=== PATIENT | female | born 1940 | race Caucasian/White ===

== ENCOUNTER 2017-05-13 09:53 | Emergency (ER) | payer MEDICARE, OTHER ==
[~2017-05-13] VITALS: Ht 160 cm; Wt 74.8 kg
[~2017-05-13 09:53] MED LIST: ASPIRIN EC81 MG PO; FISH OIL 1,0001 EAC2 NG; HYDROCHLOROTHIA25 MG PO; L-ARGININE1000 MG PO; LOSARTAN POTASS25 MG PO; MULTIVITAMINS1 EAC7 PO; TYLENOL EXTRA500 MG PO; VITAMIN C500 M1 PO; ZINC50 M1 PO
[2017-05-13] MEDS ORDERED: SIMVASTATIN10 MG PO (10:06)
[2017-05-13] MEDS ORDERED: PEPCID20 MG PO (12:19)
[2017-05-13] MEDS ORDERED: ZOFRAN ODT4 MG PO (12:19)
[2017-05-14] MEDS ORDERED: ALEVE PM CAPLE1 EACH PO (18:43)
[2017-05-28] MEDS ORDERED: CILOSTAZOL50 MG PO (14:09)
[2017-06-03] MEDS ORDERED: CARAFATE1 GM PO (09:07)
== END 2017-05-13 12:46 | disposition home or self-care (01) ==
LOC: ED 09:53
DX: K29.70 Gastritis, unspecified, without bleeding (principal); I10 Essential (primary) hypertension; J44.9 Chronic obstructive pulmonary disease, unspecified; F17.200 Nicotine dependence, unspecified, uncomplicated; Z88.8 Allergy status to other drugs, medicaments and biological substances; Z79.899 Other long term (current) drug therapy; Z85.038 Personal history of other malignant neoplasm of large intestine
CPT/HCPCS: 74177; 80053; 82271; 85025; 85610; 85730; 86850; 86900; 86901; 96374; 96375; 99284; J2405; J7120; Q9967

== ENCOUNTER 2017-05-14 08:22 | Inpatient (IN) | payer MEDICARE, OTHER ==
[~2017-05-14] VITALS: Ht 160 cm; Wt 76.4 kg
[~2017-05-14 08:22] MED LIST changes: +PEPCID20 MG PO; +SIMVASTATIN10 MG PO; +ZOFRAN ODT4 MG PO
--- NOTE | 2017-05-14 13:08 | EKG ---
[facility] [address] [place] [address] Signed Sinus rhythm with premature atrial complexes Rightward axis Nonspecific ST and T wave abnormality Abnormal ECG No previous ECGs available Confirmed by ELIZABETH COLON MD ([id number]) on 05/14/2017 1:08:40 PM Electronically Signed By: ELIZABETH COLON MD 05/14/17 1308 PATIENT NAME: IRINA ARNOLD Electrocardiogram DATE OF : 42 PHYSICIAN: ELIZABETH COLON MD REPORT #: [id number] REPORT IS CONFIDENTIAL AND NOT TO BE RELEASED WITHOUT AUTHORIZATION
[2017-05-14] MEDS ORDERED: ALEVE PM CAPLE1 EACH PO (18:43)
[2017-05-17] MEDS ORDERED: AMOX TR-K CLV1 EAC1 PO (12:35)
[2017-05-17] MEDS ORDERED: OMEPRAZOLE20 M1 PO (12:36)
[2017-05-17] MEDS ORDERED: SUCRALFATE1 GM PO (12:38)
[2017-05-28] MEDS ORDERED: CILOSTAZOL50 MG PO (14:09)
[2017-06-03] MEDS ORDERED: CARAFATE1 GM PO (09:07)
== END 2017-05-17 15:20 | disposition home or self-care (01) | DRG 177 ==
LOC: ED 08:22 → CCU 11:49 → MS 05-15 12:49
PROVIDERS: ADMIT Internal Medicine
DX: J69.0 Pneumonitis due to inhalation of food and vomit (principal); K29.01 Acute gastritis with bleeding; G93.41 Metabolic encephalopathy; J96.01 Acute respiratory failure with hypoxia; N17.9 Acute kidney failure, unspecified; L03.116 Cellulitis of left lower limb; I24.8 Other forms of acute ischemic heart disease; J13 Pneumonia due to Streptococcus pneumoniae; I10 Essential (primary) hypertension; E78.5 Hyperlipidemia, unspecified; F32.89 Other specified depressive episodes; Z79.1 Long term (current) use of non-steroidal anti-inflammatories (NSAID); E86.0 Dehydration; J44.9 Chronic obstructive pulmonary disease, unspecified; Z85.038 Personal history of other malignant neoplasm of large intestine; F17.210 Nicotine dependence, cigarettes, uncomplicated
CPT/HCPCS: 36415; 70450; 71045; 80053; 81001; 82607; 82728; 82746; 82803; 83540; 83605; 83690; 83735; 84425; 84466; 84484; 85025; 85045; 86850; 86900; 86901; 87045; 87046; 87070; 87205; 87493; 93005; 93010; 93306; 94640; 94668; 97110; 97116; 97162; 99406; J0295; J0456; J7030; J7040; J7050; J7120

== ENCOUNTER 2019-03-27 10:29 | Inpatient (IN) | payer MEDICARE, OTHER ==
[~2019-03-27] VITALS: Ht 160 cm; Wt 78.5 kg
--- OUTSIDE RECORDS SUMMARY | ~2019-03-27 | XMS | Clinical Summary ---
Demographics + + + | Address | [address] | | | [place] [address] | + + + | Home Phone | | + + + | Preferred Language | Unknown | + + + | Marital Status | | + + + | Muslim Affiliation | Unknown | + + + | Race | Unknown | + + + | Ethnic Group | Unknown | + + + Author + + + | Author | [email or web address] (Historical as of | | | 11-20-18) | + + + | Organization | [facility] (Historical as of | | | 11-20-18) | + + + | Address | Unknown | + + + | Phone | Unavailable | + + + Support + + +---------+ + | Name | Relationship | Address | Phone | + + +---------+ + | India Lockett | ECON | Unknown | | + + +---------+ + | Ike Arnold | ECON | Unknown | | + + +---------+ + | Froy Arnold | ECON | Unknown | | + + +---------+ + | Pasha Arnold | ECON | Unknown | | + + +---------+ + | Ann Pereira | ECON | Unknown | | + + +---------+ + Care Team Providers + +------+ + | Care Binder Stripper Machine Name | Role | Phone | + +------+ + | Jas Baird MD | PP | Unavailable | + +------+ + Allergies + + + + + + | Active Allergy | Reactions | Severity | Noted | Comments | | | | | Date | | + + + + + + | Cefazolin | Swelling, Rash | High | 08/08/19 | | | | | | 15 | | + + + + + + Current Medications + + +--------+---------+------+------+-------+ | Prescription | Sig. | Disp. | Refills | Star | End | Statu | | | | | | t | Date | s | | | | | | Date | | | + + +--------+---------+------+------+-------+ | Ascorbic Acid | Take 1,000 mg by | | | | | Activ | | (VITAMIN C) 1000 MG | mouth daily. | | | | | e | | tablet | | | | | | | + + +--------+---------+------+------+-------+ | zinc gluconate 50 | Take 50 mg by mouth | | | | | Activ | | MG tablet | daily. | | | | | e | + + +--------+---------+------+------+-------+ | Ballantine-3 Fatty | Take 4 tablets by | | | | | Activ | | Acids (FISH OIL) | mouth daily. | | | | | e | | 1000 MG CPDR | | | | | | | + + +--------+---------+------+------+-------+ | L-Arginine 500 MG | Take 4 tablets by | | | | | Activ | | CAPS | mouth daily. | | | | | e | + + +--------+---------+------+------+-------+ | losartan (COZAAR) | Take 1 tablet by | 60 | 11 | 11/04 | | Activ | | 25 MG tablet | mouth 2 (two) times | tablet | | 0/20 | | e | | | daily. | | | 15 | | | + + +--------+---------+------+------+-------+ Active Problems + + + | Problem | Noted Date | + + + | Proteinuria | 11/13/2014 | + + + | CKD (chronic kidney disease), stage III | 08/07/2014 | + + + | Anemia of chronic renal failure, stage 3 (moderate) ([facility]) | 08/07/2014 | + + + | Peripheral arterial disease (HCC) | 04/07/2013 | + + + | Ankle ulcer | 03/25/2013 | + + + | Gangrene of foot ([facility]) | 03/20/2013 | + + + | Essential hypertension | 03/20/2013 | + + + | History of colon cancer | 03/20/2013 | + + + | History of cerebral aneurysm repair | 03/20/2013 | + + + | Memory impairment | 03/20/2013 | + + + | History of tobacco abuse | 03/20/2013 | + + + Immunizations + + + + | Name | Dates Previously Given | Next Due | + + + + | Influenza Split | 03/21/2013 | | + + + + Family History + + +------+ + | Medical History | Relation | Name | Comments | + + +------+ + | Coronary art dis | Father | | | + + +------+ + | Diabetes type I | Father | | | + + +------+ + | COPD | Mother | | | + + +------+ + | Emphysema | Sister | | | + + +------+ + + +------+ + + | Relation | Name | Status | Comments | + +------+ + + | Father | | | | + +------+ + + | Mother | | | | + +------+ + + | Sister | | | | + +------+ + + Social History + +-------+ +--------+ + | Tobacco Use | Types | Packs/Day | Years | Date | | | | | Used | | + +-------+ +--------+ + | Former Smoker | | 0.5 | 55 | Quit: 04/06/2013 | + +-------+ +--------+ + + +---+---+---+ | Smokeless Tobacco: | | | | | Never Used | | | | + +---+---+---+ + + | Tobacco Cessation: Ready to Quit: No | + + + + +---------+ + | Alcohol Use | Drinks/We | oz/Week | Comments | | | ek | | | + + +---------+ + | No | | | | + + +---------+ + + + + | Sex Assigned at | Date Recorded | | | | + + + | Not on file | | + + + Last Filed Vital Signs + + + + | Vital Sign | Reading | Time Taken | + + + + | Blood Pressure | 146/86 | 11/13/2014 10:47 AM PDT | + + + + | Pulse | 98 | 11/13/2014 10:47 AM PDT | + + + + | Temperature | 36.8 C (98.3 F) | 11/13/2014 10:47 AM PDT | + + + + | Respiratory Rate | 18 | 07/11/2013 2:54 PM PDT | + + + + | Oxygen Saturation | 90% | 11/13/2014 10:47 AM PDT | + + + + | Inhaled Oxygen | - | - | | Concentration | | | + + + + | Weight | 73.9 kg (163 lb) | 11/13/2014 10:47 AM PDT | + + + + | Height | 160 cm (5' 3") | 11/13/2014 10:47 AM PDT | + + + + | Body Mass Index | 28.87 | 11/13/2014 10:47 AM PDT | + + + + Plan of Treatment + + + + + | Health Maintenance | Due Date | Last Done | Comments | + + + + + | Vaccine: | | | | | Dtap/Tdap/Td (1 - | 1 | | | | Tdap) | | | | + + + + + | Vaccine: Zoster (1 | | | | | of 2) | 2 | | | + + + + + | DEXA SCAN SCREENING | | | | | | 7 | | | + + + + + | Vaccine: | | | | | Pneumococcal 65+ | 7 | | | | Low/Medium Risk (1 | | | | | of 2 - PCV13) | | | | + + + + + | Vaccine: Influenza | | 03/21/2013 | | | (#1) | 9 | | | + + + + + Results Not on filefrom Last 3 Months Insurance + +--------+ +------+-------+ + | Payer | Benefi | Subscriber | Type | Phone | Address | | | t Plan | ID | | | | | | / | | | | | | | Group | | | | | + +--------+ +------+-------+ + | MEDICARE | MEDICA | [id number] | | | [address] | | | RE | | | | [place] [phone] | | | IP-OP | | | | | + +--------+ +------+-------+ + | COMMERCIAL OTHER | COMMER | [id number] | | | | | | CIAL | | | | | | | GENERI | | | | | | | C PLAN | | | | | + +--------+ +------+-------+ + + +--------+ +--------+ + + | Guarantor Name | Accoun | Relation to | Date | Phone | Billing Address | | | t Type | Patient | of | | | | | | | | | | + +--------+ +--------+ + + | JANET ARNOLD | Person | Self [birth year] | Home: | [address] | | | al/Fam | | 1941 | [phone] [place] | | | [place] | | | [phone] | [phone] | + +--------+ +--------+ + +
--- OUTSIDE RECORDS SUMMARY | ~2019-03-27 | XMS | Encounter Summary ---
Demographics + + + | Address | [address] | | | [place] [address] | + + + | Home Phone | | + + + | Preferred Language | Unknown | + + + | Marital Status | Unknown | + + + | Sikh Affiliation | Unknown | + + + | Race | Unknown | + + + | Ethnic Group | Unknown | + + + Author + + + | Author | [facility] | | | and [facility] | + + + | Organization | [facility] | | | and [place] | + + + | Address | Unknown | + + + | Phone | Unavailable | + + + Care Team Providers + +------+ + | Care Flame Burner Name | Role | Phone | + +------+ + | Jas Baird MD | PCP | | + +------+ + Encounter Details +--------+ + + + + | Date | Type | Department | Care Team | Description | +--------+ + + + + | 05/15/ | Orders Only | [facility] | Jas Baird | | | 2014 | | NEPHROLOGY [place] | MD [address] | | | | | [address] [facility] | [facility] | | | | | [address] [place], [place] | [place] [address] | | | | | [address] | [phone] | | | | | [phone] | | | +--------+ + + + + Social History + +-------+ +--------+------+ | Tobacco Use | Types | Packs/Day | Years | Date | | | | | Used | | + +-------+ +--------+------+ | Never Assessed | | | | | + +-------+ +--------+------+ + + + | Sex Assigned at | Date Recorded | | | | + + + | Not on file | | + + + + + + + | Job Start Date | Occupation | Industry | + + + + | Not on file | Not on file | Not on file | + + + + + + + + | Travel History | Travel Start | Travel End | + + + + + + | No recent travel history available. | + + documented as of this encounter Plan of Treatment Not on filedocumented as of this encounter Procedures + +--------+ + + + | Procedure Name | Priori | Date/Time | Associated Diagnosis | Comments | | | ty | | | | + +--------+ + + + | URINALYSIS WITH | Routin | 05/15/2014 | | Results for this | | MICROSCOPIC WITH | e | 12:00 AM | | procedure are in the | | CULTURE IF INDICATED | | PST | | results section. | + +--------+ + + + | COMPREHENSIVE | Routin | 05/15/2014 | | Results for this | | METABOLIC PANEL | e | 12:00 AM | | procedure are in the | | | | PST | | results section. | + +--------+ + + + documented in this encounter Results Urinalysis with Microscopic with Culture if Indicated (05/15/2014 12:00 AM PST) + + + + + + | Component | Value | Ref Range | Performed | Pathologist | | | | | At | Signature | + + + + + + | Color | Yellow | | EXTERNAL | | | | | | LAB | | + + + + + + | Clarity | Clear | | EXTERNAL | | | | | | LAB | | + + + + + + | Spec Grav, | 1.014 | 1.005 - 1.030 | EXTERNAL | | | Fluid | | | LAB | | + + + + + + | Leukocyte | Negative | | EXTERNAL | | | Esterase, | | | LAB | | | Urine | | | | | + + + + + + | Nitrite, | Negative | | EXTERNAL | | | Urine | | | LAB | | + + + + + + | Urobilinoge | Normal | | EXTERNAL | | | n, Urine | | | LAB | | + + + + + + | Total | Negative | | EXTERNAL | | | Protein | | | LAB | | + + + + + + | pH, Urine | 5 | 5 - 9 | EXTERNAL | | | | | | LAB | | + + + + + + | Blood, | Negative | | EXTERNAL | | | Urine | | | LAB | | + + + + + + | Ketones | Negative | | EXTERNAL | | | | | | LAB | | + + + + + + | Bilirubin, | Negative | | EXTERNAL | | | Urine | | | LAB | | + + + + + + | Glucose, | Negative | | EXTERNAL | | | Urine | | | LAB | | + + + + + + | WBC, UA | | | EXTERNAL | | | | | | LAB | | + + + + + + | RBC, UA | | | EXTERNAL | | | | | | LAB | | + + + + + + | Epithelial | | | EXTERNAL | | | Cells | | | LAB | | + + + + + + | Bacteria, | | | EXTERNAL | | | UA | | | LAB | | + + + + + + | HYALINE | | | EXTERNAL | | | CASTS UA | | | LAB | | + + + + + + + + | Specimen | + + | | + + + +---------+ + + | Performing | Address | City/State/Zipcode | Phone Number | | Organization | | | | + +---------+ + + | EXTERNAL LAB | | | | + +---------+ + + Comprehensive Metabolic Panel (05/15/2014 12:00 AM PST) + + + + + + | Component | Value | Ref Range | Performed | Pathologist | | | | | At | Signature | + + + + + + | Glucose, | 88 | 70 - 100 mg/dL | EXTERNAL | | | Fasting | | | LAB | | + + + + + + | BUN | 25 (A) | 6 - 23 mg/dL | EXTERNAL | | | | | | LAB | | + + + + + + | Creatinine | 1.37 (A) | 0.70 - 1.18 | EXTERNAL | | | | | mg/dL | LAB | | + + + + + + | BUN/Creatin | | | EXTERNAL | | | ine Ratio | | | LAB | | + + + + + + | Calcium | 9.1 | 8.4 - 10.2 | EXTERNAL | | | | | mg/dL | LAB | | + + + + + + | Protein, | 7.1 | 6.0 - 8.0 g/dL | EXTERNAL | | | Total | | | LAB | | + + + + + + | Albumin | 4.0 | 3.5 - 5.0 | EXTERNAL | | | | | | LAB | | + + + + + + | Globulin | 3.1 | 1.8 - 3.5 | EXTERNAL | | | | | | LAB | | + + + + + + | A/G Ratio | 1.3 | 1.1 - 2.4 | EXTERNAL | | | | | | LAB | | + + + + + + | Bilirubin | 0.4 | 0.0 - 1.2 mg/dL | EXTERNAL | | | Total | | | LAB | | + + + + + + | ALP, | 64 | 30 - 128 | EXTERNAL | | | External | | | LAB | | + + + + + + | ALT | 4 (A) | 7 - 52 U/L | EXTERNAL | | | | | | LAB | | + + + + + + | AST | 11 (A) | 13 - 39 U/L | EXTERNAL | | | | | | LAB | | + + + + + + | Na | 137 | 132 - 143 | EXTERNAL | | | | | mmol/L | LAB | | + + + + + + | K | 4.9 | 3.6 - 5.1 | EXTERNAL | | | | | mmol/L | LAB | | + + + + + + | Cl | 104 | 95 - 112 mmol/L | EXTERNAL | | | | | | LAB | | + + + + + + | CO2 | 23 | 19 - 31 mmol/L | EXTERNAL | | | | | | LAB | | + + + + + + | Anion Gap | 14.9 | 7 - 21 mmol/L | EXTERNAL | | | | | | LAB | | + + + + + + | Estimated | 38 | mg/dL | EXTERNAL | | | GFR | | | LAB | | + + + + + + + + | Specimen | + + | Blood specimen | | (specimen) | + + + +---------+ + + | Performing | Address | City/State/Zipcode | Phone Number | | Organization | | | | + +---------+ + + | EXTERNAL LAB | | | | + +---------+ + + documented in this encounter Visit Diagnoses Not on filedocumented in this encounter Additional Health Concerns + + + + | Infection | Noted Time | Resolved Time | + + + + | Methicillin-resistant Staphylococcus aureus | 04/26/2013 12:00 AM | | | | PDT | | + + + + documented as of this encounter"
--- OUTSIDE RECORDS SUMMARY | ~2019-03-27 | XMS | Encounter Summary ---
Demographics + + + | Address | [address] | | | [place] [address] | + + + | Home Phone | | + + + | Preferred Language | Unknown | + + + | Marital Status | Unknown | + + + | Taoist Affiliation | Unknown | + + + | Race | Unknown | + + + | Ethnic Group | Unknown | + + + Author + + + | Author | [facility] | | | and [place] | + + + | Organization | [facility] | | | and [place] | + + + | Address | Unknown | + + + | Phone | Unavailable | + + + Care Team Providers + +------+ + | Care Seamer Operator Name | Role | Phone | + +------+ + PCP | Unavailable | + +------+ + Encounter Details +--------+ + + + + | Date | Type | Department | Care Team | Description | +--------+ + + + + | 07/27/ | Hospital | [facility] | | | | 2002 - | Encounter | [facility] | | | | | | CENTER [address] | | | | 12/01/ | | [place] | | | | 2002 | | [address] | | | | | | [phone] | | | +--------+ + + + [...]
--- OUTSIDE RECORDS SUMMARY | ~2019-03-27 | XMS | Encounter Summary ---
Demographics + + + | Address | [address] | | | [place] [address] | + + + | Home Phone | | + + + | Preferred Language | Unknown | + + + | Marital Status | Unknown | + + + | Muslim Affiliation | Unknown | + + + | Race | Unknown | + + + | Ethnic Group | Unknown | + + + Author + + + | Author | [facility] | | | and [place] | + + + | Organization | [facility] | | | and [place] | + + + | Address | Unknown | + + + | Phone | Unavailable | + + + Care Team Providers + +------+ + | Care Census Enumerator Name | Role | Phone | + +------+ + PCP | Unavailable | + +------+ + Encounter Details +--------+ + + + + | Date | Type | Department | Care Team | Description | +--------+ + + + + | 03/23/ | Hospital | [facility] | | | | 2001 - | Encounter | [facility] | | | | | | CENTER [address] | | | | 07/25/ | | [place] | | | | 2002 | | [address] | | | | | | [phone] | | | +--------+ + + + [...]
--- OUTSIDE RECORDS SUMMARY | ~2019-03-27 | XMS | Encounter Summary ---
Demographics + + + | Address | [address] | | | [place] [address] | + + + | Home Phone | | + + + | Preferred Language | Unknown | + + + | Marital Status | Unknown | + + + | Mandaen Affiliation | Unknown | + + + | Race | Unknown | + + + | Ethnic Group | Unknown | + + + Author + + + | Author | [facility] | | | and [place] | + + + | Organization | [facility] | | | and [place] | + + + | Address | Unknown | + + + | Phone | Unavailable | + + + Care Team Providers + +------+ + | Care Oil Separator Name | Role | Phone | + +------+ + PCP | Unavailable | + +------+ + Encounter Details +--------+ + + + + | Date | Type | Department | Care Team | Description | +--------+ + + + + | 10/13/ | Emergency | [facility] | [place], | | | 2016 | | [facility]ICAL [facility]ENTER | MD [facility] | | | | | EM[facility]Y CENTER | [place] [address] | | | | | [address] | [phone] | | | | | [place], [place] | | | | | | [address] | | | | | | [phone] | | | +--------+ + + + [...]
--- OUTSIDE RECORDS SUMMARY | ~2019-03-27 | XMS | Encounter Summary ---
Demographics + + + | Address | [address] | | | [place] [address] | + + + | Home Phone | | + + + | Preferred Language | Unknown | + + + | Marital Status | Unknown | + + + | Voodoo Affiliation | Unknown | + + + | Race | Unknown | + + + | Ethnic Group | Unknown | + + + Author + + + | Author | [facility] | | | and [facility] | + + + | Organization | [facility] | | | and [place] | + + + | Address | Unknown | + + + | Phone | Unavailable | + + + Care Team Providers + +------+ + | Care Entertainment Usher Name | Role | Phone | + +------+ + | Jas Baird MD | PCP | | + +------+ + Encounter Details +--------+ + + + + | Date | Type | Department | Care Team | Description | +--------+ + + + + | 07/26/ | Orders Only | [facility] | Rudy Khoury MD | | | 2014 | | NEPHROLOGY [place] | [address] [place] | | | | | [address] [place] | [address] [place], [place] | | | | | [address] [place], [place] | [address] | | | | | [address] | | | | | | [phone] | | | +--------+ + + + [...] | + +--------+ + + + | EXTERNAL LAB: CBC | Routin | 07/26/2014 | | Results for this | | | e | 12:00 AM | | procedure are in the | | | | PDT | | results section. | + +--------+ + + + | URINALYSIS WITH | Routin | 07/26/2014 | | Results for this | | MICROSCOPIC WITH | e | 12:00 AM | | procedure are in the | | CULTURE IF INDICATED | | PDT | | results section. | + +--------+ + + + | MICROALBUMIN/CREATIN | Routin | 07/26/2014 | | Results for this | | INE RATIO, URINE | e | 12:00 AM | | procedure are in the | | TEST | | PDT | | results section. | + +--------+ + + + | URIC ACID | Routin | 07/26/2014 | | Results for this | | | e | 12:00 AM | | procedure are in the | | | | PDT | | results section. | + +--------+ + + + | MAGNESIUM | Routin | 07/26/2014 | | Results for this | | | e | 12:00 AM | | procedure are in the | | | | PDT | | results section. | + +--------+ + + + | BASIC METABOLIC | Routin | 07/26/2014 | | Results for this | | PANEL | e | 12:00 AM | | procedure are in the | | | | PDT | | results section. | + +--------+ + + + documented in this encounter Results Urinalysis with Microscopic with Culture if Indicated (07/26/2014 12:00 AM PDT) + + + + + + | [...] + + + | Spec Grav, | 1.005 | 1.005 - 1.030 | EXTERNAL | | | Fluid | | | LAB | | + + + + + + | Leukocyte | 1+Comment: 25 | | EXTERNAL | | | Esterase, [...] | | | + +---------+ + + Microalbumin/Creatinine Ratio, Urine (07/26/2014 12:00 AM PDT) + +-------+ + + + | Component | Value | Ref Range | Performed | Pathologist | | | | | At | Signature | + +-------+ + + + | ALBUMIN/CRE | 29.2 | 0 - 30 | EXTERNAL | | | ATININE | | | LAB | | | RATIO.URINE | | | | | | .ORD.MG/G | | | | | | (REID) | | | | | | | | | | | | | | | | | + +-------+ + + + + + | Specimen | + + | Urine specimen | | (specimen) | + + + +---------+ + + | Performing | Address | City/State/Zipcode | Phone Number | | Organization | | | | + +---------+ + + | EXTERNAL LAB | | | | + +---------+ + + External Lab: CBC (07/26/2014 12:00 AM PDT) + + + + + + | Component | Value | Ref Range | Performed | Pathologist | | | | | At | Signature | + + + + + + | WBC | 7.3 | 4.5 - 11.0 10 | EXTERNAL | | | | | | LAB | | + + + + + + | RED CELL | 3.73 (A) | 3.8 - 5.1 10 | EXTERNAL | | | COUNT | | | LAB | | + + + + + + | Hgb | 11.9 (A) | 12.0 - 16.0 | EXTERNAL | | | | | g/dL | LAB | | + + + + + + | Hematocrit, | 37.4 | 35 - 45 % | EXTERNAL | | | POC | | | LAB | | + + + + + + | MCV | 100.4 (A) | 81 - 99 fL | EXTERNAL | | | | | | LAB | | + + + + + + | MCH | 32 | 27 - 33 pg | EXTERNAL | | | | | | LAB | | + + + + + + | MCHC | 32 | 30 - 36 g/dL | EXTERNAL | | | | | | LAB | | + + + + + + | Platelet | 258 | 140 - 440 K/ L | EXTERNAL | | | Count | | | LAB | | | Plasma | | | | | + + + + + + | RDW-CV | 14.1 | 10.5 - 15.0 % | EXTERNAL | | | | | | LAB | | + + + + + + | MPV | | fL | EXTERNAL | | | | | | LAB | | + + + + + + | Differentia | Auto | | EXTERNAL | | | l Type | | | LAB | | + + + + + + | % Segmented | 72.6 | 39 - 80 % | EXTERNAL | | | | | | LAB | | | Neutrophils | | | | | + + + + + + | % | 18.8 (A) | 24 - 44 % | EXTERNAL | | | Lymphocytes | | | LAB | | + + + + + + | % Monocytes | 7.4 | 0 - 12 % | EXTERNAL | | | | | | LAB | | + + + + + + | % | 0.3 | 0 - 6 % | EXTERNAL | | | Eosinophils | | | LAB | | + + + + + + | % Basophils | 0.9 | 0 - 2 % | EXTERNAL | | | | | | LAB | | + + + + + + | Absolute | | / L | EXTERNAL | | | Segmented | | | LAB | | | Neutrophils | | | | | + + + + + + | Absolute | | / L | EXTERNAL | | | Lymphocytes | | | LAB | | + + + + + + | Absolute | | / L | EXTERNAL | | | Monocytes | | | LAB | | + + + + + + | Absolute | | / L | EXTERNAL | | | Eosinophils | | | LAB | | + + + + + + | Absolute | | / L | EXTERNAL | | | Basophils | | | LAB | | + + + + + + + + | Specimen | + + | Blood specimen | | (specimen) | + + + +---------+ + + | Performing | Address | City/State/Zipcode | Phone Number | | Organization | | | | + +---------+ + + | EXTERNAL LAB | | | | + +---------+ + + Uric Acid (07/26/2014 12:00 AM PDT) + +-------+ + + + | Component | Value | Ref Range | Performed | Pathologist | | | | | At | Signature | + +-------+ + + + | Uric Acid | 4.2 | 2.3 - 6.6 | EXTERNAL | | | | | | LAB | | + +-------+ + + + + + | Specimen | + + | Blood specimen | | (specimen) | + + + +---------+ + + | Performing | Address | City/State/Zipcode | Phone Number | | Organization | | | | + +---------+ + + | EXTERNAL LAB | | | | + +---------+ + + Magnesium (07/26/2014 12:00 AM PDT) + +-------+ + + + | Component | Value | Ref Range | Performed | Pathologist | | | | | At | Signature | + +-------+ + + + | Magnesium | 2.1 | 1.7 - 2.5 mg/dL | EXTERNAL | | | | | | LAB | | + +-------+ + + + + + | Specimen | + + | Blood specimen | | (specimen) | + + + +---------+ + + | Performing | Address | City/State/Zipcode | Phone Number | | Organization | | | | + +---------+ + + | EXTERNAL LAB | | | | + +---------+ + + Basic Metabolic Panel (07/26/2014 12:00 AM PDT) + + + + + + | Component | Value | Ref Range | Performed | Pathologist | | | | | At | Signature | + + + + + + | Glucose, | 90 | 70 - 100 mg/dL | EXTERNAL | | | Fasting | | | LAB | | + + + + + + | BUN | 26 (A) | 6 - 23 mg/dL | EXTERNAL | | | | | | LAB | | + + + + + + | Creatinine | 1.42 (A) | 0.70 - 1.18 | EXTERNAL | | | | | mg/dL | LAB | | + + + + + + | BUN/Creatin | 18.3 | 6.0 - 28.6 | EXTERNAL | | | ine Ratio | | | LAB | | + + + + + + | Calcium | 9.2 | 8.4 - 10.2 | EXTERNAL | | | | | mg/dL | LAB | | + + + + + + | Na | 135 | 132 - 143 | EXTERNAL | | | | | mmol/L | LAB | | + + + + + + | K | 4.6 | 3.6 - 5.1 | EXTERNAL | | | | | mmol/L | LAB | | + + + + + + | Cl | 99 | 95 - 112 mmol/L | EXTERNAL | | | | | | LAB | | + + + + + + | CO2 | 25 | 19 - 31 mmol/L | EXTERNAL | | | | | | LAB | | + + + + + + | Anion Gap | 15.6 | 7 - 21 mmol/L | EXTERNAL | | | | | | LAB | | + + + + + + | Estimated | 36 | mg/dL | EXTERNAL | | | [...]
--- OUTSIDE RECORDS SUMMARY | ~2019-03-27 | XMS | Encounter Summary ---
Demographics + + + | Address | [address] | | | [place] [address] | + + + | Home Phone | | + + + | Preferred Language | Unknown | + + + | Marital Status | Unknown | + + + | Oriental Orthodox Affiliation | Unknown | + + + | Race | Unknown | + + + | Ethnic Group | Unknown | + + + Author + + + | Author | [facility] | | | and [place] | + + + | Organization | [facility] | | | and [place] | + + + | Address | Unknown | + + + | Phone | Unavailable | + + + Care Team Providers + +------+ + | Care Electrical Tech Name | Role | Phone | + +------+ + PCP | Unavailable | + +------+ + Encounter Details +--------+ + + + + | Date | Type | Department | Care Team | Description | +--------+ + + + + | 02/10/ | Hospital | [facility] | Tish Campbell | | | 2007 | Encounter | MED CTR EMERGENCY | Sesar Carey MD [address] | | | | | [place] [address] | [facility] | | | | | [place] | [place] [address] | | | | | [address] | [phone] | | | | | [phone] | | | +--------+ + + + [...]
--- OUTSIDE RECORDS SUMMARY | ~2019-03-27 | XMS | Encounter Summary ---
Demographics + + + | Address | [address] | | | [place] [address] | + + + | Home Phone | | + + + | Preferred Language | Unknown | + + + | Marital Status | Unknown | + + + | Confucianism Affiliation | Unknown | + + + | Race | Unknown | + + + | Ethnic Group | Unknown | + + + Author + + + | Author | [facility] | | | and [place] | + + + | Organization | [facility] | | | and [place] | + + + | Address | Unknown | + + + | Phone | Unavailable | + + + Care Team Providers + +------+ + | Care Outdoor Studies Professor Name | Role | Phone | + +------+ + PCP | Unavailable | + +------+ + Encounter Details +--------+ + + + + | Date | Type | Department | Care Team | Description | +--------+ + + + + | 12/15/ | Hospital | [facility] | | | | 2002 - | Encounter | MED CTR CANCER | | | | | | CENTER [facility] [address] [place] | | | | 03/26/ | | [place] | | | | 2002 | | [address] | | | | | | [phone] | | | +--------+ + + + [...]
--- OUTSIDE RECORDS SUMMARY | ~2019-03-27 | XMS | Encounter Summary ---
Demographics + + + | Address | [address] | | | [place] [address] | + + + | Home Phone | | + + + | Preferred Language | Unknown | + + + | Marital Status | Unknown | + + + | Jewish Affiliation | Unknown | + + + | Race | Unknown | + + + | Ethnic Group | Unknown | + + + Author + + + | Author | [facility] | | | and [place] | + + + | Organization | [facility] | | | and [place] | + + + | Address | Unknown | + + + | Phone | Unavailable | + + + Care Team Providers + +------+ + | Care Sandwich Maker Name | Role | Phone | + +------+ + PCP | Unavailable | + +------+ + Encounter Details +--------+ + + + + | Date | Type | Department | Care Team | Description | +--------+ + + + + | 12/15/ | Hospital | [facility] | | | | 2002 - | Encounter | MED CTR CANCER | | | | | | CENTER [facility] [address] [place] | | | | 03/26/ | | [place] | | | | 2002 | | [address] | | | | | | [phone] | | | +--------+ + + + [...]
--- OUTSIDE RECORDS SUMMARY | ~2019-03-27 | XMS | Encounter Summary ---
Demographics + + + | Address | [address] | | | [place] [address] | + + + | Home Phone | | + + + | Preferred Language | Unknown | + + + | Marital Status | Unknown | + + + | Pentecostalism Affiliation | Unknown | + + + | Race | Unknown | + + + | Ethnic Group | Unknown | + + + Author + + + | Author | [facility] | | | and [facility] | + + + | Organization | [facility] | | | and [place] | + + + | Address | Unknown | + + + | Phone | Unavailable | + + + Care Team Providers + +------+ + | Care Shower Enclosure Installer Name | Role | Phone | + +------+ + | Jas Baird MD | PCP | | + +------+ + Encounter Details +--------+ + + + + | Date | Type | Department | Care Team | Description | +--------+ + + + + | 05/15/ | Orders Only | [facility] | Jas Baird | | | 2014 | | NEPHROLOGY [place] | MD [address] | | | | | [address] [facility] | [facility] | | | | | [address] [place], [place] | [place] [address] | | | | | [address] | [phone] | | | | | [phone] | | | +--------+ + + + [...]
--- OUTSIDE RECORDS SUMMARY | ~2019-03-27 | XMS | Encounter Summary ---
Demographics + + + | Address | [address] | | | [place] [address] | + + + | Home Phone | | + + + | Preferred Language | Unknown | + + + | Marital Status | Unknown | + + + | Protestant Affiliation | Unknown | + + + | Race | Unknown | + + + | Ethnic Group | Unknown | + + + Author + + + | Author | [facility] | | | and [place] | + + + | Organization | [facility] | | | and [place] | + + + | Address | Unknown | + + + | Phone | Unavailable | + + + Care Team Providers + +------+ + | Care Basket Operator Name | Role | Phone | + +------+ + PCP | Unavailable | + +------+ + Encounter Details +--------+ + + + + | Date | Type | Department | Care Team | Description | +--------+ + + + + | 02/10/ | Hospital | [facility] | Tish Campbell | | | 2007 | Encounter | MED CTR EMERGENCY | Sesar Carey MD [address] | | | | | [place] [address] | [facility] | | | | | [place] | [place] [address] | | | | | [address] | [phone] | | | | | [phone] | | | +--------+ + + + [...]
--- OUTSIDE RECORDS SUMMARY | ~2019-03-27 | XMS | Encounter Summary ---
Demographics + + + | Address | [address] | | | [place] [address] | + + + | Home Phone | | + + + | Preferred Language | Unknown | + + + | Marital Status | Unknown | + + + | Restorationist Affiliation | Unknown | + + + | Race | Unknown | + + + | Ethnic Group | Unknown | + + + Author + + + | Author | [facility] | | | and [place] | + + + | Organization | [facility] | | | and [place] | + + + | Address | Unknown | + + + | Phone | Unavailable | + + + Care Team Providers + +------+ + | Care Academic Interventionist Name | Role | Phone | + +------+ + PCP | Unavailable | + +------+ + Encounter Details +--------+ + + + + | Date | Type | Department | Care Team | Description | +--------+ + + + + | 03/19/ | Hospital | [facility] | | | | 2003 - | Encounter | MED CTR GENERIC OP | | | | | | CONV DEPT [address] | | | | 06/17/ | | [place], | | | | 2004 | | [place] [address] | | | | | | [phone] | | | +--------+ + + + [...]
--- OUTSIDE RECORDS SUMMARY | ~2019-03-27 | XMS | Encounter Summary ---
Demographics + + + | Address | [address] | | | [place] [address] | + + + | Home Phone | | + + + | Preferred Language | Unknown | + + + | Marital Status | Unknown | + + + | Orthodox Affiliation | Unknown | + + + | Race | Unknown | + + + | Ethnic Group | Unknown | + + + Author + + + | Author | [facility] | | | and [place] | + + + | Organization | [facility] | | | and [place] | + + + | Address | Unknown | + + + | Phone | Unavailable | + + + Care Team Providers + +------+ + | Care Wholesaler Name | Role | Phone | + +------+ + PCP | Unavailable | + +------+ + Encounter Details +--------+ + + + + | Date | Type | Department | Care Team | Description | +--------+ + + + + | 12/15/ | Hospital | [facility] | | | | 2002 - | Encounter | MED CTR CANCER | | | | | | CENTER [facility] [address] | | | | 03/26/ | | [place] | | | | 2002 | | [address] | | | | | [phone] | | | +--------+ + + + [...]
--- OUTSIDE RECORDS SUMMARY | ~2019-03-27 | XMS | Encounter Summary ---
Demographics + + + | Address | [address] | | | [place] [address] | + + + | Home Phone | | + + + | Preferred Language | Unknown | + + + | Marital Status | Unknown | + + + | Restoration Affiliation | Unknown | + + + | Race | Unknown | + + + | Ethnic Group | Unknown | + + + Author + + + | Author | [facility] | | | and [facility] | + + + | Organization | [facility] | | | and [place] | + + + | Address | Unknown | + + + | Phone | Unavailable | + + + Care Team Providers + +------+ + | Care Cutter Barrel Drum Name | Role | Phone | + +------+ + | Jas Baird MD | PCP | | + +------+ + Encounter Details +--------+ + + + + | Date | Type | Department | Care Team | Description | +--------+ + + + + | 04/05/ | Orders Only | [facility] | Conversion | | | 2012 | | INFECTIOUS DISEASE | Transaction, | | | | | [address] [facility] | Provider Unknown | | | | | [place], [place] | [phone] | | | | | [address] | | | | | | [phone] | | | +--------+ + + + [...] | + +--------+ + + + | CBC WITH MANUAL | Routin | 04/05/2013 | | Results for this | | DIFFERENTIAL | e | 12:00 AM | | procedure are in the | | | | PST | | results section. | + +--------+ + + + | SEDIMENTATION RATE, | Routin | 04/05/2013 | | Results for this | | AUTOMATED | e | 12:00 AM | | procedure are in the | | | | PST | | results section. | + +--------+ + + + | C-REACTIVE PROTEIN | Routin | 04/05/2013 | | Results for this | | | e | 12:00 AM | | procedure are in the | | | | PST | | results section. | + +--------+ + + + documented in this encounter Results Sedimentation rate, automated (04/05/2013 12:00 AM PST) + +-------+ + + + | Component | Value | Ref Range | Performed | Pathologist | | | | | At | Signature | + +-------+ + + + | Sed Rate | 65 | | EXTERNAL | | | | [...] | | | + +---------+ + + CBC with Manual Differential (04/05/2013 12:00 AM PST) + +-------+ + + + | Component | Value | Ref Range | Performed | Pathologist | | | | | At | Signature | + +-------+ + + + | WBC | 7.1 | 10 | EXTERNAL | | | | | | LAB | | + +-------+ + + + | RED CELL | 3.56 | 10 | EXTERNAL | | | COUNT | | | LAB | | + +-------+ + + + | Hgb | 12.2 | g/dL | EXTERNAL | | | | | | LAB | | + +-------+ + + + | Hematocrit, | 37.2 | % | EXTERNAL | | | POC | | | LAB | | + +-------+ + + + | MCV | 104.5 | fL | EXTERNAL | | | | | | LAB | | + +-------+ + + + | MCH | 34 | pg | EXTERNAL | | | | | | LAB | | + +-------+ + + + | MCHC | 33 | g/dL | EXTERNAL | | | | | | LAB | | + +-------+ + + + | RDW-CV | 19.3 | % | EXTERNAL | | | | | | LAB | | + +-------+ + + + | Platelet | 419 | K/ L | EXTERNAL | | | Count | | | LAB | | | Plasma | | | | | + +-------+ + + + | MPV | | fL | EXTERNAL | | | | | | LAB | | + +-------+ + + + | % Segmented | 74.7 | % | EXTERNAL | | | | | | LAB | | | Neutrophils | | | | | + +-------+ + + + | % | 12.5 | % | EXTERNAL | | | Lymphocytes | | | LAB | | + +-------+ + + + | % Monocytes | 10.1 | % | EXTERNAL | | | | | | LAB | | + +-------+ + + + | % | 1.1 | % | EXTERNAL | | | Eosinophils | | | LAB | | + +-------+ + + + | % Basophils | 1.6 | % | EXTERNAL | | | | | | LAB | | + +-------+ + + + | Absolute | | / L | EXTERNAL | | | Neutrophils | | | LAB | | + +-------+ + + + | Absolute | | / L | EXTERNAL | | | Lymphocytes | | | LAB | | + +-------+ + + + | Absolute | | / L | EXTERNAL | | | Monocytes | | | LAB | | + +-------+ + + + | Absolute | | / L | EXTERNAL | | | Eosinophils | | | LAB | | + +-------+ + + + | Absolute | | [...] | | | + +---------+ + + C-Reactive Protein (04/05/2013 12:00 AM PST) + +-------+ + + + | Component | Value | Ref Range | Performed | Pathologist | | | | | At | Signature | + +-------+ + + + | CRP | 29.7 | mg/dL | EXTERNAL | | | | [...]
--- OUTSIDE RECORDS SUMMARY | ~2019-03-27 | XMS | Encounter Summary ---
Demographics + + + | Address | [address] | | | [place] [address] | + + + | Home Phone | | + + + | Preferred Language | Unknown | + + + | Marital Status | Unknown | + + + | Latter Day Affiliation | Unknown | + + + | Race | Unknown | + + + | Ethnic Group | Unknown | + + + Author + + + | Author | [facility] | | | and [place] | + + + | Organization | [facility] | | | and [place] | + + + | Address | Unknown | + + + | Phone | Unavailable | + + + Care Team Providers + +------+ + | Care Manufacturer Name | Role | Phone | + +------+ + PCP | Unavailable | + +------+ + Encounter Details +--------+ + + + + | Date | Type | Department | Care Team | Description | +--------+ + + + + | 02/10/ | Hospital | [facility] | Tish Campbell | | | 2007 | Encounter | MED CTR EMERGENCY | Sesar Carey MD [address] | | | | | [place] [address] | [facility] | | | | | [place] | [place] [address] | | | | | [address] | [phone] | | | | | [phone] | | | +--------+ + + + [...]
--- OUTSIDE RECORDS SUMMARY | ~2019-03-27 | XMS | Encounter Summary ---
Demographics + + + | Address | [address] | | | [place] [address] | + + + | Home Phone | | + + + | Preferred Language | Unknown | + + + | Marital Status | Unknown | + + + | Congregation Affiliation | Unknown | + + + | Race | Unknown | + + + | Ethnic Group | Unknown | + + + Author + + + | Author | [facility] | | | and [facility] | + + + | Organization | [facility] | | | and [place] | + + + | Address | Unknown | + + + | Phone | Unavailable | + + + Care Team Providers + +------+ + | Care Picu Nurse Name | Role | Phone | + +------+ + | Jas Baird MD | PCP | | + +------+ + Encounter Details +--------+ + + + + | Date | Type | Department | Care Team | Description | +--------+ + + + + | 04/07/ | Orders Only | [facility] | Conversion | | | 2013 | | INFECTIOUS DISEASE | Transaction, | | | | | [address] [facility] | Provider Unknown | | | | | [place], [place] | [phone] | | | | | [address] | | | | | | [phone] | | | +--------+ + + + [...] + | SEDIMENTATION RATE, | Routin | 04/07/2013 | | Results for this | | AUTOMATED | e | 12:00 AM | | procedure are in the | | | | PST | | results section. | + +--------+ + + + | C-REACTIVE PROTEIN | Routin | 04/07/2013 | | Results for this | | | e | 12:00 AM | | procedure are in the | | | | PST | | results section. | + +--------+ + + + | BASIC METABOLIC | Routin | 04/07/2013 | | Results for this | | PANEL | e | 12:00 AM | | procedure are in the | | | | PST | | results section. | + +--------+ + + + documented in this encounter Results Sedimentation rate, automated (04/07/2013 12:00 AM PST) + +-------+ + + + | Component | Value | Ref Range | Performed | Pathologist | | | | | At | Signature | + +-------+ + + + | Sed Rate | 59 | | EXTERNAL | | | | [...] | + +---------+ + + C-Reactive Protein (04/07/2013 12:00 AM PST) + +-------+ + + + | Component | Value | Ref Range | Performed | Pathologist | | | | | At | Signature | + +-------+ + + + | CRP | 18.9 | mg/dL | EXTERNAL | | | [...] + +---------+ + + Basic Metabolic Panel (04/07/2013 12:00 AM PST) + +-------+ + + + | Component | Value | Ref Range | Performed | Pathologist | | | | | At | Signature | + +-------+ + + + | Glucose, | 109 | mg/dL | EXTERNAL | | | Fasting | | | LAB | | + +-------+ + + + | BUN | 16 | mg/dL | EXTERNAL | | | | | | LAB | | + +-------+ + + + | Creatinine | 1.27 | mg/dL | EXTERNAL | | | | | | LAB | | + +-------+ + + + | BUN/Creatin | 12.6 | | EXTERNAL | | | ine Ratio | | | LAB | | + +-------+ + + + | Calcium | 9.0 | mg/dL | EXTERNAL | | | | | | LAB | | + +-------+ + + + | Na | 133 | mmol/L | EXTERNAL | | | | | | LAB | | + +-------+ + + + | K | 4.5 | mmol/L | EXTERNAL | | | | | | LAB | | + +-------+ + + + | Cl | 91 | mmol/L | EXTERNAL | | | | | | LAB | | + +-------+ + + + | CO2 | 35 | mmol/L | EXTERNAL | | | | | | LAB | | + +-------+ + + + | Anion Gap | 11.5 | mmol/L | EXTERNAL | | | | | | LAB | | + +-------+ + + + | Estimated | 41 | mg/dL | EXTERNAL | | | [...]
--- OUTSIDE RECORDS SUMMARY | ~2019-03-27 | XMS | Encounter Summary ---
Demographics + + + | Address | [address] | | | [place] [address] | + + + | Home Phone [...] Author + + + | Author | [facility] | | | and [facility] | + + + | Organization | [facility] | | | and [place] | + + + | Address | Unknown | + + + | Phone | Unavailable | + + + Care Team Providers + +------+ + | Care Lacquer Machine Feeder Name | Role | Phone | + +------+ + | Jas Baird MD | PCP | | + +------+ + Encounter Details +--------+ + + + + | Date | Type | Department | Care Team | Description | +--------+ + + + + | 07/26/ | Orders Only | [facility] | Rudy Khoury MD | | | 2014 | | NEPHROLOGY [place] | [address] [place] | | | | | [address] [place] | [address] [place], [place] | | | | | [address] [place], [place] | [address] | | | | | [address] | | | | | | [phone] | | | +--------+ + + + [...]
--- OUTSIDE RECORDS SUMMARY | ~2019-03-27 | XMS | Clinical Summary ---
Demographics + + + | Address | [address] | | | [place] [address] | + + + | Home Phone | | + + + | Preferred Language | Unknown | + + + | Marital Status | | + + + | Advent Affiliation | Unknown | + + + | Race | Unknown | + + + | Ethnic Group | Unknown | + + + Author + + + | Author | [facility] (Historical as of | | | 11-20-18) | + + + | Organization | [facility] (Historical as of | | | 11-20-18) [...] Team Providers + +------+ + | Care Phlebotomist Lab Assistant Name | Role | Phone | + [...] | e | + + +--------+---------+------+------+-------+ | Dateland-3 Fatty | Take 4 tablets by | [...] of chronic renal failure, stage 3 (moderate) ([facility]) | 08/07/2014 | + + + | Peripheral arterial disease (HCC) | 04/07/2013 | + + + | Ankle ulcer | 03/25/2013 | + + + | Gangrene of foot ([facility]) | 03/20/2013 | + + + | [...] +------+-------+ + | MEDICARE | MEDICA | [id number] | | | [address] | | | RE | | | | [place] [address] | | | IP-OP | | | | | + +--------+ +------+-------+ + | COMMERCIAL OTHER | COMMER | [id number] | | | | | | CIAL [...] | | | margi | | | [phone] | [phone] | + +--------+ +--------+ + +
--- OUTSIDE RECORDS SUMMARY | ~2019-03-27 | XMS | Encounter Summary ---
Demographics + + + | Address | [address] | | | [place] [address] | + + + | Home Phone | | + + + | Preferred Language | Unknown | + + + | Marital Status | Unknown | + + + | Mosque Affiliation | Unknown | + + + | Race | Unknown | + + + | Ethnic Group | Unknown | + + + Author + + + | Author | [facility] | | | and [place] | + + + | Organization | [facility] | | | and [place] | + + + | Address | Unknown | + + + | Phone | Unavailable | + + + Care Team Providers + +------+ + | Care Stopper Maker Name | Role | Phone | + +------+ + PCP | Unavailable | + +------+ + Encounter Details +--------+ + + + + | Date | Type | Department | Care Team | Description | +--------+ + + + + | 10/13/ | Emergency | [facility] | Daniel Pollock, | | | 2016 | | MEDICAL CENTER | [address] | | | | | EMERGENCY CENTER | [place] [address] | | | | | [address] | [phone] | | | | | [place], [place] | | | | | | [address] | | | | | | [phone] | | | +--------+ + + + [...]
--- OUTSIDE RECORDS SUMMARY | ~2019-03-27 | XMS | Encounter Summary ---
Demographics + + + | Address | [address] | | | [place] [address] | + + + | Home Phone | | + + + | Preferred Language | Unknown | + + + | Marital Status | Unknown | + + + | Confucianist Affiliation | Unknown | + + + | Race | Unknown | + + + | Ethnic Group | Unknown | + + + Author + + + | Author | [facility] | | | and [place] | + + + | Organization | [facility] | | | and [place] | + + + | Address | Unknown | + + + | Phone | Unavailable | + + + Care Team Providers + +------+ + | Care Administrative Services Officer Name | Role | Phone | + +------+ + PCP | Unavailable | + +------+ + Encounter Details +--------+ + + + + | Date | Type | Department | Care Team | Description | +--------+ + + + + | 10/13/ | Emergency | [facility] | Daniel Pollock, | | | 2016 | | MEDICAL CENTER | [address] | | | | | EMERGENCY CENTER | [place] [address] | | | | | [address] | [phone] | | | | | [place], [place] | | | | | | [address] | | | | | | [phone] | | | +--------+ + + + [...]
--- OUTSIDE RECORDS SUMMARY | ~2019-03-27 | XMS | Encounter Summary ---
Demographics + + + | Address | [address] | | | [place] [address] | + + + | Home Phone | | + + + | Preferred Language | Unknown | + + + | Marital Status | Unknown | + + + | Congregational Affiliation | Unknown | + + + | Race | Unknown | + + + | Ethnic Group | Unknown | + + + Author + + + | Author | [facility] | | | and [place] | + + + | Organization | [facility] | | | and [place] | + + + | Address | Unknown | + + + | Phone | Unavailable | + + + Care Team Providers + +------+ + | Care Service Worker Helper Name | Role | Phone | + +------+ + PCP | Unavailable | + +------+ + Encounter Details +--------+ + + + + | Date | Type | Department | Care Team | Description | +--------+ + + + + | 06/20/ | Hospital | [facility] | | | | 2003 - | Encounter | MED CTR CANCER | | | | | | CENTER [facility] [address] | | | | 10/23/ | | [place] | | | | 2003 | | [address] | | | | | | [phone] | | | +--------+ + + + [...]
--- OUTSIDE RECORDS SUMMARY | ~2019-03-27 | XMS | Encounter Summary ---
Demographics + + + | Address | [address] | | | [place] [address] | + + + | Home Phone | | + + + | Preferred Language | Unknown | + + + | Marital Status | Unknown | + + + | Judaism Affiliation | Unknown | + + + | Race | Unknown | + + + | Ethnic Group | Unknown | + + + Author + + + | Author | [facility] | | | and [place] | + + + | Organization | [facility] | | | and [place] | + + + | Address | Unknown | + + + | Phone | Unavailable | + + + Care Team Providers + +------+ + | Care Playground Monitor Name | Role | Phone | + +------+ + PCP | Unavailable | + +------+ + Encounter Details +--------+ + + + + | Date | Type | Department | Care Team | Description | +--------+ + + + + | 07/27/ | Hospital | [facility] | | | | 2002 - | Encounter | MED CTR CANCER | | | | | | CENTER [address] | | | | 12/01/ | | [place] | | | | 2002 | | [address] | | | | | | [phone] | | | +--------+ + + + [...]
--- OUTSIDE RECORDS SUMMARY | ~2019-03-27 | XMS | Encounter Summary ---
Demographics + + + | Address | [address] | | | [place] [address] | + + + | Home Phone | | + + + | Preferred Language | Unknown | + + + | Marital Status | Unknown | + + + | Anabaptism Affiliation | Unknown | + + + | Race | Unknown | + + + | Ethnic Group | Unknown | + + + Author + + + | Author | [facility] | | | and [facility] | + + + | Organization | [facility] | | | and [place] | + + + | Address | Unknown | + + + | Phone | Unavailable | + + + Care Team Providers + +------+ + | Care Director Microbiology Name | Role | Phone | + +------+ + | Jas Baird MD | PCP | | + +------+ + Encounter Details +--------+ + + + + | Date | Type | Department | Care Team | Description | +--------+ + + + + | 05/14/ | Orders Only | [facility] | Arthur Baker V, | | | 2017 | | CONVERSION [address] | MD [address] | | | | | [address] | [place], [place] | | | | | [place], [place] | [address] | | | | | [address] | | | | | | [phone] | | | +--------+ + + + + Social History + +-------+ +--------+------+ | Tobacco Use | Types | Packs/Day | Years | Date | | | | | Used | | + +-------+ +--------+------+ | Former Smoker | | 0.5 | | | + +-------+ +--------+------+ + [...] | + +--------+ + + + | ECHO INTERPRETATION | Routin | 05/14/2017 | | Results for this | | OF OUTSIDE FILMS | e | 5:08 PM | | procedure are in the | | | | PST | | results section. | + +--------+ + + + documented in this encounter Results ECHO Interpretation of Outside Films (05/14/2017 5:08 PM PST) + + | Specimen | + + | | + + + + + | Impressions | Performed At | + + + | 1. The left ventricle is normal in size, wall thickness and systolic | | | function EF 55-60%. 2. The right ventricle is mildly enlarged with | | | normal systolic function 3. Mild degenerative changes in the aortic | | | and mitral valve. 4. There is no pericardial effusion. | | + + + + + + | Narrative | Performed At | + + + | Patient Name: Janet Bro Date of : 1940 | | | Performing Physician: Shirley Galloway | | | | | | INDICATIONS inpatient, elevated troponin CONCLUSIONS | | | 1. The left ventricle is normal in size, wall thickness | | | and systolic function EF 55-60%. 2. The right ventricle is mildly | | | enlarged with normal systolic function 3. Mild degenerative changes | | | in the aortic and mitral valve. 4. There is no pericardial effusion. | | | FINDINGS -------- ECG rhythm: Sinus rhythm. Study: A | | | 2-dimensional transthoracic echocardiogram with m-mode, spectral and | | | color flow Doppler was perfomed. Study: This was a technically | | | adequate study. Left Ventricle: Overall left ventricular systolic | | | function is normal with, an EF between 55 - 60 %. Left Ventricle: The | | | left ventricle cavity size is normal. Left Ventricle: Left | | | ventricular wall thickness is normal. Left Ventricle: No regional | | | wall motion abnormalities. Right Ventricle: The right ventricle is | | | mildly enlarged measuring between 3.4 - 3.7 cm. Right Ventricle: The | | | right ventricular systolic function is normal. Left Atrium: The left | | | atrial size is normal. Right Atrium: The right atrium is normal in | | | size. Aortic Valve: Aortic valve is trileaflet and is mildly | | | thickened. Aortic Valve: The aortic valve is mildly calcified. | | | Aortic Valve: Trace amount of aortic regurgitation. Aortic Valve: | | | There is no evidence of aortic stenosis. Mitral Valve: No mitral | | | regurgitation. Mitral Valve: Mild mitral annular calcification | | | present. Tricuspid Valve: The tricuspid valve appears structurally | | | normal. Tricuspid Valve: Mild tricuspid regurgitation present. | | | Tricuspid Valve: There is no evidence of pulmonary hypertension. | | | Tricuspid Valve: The right ventricular systolic pressure (pulmonary | | | artery systolic pressure), as measured by Doppler, is 20.05mmHg. | | | Pulmonic Valve: The pulmonic valve was not well visualized. Pulmonic | | | Valve: Mild degenerative changes in the aortic and mitral valve. | | | Pericardium: There is no pericardial effusion. Pericardium: No | | | pleural effusion seen. IVC/Hepatic Veins: The IVC is normal size | | | (1.5-2.5cm) and collapses >50% with sniff, consistent with central | | | venous pressures of 5-10mmHg. Aorta: Ascending and arch not well | | | seen. MEASUREMENTS Ao Diam: 3.29 cm IVC: | | | 2.21 cm LA Diam: 3.18 cm LA Major: 4.75 cm EDV(Teich): | | | 67.38 ml IVSd: 1.01 cm LVIDd: 3.93 cm LVPWd: 0.89 cm LVOT | | | Diam: 2.13 cm %FS: 24.07 % EF(Teich): 48.52 % ESV(Teich): | | | 34.68 ml LVIDs: 2.98 cm SV(Teich): 32.69 ml RA Major: | | | 4.66 cm RV Major: 7.09 cm RVIDd: 3.17 cm LVEF MOD A2C: | | | 51.39 % SV MOD A2C: 29.34 ml LVEF MOD A4C: 52.12 % SV MOD | | | A4C: 34.76 ml EF Biplane: 54.76 % LVEDV MOD BP: 67.46 ml | | | LVESV MOD BP: 30.51 ml LVEDV MOD A2C: 57.09 ml LVLd A2C: | | | 6.43 cm LVEDV MOD A4C: 66.69 ml LVLd A4C: 7.76 cm LVESV MOD | | | A2C: 27.75 ml LVLs A2C: 6.01 cm LVESV MOD A4C: 31.93 ml | | | LVLs A4C: 6.48 cm LAESV(A-L): 53.38 ml LAESV Index (A-L): | | | 29.99 ml/m2 LAAs A2C: 17.50 cm2 LAESV A-L A2C: 50.92 ml LALs | | | A2C: 5.10 cm LAAs A4C: 18.35 cm2 LAESV A-L A4C: 53.35 ml | | | LALs A4C: 5.35 cm RAAs: 15.86 cm2 RAESV A-L: 43.26 ml | | | RAESV MOD: 42.33 ml RALs: 4.93 cm TAPSE: 3.17 cm AV maxPG: | | | 6.93 mmHg AV meanP.52 mmHg AV Vmax: 1.31 m/s AV | | | Vmean: 0.86 m/s AV VTI: 22.37 cm REJI Vmax: 2.60 cm2 REJI | | | (VTI): 2.83 cm2 AVAI Vmax: 0.00 cm2/m2 AVAI (VTI): 0.00 | | | cm2/m2 LVOT maxP.71 mmHg LVOT meanP.69 mmHg LVSI | | | Dopp: 35.59 ml/m2 LVSV Dopp: 63.35 ml LVOT Vmax: 0.96 m/s | | | LVOT Vmean: 0.60 m/s LVOT VTI: 17.76 cm MV A Osvaldo: 0.92 m/s | | | MV DecT: 182.92 ms MV E Osvaldo: 0.73 m/s MV E/A Ratio: 0.79 | | | Septal e': 0.06 m/s Septal E/e': 11.59 Lateral e': 0.07 m/s | | | Lateral E/e': 9.53 RAP: 5 mmHg RVSP: 20.04 mmHg TR | | | maxP.04 mmHg TR Vmax: 1.93 m/s Human Factors Specialist: CHIDI | | | Authenticated by: Shirley Galloway Report Date/Time: 05-14-2017 20:57:2 | | | | | + + + + + | Procedure Note | + + | Ashwin, Rad Conversion - 11/25/2018 4:06 PM PDT Patient Name: Lisette Bro of | | : 1940 Performing Physician: Shirley | | Nilesh INDICATIONS------ | | -----inpatient, elevated troponin CONCLUSIONS 1. The left ventricle is normal | | in size, wall thickness and systolic function EF 55-60%.2. The right ventricle is mildly | | enlarged with normal systolic function3. Mild degenerative changes in the aortic and | | mitral valve.4. There is no pericardial effusion. FINDINGS--------ECG rhythm: Sinus | | rhythm.Study: A 2-dimensional transthoracic echocardiogram with m-mode, spectral and | | color flow Doppler was perfomed.Study: This was a technically adequate study.Left | | Ventricle: Overall left ventricular systolic function is normal with, an EF between 55 - | | 60 %.Left Ventricle: The left ventricle cavity size is normal.Left Ventricle: Left | | ventricular wall thickness is normal.Left Ventricle: No regional wall motion | | abnormalities.Right Ventricle: The right ventricle is mildly enlarged measuring between | | 3.4 - 3.7 cm.Right Ventricle: The right ventricular systolic function is normal.Left | | Atrium: The left atrial size is normal.Right Atrium: The right atrium is normal in | | size.Aortic Valve: Aortic valve is trileaflet and is mildly thickened.Aortic Valve: The | | aortic valve is mildly calcified.Aortic Valve: Trace amount of aortic | | regurgitation.Aortic Valve: There is no evidence of aortic stenosis.Mitral Valve: No | | mitral regurgitation.Mitral Valve: Mild mitral annular calcification present.Tricuspid | | Valve: The tricuspid valve appears structurally normal.Tricuspid Valve: Mild tricuspid | | regurgitation present.Tricuspid Valve: There is no evidence of pulmonary | | hypertension.Tricuspid Valve: The right ventricular systolic pressure (pulmonary artery | | systolic pressure), as measured by Doppler, is 20.05mmHg.Pulmonic Valve: The pulmonic | | valve was not well visualized.Pulmonic Valve: Mild degenerative changes in the aortic | | and mitral valve.Pericardium: There is no pericardial effusion.Pericardium: No pleural | | effusion seen.IVC/Hepatic Veins: The IVC is normal size (1.5-2.5cm) and collapses >50% | | with sniff, consistent with central venous pressures of 5-10mmHg.Aorta: Ascending and | | arch not well seen. MEASUREMENTS Ao Diam: 3.29 cmIVC: 2.21 cmLA Diam: | | 3.18 cmLA Major: 4.75 cmEDV(Teich): 67.38 mlIVSd: 1.01 cmLVIDd: 3.93 cmLVPWd: | | 0.89 cmLVOT Diam: 2.13 cm%FS: 24.07 %EF(Teich): 48.52 %ESV(Teich): 34.68 | | mlLVIDs: 2.98 cmSV(Teich): 32.69 mlRA Major: 4.66 cmRV Major: 7.09 cmRVIDd: | | 3.17 cmLVEF MOD A2C: 51.39 %SV MOD A2C: 29.34 mlLVEF MOD A4C: 52.12 %SV MOD A4C: | | 34.76 mlEF Biplane: 54.76 %LVEDV MOD BP: 67.46 mlLVESV MOD BP: 30.51 mlLVEDV MOD | | A2C: 57.09 mlLVLd A2C: 6.43 cmLVEDV MOD A4C: 66.69 mlLVLd A4C: 7.76 cmLVESV MOD | | A2C: 27.75 mlLVLs A2C: 6.01 cmLVESV MOD A4C: 31.93 mlLVLs A4C: 6.48 | | cmLAESV(A-L): 53.38 mlLAESV Index (A-L): 29.99 ml/m2LAAs A2C: 17.50 mt2ALTDL A-L | | A2C: 50.92 mlLALs A2C: 5.10 cmLAAs A4C: 18.35 [id number] A-L A4C: 53.35 mlLALs | | A4C: 5.35 cmRAAs: 15.86 [id number] A-L: 43.26 mlRAESV MOD: 42.33 mlRALs: 4.93 | | cmTAPSE: 3.17 cmAV maxP.93 mmHgAV meanP.52 mmHgAV Vmax: 1.31 m/Hiram | | Vmean: 0.86 m/Hiram VTI: 22.37 cmAVA Vmax: 2.60 cm2AVA (VTI): 2.83 ct1BLZW Vmax: | | 0.00 cm2/m2AVAI (VTI): 0.00 cm2/m2LVOT maxP.71 mmHgLVOT meanP.69 mmHgLVSI | | Dopp: 35.59 ml/m2LVSV Dopp: 63.35 mlLVOT Vmax: 0.96 m/sLVOT Vmean: 0.60 m/sLVOT | | VTI: 17.76 cmMV A Osvaldo: 0.92 m/sMV DecT: 182.92 msMV E Osvaldo: 0.73 m/sMV E/A | | Ratio: 0.79Septal e': 0.06 m/sSeptal E/e': 11.59Lateral e': 0.07 m/sLateral | | E/e': 9.53RAP: 5 mmHgRVSP: 20.04 mmHgTR maxP.04 mmHgTR Vmax: 1.93 m/s | | Human Factors Specialist: CHIDIAuthenticated by: Shirley Huerta Date/Time: 05-14-2017 20:57:2 | | IMPRESSION: 1. The left ventricle is normal in size, wall thickness and systolic | | function EF 55-60%.2. The right ventricle is mildly enlarged with normal systolic | | function3. Mild degenerative changes in the aortic and mitral valve.4. There is no | | pericardial effusion. | | | |Ao Diam: 3.29 cm | |IVC: 2.21 cm | |LA Diam: 3.18 cm | |LA Major: 4.75 cm | |EDV(Teich): 67.38 ml | |IVSd: 1.01 cm | |LVIDd: 3.93 cm | |LVPWd: 0.89 cm | |LVOT Diam: 2.13 cm | |%FS: 24.07 % | |EF(Teich): 48.52 % | |ESV(Teich): 34.68 ml | |LVIDs: 2.98 cm | |SV(Teich): 32.69 ml | |RA Major: 4.66 cm | |RV Major: 7.09 cm | |RVIDd: 3.17 cm | |LVEF MOD A2C: 51.39 % | |SV MOD A2C: 29.34 ml | |LVEF MOD A4C: 52.12 % | |SV MOD A4C: 34.76 ml | |EF Biplane: 54.76 % | |LVEDV MOD BP: 67.46 ml | |LVESV MOD BP: 30.51 ml | |LVEDV MOD A2C: 57.09 ml | |LVLd A2C: 6.43 cm | |LVEDV MOD A4C: 66.69 ml | |LVLd A4C: 7.76 cm | |LVESV MOD A2C: 27.75 ml | |LVLs A2C: 6.01 cm | |LVESV MOD A4C: 31.93 ml | |LVLs A4C: 6.48 cm | |LAESV(A-L): 53.38 ml | |LAESV Index (A-L): 29.99 ml/m2 | |LAAs A2C: 17.50 cm2 | |LAESV A-L A2C: 50.92 ml | |LALs A2C: 5.10 cm | |LAAs A4C: 18.35 cm2 | |LAESV A-L A4C: 53.35 ml | |LALs A4C: 5.35 cm | |RAAs: 15.86 cm2 | |RAESV A-L: 43.26 ml | |RAESV MOD: 42.33 ml | |RALs: 4.93 cm | |TAPSE: 3.17 cm | |AV maxP.93 mmHg | |AV meanP.52 mmHg | |AV Vmax: 1.31 m/s | |AV Vmean: 0.86 m/s | |AV VTI: 22.37 cm | |REJI Vmax: 2.60 cm2 | |REJI (VTI): 2.83 cm2 | |AVAI Vmax: 0.00 cm2/m2 | |AVAI (VTI): 0.00 cm2/m2 | |LVOT maxP.71 mmHg | |LVOT meanP.69 mmHg | |LVSI Dopp: 35.59 ml/m2 | |LVSV Dopp: 63.35 ml | |LVOT Vmax: 0.96 m/s | |LVOT Vmean: 0.60 m/s | |LVOT VTI: 17.76 cm | |MV A Osvaldo: 0.92 m/s | |MV DecT: 182.92 ms | |MV E Osvaldo: 0.73 m/s | |MV E/A Ratio: 0.79 | |Septal e': 0.06 m/s | |Septal E/e': 11.59 | |Lateral e': 0.07 m/s | |Lateral E/e': 9.53 | |RAP: 5 mmHg | |RVSP: 20.04 mmHg | |TR maxP.04 mmHg | |TR Vmax: 1.93 m/s | | | |Human Factors Specialist: DBS | |Authenticated by: Shirley Galloway | |Report Date/Time: 05-14-2017 20:57:2 | | | |IMPRESSION: | |1. The left ventricle is normal in size, wall thickness and systolic function EF 55-60%. | |2. The right ventricle is mildly enlarged with normal systolic function | |3. Mild degenerative changes in the aortic and mitral valve. | |4. There is no pericardial effusion. | + + documented in this encounter Visit [...]
--- OUTSIDE RECORDS SUMMARY | ~2019-03-27 | XMS | Encounter Summary ---
Demographics + + + | Address | [address] | | | [place] [address] | + + + | Home Phone | | + + + | Preferred Language | Unknown | + + + | Marital Status | Unknown | + + + | Uatsdin Affiliation | Unknown | + + + | Race | Unknown | + + + | Ethnic Group | Unknown | + + + Author + + + | Author | [facility] | | | and [place] | + + + | Organization | [facility] | | | and [place] | + + + | Address | Unknown | + + + | Phone | Unavailable | + + + Care Team Providers + +------+ + | Care Frame Cleaner Name | Role | Phone | + +------+ + PCP | Unavailable | + +------+ + Encounter Details +--------+ + + + + | Date | Type | Department | Care Team | Description | +--------+ + + + + | 03/19/ | Hospital | [facility] | | | | 2003 - | Encounter | MED CTR GENERIC OP | | | | | | CONV DEPT [address] | | | | 06/17/ | | [place], | | | | 2004 | | [place] [address] | | | | | | [phone] | | | +--------+ + + + [...]
--- OUTSIDE RECORDS SUMMARY | ~2019-03-27 | XMS | Clinical Summary ---
Demographics + + + | Address | [address] | | | [place] [address] | + + + | Home Phone | | + + + | Preferred Language | Unknown | + + + | Marital Status | Unknown | + + + | Islam Affiliation | Unknown | + + + | Race | Unknown | + + + | Ethnic Group | Unknown | + + + Author + + + | Author | [facility] | | | and [facility] | + + + | Organization | [facility] | | | and [place] | + + + | Address | Unknown | + + + | Phone | Unavailable | + + + Care Team Providers + +------+ + | Care Furnace Unloader Name | Role | Phone | + +------+ + | Jas Baird MD | PCP | | + +------+ + Allergies Not on File Medications Not on file Active Problems Not on file Family History + + +------+ + | Medical History | Relation | Name | Comments | + + +------+ + | Coronary artery | Father | | | | disease | | | | + + +------+ + | Diabetes, IDDM | Father | | | + + +------+ + | COPD | Mother | | | + + +------+ + | Emphysema | Sister | | | + + +------+ + + +------+ + + | Relation | Name | Status | Comments | + +------+ + + | Father | | | | + +------+ + + | Father | | | | + +------+ + + | Mother | | | | + +------+ + + | Mother | | | | + +------+ + + | Sister | | | | + +------+ + + Social History + +-------+ +--------+------+ [...] recent travel history available. | + + Last Filed Vital Signs Not on file Plan of Treatment + + + + + | Health Maintenance | Due Date | Last Done | Comments | + + + + + | Vaccine: | | | | | Dtap/Tdap/Td (1 - | 3 | | | | Tdap) | | | | + + + + + | Vaccine: Zoster (1 | | | | | of 2) | 2 | | | + + + + + | Breast Cancer | | | | | Screening | 7 | | | + + + + + | Vaccine: | | | | | Pneumococcal 65+ (1 | 7 | | | | of 2 - PCV13) | | | | + + + + + | Vaccine: Influenza | | 03/21/2013 | | | (#1) | 9 | | | + + + + + Results Not on filefrom Last 3 Months Additional Health Concerns + + + + | Infection | Noted Time | Resolved Time | + + + + | Methicillin-resistant Staphylococcus aureus | 04/26/2013 12:00 AM | | | | PDT | | + + + +"
--- OUTSIDE RECORDS SUMMARY | ~2019-03-27 | XMS | Encounter Summary ---
Demographics + + + | Address | [address] | | | [place] [address] | + + + | Home Phone | | + + + | Preferred Language | Unknown | + + + | Marital Status | Unknown | + + + | Yazidism Affiliation | Unknown | + + + | Race | Unknown | + + + | Ethnic Group | Unknown | + + + Author + + + | Author | [facility] | | | and [facility] | + + + | Organization | [facility] | | | and [place] | + + + | Address | Unknown | + + + | Phone | Unavailable | + + + Care Team Providers + +------+ + | Care Buyer Planner Name | Role | Phone | + +------+ + | Jas Baird MD | PCP | | + +------+ + Encounter Details +--------+ + + + + | Date | Type | Department | Care Team | Description | +--------+ + + + + | 04/05/ | Orders Only | [facility] | Conversion | | | 2012 | | INFECTIOUS DISEASE | Transaction, | | | | | [address] | Provider Unknown | | | | | [place], [place] | [phone] | | | | | [address] | | | | | | [phone] | | | +--------+ + + + [...]
--- OUTSIDE RECORDS SUMMARY | ~2019-03-27 | XMS | Encounter Summary ---
Demographics + + + | Address | [address] | | | [place] [address] | + + + | Home Phone | | + + + | Preferred Language | Unknown | + + + | Marital Status | Unknown | + + + | Religion Affiliation | Unknown | + + + | Race | Unknown | + + + | Ethnic Group | Unknown | + + + Author + + + | Author | [facility] | | | and [place] | + + + | Organization | [facility] | | | and [place] | + + + | Address | Unknown | + + + | Phone | Unavailable | + + + Care Team Providers + +------+ + | Care Funeral Assistant Name | Role | Phone | + +------+ + PCP | Unavailable | + +------+ + Encounter Details +--------+ + + + + | Date | Type | Department | Care Team | Description | +--------+ + + + + | 06/20/ | Hospital | [facility] | | | | 2003 - | Encounter | [facility] | | | | | | CENTER [facility] | | | | 10/23/ | | [place] | | | | 2003 | | [address] | | | | | | [phone] | | | +--------+ + + + [...]
--- OUTSIDE RECORDS SUMMARY | ~2019-03-27 | XMS | Encounter Summary ---
Demographics + + + | Address | [address] | | | [place] [address] | + + + | Home Phone | | + + + | Preferred Language | Unknown | + + + | Marital Status | Unknown | + + + | Yazidism Affiliation | Unknown | + + + | Race | Unknown | + + + | Ethnic Group | Unknown | + + + Author + + + | Author | [facility] | | | and [facility] | + + + | Organization | [facility] | | | and [place] | + + + | Address | Unknown | + + + | Phone | Unavailable | + + + Care Team Providers + +------+ + | Care Barrel Cutter Name | Role | Phone | + +------+ + | Jas Baird MD | PCP | | + +------+ + Encounter Details +--------+ + + + + | Date | Type | Department | Care Team | Description | +--------+ + + + + | 11/10/ | Orders Only | [facility] | Rudy Khoury MD | | | 2014 | | NEPRHOLOGY [place] | [address] | | | | | [address] | [address] [place], [place] | | | | | [address] [place], [place] | [address] | | | | | [address] | | | | | | [phone] | | | +--------+ + + + [...] + | URINALYSIS WITH | Routin | 11/10/2014 | | Results for this | | MICROSCOPIC WITH | e | 12:00 AM | | procedure are in the | | CULTURE IF INDICATED | | PDT | | results section. | + +--------+ + + + | PARATHYROID HORMONE, | Routin | 11/10/2014 | | Results for this | | INTACT AND CALCIUM | e | 12:00 AM | | procedure are in the | | | | PDT | | results section. | + +--------+ + + + | HEMOGLOBIN AND | Routin | 11/10/2014 | | Results for this | | HEMATOCRIT | e | 12:00 AM | | procedure are in the | | | | PDT | | results section. | + +--------+ + + + | PROTEIN/CREATININE | Routin | 11/10/2014 | | Results for this | | RATIO, URINE | e | 12:00 AM | | procedure are in the | | | | PDT | | results section. | + +--------+ + + + | MAGNESIUM | Routin | 11/10/2014 | | Results for this | | | e | 12:00 AM | | procedure are in the | | | | PDT | | results section. | + +--------+ + + + | RENAL FUNCTION PANEL | Routin | 11/10/2014 | | Results for this | | | e | 12:00 AM | | procedure are in the | | | | PDT | | results section. | + +--------+ + + + documented in this encounter Results Urinalysis with Microscopic with Culture if Indicated (11/10/2014 12:00 AM PDT) + + + + [...] + + + | Spec Grav, | 1.015 | 1.005 - 1.030 | EXTERNAL | [...] | | | + +---------+ + + Parathyroid Hormone, Intact and Calcium (11/10/2014 12:00 AM PDT) + +-------+ + + + | Component | Value | Ref Range | Performed | Pathologist | | | | | At | Signature | + +-------+ + + + | PTH Intact | 32.52 | 15 - 65 | EXTERNAL | | | | | | LAB | | + +-------+ + + + | Calcium | 9.5 | 8.4 - 10.2 | EXTERNAL | [...] | | | + +---------+ + + Hemoglobin and Hematocrit (11/10/2014 12:00 AM PDT) + + + + + + | Component | Value | Ref Range | Performed | Pathologist | | | | | At | Signature | + + + + + + | Hemoglobin | 11.7 (A) | 12.0 - 16.0 | EXTERNAL | | | | | | LAB | | + + + + + + | Hematocrit, | 37.1 | 35 - 45 % | EXTERNAL [...] | | | + +---------+ + + Protein/Creatinine Ratio, Urine (11/10/2014 12:00 AM PDT) + + + + + + | Component | Value | Ref Range | Performed | Pathologist | | | | | At | Signature | + + + + + + | Protein/Cre | 379.3 (A) | 0 - 150 | EXTERNAL | | | at Ratio | | | LAB | | [...] | | + +---------+ + + Magnesium (11/10/2014 12:00 AM PDT) + +-------+ + + [...] | | | + +---------+ + + Renal Function Panel (11/10/2014 12:00 AM PDT) + + + + [...] + + + + | BUN | 30 (A) | 6 - 23 mg/dL | EXTERNAL | | | | | | LAB | | + + + + + + | Creatinine | 1.49 (A) | 0.70 - 1.18 | EXTERNAL | | | | | mg/dL | LAB | | + + + + + + | PHOSPHORUS | | mg/dL | EXTERNAL | | | | | | LAB | | + + + + + + | Albumin | 4.0 | 3.5 - 5.0 | EXTERNAL | | | | | | LAB | | + + + + + + | Na | 138 | 132 - 143 | EXTERNAL | | | | | mmol/L | LAB | | + + + + + + | K | 4.5 | 3.6 - 5.1 | EXTERNAL | | | | | mmol/L | LAB | | + + + + + + | Cl | 102 | 95 - 112 mmol/L | EXTERNAL | | | | | | LAB | | + + + + + + | CO2 | 24 | 19 - 31 mmol/L | EXTERNAL | | | | | | LAB | | + + + + + + | Anion Gap | 16.5 | 7 - 21 mmol/L | EXTERNAL | | | | | | LAB | | + + + + + + | eGFR if not | | | EXTERNAL | | | | | | LAB | | | NIGERIAN | | | | | + + + + + + | Phosphorus, | 3.2 | 2.5 - 5.0 | EXTERNAL | | | Inorganic | | | LAB | | + + + + + + | BUN/Creatin | 20.1 | 6.0 - 28.6 | EXTERNAL | | | ine Ratio | | | LAB | | + + + + + + | Calcium | 9.5 | 8.4 - 10.2 | EXTERNAL | | | | | mg/dL | LAB | | + + + + + + | Estimated | 34 (A) | 60 - 140 mg/dL | EXTERNAL | | | GFR [...]
--- OUTSIDE RECORDS SUMMARY | ~2019-03-27 | XMS | Encounter Summary ---
Demographics + + + | Address | [address] | | | [place] [address] | + + + | Home Phone | | + + + | Preferred Language | Unknown | + + + | Marital Status | Unknown | + + + | Mandaen Affiliation | Unknown | + + + | Race | Unknown | + + + | Ethnic Group | Unknown | + + + Author + + + | Author | [facility] | | | and [facility] | + + + | Organization | [facility] | | | and [place] | + + + | Address | Unknown | + + + | Phone | Unavailable | + + + Care Team Providers + +------+ + | Care Network Control Operators Supervisor Name | Role | Phone | + +------+ + | Jas Baird MD | PCP | | + +------+ + Encounter Details +--------+ + + + + | Date | Type | Department | Care Team | Description | +--------+ + + + + | 04/05/ | Orders Only | [facility] | Conversion | | | 2012 | | INFECTIOUS DISEASE | Transaction, | | | | | [address] [facility] | Provider Unknown | | | | | [place], [place] | [phone] | | | | | [address] | | | | | | [phone] | | | +--------+ + + + [...]
--- OUTSIDE RECORDS SUMMARY | ~2019-03-27 | XMS | Encounter Summary ---
Demographics + + + | Address | [address] | | | [place] [address] | + + + | Home Phone | | + + + | Preferred Language | Unknown | + + + | Marital Status | Unknown | + + + | Baptism Affiliation | Unknown | + + + | Race | Unknown | + + + | Ethnic Group | Unknown | + + + Author + + + | Author | [facility] | | | and [facility] | + + + | Organization | [facility] | | | and [place] | + + + | Address | Unknown | + + + | Phone | Unavailable | + + + Care Team Providers + +------+ + | Care Rail Bonder Name | Role | Phone | + +------+ + | Jas Baird MD | PCP | | + +------+ + Encounter Details +--------+ + + + + | Date | Type | Department | Care Team | Description | +--------+ + + + + | 11/10/ | Orders Only | [facility] | Rudy Khoury MD | | | 2014 | | NEPRHOLOGY [place] | [address] | | | | | [address] | [address] [place], [place] | | | | | [address] [place], [place] | [address] | | | | | [address] | | | | | | [phone] | | | +--------+ + + + [...] | | | LAB | | | [facility] | | | | | + + [...]
--- OUTSIDE RECORDS SUMMARY | ~2019-03-27 | XMS | Clinical Summary ---
Demographics + + + | Address | [address] | | | [place] [address] | + + + | Home Phone [...] + + + | Author | [facility] | | | and [facility] | + + + | Organization | [facility] | | | and [place] | + + + | Address | Unknown | + + + | Phone | Unavailable | + + + Care Team Providers + +------+ + | Care Manager Ambulatory Name | Role | Phone | + [...]
--- OUTSIDE RECORDS SUMMARY | ~2019-03-27 | XMS | Encounter Summary ---
Demographics + + + | Address | [address] | | | [place] [address] | + + + | Home Phone | | + + + | Preferred Language | Unknown | + + + | Marital Status | Unknown | + + + | Muslim Affiliation | Unknown | + + + | Race | Unknown | + + + | Ethnic Group | Unknown | + + + Author + + + | Author | [facility] | | | and [facility] | + + + | Organization | [facility] | | | and [place] | + + + | Address | Unknown | + + + | Phone | Unavailable | + + + Care Team Providers + +------+ + | Care Route Rider Name | Role | Phone | + +------+ + | Jas Baird MD | PCP | | + +------+ + Encounter Details +--------+ + + + + | Date | Type | Department | Care Team | Description | +--------+ + + + + | 04/26/ | Orders Only | [facility] | Conversion | | | 2013 | | INFECTIOUS DISEASE | Transaction, | | | | | [address] [facility] | Provider Unknown | | | | | [place], [place] | [phone] | | | | | [address] | | | | | | [phone] | | | +--------+ + + + [...] + | SEDIMENTATION RATE, | Routin | 04/26/2013 | | Results for this | | AUTOMATED | e | 12:00 AM | | procedure are in the | | | | PST | | results section. | + +--------+ + + + | C-REACTIVE PROTEIN | Routin | 04/26/2013 | | Results for this | | | e | 12:00 AM | | procedure are in the | | | | PST | | results section. | + +--------+ + + + documented in this encounter Results Sedimentation rate, automated (04/26/2013 12:00 AM PST) + +--------+ + + + | Component | Value | Ref Range | Performed | Pathologist | | | | | At | Signature | + +--------+ + + + | Sed Rate | 78 (A) | 0 - 20 | EXTERNAL | | | | | | LAB | | + +--------+ + + + + + | Specimen | + + | Blood specimen | | (specimen) | + + + +---------+ + + | Performing | Address | City/State/Zipcode | Phone Number | | Organization | | | | + +---------+ + + | EXTERNAL LAB | | | | + +---------+ + + C-Reactive Protein (04/26/2013 12:00 AM PST) + +-------+ + + + | Component | Value | Ref Range | Performed | Pathologist | | | | | At | Signature | + +-------+ + + + | CRP | 4 | 0 - 5 mg/dL | EXTERNAL | | | | [...]
--- OUTSIDE RECORDS SUMMARY | ~2019-03-27 | XMS | Encounter Summary ---
Demographics + + + | Address | [address] | | | [place] [address] | + + + | Home Phone | | + + + | Preferred Language | Unknown | + + + | Marital Status | Unknown | + + + | Adventism Affiliation | Unknown | + + + | Race | Unknown | + + + | Ethnic Group | Unknown | + + + Author + + + | Author | [facility] | | | and [facility] | + + + | Organization | [facility] | | | and [place] | + + + | Address | Unknown | + + + | Phone | Unavailable | + + + Care Team Providers + +------+ + | Care County Director Name | Role | Phone | + +------+ + | Jas Baird MD | PCP | | + +------+ + Encounter Details +--------+ + + + + | Date | Type | Department | Care Team | Description | +--------+ + + + + | 07/15/ | Orders Only | [facility] | Vinay Rowan MD | | | 2014 | | CONVERSION | [address] | | | | | INTERFACES | [place] | | | | | [phone] | [address] | | | | | | [phone] | | | | | | | | +--------+ + + + [...] | VAS LOWER EXTREMITY | Routin | 07/15/2013 | | Results for this | | ARTERIES LEFT | e | 11:59 AM | | procedure are in the | | | | PDT | | results section. | + +--------+ + + + documented in this encounter Results VAS Lower Extremity Arteries Left (07/15/2013 11:59 AM PDT) + + | Specimen | + + | | + + + + + | Impressions | Performed At | + + + | 1. Narrowing seen in the left proximal SFA which is less than | | | 50%. Otherwise, the SFA stent is widely patent with triphasic | | | waveforms. | | | 3:03 PM | | + + + + + + | Narrative | Performed At | + + + | US LOWER EXTREMITY ARTERIAL DUPLEX, UNILATERAL HISTORY: | | | 72-year-old female with history of left SFA stenting, here for | | | followup. TECHNIQUE: Imaging was performed with a linear array | | | transducer. Cruz scale, color Doppler, and pulsed wave spectral | | | Doppler techniques were utilized. COMPARISON: Ultrasound lower | | | extremity arterial duplex bilateral performed on March 21, 2013. | | | FINDINGS: Left lower extremity: Peak Systolic Velocity (cm/s) | | | Doppler . | | | Prox mid distal | | | Waveform Common femoral: | | | 25 Triphasic | | | Deep femoral: 102 | | | Triphasic Superficial | | | femoral: 179 135 115 | | | Triphasic Popliteal: | | | 111 82 | | | Triphasic Anterior tibial: 106 | | | Posterior tibial: | | | 39 Triphasic Peroneal: | | | | | | 72 Triphasic Dorsalis pedis: | | | 56 | | | Biphasic | | + + + + + | Procedure Note | + + | Ashwin Manish Conversion - 11/25/2018 9:24 PM PDT US LOWER EXTREMITY ARTERIAL DUPLEX, | | UNILATERAL HISTORY:72-year-old female with history of left SFA stenting, here for | | followup. TECHNIQUE:Imaging was performed with a linear array transducer. Cruz scale, | | color Doppler, and pulsed wave spectral Doppler techniques were utilized. | | COMPARISON:Ultrasound lower extremity arterial duplex bilateral performed on March | | 2012. FINDINGS: Left lower extremity: Peak Systolic Velocity (cm/s) | | Doppler. Prox mid distal | | WaveformCommon femoral: 25 | | TriphasicDeep femoral: 102 | | TriphasicSuperficial femoral: 179 135 115 | | TriphasicPopliteal: 111 82 | | TriphasicAnterior tibial: 106Posterior tibial: | | 39 TriphasicPeroneal: | | 72 TriphasicDorsalis pedis: | | 56 Biphasic IMPRESSION: 1. Narrowing | | seen in the left proximal SFA which is less than 50%. Otherwise, the SFA stent is widely | | patent with triphasic waveforms. | | 3:03 PM | |Popliteal: 111 82 Triphas ic | |Anterior tibial: 106 | |Posterior tibial: 39 Triphasic | |Peroneal: 72 Triphasic | |Dorsalis pedis: 56 Biphasic | | | | | | | | | |IMPRESSION: | | | |1. Narrowing seen in the left proximal SFA which is less than 50%. Otherwise, the SFA stent is widely patent with triphasic waveforms. | | | | | | | [...]
--- OUTSIDE RECORDS SUMMARY | ~2019-03-27 | XMS | Encounter Summary ---
Demographics + + + | Address | [address] | | | [place] [address] | + + + | Home Phone | | + + + | Preferred Language | Unknown | + + + | Marital Status | Unknown | + + + | Pentecostal Affiliation | Unknown | + + + | Race | Unknown | + + + | Ethnic Group | Unknown | + + + Author + + + | Author | [facility] | | | and [facility] | + + + | Organization | [facility] | | | and [place] | + + + | Address | Unknown | + + + | Phone | Unavailable | + + + Care Team Providers + +------+ + | Care Water Commissioner Name | Role | Phone | + [...] [place] | | | | | [phone] | [address] | | | | | | [phone] | | | | | | | [...]
--- OUTSIDE RECORDS SUMMARY | ~2019-03-27 | XMS | Encounter Summary ---
Demographics + + + | Address | [address] | | | [place] [address] | + + + | Home Phone | | + + + | Preferred Language | Unknown | + + + | Marital Status | Unknown | + + + | Denominational Affiliation | Unknown | + + + | Race | Unknown | + + + | Ethnic Group | Unknown | + + + Author + + + | Author | [facility] | | | and [facility] | + + + | Organization | and [facility] | | | and [place] | + + + | Address | Unknown | + + + | Phone | Unavailable | + + + Care Team Providers + +------+ + | Care Coder Operator Name | Role | Phone | + +------+ + | Jas Baird MD | PCP | | + +------+ + Encounter Details +--------+ + + + + | Date | Type | Department | Care Team | Description | +--------+ + + + + | 05/15/ | Orders Only | [facility] | Jas Baird | | | 2014 | | NEPHROLOGY [place] | [address] | | | | | [address] [facility] | [facility] | | | | | [address] [place], [place] | [place] [address] | | | | | [address] | [phone] | | | | | [phone] | | | +--------+ + + + [...]
--- OUTSIDE RECORDS SUMMARY | ~2019-03-27 | XMS | Encounter Summary ---
Demographics + + + | Address | [address] | | | [place] [address] | + + + | Home Phone | | + + + | Preferred Language | Unknown | + + + | Marital Status | Unknown | + + + | Holiness Affiliation | Unknown | + + + | Race | Unknown | + + + | Ethnic Group | Unknown | + + + Author + + + | Author | [facility] | | | and [place] | + + + | Organization | [facility] | | | and [place] | + + + | Address | Unknown | + + + | Phone | Unavailable | + + + Care Team Providers + +------+ + | Care [employer] Law Clerk Name | Role | Phone | + +------+ + PCP | Unavailable | + +------+ + Encounter Details +--------+ + + + + | Date | Type | Department | Care Team | Description | +--------+ + + + + | 03/20/ | Hospital | [facility] | Carla Donovan, | Gangrene of foot | | 2013 - | Encounter | [facility] | [address] | ([facility]); Ankle ulcer | | | | [address] | [address] [place], [place] | ([facility]) | | 03/25/ | | [place], [place] | [id number] | | | 2012 | | [id number] | | | | | | [phone] | | | +--------+ + + + [...] Date of Service: 04/07/13 1012 Status: Signed Community Association Manager: Adriana Carty MD (Physician) [facility] Service: Hospitalist Note Discharge Summary Date of Admission: 03/20/2013 Date of Discharge: [id number] Treatment Team: Consulting Physician: MD Timur Gill [...] She was seen in consultation by Dr. Rowan who took the patient to OR for [...] Discharge Information: Follow up: Vinay Rowan MD [facility] [employer] [place] [address] In 2 weeks [facility] (wound-care) [phone] Timur Harper DPM [address] [place], [place] [address] [address] In 1 week Apollo Urbano DO [address] [place] [address] In 1 week Medication List As of [...] Author: LYNNETTE Zaidi Service: (none) Author Type: Police Cadet Filed: 03/28/1336 Date of Service: 03/28/13934 Status: Signed Community Association Manager: LYNNETTE Zaidi (Police Cadet) CM re-faxed pt's discharge orders to [facility] as they misplaced the original fax. Boom SOLARES onver sandi Transaction, Provider Unknown - 03/25/2013 4:45 PM PST Nurse Progress Note by Senia Ryder RN at 03/25/131644 Author: Senia Ryder RN Service: (none) Author Type: Registered Nurse Filed: 03/25/13 255 Date of Service: 03/25/131644 Status: Signed Community Association Manager: Senia Ryder RN (Registered Nurse) Patient discharged to home with instructions, prescriptions, and belongings. Accompanied b y family. Oxygen delivered and set up by [facility]. Services in [place] will follow up at home with patient. HH set up for physical therapy and wound care. Family states unders tands. Pain pill given prior to DC. States pain is minimal. No nausea, ambulating with PT us ing walker and tolerating well. Dressing to left foot dry/intact. pumper brewery did dressing change today. Right groin bandaid dry/intact. Patient eager to be discharged. Joshua junior Transaction, Provider Unknown - 03/25/2013 2:58 PM PST Progress Notes by Galina Panda RRT at 03/25/13 1458 Author: Galina Panda RRT Service: (none) Author Type: Registered Respiratory Therap ist Filed: 03/25/13 1458 Date of Service: 03/25/131457 Status: Signed Community Association Manager: Galina Panda RRT (Registered Respiratory Therapist) [facility] Department of Respiratory Senior [facility] Oxygen Evaluation (Evaluation is valid for 48 [...] Notes by Lilliana Abdi PT at 03/25/13 2228 Author: Lilliana Abdi PT Service: (none) Author Type: Physical Therapist Filed: 03/25/13 0257 Date of Service: 03/25/131419 Status: Signed Community Association Manager: Lilliana Abdi PT (Physical Therapist) 03/25/13 2719 PT Last Visit PT Received On 03/25/13 Reason for Treatment Other (comment) (debridement, s/p L LE stenting) Requires PT Follow Up Yes Follow up PT Only? No PT Eval/Reassessment Date 03/25/13 Assistance Required 1 person Lumber Stacker Driver Needed No Plan Treatment/Interventions Bed mobility training;Gait [...] at home ) Prior Function Level of [place] Modified independent with functional mobility;Modified independent wi [...] Eval/Reassessment Date 03/25/13 Assistance Required 1 person Lumber Stacker Driver Needed No Precautions Other Precautions Fall risk [...] Date of Service: 03/25/13 115 Status: Signed Community Association Manager: Senia Ryder RN (Registered Nurse) Message left with Dr. Harper regarding weight bearing status for left foot per physical the rapy's request. Apollo Vernon - 03/25/2013 10:55 AM PSTFormatting of this note might be different from the origina l. Progress Notes by Apollo Urbano DO at 03/25/13 1055 Author: Apollo Urbano DO Service: (none) Author Type: Physician Filed: 03/25/13 1100 Date of Service: 03/25/13 105 Status: Signed Community Association Manager: Apollo Urbano DO (Physician) [facility] Service: Infectious Disease Progress Note Hospital Day: LOS: 5 days Post-Op Day: * No surgery found * SUBJECTIVE Patient Summary: The patient is a 72 y.o. female with significant past medical histor y of colon CA and HTN who is transferred from [facility] for L ankle gangrene. Patient noticed a [...] Date of Service: 03/25/13 104 Status: Signed Community Association Manager: Lilliana Abdi PT (Physical Therapist) 03/25/13 1040 [...] Author: LYNNETTE Zaidi Service: (none) Author Type: Police Cadet Filed: 03/25/13 0935 Date of Service: 03/25/13924 Status: Signed Community Association Manager: LYNNETTE Zaidi (Police Cadet) NOY met with pt for continued discharge planning. CM educated her regarding Home Health for wound-care & physical therapy. Pt agreed to services. CM arranged for [facility] as they service the [facility]. NOY also notified pt that Medicare will [...] from th e original. Progress Notes by Adriana Carty MD at 03/25/13830 Author: Adriana Carty MD Service: (none) Author Type: Physician Filed: 03/25/13836 Date of Service: 03/25/13830 Status: Signed Community Association Manager: Adriana Carty MD (Physician) [facility] Service: Hospitalist Progress Note Hospital Day: LOS: [...] 03/24/131943 Date of Service: 03/24/131937 Status: Signed Community Association Manager: Gustavo Hartman RN (Registered Nurse) Physician notified [...] 03/24/131658 Date of Service: 03/24/131657 Status: Signed Community Association Manager: Vinay Rowan MD (Physician) Strong DP signal [...] Date of Service: 03/24/13 1411 Status: Addendum Community Association Manager: Sangita Palencia MD (Physician) Related Notes: Original Note by Sangita Palencia MD (Physician) filed at 03/24/13 1432 [facility] Service: Infectious Disease Progress Note Hospital Day: LOS: 4 days Post-Op Day: * No surgery found * SUBJECTIVE Patient Summary: The patient is a 72 y.o. female with significant past medical histor y of colon CA and HTN who is transferred from [facility] for L ankle gangrene. Patient noticed a [...] Service: (none) Author Type: Physician Filed: 03/24/13 2552 Date of Service: 03/24/13 1314 Status: Signed Community Association Manager: Adriana Carty MD (Physician) [facility] Service: Hospitalist Progress Note Hospital Day: LOS: [...] 03/24/1342 Date of Service: 03/24/13938 Status: Signed Community Association Manager: Rubi Winter RN (Registered Nurse) Follow up [...] 1748 Date of Service: 03/24/13816 Status: Signed Community Association Manager: IVON Aguilar (Advanced Registered Nurse Practitioner) [facility] Service: Vascular Surgery Progress Note Hospital Day: LOS: 4 days Post-Op Day: * No surgery date entered * SUBJECTIVE Patient Summary: Patient is a 72 y.o. female with PMH significant for COPD, Afib, HTN , OR , CVA, and PAD who was admitted [...] 03/23/131907 Date of Service: 03/23/131651 Status: Signed Community Association Manager: Rom Cardona MD (Physician) [facility] Service: Hospitalist Progress Note Hospital Day: LOS: [...] significant sten osis. 2. 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 female with significant past medical histor y of colon CA and HTN who is transferred from [facility] for L ankle gangrene. Patient noticed a [...] Plan for angiogram-possibly followed by revascularization. 03/23/13 0821 [facility] Service: Vascular Surgery Brief Op Note Pre-operative [...] Although these are superficial and probably not volunteer patient representative-due to the change in the alexandro [...] Date of Service: 03/23/13 0752 Status: Signed Community Association Manager: Chad Padilla RN (Registered Nurse) Patient off floor to quality assurance qa lab technician. CHAD PADILLA RN Rom Kimble MD - 03/22/2013 6:15 PM PSTFormatting of this note might be different from the orig inal. Progress Notes by Rom Cardona MD at 03/22/13 9582 Author: Rom Cardona MD Service: Hospitalist Author Type: Physician Filed: 03/22/13 5126 Date of Service: 03/22/131814 Status: Signed Community Association Manager: Rom Cardona MD (Physician) [facility] Service: Hospitalist Progress Note Hospital Day: LOS: [...] significant sten osis. 2. 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 female with significant past medical histor y of colon CA and HTN who is transferred from [facility] for L ankle gangrene. Patient noticed a [...] wound cultures sent-doubt that this will be volunteer patient representative as will likely be a skin [...] Author: LYNNETTE Zaidi Service: (none) Author Type: Police Cadet Filed: 03/22/13 1013 Date of Service: 03/22/13 1010 Status: Signed Community Association Manager: LYNNETTE Zaidi (Police Cadet) CM met with pt for discharge planning. [...] Notes by Elio Camp MD at 03/21/13 7607 Author: Elio Camp MD Service: (none) Author Type: Physician Filed: 03/24/13 1321 Date of Service: 03/21/13 1637 Status: Signed Community Association Manager: Elio Camp MD (Physician) Related Notes: Original Note by Elio Camp MD (Physician) filed at 03/21/13 8253 [facility] Service: Hospitalist Progress Note Hospital Day: LOS: [...] 03/20/131807 Date of Service: 03/20/131807 Status: Signed Community Association Manager: Yumiko Mendez RPH (Pharmacist) Clinical Pharmacy Note: [...] when la bs are reported. Yumiko Mendez, [facility] 03/20/2013 6:08 PM docume nted in this [...] EXTERNAL LAB | | Testing performed at [facility];[address] | | | [facility];[place] [address] SPECIAL REQUESTS | | | CIPRO | | | Testing performed at [facility];[address] [facility];[place] [address] GRAM STAIN | | | 1+ WBC'S SEEN | | | 1+ EPITHELIAL CELLS | | | 1+ GRAM POSITIVE COCCI | | | Testing performed at [facility], | | | [address] [place] [address] CULTURE | | | 2+ STAPHYLOCOCCUS AUREUSAbnormal | | | Testing performed at [facility], | | | [address] [place] [address] REPORT STATUS | | | 03/27/2013 FINAL [...] At | + + + | CASE: [id number] PATIENT: IRINA BRO Surgical Pathology Report | [...] | self-expanding stent SURGEON: Vinay Rowan MD STORE CLERK CHECKER: None | | | ANESTHESIA: Moderate sedation [...] | | identified and brought to the Railroad Dining Car Steward/Stewardess. The patient was placed supine | | [...] wire and up sized to a 4 Peruvian sheath. A | | | Omni flush [...] inserted over the catheter and the 4 Peruvian sheath was removed. A 6 | | | Peruvian destination sheath was then inserted over the [...] widely | | | patent. The 6 Peruvian destination sheath was then removed and a [...] stent | | SURGEON: Vinay Rowan MD STORE CLERK CHECKER: None ANESTHESIA: Moderate sedation and local anesthesia [...] identified | | and brought to the Railroad Dining Car Steward/Stewardess. The patient was placed supine on the [...] wire and up sized to a 4 Peruvian sheath. A Omni flush catheter was then [...] inserted over the catheter and the 4 Peruvian sheath was removed. | | A 6 Peruvian destination sheath was then inserted over the [...] be widely | | patent. The 6 Peruvian destination sheath was then removed and a [...] | self-expanding stent SURGEON: Vinay Rowan MD STORE CLERK CHECKER: None | | | ANESTHESIA: Moderate sedation [...] | | identified and brought to the Railroad Dining Car Steward/Stewardess. The patient was placed supine | | [...] wire and up sized to a 4 Peruvian sheath. A | | | Omni flush [...] inserted over the catheter and the 4 Peruvian sheath was removed. A 6 | | | Peruvian destination sheath was then inserted over the [...] widely | | | patent. The 6 Peruvian destination sheath was then removed and a [...] stent | | SURGEON: Vinay Rowan MD STORE CLERK CHECKER: None ANESTHESIA: Moderate sedation and local anesthesia [...] identified | | and brought to the Railroad Dining Car Steward/Stewardess. The patient was placed supine on the [...] wire and up sized to a 4 Peruvian sheath. A Omni flush catheter was then [...] inserted over the catheter and the 4 Peruvian sheath was removed. | | A 6 Peruvian destination sheath was then inserted over the [...] be widely | | patent. The 6 Peruvian destination sheath was then removed and a [...] | self-expanding stent SURGEON: Vinay Rowan MD STORE CLERK CHECKER: None | | | ANESTHESIA: Moderate sedation [...] | | identified and brought to the Railroad Dining Car Steward/Stewardess. The patient was placed supine | | [...] wire and up sized to a 4 Peruvian sheath. A | | | Omni flush [...] inserted over the catheter and the 4 Peruvian sheath was removed. A 6 | | | Peruvian destination sheath was then inserted over the [...] widely | | | patent. The 6 Peruvian destination sheath was then removed and a [...] stent | | SURGEON: Vinay Rowan MD STORE CLERK CHECKER: None ANESTHESIA: Moderate sedation and local anesthesia [...] identified | | and brought to the Railroad Dining Car Steward/Stewardess. The patient was placed supine on the [...] wire and up sized to a 4 Peruvian sheath. A Omni flush catheter was then [...] inserted over the catheter and the 4 Peruvian sheath was removed. | | A 6 Peruvian destination sheath was then inserted over the [...] be widely | | patent. The 6 Peruvian destination sheath was then removed and a [...] 2. Triphasic | | | waveforms left HUMAN DEVELOPMENT PROFESSOR and profunda, with significant stenosis between the [...] | | significant stenosis.2. Triphasic waveforms left HUMAN DEVELOPMENT PROFESSOR and profunda, with significant | | stenosis [...] significant stenosis. | |2. Triphasic waveforms left HUMAN DEVELOPMENT PROFESSOR and profunda, with significant stenosis between the [...] | Testing performed | | | at [facility];[address] [place] [address];[place] [address] SPECIAL REQUESTS | | | RAC | | | Testing performed at [facility];[address] [place] [address] | | | CULTURE NO GROWTH 6 DAYS | | | Testing performed | | | at [facility], [address] [place] [address] REPORT STATUS | | | 03/26/2013 FINAL [...] | Testing performed | | | at [facility];[address] [place] [address];[place] [address] SPECIAL REQUESTS | | | RAC | | | Testing performed at [facility];[address] [place] [address];[place] [address] | | | CULTURE NO GROWTH 6 DAYS | | | Testing performed | | | at [facility], [address] [place] [address] REPORT STATUS | | | 03/27/2013 FINAL [...] EXTERNAL LAB | | Testing performed at [facility];[address] [place] [address];[place] [address] MRSA PCR | | | NEGATIVE Testing performed at | | | [facility];[address] [place] [address];[place] [address] | | + + + + +---------+ [...] | Testing performed at | | | [facility];[address] [facility];[place] [address] CULTURE | | | 3+ STAPHYLOCOCCUS AUREUSAbnormal | | | 1+ ESCHERICHIA COLIAbnormal | | | 1+ ESCHERICHIA | | | HERMANNIIAbnormal | | | 3+ NORMAL SKIN ROB ISOLATED | | | NO FURTHER WORKUP | | | Testing performed at [facility], [address] [facility], | | | [place] [address] REPORT STATUS | | | 03/24/2013 FINAL [...] soft tissue medially identified Electronically signed by iRchardson Mcnamara MD on | | 03/20/2013 5:21 [...] | + + | Gangrene of foot ([facility]) Gangrene | + + | Ankle ulcer (HCC) Ulcer of ankle | + + documented in this encounter
--- OUTSIDE RECORDS SUMMARY | ~2019-03-27 | XMS | Encounter Summary ---
Demographics + + + | Address | [address] | | | [place] [address] | + + + | Home Phone | | + + + | Preferred Language | Unknown | + + + | Marital Status | Unknown | + + + | Sabianist Affiliation | Unknown | + + + | Race | Unknown | + + + | Ethnic Group | Unknown | + + + Author + + + | Author | [facility] | | | [facility] | + + + | Organization | [facility] | | | and [place] | + + + | Address | Unknown | + + + | Phone | Unavailable | + + + Care Team Providers + +------+ + | Care Wrister Name | Role | Phone | + +------+ + | Jas Baird MD | PCP | | + +------+ + Encounter Details +--------+ + + + + | Date | Type | Department | Care Team | Description | +--------+ + + + + | 11/10/ | Orders Only | [facility] | Rudy Khoury MD | | | 2014 | | NEPRHOLOGY [place] | [address] | | | | | [address] | [address] [place], [place] | | | | | [address] [place], [place] | [address] | | | | | [address] | | | | | | [phone] | | | +--------+ + + + [...] | | | LAB | | | [place] | | | | | + + [...]
--- OUTSIDE RECORDS SUMMARY | ~2019-03-27 | XMS | Encounter Summary ---
Demographics + + + | Address | [address] | | | [place] [address] | + + + | Home Phone [...] | Author | [facility] | | | and [place] | + + + | Organization | [facility] | | | and [place] | + + + | Address | Unknown | + + + | Phone | Unavailable | + + + Care Team Providers + +------+ + | Care Topographical Field Assistant Name | Role | Phone | + +------+ + PCP | Unavailable | + +------+ + Encounter Details +--------+ + + + + | Date | Type | Department | Care Team | Description | +--------+ + + + + | 03/20/ | Hospital | [facility] | Carla Donovan, | Gangrene of foot | | 2013 - | Encounter | [facility] [address] | [address] | ([facility]); Ankle ulcer | | | | [address] | [address] [place], [place] | ([facility]) | | 03/25/ | | [place], [place] | [address] | | | 2012 | | [address] | | | | | | [phone] | | | +--------+ + + + [...] Date of Service: 04/07/13 1012 Status: Signed Certified Green Building Engineer: Adriana Carty MD (Physician) [facility] Service: Hospitalist Note Discharge Summary Date of Admission: 03/20/2013 Date of Discharge: [id number] Treatment Team: Consulting Physician: MD Timur Gill [...] Discharge Information: Follow up: Vinay Rowan MD [facility] [place] [address] [facility] (wound-care) [phone] Timur Harper DPM [address] [place], [place] [address] [place] [address] In 1 week Apollo Urbano DO [address] [place] [address] In 1 week Medication List As of [...] Author: LYNNETTE Zaidi Service: (none) Author Type: Hazardous Materials Driver Filed: 03/28/1336 Date of Service: 03/28/13934 Status: Signed Certified Green Building Engineer: LYNNETTE Zaidi (Hazardous Materials Driver) CM re-faxed pt's discharge orders to [facility] as they misplaced the original fax. Boom SOLARES onver sandi Transaction, Provider Unknown - 03/25/2013 4:45 PM PST Nurse Progress Note by Senia Ryder RN at 03/25/131644 Author: Senia Ryder RN Service: (none) Author Type: Registered Nurse Filed: 03/25/13 819 Date of Service: 03/25/131644 Status: Signed Certified Green Building Engineer: Senia Ryder RN (Registered Nurse) Patient discharged to home with instructions, prescriptions, and belongings. Accompanied b y family. Oxygen delivered and set up by [facility] Services in [place] will follow up at home with patient. HH set up for physical therapy and wound care. Family states unders tands. Pain pill given prior to DC. States pain is minimal. No nausea, ambulating with PT us ing walker and tolerating well. Dressing to left foot dry/intact. pearl digger did dressing change today. Right groin bandaid dry/intact. Patient eager to be discharged. Joshua junior Transaction, Provider Unknown - 03/25/2013 2:58 PM PST Progress Notes by Galina Panda RRT at 03/25/13 1458 Author: Galina Panda RRT Service: (none) Author Type: Registered Respiratory Therap ist Filed: 03/25/13 1458 Date of Service: 03/25/131457 Status: Signed Certified Green Building Engineer: Galina Panda RRT (Registered Respiratory Therapist) [facility] Department of Respiratory Fdc Oxygen Evaluation (Evaluation is valid for 48 [...] Notes by Lilliana Abdi PT at 03/25/13 4674 Author: Lilliana Abdi PT Service: (none) Author Type: Physical Therapist Filed: 03/25/13 2057 Date of Service: 03/25/131419 Status: Signed Certified Green Building Engineer: Lilliana Abdi PT (Physical Therapist) 03/25/13 0487 PT Last Visit PT Received On 03/25/13 Reason for Treatment Other (comment) (debridement, s/p L LE stenting) Requires PT Follow Up Yes Follow up PT Only? No PT Eval/Reassessment Date 03/25/13 Assistance Required 1 person Seo Team Lead Needed No Plan Treatment/Interventions Bed mobility training;Gait [...] at home ) Prior Function Level of Ritchie Modified independent with functional mobility;Modified independent wi [...] Eval/Reassessment Date 03/25/13 Assistance Required 1 person Seo Team Lead Needed No Precautions Other Precautions Fall risk [...] Date of Service: 03/25/13 115 Status: Signed Certified Green Building Engineer: Senia Ryder RN (Registered Nurse) Message left [...] Date of Service: 03/25/13 105 Status: Signed Certified Green Building Engineer: Apollo Urbano DO (Physician) [facility] Service: Infectious Disease Progress Note Hospital Day: LOS: 5 days Post-Op Day: * No surgery found * SUBJECTIVE Patient Summary: The patient is a 72 y.o. female with significant past medical histor y of colon CA and HTN who is transferred from [facility] for L ankle gangrene. Patient noticed [...] Date of Service: 03/25/13 104 Status: Signed Certified Green Building Engineer: Lilliana Abdi PT (Physical Therapist) 03/25/13 1040 [...] Author: LYNNETTE Zaidi Service: (none) Author Type: Hazardous Materials Driver Filed: 03/25/13 0935 Date of Service: 03/25/13924 Status: Signed Certified Green Building Engineer: LYNNETTE Zaidi (Hazardous Materials Driver) NOY met with pt for continued discharge planning. CM educated her regarding Home Health for wound-care & physical therapy. Pt agreed to services. CM arranged for [facility] as they service the [facility]. NOY also notified pt that Medicare will [...] 03/25/13836 Date of Service: 03/25/13830 Status: Signed Certified Green Building Engineer: Adriana Carty MD (Physician) [facility] Service: Hospitalist Progress Note Hospital Day: [...] 03/24/131943 Date of Service: 03/24/131937 Status: Signed Certified Green Building Engineer: Gustavo Hratman RN (Registered Nurse) Physician notified of purple [...] 03/24/131658 Date of Service: 03/24/131657 Status: Signed Certified Green Building Engineer: Vinay Rowan MD (Physician) Strong DP signal [...] Date of Service: 03/24/13 1411 Status: Addendum Certified Green Building Engineer: Sangita Palencia MD (Physician) Related Notes: Original Note by Sangita Palencia MD (Physician) filed at 03/24/13 1432 [facility] Service: Infectious Disease Progress Note Hospital Day: LOS: 4 days Post-Op Day: * No surgery found * SUBJECTIVE Patient Summary: The patient is a 72 y.o. female with significant past medical histor y of colon CA and HTN who is transferred from [facility] for L ankle gangrene. Patient noticed [...] Service: (none) Author Type: Physician Filed: 03/24/13 1551 Date of Service: 03/24/13 1314 Status: Signed Certified Green Building Engineer: Adriana Carty MD (Physician) [facility] Service: Hospitalist Progress Note Hospital Day: [...] 03/24/1342 Date of Service: 03/24/13938 Status: Signed Certified Green Building Engineer: Rubi Winter RN (Registered Nurse) Follow up [...] 1748 Date of Service: 03/24/13816 Status: Signed Certified Green Building Engineer: IVON Aguilar (Advanced Registered Nurse Practitioner) [facility] Service: Vascular Surgery Progress Note Hospital Day: LOS: 4 days Post-Op Day: * No surgery date entered * SUBJECTIVE Patient Summary: Patient is a 72 y.o. female with PMH significant for COPD, Afib, HTN , PR , CVA, and PAD who was admitted [...] or concerns related to vascular supply Disposition: bargg Code Status: Full Code IVON Aguilar 03/24/2013 Rom Carrillo MD - 1 05/24/2012 4:52 PM PST Progress Notes by Rom Cardona MD at 03/23/131651 Author: Rom Cardona MD Service: (none) Author Type: Physician Filed: 03/23/131907 Date of Service: 03/23/131651 Status: Signed Certified Green Building Engineer: Rom Cardona MD (Physician) [facility] Service: Hospitalist Progress Note Hospital Day: [...] significant sten osis. 2. Triphasic waveforms left ENTERTAINMENT AGENT and profunda, with significant stenosis between the [...] 1148 Date of Service: 03/23/1356 Status: Signed Certified Green Building Engineer: Sangita Palencia MD (Physician) [facility] Service: Infectious Disease Progress Note Hospital Day: LOS: 3 days Post-Op Day: * No surgery found * SUBJECTIVE Patient Summary: The patient is a 72 y.o. female with significant past medical histor y of colon CA and HTN who is transferred from [facility] for L ankle gangrene. Patient noticed [...] Plan for angiogram-possibly followed by revascularization. 03/23/13 0826 [facility] Service: Vascular Surgery Brief Op Note [...] Although these are superficial and probably not sales and service representative-due to the change in the alexandro [...] Date of Service: 03/23/13 0752 Status: Signed Certified Green Building Engineer: Chad Padilla RN (Registered Nurse) Patient off floor to computer lab assistant. CHAD PADILLA RN Rom Kimble MD - 03/22/2013 6:15 PM PSTFormatting of this note might be different from the orig inal. Progress Notes by Rom Cardona MD at 03/22/13 4206 Author: Rom Cardona MD Service: Hospitalist Author Type: Physician Filed: 03/22/13 2456 Date of Service: 03/22/131814 Status: Signed Certified Green Building Engineer: Rom Cardona MD (Physician) [facility] Service: Hospitalist Progress Note Hospital Day: [...] significant sten osis. 2. Triphasic waveforms left ENTERTAINMENT AGENT and profunda, with significant stenosis between the [...] Notes by Sangita Palencia MD at 03/22/13 0933 Author: Sangita Palencia MD Service: (none) Author Type: Physician Filed: 03/22/13 0745 Date of Service: 03/22/13 2648 Status: Signed Certified Green Building Engineer: Sangita Palencia MD (Physician) [facility] Service: Infectious Disease Progress Note Hospital Day: LOS: 2 days Post-Op Day: * No surgery found * SUBJECTIVE Patient Summary: The patient is a 72 y.o. female with significant past medical histor y of colon CA and HTN who is transferred from [facility] for L ankle gangrene. Patient noticed [...] wound cultures sent-doubt that this will be sales and service representative as will likely be a skin [...] Author: LYNNETTE Zaidi Service: (none) Author Type: Hazardous Materials Driver Filed: 03/22/13 1013 Date of Service: 03/22/13 1010 Status: Signed Certified Green Building Engineer: LYNNETTE Zaidi (Hazardous Materials Driver) CM met with pt for discharge planning. [...] Notes by Elio Camp MD at 03/21/13 2657 Author: Elio Camp MD Service: (none) Author Type: Physician Filed: 03/24/13 1321 Date of Service: 03/21/13 1637 Status: Signed Certified Green Building Engineer: Elio Camp MD (Physician) Related Notes: Original Note by Elio Camp MD (Physician) filed at 03/21/13 2483 [facility] Service: Hospitalist Progress Note Hospital Day: [...] 03/20/131807 Date of Service: 03/20/131807 Status: Signed Certified Green Building Engineer: Yumiko Mendez RPH (Pharmacist) Clinical Pharmacy Note: [...] when la bs are reported. Yumiko Mendez, [facility] 03/20/2013 6:08 PM docume nted in this [...] EXTERNAL LAB | | Testing performed at [facility];[address] | | | [facility];[place] [address] SPECIAL REQUESTS | | | CIPRO | | | Testing performed at [facility];[address] [facility];[place] [address] GRAM STAIN | | | 1+ WBC'S SEEN | | | 1+ EPITHELIAL CELLS | | | 1+ GRAM POSITIVE COCCI | | | Testing performed at [facility], | | | [address] [place] [address] CULTURE | | | 2+ STAPHYLOCOCCUS AUREUSAbnormal | | | Testing performed at [facility], | | | [address] [place] [address] REPORT STATUS | | | 03/27/2013 FINAL [...] At | + + + | CASE: [id number] PATIENT: IRINA BRO Surgical Pathology Report | [...] | self-expanding stent SURGEON: Vinay Rowan MD DIATHERMY EQUIPMENT REPAIRER: None | | | ANESTHESIA: Moderate sedation [...] | | identified and brought to the Electrolytic De Scaler. The patient was placed supine | | [...] wire and up sized to a 4 Citizen [place] sheath. A | | | Omni flush [...] inserted over the catheter and the 4 Citizen [place] sheath was removed. A 6 | | | Citizen [place] destination sheath was then inserted over the [...] widely | | | patent. The 6 Citizen [place] destination sheath was then removed and a [...] stent | | SURGEON: Vinay Rowan MD DIATHERMY EQUIPMENT REPAIRER: None ANESTHESIA: Moderate sedation and local anesthesia [...] identified | | and brought to the Electrolytic De Scaler. The patient was placed supine on the [...] wire and up sized to a 4 Citizen [place] sheath. A Omni flush catheter was then [...] inserted over the catheter and the 4 Citizen [place] sheath was removed. | | A 6 Citizen [place] destination sheath was then inserted over the [...] be widely | | patent. The 6 Citizen [place] destination sheath was then removed and a [...] | self-expanding stent SURGEON: Vinay Rowan MD DIATHERMY EQUIPMENT REPAIRER: None | | | ANESTHESIA: Moderate sedation [...] | | identified and brought to the Electrolytic De Scaler. The patient was placed supine | | [...] wire and up sized to a 4 Citizen [place] sheath. A | | | Omni flush [...] inserted over the catheter and the 4 Citizen [place] sheath was removed. A 6 | | | Citizen [place] destination sheath was then inserted over the [...] widely | | | patent. The 6 Citizen [place] destination sheath was then removed and a [...] stent | | SURGEON: Vinay Rowan MD DIATHERMY EQUIPMENT REPAIRER: None ANESTHESIA: Moderate sedation and local anesthesia [...] identified | | and brought to the Electrolytic De Scaler. The patient was placed supine on the [...] wire and up sized to a 4 Citizen [place] sheath. A Omni flush catheter was then [...] inserted over the catheter and the 4 Citizen [place] sheath was removed. | | A 6 Citizen [place] destination sheath was then inserted over the [...] be widely | | patent. The 6 Citizen [place] destination sheath was then removed and a [...] | self-expanding stent SURGEON: Vinay Rowan MD DIATHERMY EQUIPMENT REPAIRER: None | | | ANESTHESIA: Moderate sedation [...] | | identified and brought to the Electrolytic De Scaler. The patient was placed supine | | [...] wire and up sized to a 4 Citizen [place] sheath. A | | | Omni flush [...] inserted over the catheter and the 4 Citizen [place] sheath was removed. A 6 | | | Citizen [place] destination sheath was then inserted over the [...] widely | | | patent. The 6 Citizen [place] destination sheath was then removed and a [...] stent | | SURGEON: Vinay Rowan MD DIATHERMY EQUIPMENT REPAIRER: None ANESTHESIA: Moderate sedation and local anesthesia [...] identified | | and brought to the Electrolytic De Scaler. The patient was placed supine on the [...] wire and up sized to a 4 Citizen [place] sheath. A Omni flush catheter was then [...] inserted over the catheter and the 4 Citizen [place] sheath was removed. | | A 6 Citizen [place] destination sheath was then inserted over the [...] be widely | | patent. The 6 Citizen [place] destination sheath was then removed and a [...] 2. Triphasic | | | waveforms left ENTERTAINMENT AGENT and profunda, with significant stenosis between the [...] | | significant stenosis.2. Triphasic waveforms left ENTERTAINMENT AGENT and profunda, with significant | | stenosis [...] significant stenosis. | |2. Triphasic waveforms left ENTERTAINMENT AGENT and profunda, with significant stenosis between the [...] | Testing performed | | | at [facility];[address] [place] [address];[place] [address] SPECIAL REQUESTS | | | RAC | | | Testing performed at [facility];[address] [place] [address] | | | CULTURE NO GROWTH 6 DAYS | | | Testing performed | | | at [facility], [address] [place] [address] REPORT STATUS | | | 03/26/2013 FINAL [...] | Testing performed | | | at [facility];[address] [place] [address];[place] [address] SPECIAL REQUESTS | | | RAC | | | Testing performed at [facility];[address] [place] [address];[place] [address] | | | CULTURE NO GROWTH 6 DAYS | | | Testing performed | | | at [facility], [address] [place] [address] REPORT STATUS | | | 03/27/2013 FINAL [...] EXTERNAL LAB | | Testing performed at [facility];[address] [place] [address];[place] [address] MRSA PCR | | | NEGATIVE Testing performed at | | | [facility];[address] [place] [address];[place] [address] | | + + + + +---------+ [...] | Testing performed at | | | [facility];[address] [facility];[place] [address] CULTURE | | | 3+ STAPHYLOCOCCUS AUREUSAbnormal | | | 1+ ESCHERICHIA COLIAbnormal | | | 1+ ESCHERICHIA | | | HERMANNIIAbnormal | | | 3+ NORMAL SKIN ROB ISOLATED | | | NO FURTHER WORKUP | | | Testing performed at [facility], [address] [facility], | | | [place] [address] REPORT STATUS | | | 03/24/2013 FINAL [...] | + + | Gangrene of foot ([facility]) Gangrene | + + | Ankle ulcer (HCC) Ulcer of ankle | + + documented in this encounter
--- OUTSIDE RECORDS SUMMARY | ~2019-03-27 | XMS | Encounter Summary ---
Demographics + + + | Address | [address] | | | [place] [address] | + + + | Home Phone | | + + + | Preferred Language | Unknown | + + + | Marital Status | Unknown | + + + | Yazidi Affiliation | Unknown | + + + | Race | Unknown | + + + | Ethnic Group | Unknown | + + + Author + + + | Author | [facility] | | | and [facility] | + + + | Organization | [facility] | | | and [place] | + + + | Address | Unknown | + + + | Phone | Unavailable | + + + Care Team Providers + +------+ + | Care Constitutional Law Professor Name | Role | Phone | + +------+ + | Jas Baird MD | PCP | | + +------+ + Encounter Details +--------+ + + + + | Date | Type | Department | Care Team | Description | +--------+ + + + + | 04/26/ | Orders Only | [facility] | Conversion | | | 2013 | | INFECTIOUS DISEASE | Transaction, | | | | | [address] [facility] | Provider Unknown | | | | | [place], [place] | [phone] | | | | | [address] | | | | | | [phone] | | | +--------+ + + + [...]
--- OUTSIDE RECORDS SUMMARY | ~2019-03-27 | XMS | Clinical Summary ---
Demographics + + + | Address | [address] | | | [place] [address] | + + + | Home Phone | | + + + | Preferred Language | Unknown | + + + | Marital Status | Unknown | + + + | Yarsanism Affiliation | Unknown | + + + | Race | Unknown | + + + | Ethnic Group | Unknown | + + + Author + + + | Author | [facility] | | | and [facility] | + + + | Organization | [facility] | | | and [place] | + + + | Address | Unknown | + + + | Phone | Unavailable | + + + Care Team Providers + +------+ + | Care Business Department Chair Name | Role | Phone | + [...]
--- OUTSIDE RECORDS SUMMARY | ~2019-03-27 | XMS | Encounter Summary ---
Demographics + + + | Address | [address] | | | [place] [address] | + + + | Home Phone | | + + + | Preferred Language | Unknown | + + + | Marital Status | Unknown | + + + | Muslim Affiliation | Unknown | + + + | Race | Unknown | + + + | Ethnic Group | Unknown | + + + Author + + + | Author | [facility] | | | and [facility] | + + + | Organization | [facility] | | | and [place] | + + + | Address | Unknown | + + + | Phone | Unavailable | + + + Care Team Providers + +------+ + | Care Perlite Grinder Name | Role | Phone | + +------+ + | Jas Biard MD | PCP | | + +------+ + Encounter Details +--------+ + + + + | Date | Type | Department | Care Team | Description | +--------+ + + + + | 04/07/ | Orders Only | [facility] | Conversion | | | 2013 | | INFECTIOUS DISEASE | Transaction, | | | | | [address] [facility] | Provider Unknown | | | | | [place], [place] | [phone] | | | | | [address] | | | | | | [phone] | | | +--------+ + + + [...]
--- OUTSIDE RECORDS SUMMARY | ~2019-03-27 | XMS | Encounter Summary ---
Demographics + + + | Address | [address] | | | [place] [address] | + + + | Home Phone | | + + + | Preferred Language | Unknown | + + + | Marital Status | Unknown | + + + | Nondenominational Affiliation | Unknown | + + + | Race | Unknown | + + + | Ethnic Group | Unknown | + + + Author + + + | Author | [facility] | | | and [place] | + + + | Organization | [facility] | | | and [place] | + + + | Address | Unknown | + + + | Phone | Unavailable | + + + Care Team Providers + +------+ + | Care Community Case Manager Name | Role | Phone | + +------+ + PCP | Unavailable | + +------+ + Encounter Details +--------+ + + + + | Date | Type | Department | Care Team | Description | +--------+ + + + + | 03/23/ | Hospital | [facility] | | | | 2001 - | Encounter | [facility] | | | | | | [facility] [address] | | | | 07/25/ | | [place] | | | | 2002 | | [address] | | | | | | [phone] | | | +--------+ + + + [...]
--- OUTSIDE RECORDS SUMMARY | ~2019-03-27 | XMS | Encounter Summary ---
Demographics + + + | Address | [address] | | | [place] [address] | + + + | Home Phone | | + + + | Preferred Language | Unknown | + + + | Marital Status | Unknown | + + + | Rastafarian Affiliation | Unknown | + + + | Race | Unknown | + + + | Ethnic Group | Unknown | + + + Author + + + | Author | [facility] | | | and [place] | + + + | Organization | [facility] | | | and [place] | + + + | Address | Unknown | + + + | Phone | Unavailable | + + + Care Team Providers + +------+ + | Care Powertrain Calibration Engineer Name | Role | Phone | + +------+ + PCP | Unavailable | + +------+ + Encounter Details +--------+ + + + + | Date | Type | Department | Care Team | Description | +--------+ + + + + | 03/20/ | Hospital | [facility] | Carla Donovan, | Gangrene of foot | | 2013 - | Encounter | [facility] | [address] | ([facility]ERLY [facility]); Ankle ulcer | | | | [address] | [place], [place] | (FORMERLY [facility]) | | 03/25/ | | [place], [place] | [address] | | | 2012 | | [address] | | | | | | [phone] | | | +--------+ + + + [...] Date of Service: 04/07/13 1012 Status: Signed Field Artillery Basic: Adriana Carty MD (Physician) [facility] Service: Hospitalist Note Discharge Summary Date of Admission: 03/20/2013 Date of Discharge: [id number] Treatment Team: Consulting Physician: MD Timur Gill [...] Discharge Information: Follow up: Vinay Rowan MD [facility] [place] [address] In 2 weeks [facility] [place] (wound-care) [phone] Timur Harper DPM [address] [place], [place] [address] [address] In 1 week Apollo Urbano DO [address] [place] [address] In 1 week Medication List As of [...] Author: LYNNETTE Zaidi Service: (none) Author Type: Blade Worker Filed: 03/28/1336 Date of Service: 03/28/13934 Status: Signed Field Artillery Basic: LYNNETTE Zaidi (Blade Worker) CM re-faxed pt's discharge orders to [facility] as they misplaced the original fax. Boom SOLARES onver sandi Transaction, Provider Unknown - 03/25/2013 4:45 PM PST Nurse Progress Note by Senia Ryder RN at 03/25/131644 Author: Senia Ryder RN Service: (none) Author Type: Registered Nurse Filed: 03/25/13 573 Date of Service: 03/25/131644 Status: Signed Field Artillery Basic: Senia Ryder RN (Registered Nurse) Patient discharged to home with instructions, prescriptions, and belongings. Accompanied b y family. Oxygen delivered and set up by [facility]. Services in [place] will follow up at home with patient. HH set up for physical therapy and wound care. Family states unders tands. Pain pill given prior to DC. States pain is minimal. No nausea, ambulating with PT us ing walker and tolerating well. Dressing to left foot dry/intact. managed care coordinator did dressing change today. Right groin bandaid dry/intact. Patient eager to be discharged. Joshua junior Transaction, Provider Unknown - 03/25/2013 2:58 PM PST Progress Notes by Galina Panda RRT at 03/25/13 1458 Author: Galina Panda RRT Service: (none) Author Type: Registered Respiratory Therap ist Filed: 03/25/13 1458 Date of Service: 03/25/131457 Status: Signed Field Artillery Basic: Galina Panda RRT (Registered Respiratory Therapist) [facility] Department of Respiratory Jail Oxygen Evaluation (Evaluation is valid for 48 [...] Notes by Lilliana Abdi PT at 03/25/13 3769 Author: Lilliana Abdi PT Service: (none) Author Type: Physical Therapist Filed: 03/25/13 8969 Date of Service: 03/25/131419 Status: Signed Field Artillery Basic: Lilliana Abdi PT (Physical Therapist) 03/25/13 6657 PT Last Visit PT Received On 03/25/13 Reason for Treatment Other (comment) (debridement, s/p L LE stenting) Requires PT Follow Up Yes Follow up PT Only? No PT Eval/Reassessment Date 03/25/13 Assistance Required 1 person Elastic Tape Inserter Needed No Plan Treatment/Interventions Bed mobility training;Gait [...] at home ) Prior Function Level of [place] Modified independent with functional mobility;Modified independent wi [...] Eval/Reassessment Date 03/25/13 Assistance Required 1 person Elastic Tape Inserter Needed No Precautions Other Precautions Fall risk [...] Date of Service: 03/25/13 115 Status: Signed Field Artillery Basic: Senia Ryder RN (Registered Nurse) Message left [...] Date of Service: 03/25/13 105 Status: Signed Field Artillery Basic: Apollo Urbano DO (Physician) [facility]: Infectious Disease Progress Note Hospital Day: LOS: 5 days Post-Op Day: * No surgery found * SUBJECTIVE Patient Summary: The patient is a 72 y.o. female with significant past medical histor y of colon CA and HTN who is transferred from [facility] for L ankle gangrene. Patient noticed a [...] Date of Service: 03/25/13 104 Status: Signed Field Artillery Basic: Lilliana Abdi PT (Physical Therapist) 03/25/13 1040 [...] Author: LYNNETTE Zaidi Service: (none) Author Type: Blade Worker Filed: 03/25/13 0935 Date of Service: 03/25/13924 Status: Signed Field Artillery Basic: LYNNETTE Zaidi (Blade Worker) NOY met with pt for continued discharge planning. CM educated her regarding Home Health for wound-care & physical therapy. Pt agreed to services. CM arranged for [facility] as [facility] service the [facility]. NOY also notified pt that Medicare [...] 03/25/13836 Date of Service: 03/25/13830 Status: Signed Field Artillery Basic: Adriana Carty MD (Physician) [facility]: Hospitalist Progress Note Hospital Day: LOS: [...] 03/24/131943 Date of Service: 03/24/131937 Status: Signed Field Artillery Basic: Gustavo Hartman RN (Registered Nurse) Physician notified [...] 03/24/131658 Date of Service: 03/24/131657 Status: Signed Field Artillery Basic: Vinay Rowan MD (Physician) Strong DP signal [...] Date of Service: 03/24/13 1411 Status: Addendum Field Artillery Basic: Sangita Palencia MD (Physician) Related Notes: Original Note by Sangita Palencia MD (Physician) filed at 03/24/13 1432 [facility]: Infectious Disease Progress Note Hospital Day: LOS: 4 days Post-Op Day: * No surgery found * SUBJECTIVE Patient Summary: The patient is a 72 y.o. female with significant past medical histor y of colon CA and HTN who is transferred from [facility] for L ankle gangrene. Patient noticed a [...] Service: (none) Author Type: Physician Filed: 03/24/13 2789 Date of Service: 03/24/13 1314 Status: Signed Field Artillery Basic: Adriana Carty MD (Physician) [facility]: Hospitalist Progress Note Hospital Day: LOS: [...] 03/24/1342 Date of Service: 03/24/13938 Status: Signed Field Artillery Basic: Rubi Winter RN (Registered Nurse) Follow up [...] 1748 Date of Service: 03/24/13816 Status: Signed Field Artillery Basic: IOVN Aguilar (Advanced Registered Nurse Practitioner) [facility]: Vascular Surgery Progress Note Hospital Day: LOS: 4 days Post-Op Day: * No surgery date entered * SUBJECTIVE Patient Summary: Patient is a 72 y.o. female with PMH significant for COPD, Afib, HTN , [place] , CVA, and PAD who was admitted [...] 03/23/131907 Date of Service: 03/23/131651 Status: Signed Field Artillery Basic: Rom Cardona MD (Physician) [facility]: Hospitalist Progress Note Hospital Day: LOS: [...] significant sten osis. 2. Triphasic waveforms left SALES EXEC and profunda, with significant stenosis between the [...] 1148 Date of Service: 03/23/1356 Status: Signed Field Artillery Basic: Sangita Palencia MD (Physician) [facility]: Infectious Disease Progress Note Hospital Day: LOS: 3 days Post-Op Day: * No surgery found * SUBJECTIVE Patient Summary: The patient is a 72 y.o. female with significant past medical histor y of colon CA and HTN who is transferred from [facility] for L ankle gangrene. Patient noticed a [...] Plan for angiogram-possibly followed by revascularization. 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 CHAD PADILLA RN Rom Kimble MD - 03/22/2013 6:15 PM PSTFormatting of this note might be different from the orig inal. Progress Notes by Rom Cardona MD at 03/22/13 8704 Author: Rom Cardona MD Service: Hospitalist Author Type: Physician Filed: 03/22/13 8606 Date of Service: 03/22/131814 Status: Signed Field Artillery Basic: Rom Cardona MD (Physician) [facility]: Hospitalist Progress Note Hospital Day: LOS: [...] significant sten osis. 2. Triphasic waveforms left SALES EXEC and profunda, with significant stenosis between the [...] Notes by Sangita Palencia MD at 03/22/13 9914 Author: Sangita Palencia MD Service: (none) Author Type: Physician Filed: 03/22/13 8323 Date of Service: 03/22/13 8881 Status: Signed Field Artillery Basic: Sangita Palencia MD (Physician) [facility]: Infectious Disease Progress Note Hospital Day: LOS: 2 days Post-Op Day: * No surgery found * SUBJECTIVE Patient Summary: The patient is a 72 y.o. female with significant past medical histor y of colon CA and HTN who is transferred from [facility] for L ankle gangrene. Patient noticed a [...] wound cultures sent-doubt that this will be independent sales representative as will likely be a [...] Author: LYNNETTE Zaidi Service: (none) Author Type: Blade Worker Filed: 03/22/13 1013 Date of Service: 03/22/13 1010 Status: Signed Field Artillery Basic: LYNNETTE Zaidi (Blade Worker) CM met with pt for discharge planning. [...] Notes by Elio Camp MD at 03/21/13 7617 Author: Elio Camp MD Service: (none) Author Type: Physician Filed: 03/24/13 1321 Date of Service: 03/21/13 1637 Status: Signed Field Artillery Basic: Elio Camp MD (Physician) Related Notes: Original Note by Elio Camp MD (Physician) filed at 03/21/13 7243 [facility]: Hospitalist Progress Note Hospital Day: LOS: [...] 03/20/131807 Date of Service: 03/20/131807 Status: Signed Field Artillery Basic: Yumiko Mendez RPH (Pharmacist) Clinical Pharmacy Note: [...] when la bs are reported. Yumiko Mendez, [facility] 03/20/2013 6:08 PM docume nted in [...] EXTERNAL LAB | | Testing performed at [facility];[address] | | | [facility];[place] [address] SPECIAL REQUESTS | | | CIPRO | | | Testing performed at [facility];[address] [facility];[place] [address] GRAM STAIN | | | 1+ WBC'S SEEN | | | 1+ EPITHELIAL CELLS | | | 1+ GRAM POSITIVE COCCI | | | Testing performed at [facility], | | | [address] [place] [address] CULTURE | | | 2+ STAPHYLOCOCCUS AUREUSAbnormal | | | Testing performed at [facility], | | | [address] [place] [address] REPORT STATUS | | | 03/27/2013 FINAL [...] At | + + + | CASE: [id number] PATIENT: IRINA BRO Surgical Pathology Report | [...] | self-expanding stent SURGEON: Vinay Rowan MD SONOSCOPE OPERATOR: None | | | ANESTHESIA: Moderate sedation [...] | | identified and brought to the Drying Supervisor. The patient was placed supine | | [...] wire and up sized to a 4 Slovenian sheath. A | | | Omni flush [...] inserted over the catheter and the 4 Slovenian sheath was removed. A 6 | | | Slovenian destination sheath was then inserted over the [...] widely | | | patent. The 6 Slovenian destination sheath was then removed and a [...] stent | | SURGEON: Vinay Rowan MD SONOSCOPE OPERATOR: None ANESTHESIA: Moderate sedation and local anesthesia [...] identified | | and brought to the Drying Supervisor. The patient was placed supine on the [...] wire and up sized to a 4 Slovenian sheath. A Omni flush catheter was then [...] inserted over the catheter and the 4 Slovenian sheath was removed. | | A 6 Slovenian destination sheath was then inserted over the [...] be widely | | patent. The 6 Slovenian destination sheath was then removed and a [...] | self-expanding stent SURGEON: Vinay Rowan MD SONOSCOPE OPERATOR: None | | | ANESTHESIA: Moderate sedation [...] | | identified and brought to the Drying Supervisor. The patient was placed supine | | [...] wire and up sized to a 4 Slovenian sheath. A | | | Omni flush [...] inserted over the catheter and the 4 Slovenian sheath was removed. A 6 | | | Slovenian destination sheath was then inserted over the [...] widely | | | patent. The 6 Slovenian destination sheath was then removed and a [...] stent | | SURGEON: Vinay Rowan MD SONOSCOPE OPERATOR: None ANESTHESIA: Moderate sedation and local anesthesia [...] identified | | and brought to the Drying Supervisor. The patient was placed supine on the [...] wire and up sized to a 4 Slovenian sheath. A Omni flush catheter was then [...] inserted over the catheter and the 4 Slovenian sheath was removed. | | A 6 Slovenian destination sheath was then inserted over the [...] be widely | | patent. The 6 Slovenian destination sheath was then removed and a [...] | self-expanding stent SURGEON: Vinay Rowan MD SONOSCOPE OPERATOR: None | | | ANESTHESIA: Moderate sedation [...] | | identified and brought to the Drying Supervisor. The patient was placed supine | | [...] wire and up sized to a 4 Slovenian sheath. A | | | Omni flush [...] inserted over the catheter and the 4 Slovenian sheath was removed. A 6 | | | Slovenian destination sheath was then inserted over the [...] widely | | | patent. The 6 Slovenian destination sheath was then removed and a [...] stent | | SURGEON: Vinay Rowan MD SONOSCOPE OPERATOR: None ANESTHESIA: Moderate sedation and local anesthesia [...] identified | | and brought to the Drying Supervisor. The patient was placed supine on the [...] wire and up sized to a 4 Slovenian sheath. A Omni flush catheter was then [...] inserted over the catheter and the 4 Slovenian sheath was removed. | | A 6 Slovenian destination sheath was then inserted over the [...] be widely | | patent. The 6 Slovenian destination sheath was then removed and a [...] 2. Triphasic | | | waveforms left SALES EXEC and profunda, with significant stenosis between the [...] | | significant stenosis.2. Triphasic waveforms left SALES EXEC and profunda, with significant | | stenosis [...] significant stenosis. | |2. Triphasic waveforms left SALES EXEC and profunda, with significant stenosis between the [...] | Testing performed | | | at [facility];[address] [place] [address];[place] [address] SPECIAL REQUESTS | | | RAC | | | Testing performed at [facility];[address] [place] [address] | | | CULTURE NO GROWTH 6 DAYS | | | Testing performed | | | at [facility], [address] [place] [address] REPORT STATUS | | | 03/26/2013 FINAL [...] | Testing performed | | | at [facility];[address] [place] [address];[place] [address] SPECIAL REQUESTS | | | RAC | | | Testing performed at [facility];[address] [place] [address];[place] [address] | | | CULTURE NO GROWTH 6 DAYS | | | Testing performed | | | at [facility], [address] [place] [address] REPORT STATUS | | | 03/27/2013 FINAL [...] EXTERNAL LAB | | Testing performed at [facility];[address] [place] [address];[place] [address] MRSA PCR | | | NEGATIVE Testing performed at | | | [facility];[address] [place] [address];[place] [address] | | + + + + +---------+ [...] | Testing performed at | | | [facility];[address] [facility];[place] [address] CULTURE | | | 3+ STAPHYLOCOCCUS AUREUSAbnormal | | | 1+ ESCHERICHIA COLIAbnormal | | | 1+ ESCHERICHIA | | | HERMANNIIAbnormal | | | 3+ NORMAL SKIN ROB ISOLATED | | | NO FURTHER WORKUP | | | Testing performed at [facility], [address] [facility], | | | [place] [address] REPORT STATUS | | | 03/24/2013 FINAL [...] | + + | Gangrene of foot (FORMER[facility]) Gangrene | + + | Ankle ulcer (HCC) Ulcer of ankle | + + documented in this encounter
--- OUTSIDE RECORDS SUMMARY | ~2019-03-27 | XMS | Encounter Summary ---
Demographics + + + | Address | [address] | | | [place] [address] | + + + | Home Phone | | + + + | Preferred Language | Unknown | + + + | Marital Status | Unknown | + + + | Jehovah'S Witness Affiliation | Unknown | + + + | Race | Unknown | + + + | Ethnic Group | Unknown | + + + Author + + + | Author | [facility] | | | and [place] | + + + | Organization | [facility] | | | and [place] | + + + | Address | Unknown | + + + | Phone | Unavailable | + + + Care Team Providers + +------+ + | Care Respiratory Supervisor Name | Role | Phone | + +------+ + PCP | Unavailable | + +------+ + Encounter Details +--------+ + + + + | Date | Type | Department | Care Team | Description | +--------+ + + + + | 03/19/ | Hospital | [facility] | | | | 2003 - | Encounter | MED CTR GENERIC OP | | | | | | CONV DEPT [address] | | | | 06/17/ | | [place], | | | | 2004 | | [place] [address] | | | | | | [phone] | | | +--------+ + + + [...]
--- OUTSIDE RECORDS SUMMARY | ~2019-03-27 | XMS | Encounter Summary ---
Demographics + + + | Address | [address] | | | [place] [address] | + + + | Home Phone [...] + + + | Author | [facility] | | [facility] | + + + | Organization | [facility] | | | and [place] | + + + | Address | Unknown | + + + | Phone | Unavailable | + + + Care Team Providers + +------+ + | Care Structural Welder Name | Role | Phone | + +------+ + | Jas Baird MD | PCP | | + +------+ + Encounter Details +--------+ + + + + | Date | Type | Department | Care Team | Description | +--------+ + + + + | 04/07/ | Orders Only | [facility] | Conversion | | | 2013 | | INFECTIOUS DISEASE | Transaction, | | | | | [address] [facility] | Provider Unknown | | | | | [place], [place] | [phone] | | | | | [address] | | | | | | [phone] | | | +--------+ + + + [...]
--- OUTSIDE RECORDS SUMMARY | ~2019-03-27 | XMS | Encounter Summary ---
Demographics + + + | Address | [address] | | | [place] [address] | + + + | Home Phone | | + + + | Preferred Language | Unknown | + + + | Marital Status | Unknown | + + + | Episcopal Affiliation | Unknown | + + + | Race | Unknown | + + + | Ethnic Group | Unknown | + + + Author + + + | Author | [facility] | | | and [place] | + + + | Organization | [facility] | | | and [place] | + + + | Address | Unknown | + + + | Phone | Unavailable | + + + Care Team Providers + +------+ + | Care Proof Press Operator Name | Role | Phone | + +------+ + PCP | Unavailable | + +------+ + Encounter Details +--------+ + + + + | Date | Type | Department | Care Team | Description | +--------+ + + + + | 03/23/ | Hospital | [facility] | | | | 2001 - | Encounter | MED CTR CANCER | | | | | | CENTER [address] | | | | 07/25/ | | [place] | | | | 2002 | | [address] | | | | | | [phone] | | | +--------+ + + + [...]
--- OUTSIDE RECORDS SUMMARY | ~2019-03-27 | XMS | Encounter Summary ---
Demographics + + + | Address | [address] | | | [place] [address] | + + + | Home Phone [...] Ba | | [facility] | + + + | Organization | [facility] | | | and [place] | + + + | Address | Unknown | + + + | Phone | Unavailable | + + + Care Team Providers + +------+ + | Care Department Helper Name | Role | Phone | + +------+ + | Jas Baird MD | PCP | | + +------+ + Encounter Details +--------+ + + + + | Date | Type | Department | Care Team | Description | +--------+ + + + + | 07/26/ | Orders Only | [facility] | Rudy Khoury MD | | | 2014 | | NEPHROLOGY [place] | [address] [place] | | | | | [address] [place] | [address] [place], [place] | | | | | [address] [place], [place] | [address] | | | | | [address] | | | | | | [phone] | | | +--------+ + + + [...]
--- OUTSIDE RECORDS SUMMARY | ~2019-03-27 | XMS | Clinical Summary ---
Demographics + + + | Address | [address] | | | [place] [address] | + + + | Home Phone | | + + + | Preferred Language | Unknown | + + + | Marital Status | | + + + | Yazidi Affiliation | Unknown | + + + | Race | Unknown | + + + | Ethnic Group | Unknown | + + + Author + + + | Author | [employer] [facility] (Historical as of | | | 11-20-18) | + + + | Organization | [facility] (Historical as of | | | 11-20-18) [...] Team Providers + +------+ + | Care Pricing/Signage Team Member Name | Role | Phone | [...] | e | + + +--------+---------+------+------+-------+ | Council-3 Fatty | Take 4 tablets by | [...] chronic renal failure, stage 3 (moderate) ([facility]) | 08/07/2014 | + + + | Peripheral arterial disease (HCC) | 04/07/2013 | + + + | Ankle ulcer | 03/25/2013 | + + + | Gangrene of foot ([facility]) | 03/20/2013 | + + + | [...] +------+-------+ + | MEDICARE | MEDICA | [id number] | | | [address] | | | RE | | | | [place] [address] | | | IP-OP | | | | | + +--------+ +------+-------+ + | COMMERCIAL OTHER | COMMER | [id number] | | | | | | CIAL [...] | | | margi | | | [phone] | [address] | + +--------+ +--------+ + +
--- OUTSIDE RECORDS SUMMARY | ~2019-03-27 | XMS | Encounter Summary ---
Demographics + + + | Address | [address] | | | [place] [address] | + + + | Home Phone | | + + + | Preferred Language | Unknown | + + + | Marital Status | Unknown | + + + | Mu-Ism Affiliation | Unknown | + + + | Race | Unknown | + + + | Ethnic Group | Unknown | + + + Author + + + | Author | [facility] | | | and [place] | + + + | Organization | [facility] | | | and [place] | + + + | Address | Unknown | + + + | Phone | Unavailable | + + + Care Team Providers + +------+ + | Care Die Cutter Operator Name | Role | Phone | + +------+ + PCP | Unavailable | + +------+ + Encounter Details +--------+ + + + + | Date | Type | Department | Care Team | Description | +--------+ + + + + | 07/27/ | Hospital | [facility] | | | | 2002 - | Encounter | MED CTR CANCER | | | | | | CENTER [address] | | | | 12/01/ | | [place] | | | | 2002 | | [address] | | | | | | [phone] | | | +--------+ + + + [...]
--- OUTSIDE RECORDS SUMMARY | ~2019-03-27 | XMS | Encounter Summary ---
Demographics + + + | Address | [address] | | | [place] [address] | + + + | Home Phone [...] + + + | Author | [facility] | | | and Replaced By [facility] | + + + | Organization | [facility] | | | and [place] | + + + | Address | Unknown | + + + | Phone | Unavailable | + + + Care Team Providers + +------+ + | Care Sewing Demonstrator Name | Role | Phone | + [...] [address] | | | | | [address] | [place], [place] | | | | | [place], [place] | [address] | | | | | [address] | | | | | | [phone] | | | +--------+ + + + [...] | maxP.04 mmHg TR Vmax: 1.93 m/s Environmental Field Technician: CHIDI | | | Authenticated by: Shirley [...] mlLAESV Index (A-L): 29.99 ml/m2LAAs A2C: 17.50 [id number] A-L | | A2C: 50.92 mlLALs A2C: 5.10 cmLAAs A4C: 18.35 [id number] A-L A4C: 53.35 mlLALs | | A4C: 5.35 cmRAAs: 15.86 [id number] A-L: 43.26 mlRAESV MOD: 42.33 mlRALs: 4.93 | | cmTAPSE: 3.17 cmAV maxP.93 mmHgAV meanP.52 mmHgAV Vmax: 1.31 m/Hiram | | Vmean: 0.86 m/Hiram VTI: 22.37 cmAVA Vmax: 2.60 cm2AVA (VTI): 2.83 [id number] Vmax: | | 0.00 cm2/m2AVAI (VTI): 0.00 [...] maxP.04 mmHgTR Vmax: 1.93 m/s | | Environmental Field Technician: CHIDIAuthenticated by: Shirley Huerta Date/Time: 05-14-2017 20:57:2 [...] |TR Vmax: 1.93 m/s | | | |Environmental Field Technician: DBS | |Authenticated by: Shirley Galloway | [...]
--- OUTSIDE RECORDS SUMMARY | ~2019-03-27 | XMS | Encounter Summary ---
Demographics + + + | Address | [address] | | | [place] [address] | + + + | Home Phone [...] + + + | Author | [facility] | | | and [facility] | + + + | Organization | [facility] | | | and [place] | + + + | Address | Unknown | + + + | Phone | Unavailable | + + + Care Team Providers + +------+ + | Care Bookkeeper Name | Role | Phone | + [...] | | | | [address] | [place], [place] | | | | | [place], [place] | [address] | | | | | [address] | | | | | | [phone] | | | +--------+ + + + [...] | maxP.04 mmHg TR Vmax: 1.93 m/s Master Fisher: CHIDI | | | Authenticated by: Shirley [...] mlLAESV Index (A-L): 29.99 ml/m2LAAs A2C: 17.50 [id number] A-L | | A2C: 50.92 mlLALs A2C: 5.10 cmLAAs A4C: 18.35 [id number] A-L A4C: 53.35 mlLALs | | A4C: 5.35 cmRAAs: 15.86 [id number] A-L: 43.26 mlRAESV MOD: 42.33 mlRALs: 4.93 | | cmTAPSE: 3.17 cmAV maxP.93 mmHgAV meanP.52 mmHgAV Vmax: 1.31 m/Hiram | | Vmean: 0.86 m/Hiram VTI: 22.37 cmAVA Vmax: 2.60 cm2AVA (VTI): 2.83 [id number] Vmax: | | 0.00 cm2/m2AVAI (VTI): 0.00 [...] maxP.04 mmHgTR Vmax: 1.93 m/s | | Master Fisher: CHIDIAuthenticated by: Shirley Huerta Date/Time: 05-14-2017 20:57:2 [...] |TR Vmax: 1.93 m/s | | | |Master Fisher: DBS | |Authenticated by: Shirley Galloway | [...]
--- OUTSIDE RECORDS SUMMARY | ~2019-03-27 | XMS | Encounter Summary ---
Demographics + + + | Address | [address] | | | [place] [address] | + + + | Home Phone | | + + + | Preferred Language | Unknown | + + + | Marital Status | Unknown | + + + | Jain Affiliation | Unknown | + + + | Race | Unknown | + + + | Ethnic Group | Unknown | + + + Author + + + | Author | [facility] | | | and [facility] | + + + | Organization | [facility] | | | and [place] | + + + | Address | Unknown | + + + | Phone | Unavailable | + + + Care Team Providers + +------+ + | Care Automotive Vehicle Inspector Name | Role | Phone | + +------+ + | Jas Baird MD | PCP | | + +------+ + Encounter Details +--------+ + + + + | Date | Type | Department | Care Team | Description | +--------+ + + + + | 04/26/ | Orders Only | [facility] | Conversion | | | 2013 | | INFECTIOUS DISEASE | Transaction, | | | | | [address] [facility] | Provider Unknown | | | | | [place], [place] | [phone] | | | | | [address] | | | | | | [phone] | | | +--------+ + + + [...]
--- OUTSIDE RECORDS SUMMARY | ~2019-03-27 | XMS | Encounter Summary ---
Demographics + + + | Address | [address] | | | [place] [address] | + + + | Home Phone [...] + + + | Author | [facility] | | [facility] | + + + | Organization | [facility] | | | and [place] | + + + | Address | Unknown | + + + | Phone | Unavailable | + + + Care Team Providers + +------+ + | Care Ice Cream Truck Driver Name | Role | Phone | [...] [place] | | | | | [phone] | [address] | | | | | | [phone] | | | | | | | [...]
--- OUTSIDE RECORDS SUMMARY | ~2019-03-27 | XMS | Encounter Summary ---
Demographics + + + | Address | [address] | | | [place] [address] | + + + | Home Phone | | + + + | Preferred Language | Unknown | + + + | Marital Status | Unknown | + + + | Alevism Affiliation | Unknown | + + + | Race | Unknown | + + + | Ethnic Group | Unknown | + + + Author + + + | Author | [facility] | | | and [place] | + + + | Organization | [facility] | | | and [place] | + + + | Address | Unknown | + + + | Phone | Unavailable | + + + Care Team Providers + +------+ + | Care Bill Cutter Name | Role | Phone | + +------+ + PCP | Unavailable | + +------+ + Encounter Details +--------+ + + + + | Date | Type | Department | Care Team | Description | +--------+ + + + + | 06/20/ | Hospital | [facility] | | | | 2003 - | Encounter | [facility] | | | | | | CENTER [facility] [address] | | | | 10/23/ | | [place] | | | | 2003 | | [address] | | | | | | [phone] | | | +--------+ + + + [...]
[~2019-03-27 10:29] MED LIST changes: +ALEVE PM CAPLE1 EACH PO; +AMOX TR-K CLV1 EAC1 PO; +CARAFATE1 GM PO; +CILOSTAZOL50 MG PO; +OMEPRAZOLE20 M1 PO; +SUCRALFATE1 GM PO
--- NOTE | 2019-03-27 17:03 | NUR ---
78yr old female admitted to ccu from ED VIA STRETCHER WITH DX OF PNEUMONIA. UPON ARRIVAL PT IS INTABATED WITH SIZE 7.5 ETT, TAPED 22 At [facility]. IS ABLE TO FOLLOW COMMANDS. ADMISSION PROCESS STARTED. FOLEYCATH IS PATENT WITHCLEAR YELLOW URINE NOTED. IVF INFUSING.
--- NOTE | 2019-03-27 18:00 | NUR ---
SEVERAL FAMILY MEMBERS ARE IN ROOM, THEY ARE VERY HELPFUL WITH THIS ADMISSION. VERSED GTT HUNG AT 4 MG/HR. IVF INFUSING AT 125 ML/HR. HOB ELEVATED TO 35 DEGRESS.
--- NOTE | 2019-03-27 18:49 | NUR ---
VALENTÍN CHERY APPLIED. NO FUTHER CHANGES.
--- NOTE | 2019-03-27 19:18 | NUR ---
REPORT TO NEXT SHIFT. VENT SETTINGS, TV-400, FIO2-70, PEEP-10, CMV-24,PIP-16.
--- NOTE | 2019-03-27 20:34 | NUR ---
PT RESTING WITH EYES CLOSED. RESPONDS TO VOICE AND TOUCH. NOT GRIMACING OR RESTLESS AT THIS TIME. OXYGEN SATURATIONS 100 PERCENT WITH AN FIO2 OF 70 ON THE VENTILATOR.
--- NOTE | 2019-03-27 21:00 | NUR ---
ORAL CARE AND SUCTIONING PERFORMED AT THIS TIME. WELL TOLERATED BY PATIENT.
--- NOTE | 2019-03-27 21:07 | NUR ---
PT HAD A RUN OF SVT THAT LASTED 7 SECONDS. MD NOTIFIED. AT THIS TIME.
--- NOTE | 2019-03-27 21:14 | NUR ---
SPOKE TO DR GARNER ABOUT PT'S LOW GRADE TEMPERATURE OF 101.2, RUN OF SVT PREVIOUSLY NOTED, AND LOW URINE OUTPUT. PRN TYLENOL ORDER RECIEVED (SEE EMAR) AND INSTRUCTED TO DO PRN LR BOLUS FOR LOW URINE OUTPUT.
--- NOTE | 2019-03-27 21:29 | NUR ---
OG FLUSHES WELL, ABLE TO ASPIRATE GASTIC JUICES. PRN TYLENOL FOR FEVER GIVEN THROUGH OG AT THIS TIME.
--- NOTE | 2019-03-27 22:07 | NUR ---
URINE OUTPUT 10 MLS FOR THE LAST HOUR. PRN 1 L BOLUS OF LR ADMINISTERED AT THIS TIME. PT REPOSITIONED IN BED AND ORAL SUCTIONING COMPLETED. WELL TOLERATED BY PATIENT.
--- NOTE | 2019-03-27 23:00 | NUR ---
1 L BOLUS FINISHED INFUSING. URINE OUTPUT INCREASED TO 26 ML/HR. PT STILL HAS VERSED INFUSING AT 3MLS/HR, AND IV FLUIDS AT 125 HR (SEE EMAR). RT IN ROOM AT THIS TIME TO CHECK ON PATIENT. WILL CONTINUE TO MONITOR
--- NOTE | 2019-03-28 | NUR ---
IN ROOM FOR PATIENT ASSESSMENT. LUNGS DIMINISHED IN THE BASES. BOWEL TONES ACTIVE IN ALL FOUR QUADRANTS. PT RESPONDS TO VOICE AND TOUCH. SPO2 100 PERCENT ON THE VENT. HEAD OF BED MAINTAINED AT 35 DEGREES. PT REPOSITIONED. RESTRAINTS REMAIN IN PLACE OF WRIST FOR ET TUBE PROTECTION. WILL CONTINUE TO MONITOR.
--- NOTE | 2019-03-28 01:36 | NUR ---
SUCTIONED ORAL SECRETIONS AND PERFORMED ORAL CARE. WELL TOLERATED BY PT.
--- NOTE | 2019-03-28 02:07 | NUR ---
PT URINE OUTPUT 18 MLS FOR THE HOUR. 2ND PRN 1 L BOLUS INFUSING AT THIS TIME.
--- NOTE | 2019-03-28 02:45 | NUR ---
REPOSITIONED PT ONTO LEFT SIDE. MORALES CARE PERFORMED. PT HAS REDNESS UNDER PANUS AND INNER THIGH FOLDS. SKIN CARE PERFORMED. ORAL SUCTIONING ALSO COMPLETED. VERSED DRIP DECREASED TO 2.5 TO MAINTAIN A RASS OF -2.
--- NOTE | 2019-03-28 03:10 | NUR ---
URINE OUTPUT AFTER 1 L BOLUS WAS 5 MLS/HR. BLOOD PRESSURE 117/71 (82). HEART RATE IN THE MID 80'S. DR GARNER NOTIFIED OF POOR URINE OUTPUT. NO NEW ORDERS AT THIS TIME. WILL CONTINUE TO MONITOR.
--- NOTE | 2019-03-28 05:27 | NUR ---
ASSESSMENT COMPLETED AT THIS TIME. NO SIGNIFICANT CHANGES IN ASSESSMENT. VERSED DRIP AND IV FLUIDS CONTINUE TO INFUSE.
--- NOTE | 2019-03-28 05:29 | NUR ---
REPOSITIONED PT IN BED AND ORAL SUCTIONING PREFORMED. WELL TOLERATED BY PT.
--- NOTE | 2019-03-28 05:47 | NUR ---
PT BITING DOWN ON ET TUBE AND PULLING AGAINST ARM RESTRAINTS. VERSED DRIP INCREASED TO 3 ML/HR.
--- NOTE | 2019-03-28 06:21 | NUR ---
LAB IN TO DRAW BLOOD. WELL TOLERATED.
--- NOTE | 2019-03-28 07:56 | NUR ---
RECEIVED REPORT FROM JEFE RN. ALL QUESTIONS ANSWERED. RESPIRATORY THERAPY COLLECTED ABGs FROM RIGHT WRIST. URINE OUTPUT ABOUT 30ML IN THE LAST HOUR. SUCTIONED SECRETIONS FROM MOUTH WITH JANKEUR. THREADY RADIAL PULSES. PATIENT OPENS EYES AND MOVES MINIMALLY OCCASIONALLY. KEVIN MAGAÑA UPDATED PATIENT ON DATE, REASON FOR ADMISSION, AND HOW SHE IS DOING.
--- NOTE | 2019-03-28 08:00 | EKG ---
[facility] [address] [facility] [place] [address] Signed Sinus tachycardia Possible Left atrial enlargement Rightward axis Possible Anterior infarct , age undetermined Abnormal ECG No previous ECGs available Confirmed by THOMAS GARNER MD ([id number]) on 03/28/2019 8:00:16 AM Electronically Signed By: THOMAS GARNER MD 03/28/19 0800 PATIENT NAME: IRINA ARNOLD Electrocardiogram DATE OF : 42 PHYSICIAN: THOMAS GARNER MD REPORT #: [id number] REPORT IS CONFIDENTIAL AND NOT TO BE RELEASED WITHOUT AUTHORIZATION
--- NOTE | 2019-03-28 09:41 | NUR ---
SPOKE WITH RESPIRATORY THERAPIST ABOUT PLAN FOR TODAY. RT TO TITRATE VENTILATOR SETTINGS WITHOUT WEANING PARAMETERS. DECREASED FIO2 TO 50% AND RR TO 18. PEEP AT 10 AND VT 0.400. PATIENT OPENS EYES AND FOLLOWS COMMANDS OCCASIONALLY. KEVIN MAGAÑA PLACED NEW IV IN RIGHT WRIST.
--- NOTE | 2019-03-28 10:12 | NUR ---
TWO FAMILY MEMBERS AT BEDSIDE NOW. UPDATED FAMILY ON PLAN OF CARE AND PATIENT CONDITION. REPOSITIONED SUPINE WITH HOB ELEVATED 30 DEGREES. ORAL SUCTIONING PERFORMED. ELEVATED ARMS AND LEGS ON PILLOWS. ORAL CARE PERFORMED BY KEVIN MAGAÑA NOW.
--- NOTE | 2019-03-28 10:15 | NUR ---
updated MD on 10ml urine output from [id number]. no new orders.
--- NOTE | 2019-03-28 11:30 | NUR ---
PATIENT INTUBATED, SEDATED. STAFF AT BEDSIDE. SPOKE WITH FAMILY IN ROOM. DAUGHTER SAHIL ANSWERED MOST QUESTIONS. PATIENT LIVES WITH DAUGHTER CLEMENCIA AND SON. THEY DO SHOPPING, HOUSE WORK. PATIENT ABLE TO DO PERSONAL CARE. USES A WALKER AROUND THE HOME. USES OXYGEN FROM [facility]. THERE ARE 5 STEPS WITH DOUBLE RAILS TO GET INTO HOME. SHE IS ABLE TO COOK EASY MEALS ON OWN. SHE DOES NOT DRIVE. FAMILY DRIVES HER TO APPOINTMENTS. HER DESIRE WOULD BE TO RETURN HOME. DISCUSSED THAT WE WILL LOOK AT HER ABILITY FOR THIS IN A FEW DAYS. THEY UNDERSTAND. QUESTIONS ANSWERED. WILL CONTINUE TO FOLLOW.
--- NOTE | 2019-03-28 11:50 | NUR ---
CHANGED LINEN AND GAVE PARTIAL BED BATH WHILE REPOSITIONING PATIENT TO LEFT SIDE. PATIENT TOLERATED WELL. ORAL CARE DONE.
--- NOTE | 2019-03-28 12:38 | NUR ---
VERSED GTT DECREASED TO 1.5ML/HR D/T BP LOW. PATIENT RESPONDS TO VOICE AND NODS HEAD TO QUESTIONS. BP REMAINS SOFT. WILL CONTINUE VERSED AT 1.5ML/HR UNTIL BP IMPROVES.
--- NOTE | 2019-03-28 13:20 | NUR ---
MD CALLED FOR LOW BP AND INCREASED HR. LEVOPHED DRIP ORDERS EXPECTED. WILL TRY TO DECREASE PEEP PRESSURES AND SEE HOW PATIENT TOLERATES PER MD ORDER.
--- NOTE | 2019-03-28 13:27 | NUR ---
LEVOPHED GTT HUNG AT 3 MG/MIN BP-97/53 (64). WILL TITRATE PRN. VENT MODE TO CMV FROM SIMV PATIENT INDICATED SHE IS SHORT OF BREATH. VERSED GTT CURRENTLY AT 3 MG/HR. HR HAS INCREASED FROM MID 90'S TO 121 OVER PAST HR.
--- NOTE | 2019-03-28 13:30 | NUR ---
BP-90/48 (57). LEVOPHED GTT YO 4 MG/MIN. PATIENT IS CALM, NO INCREASED SHORTNESS OF BREATH NOTED.
--- NOTE | 2019-03-28 15:04 | NUR ---
REPOSITIONED PATIENT SLIGHTLY. AROUSES TO VOICE AND TOUCH. DENIES PAIN. URINE OUTPUT ADEQUATE.
--- NOTE | 2019-03-28 16:53 | NUR ---
PEEP TURNED DOWN TO 7 PER RESPIRATORY THERAPY.
--- NOTE | 2019-03-28 19:05 | NUR ---
FLUSHED MORALES CATHETER WITH 19ML SALINE AND RETURNED 40ML URINE INTO CATHETER BAG. COUNTING 20ML IN OUTPUT THIS PAST HOUR.
--- NOTE | 2019-03-28 19:30 | NUR ---
SHIFT REPORT RECEIVED. PATIENT APPEARS COMFORTABLE, RASS SCORE -2. VENT SETTINGS VERIFIED WITH DAYSHIFT RN. VS STABLE.
--- NOTE | 2019-03-28 21:30 | NUR ---
2100 BP 84/56, MAP 62. LEVOPHED TITRATED TO 4 MCG/MIN. 2114 BP CONTINUES TO BE LESS THAN SATISFACTORY, LEVOPHED TITRATED TO 6 MCG/MIN. 2129 BP 92/59, MAP 66.
--- NOTE | 2019-03-28 21:48 | NUR ---
RT IN ROOM FOR ORAL CARE AND VENT CHECK. RASS CORE -2. PATIENT REPOSITIONED. PARTIAL BED BATH PERFORMED, CATH CARE INCLUDED. NEW GOWN AND LINENS APPLIED. PATIENT'S CHECK IS RED. RED AREAS UNDER BREAST AND PANIS, PADS PLACED TO REDUCE MOISTURE. URINE OUTPUT 30 ML/HR, CLEAR YELLOW. TEDHOSE IN PLACE, HEELS ELEVATED. WRIST RESTRAINS RELEASED AND REAPPLIED. LUNGS ARE DIMINISHED THROUGHOUT. MORALES TEMP 100.3, AXILLARY TEMP 98.1. PATIENT DOES NOT FEEL HOT TO THE TOUCH. VENT SETTINGS; CMV 18, FIO2 45%, VT 450, PEEP 7
--- NOTE | 2019-03-29 | NUR ---
PATIENT RESTING COMFORTABLY, RASS -2. VS STABLE. LEVOPHED CONTINUES AT 6MCG/MIN. VERSED TITRATED TO 2.5 ML/HR FROM 3 ML/HR. IV FLUID PER ORDER. IV SITE WNL X3. URINE OUTPUT QS. ORAL CARE PER RT. REPOSITIONED TO RIGHT SIDE. LUNG SOUNDS DIMINISHED THROUGHOUT. TOLERATING VENT. RESTRAINTS RELEASED AND REAPPLIED. VENT SETTINGS: CMV 18, RR 18, PIP 21, ETCO2 40, FI02 45%, VT 450, PEEP 7
--- NOTE | 2019-03-29 01:10 | NUR ---
BP AND MAP HAVE CONSISTENTLY BEEN ADEQUATE. URINE OUTPUT QS. LEVOPHED TITRATED FROM 6 TO 4 MCG/MIN.
--- NOTE | 2019-03-29 03:12 | NUR ---
PATIENT CONTINUES TO RESTING COMFORTABLY, RASS -2. VERSED REDUCED FROM 2.5 TO 2 ML/HR. LAST BP 116/65 MAP 77. LEVOPHED TITRATED FROM 4 TO 2 MCG/MIN.
--- NOTE | 2019-03-29 04:00 | NUR ---
RT IN ROOM FOR ORAL CARE AND VENT CHECK. PATIENT CONTINUES TO REST COMFORTABLY. RASS -2. MILD AGITATION WITH ORAL SUCTIONING. SMALL AMOUNT OF CLEAR SECREATIONS NOTED. LUNGS ARE DIM THROUGHOUT. PATIENT REPOSITIONED. VS STABLE. LEVOPHED 2 MCG/MIN. VERSED 2 ML/HR.
--- NOTE | 2019-03-29 05:15 | NUR ---
LAB IN FOR MORNING DRAW. THIS RN ASSISTED. LEVOPHED IN STANDBY AT THIS TIME. PATIENT'S BP APPEARS TO BE SUFFICIENT. WILL CONTINUE TO MONITOR.
--- NOTE | 2019-03-29 06:17 | NUR ---
LEVOPHED CONTINUES TO BE IN STANDBY. MAP > 65. VERSED AT 2 ML/HR. PATIENT IS SLIGHTLY MORE ALERT. OPENS EYES AND FOLLOWS 1-2 SIMPLE COMMANDS. REPOSITIONED.
--- NOTE | 2019-03-29 06:28 | NUR ---
PATIENT'S FACE CLEANED AND EYE DROPS APPLIED. PATIENT MAKES EYE CONTACT AND NODS HEAD YES/NO FOR SIMPLE QUESTIONS. CONTINUES TO REST COMFORTABLY. VERSED AT 2 ML/HR. LEVOPHED IN STANDBY SINCE 0515, MAP > 65.
--- NOTE | 2019-03-29 06:45 | NUR ---
IMAGING IN FOR CHEST X-RAY. PATIENT TOLERATES WELL. REPOSITIONED TO HER BACK. HOB > 30 DEGREES. APPEARS COMFORTABLE.
--- NOTE | 2019-03-29 07:30 | NUR ---
REPORT RECIEVED. PATIENT IS RESTFUL IN BED. NO DISTRESS NOTED.
--- NOTE | 2019-03-29 07:45 | NUR ---
PATIENT LYING IN BED CALMLY UPON INITIAL ASSESSMENT. PT AWAKENS EASILY TO VOICE AND ATTEMPTS TO OPENS EYES, BUT DOES NOT KEEP EYES OPEN FOR GREATER THAN 10 SEC. PT DOES FOLLOW COMMANDS - SQUEEZED BOTH HANDS, WIGGLES TOES AND LIFTS LEGS OFF BED. VALENTÍN HOSE ON. ASSESSMENT COMPLETE. VENT SETTINGS ARE CMV 18, FI02 45%, PEEP 7. PT HAS A 7.5 ETT SECURED AT 20 AT THE TEETH. PT HAS BEEN OFF LEVOPHED FOR A FEW HOURS AND LAST BP 108/66. HR IN THE 80-90s, SINUS. RESTRAINTS REMAIN IN PLACE BILATERALLY ON WRISTS. LUNG SOUNDS ARE CLEAR ANTERIORLY. PT TOLERATIGN VENTILATOR WELL. PLAN IS TO DO SEDATION VACATION TODAY AND WEANING TRIAL. WILL CONTINUE TO MONITOR CLOSELY.
--- NOTE | 2019-03-29 08:00 | NUR ---
WOKE FOR ASSESSMENT. PATIENT STATES HE FEELS MUCH BETTER TODAY. DENIES NAUSEA OR PAIN. ACCUCHECK-302. TALKED WITH PATIENT ABOUT POC FOR DAY, INDICATES UNDERSTANDING.
--- NOTE | 2019-03-29 08:16 | NUR ---
DR. GARNER IN ROOM AT THIS TIME SEEING PATIENT. PLAN TO DO WEANING TRIALS AND POTENTIAL EXTUBATION TODAY.
--- NOTE | 2019-03-29 08:20 | NUR ---
HUMALOG INSULIN 24 UNITS SQ GIVEN PER ORDERS. DR. GARNER HERE TO SEE PATIENT.
--- NOTE | 2019-03-29 08:35 | NUR ---
SEDATION PLACED ON STANDBY AT 0820. RT IN ROOM SHORTLY AFTER TO START BREATHING TRIAL. PT NEEDING TO WAKE UP MORE SO BACK ON VENT SETTING FOR NOW, BUT WILL RESUME SEDATION AWAKENING TRIAL SOON. FI02 DOWN TO 40% AND PEEP DOWN TO [address] GARNER/RT.
--- NOTE | 2019-03-29 08:49 | NUR ---
RT BACK IN ROOM TO PERFORM SEDATION VACATION TRIAL. PT REMAINS RESPONSIVE, NODS HEAD YES/NO.
--- NOTE | 2019-03-29 09:51 | NUR ---
PATIENT EXTUBATED TO BIPAP AT 0948. PT TOLERATED WELL. SP02 CURENTLY 100% ON 100% FI02. DR. GARNER IN ROOM DURING EXTUBATION.
--- NOTE | 2019-03-29 10:32 | NUR ---
PATIENT'S FAMILY IN ROOM AND WEARING BIPAP. BIPAP SETTINGS ARE 15/5 AND 40% AT THIS TIME. HR IN THE 110s, RR 30-31. CONTINUE TO MONITOR CLOSELY.
--- NOTE | 2019-03-29 10:47 | NUR ---
Patient repositioned in bed to right side. BiPap in place. Patient responsive to voice and follows commands. LR running at 125 mls/hr, zosyn infusing at 29 mls/hr, and doxycycline running at 110 mls/hr. Family in room at bedside.
--- NOTE | 2019-03-29 11:19 | NUR ---
PATIENT RESTING IN BED ON BIPAP. PT'S DAUGHTER REMAINS IN ROOM. MORALES DRAINING DILUTE YELLOW URINE. HR IN THE 110-115s.
--- NOTE | 2019-03-29 12:59 | NUR ---
PATIENT SPENT ABOUT 45 MINS OFF BIPAP AND ON 3 L NC, WHICH IS HER HOME 02 FLOWRATE. PT TOLERATED WELL. HR NOTED TO BE CREEPING BACK UP AND THEREFORE PATIENT WAS PLACED BACK ON BIPAP AND IS NOW RESTING. FAMILY WAS IN ROOM BUT HAS SINCE LEFT. CONTINUE TO MONITOR.
--- NOTE | 2019-03-29 13:36 | NUR ---
Patient resting in bed on BiPap. Family in room at bedside. RR of 26, HR of 114. LR running at 125 mls/hr.
--- NOTE | 2019-03-29 13:56 | NUR ---
PATIENT TAKEN OFF BIPAP AT 1350 FOR A BREAK. PT PLACED ON NASAL CANNULA AT 3L. SP02 CURRENTLY 97%. IVF CONTINUE AT 125 ML/HR. CONTINUE TO MONITOR.
--- NOTE | 2019-03-29 14:26 | NUR ---
PATIENT BACK ON BIPAP AT THIS TIME. PT NOT VERY INTERACTIVE, DOES OPEN EYES BRIEFLY TO SOUND BUT IS MOSTLY DROWSY. HR IN THE UPPER 110-120s. SP02 95% ON 45% FI02 BIPAP. LAST BP 122/65. CONTINUE TO MONITOR. PT'S BATH TO BE GIVEN AND FRESH SHEETS TO BE PROVIDED.
--- NOTE | 2019-03-29 14:37 | NUR ---
PT OFF VENT, USING BIPAP. FAMILY IN RM VISITING. GÓMEZ HOWARD MENTIONED THAT SHE WAS FEELING MUCH MORE POSITIVE WITH IMPROVEMENT BY PT. GAVE ENCOURAGEMENT AND WILL FOLLOW NEEDED
--- NOTE | 2019-03-29 15:30 | NUR ---
Patient resting comfortably in bed with BiPap in place. Bed bath performed, along with pericare and catheter care. New linens and gown provided. Patient tolerated bed bath. HR remains in the 110's with RR of [id number] 20's. Telemetry stickers replaced. Warm blankets provided, family returns to room.
--- NOTE | 2019-03-29 17:00 | NUR ---
Patient resting comfortably in bed with BiPap in place. Assessment complete, lung sounds are diminished in the bases with an expiratory wheeze in the right upper lobe and rhonchi in the left upper lobe. BiPap removed, 3LNC placed with SpO2 of 100%. HR in the 110-120's with RR in the mid-20's.
--- NOTE | 2019-03-29 17:45 | NUR ---
Patient seems less interactive and responsive at this time. BiPap placed with an FiO2 of 40. HR in the 120's, RR in the low 20's. Will continue to monitor.
--- NOTE | 2019-03-29 17:58 | NUR ---
Patient repositioned in bed onto left side
--- NOTE | 2019-03-29 18:08 | NUR ---
Patient resting comfortably in bed with BiPap in place with FiO2 of 40%. SpO2 of 96%, HR in the upper 110's, RR in upper 20-low 30's. IV abx hung at 29 mls/hr. Patient opens eyes to verbal command but closes eyes under 10 seconds. Will continue to monitor.
--- NOTE | 2019-03-29 18:44 | NUR ---
Dr. Ruvalcaba notified of patient status. No further orders received.
--- NOTE | 2019-03-29 19:25 | NUR ---
SHIFT REPORT RECEIVED. PATIENT RESTING IN BED. EYES CLOSED. HOB ELEVATED. BIPAP IN PLACE. RR 32. O2 SAT 98%. RT IN TO EVALUATE PATIENT.
--- NOTE | 2019-03-29 20:00 | NUR ---
MD AND RT IN TO SEE PATIENT. RR >32 ON BIPAP. PRESSURES ADJUSTED PER RT AND PRN FETANYL PROVIDED. PATIENT REPOSITIONED AND APPEARS COMFORTABLE. RR DOWN TO 28 AT THIS TIME.
--- NOTE | 2019-03-29 20:45 | NUR ---
PATIENT RECEIVED NEB TREATMENT FROM RT VIA BIPAP. LUNG SOUNDS DIMINISHED THROUGHOUT. COARSE ON LEFT SIDE. RR 28-30. PATIENT OPENS EYES AND NODS YES/NO FOR LIMITED COMMUNICATION. FREQUENTLY DROWSY. ABD SODT, BOWEL SOUNDS ACTIVE. MORALES CARE DONE. LARGE AMOUNT OF URINE OUTPUT, CLEAR YELLOW. +2 EDEMA NOTED IN UPPER EXTREMITITES. +1 IN JUAN LOWER EXTREMITIES. HEELS FLOATED ON PILLOW. VALENTÍN HOSE IN PLACE. PATIENT REPOSITIONED TO LEFT SIDE. REPORTS BEING COMFORTABLE. WARM BLANKET PROVIDED. IV SITES WNL X3. IV FLUIDS AND ABX PER ORDER. PATIENT NOT ALERT ENOUGH AT THIS TIME TO SAFELY ATTEMPT SWALLOW EVALUATION. PO MEDS HELD AT THIS TIME.
--- NOTE | 2019-03-29 21:50 | NUR ---
PATIENT APPEARS COMFORTABLE. RESTING WITH EYES CLOSED. RR 18-22 ON BIPAP.
--- NOTE | 2019-03-30 00:15 | NUR ---
PATIENT HAS BEEN TOLERATING BIPAP WELL. APPARENTLY SLEEPING SOUNDLY. HR 80'S, RR 16-18. PATIENT WOKE TO VOICE AND LOOKED AT STAFF. REPOSITIONED PATIENT. REMOVED MASK FOR ORAL CARE, WHICH PATIENT TOLERATED WELL. PATIENT NONVERBAL WITH MASK OFF. APPEARS VERY DROWSY AND NODS HEAD YES/NO TO ANSWER SIMPLE QUESTIONS. MINIMAL AIR MOVEMENT, DIMINISHED LUNG SOUNDS THROUGHOUT. POST ORAL CARE BIPAP WAS PLACED ON PATIENT. RR >30. PATIENT ABLE TO SETTLE BACK INTO A RR IN LOW 20'S AFTER ABOUT 20MIN. VS STABLE. URINE OUTPUT QS. IV FLUIDS PER ORDER, SITE WNL.
--- NOTE | 2019-03-30 01:26 | NUR ---
PATIENT ATTEMPTING TO REMOVE MASK. PATIENT IS VERY WEAK AND UNABLE TO DO THIS ALONE. MASK REMOVED BY THIS RN, LEANNEAP IN STANDBY. 3L NC PLACED. PATIENT REQUESTING A BREAK FROM THE MASK. PATIENT CONTINUES TO NOD YES/NO AND SHRUG HER SHOULDERS TO ANSWER QUESTIONS. PATIENT PROVIDED WITH SIPS OF WATER WHICH SHE TOLERATED WELL. OBEYS SIMPLE COMMANDS. CALL LIGHT PROVIDED. PATIENT'S O2 SAT 94%, RR 25. CONTINUED CLOSE MONITORING. PATIENT DENIES PAIN.
--- NOTE | 2019-03-30 01:45 | NUR ---
PATIENT RR UP TO 35. O2 SAT 86% ON 3L NC. PATIENT AGREEABLE TO TO BIPAP, WHICH WAS PLACED. HOB ELEVATED. PRN MEDS FOR PAIN PROVIDED, PATIENT APPEARS UNCOMFORTABLE.
--- NOTE | 2019-03-30 02:54 | NUR ---
PATIENT REMOVED BIPAP MASK, STATED "I CAN'T BREATH". 3L NC PLACED ON PATIENT. ORAL SWAB PROVIDED. PATIENT APPEARS SOB, RT CONTACTED FOR PRN NEB. PATIENT IS RESTLESS, PRN HALDOL PROVIDED. PATIENT REPOSITIONED, HOB ELEVATED.
--- NOTE | 2019-03-30 04:15 | NUR ---
PATIENT REMOVED BIPAP. STATED "OFF" AND DID NOT ALLOW MASK TO BE REPOSITIONED ON HER FACE. 3L NC IN PLACE. ORAL SWABS PROVIDED. PATIENT VERY WEAK. OPENS EYES BREIFLY TO SOUND. MINIMAL CAPABILITY OF COMMUNICATION. WHEN ASKED IF SHE RECOGNIZES HER SURROUDNINGS OR HER REASON FOR BEING ADMITTED THE PATIENT IS UNSURE. PATIENT APPEARS PAINFUL AND RESTLESS IN THE BED. REPOSITIONED FOR COMFORT AND PRN MEDS PROVIDED. O2 SAT >90% AND RR 28. BREATHING IS SHALLOW. BREATH SOUNDS DIMINISHED THROUGHOUT. HR ELEVATED 110'S, BP SOFT. MAP > 65. WILL CONTINUE TO MONITOR AND ENCOURAGE BIPAP USE TOLERATED.
--- NOTE | 2019-03-30 05:23 | NUR ---
PATIENT APPEARS TO BE RESTING WITH EYE CLOSED. RR 32. OR SAT 93% ON 3L NC. HOB ELEVATED. PATIENT NOT AGREEABLE TO BIPAP AT THIS TIME.
--- NOTE | 2019-03-30 06:00 | NUR ---
PATIENT DESAT TO 86% ON 3L NC. BIPAP APPLIED. PATIENT LETHARGIC. RR 35. O2 SAT UP TO 88%.
--- NOTE | 2019-03-30 06:30 | NUR ---
PATIENT CONTINUES TO WEAR BIPAP. O2 SATS >88%. RR 30-35. REPOSITIONED FOR COMFORT. PATIENT APPEARS MORE COMFORTABLE. BREATHING IS SHALLOW, BREATH SOUNDS DIM THROUGHOUT. VS STABLE. PATIENT MINIMALLY RESPONSIVE TO VERBAL STIMULI. ALLOWED TO REST.
--- NOTE | 2019-03-30 06:46 | NUR ---
PATIENT CONTINUES TO BECOME LESS AGITATED AND SOB. ATTEMPTS TO REMOVE BIPAP DISCOURAGED BY NURSING STAFF. OS SAT 92% ON 40% FiO2 VIA BIPAP. RR 24.
--- NOTE | 2019-03-30 07:57 | NUR ---
PATIENT RESTING ON BIPAP IN BED, HR IN THE 90s UPON INITIAL ASSESSMENT. SP02 96% ON 40% FI02 BIPAP, 21/11. PT'S OPENS EYES TO VOICE, BUT UNABLE TO REALLY TALK WITH BIPAP ON. BIPAP TAKEN OFF FOR A FEW MINUTES TO PROVIDE ORAL CARE. PT STILL UNABLE TO REALLY SPEAK ANY WORDS WITH MASK OFF AND ORAL CARE PROVIDED. EXP WHEEZES HEARD AND SOME CRACKLES IN LUNGS. SKIN IS WARM AND DRY, WITHOUT THE MOTTLING THAT WAS PRESENT YESTERDAY AFTERNOON. NEB TX GIVEN PER RT. AFTER NEB, LUNG SOUNDS STILL SOUNDING WET AND HARD TO HEAR, DIMINISHED WITH CRACKLES. BIPAP PLACED BACK ON PATIENT. IV SITE RIGHT FOREARM RE-DRESSED. MORALES DRAINING CLEAR YELLOW URINE. PT OVERALL SEEMS LETHARGIC. HR NOW 105, RR 31, SP02 95%, BP 138/64 (82). CONTINUE TO MONITOR.
--- NOTE | 2019-03-30 08:14 | NUR ---
DR. GARNER IN ROOM TO SEE PATIENT. PLAN TO TURN DOWN IVF AND GIVEN IV LASIX TODAY.
--- NOTE | 2019-03-30 08:45 | NUR ---
PATIENT GIVEN 20 MG IV LASIX AND IVF TURNED DOWN TO 75ML/HR. PT OFF BIPAP TO TAKE TAMIFLU, WHICH SHE WAS ABLE TO DO, BUT SP02 ON 3 L NC DOWN TO 80% WITHIN ABOUT 5 MINUTES. BACK ON BIPAP N OW.
--- NOTE | 2019-03-30 09:27 | NUR ---
PATIENT NOTED TO BE PULLING AT BIPAP MASK A LITTLE AND HEARD TALKING FOR THE FIRST TIME. BIPAP MASK TO TALK TO PATIENT AND SHE STATES, "I HAVE TO PEE." MORALES ASSESSED AND HELPED TO DRAIN BETTER. PT WAS GIVEN 20 MG IV LASIX AND LOTS OF CLEAR DILUTE URINE DRAINING. BIPAP MASK PLACED BACK ON. PT WAS ASKED IF SHE WAS PAINFUL AT ALL AND SHE DENIED THIS WHEN THE MASK WAS OFF. CONTINUE TO MIGUEL. SP02 95% AT THIS TIME.
--- NOTE | 2019-03-30 10:32 | NUR ---
PATIENT LOOKING RESTLESS IN BED AND MUMBLES THAT SHE IS UNCOMFORTABLE AND HAVING A HARD TIME BREATHING. PATIENT REPOSITIONED UP IN BED AND TURNED TO HER RIGHT SIDE. MORALES EMPTIED FOR OVER 1000 ML. CONTINUE TO MONITOR.
--- NOTE | 2019-03-30 11:00 | NUR ---
PATIENT GIVEN NEB TX PER RT. PT SITTING UP IN BED WITH BIPAP ON. PT CONTINUES TO PULL AT BIPAP SLIGHTLY BUT NOT ENOUGH TO PULL IT OFF. SP02 IS 96% AT THIS TIME ON 40%. HR LOW 100s. CONTINUE TO MONITOR.
--- NOTE | 2019-03-30 11:20 | NUR ---
ALLEVYN FOAM DRESSING PLACED ON BRIDGE OF NOSE UNDER BIPAP PATIENT IS STARTING TO GET A REDENNED AREA. PT ALSO HAD A MEDIUM SIZED BM, SOMEWHAT LIQUID SOFT. NEW BATH BLANKET AND CHUX PLACED UNDER PATIENT. TWO BLISTERS NOTED TO RIGHT BUTTOCK CHEEK, SKIN INTACT. PT POSITIONED TO LEFT SIDE WITH PILLOWS. PT ON BIPAP AND SP02 IS 94% CURENTLY. HR 102 AT THIS TIME.
--- NOTE | 2019-03-30 13:41 | NUR ---
PATIENT RESTING WELL ON BIPAP AFTER FENTANYL WAS GIVEN. HR NOW IN THE 80s. SP02 IS 97% ON 35% FI02. MORALES TEMP SHOWS 100.6 BUT ORAL TEMP IS 98.9. CONTINUE TO MONITOR.
--- NOTE | 2019-03-30 14:16 | NUR ---
PATIENT'S FAMILY HERE TO SEE PATIENT. PATIENT AWAKENS EASILY TO HER DAUGHTER AND WHEN ASKING THE PATIENT IF SHE KNOWS THE FAMILY, SHE STATES, "WHY YES, THAT'S MY DAUGHTER." PATIENT GIVEN SIPS OF WATER AND ABLE TO TAKE THEM WITH MODERATE EFFORT. PT ON 3 L NC A THIS TIME. CONTINUE TO MONITOR CLOSELY.
--- NOTE | 2019-03-30 15:34 | NUR ---
PATIEN GIVEN BED BATH AND TOLERATED WELL. PT HAD ANOTHER LOOSE STOOL. PT NOW VISITING WITH GRANDDAUGHTER. PT ALSO ABLE TO TAKE SIPS OF WATER WITHOUT DIFFICULTY. SP02 96% ON 4 L NC. CONTINUE TO MONITOR.
--- NOTE | 2019-03-30 17:19 | NUR ---
PATIENT RESTING IN BED AT THIS TIME. HR IN THE LOW 80s, SP02 94% ON 35 % FI02 BIPAP. SETTINGS REMAINS 18/8. LAST BP 141/78. PT LOOKS COMFORTABLE. CONTINUE TO MONITOR.
--- NOTE | 2019-03-30 17:44 | NUR ---
PATIENT REPOSITIONED TO RIGHT SIDE AND TOLERATED WELL. PT CONTINUES TO BE MORE ALERT AND RESPONSIVE, AWARE OF BEING IN A HOSPITAL BUT UNSURE OF RECENT EVENTS. REORIENTED TO EVENTS/DATE. PT RESTING ON 4 L NC. WILL CONTINUE TO MONITOR.
--- NOTE | 2019-03-30 18:14 | NUR ---
PATIENT GIVEN TYLENOL AT THIS TIME FOR GENERALIZED PAIN AND HER BACK HURTING. PT ALSO HELPED TO REPOSITIONIN BED SOME. PT'S FAMILY HERE FOR A BRIEF VISIT BUT NOW LEAVES. SP02 94% ON BIPAP. CONTINUE TO MONITOR.
--- NOTE | 2019-03-30 18:54 | NUR ---
REPORT RECIEVED FROM GÓMEZ HOWARD. CARE OF PATIENT ASSUMED AT THIS TIME. PT RESTING ON BIPAP. OXYGEN SATURATIONS 92 PERCENT ON 35 PERCENT FIO2. VISIBLE FROM NURSES STATION. NO ASSESSED NEEDS AT THIS TIME.
--- NOTE | 2019-03-30 20:20 | NUR ---
REMOVED BIPAP AND PLACED PT ON 4 L NC. ORAL CARE PERFORMED. ENCOURAGED COUGHING AND DEEP BREATHING. PT ATTEMPTED TO COUGH, BUT TO WEAK TO BRING UP ANY SPUTUM. GIVEN WATER. PT COMPLAINS OF GENERALIZED PAIN AND DISCOMFORT. REPOSITIONED PT FROM RIGHT SIDE ONTO BACK AND PAIN MEDICATION GIVEN (SEE EMAR). AFTER 10 MINUTES ON NC, PT OXYGEN SATURATIONS DOWN INTO THE MID 80'S. PT BACK ON BIPAP AT THIS TIME. BREATHING EVEN AND UNLABORED WITH A RESPIRATORY RATE OF 19 BREATHS A MINUTE, OXYGEN SATURATIONS AT 91%. WILL CONTINUE TO MONITOR.
--- NOTE | 2019-03-30 21:00 | NUR ---
PT GRANDSON IN THE ROOM. PT AWAKE AND STATES PAIN IS BETTER CONTROLLED AFTER MEDICATION ADMINISTRATION. IV FLUIDS AND ABX CONTINUE TO INFUSE. NO STATED OR OBSERVED NEEDS AT THIS TIME.
--- NOTE | 2019-03-30 22:00 | NUR ---
PT AWAKE IN ROOM, PLACED ON 4 L NC AT THIS TIME. MAINTAINING OXYGEN SATURATIONS IN THE MID 90'S. RESPIRATORY RATE 20-24. VISIBLE FROM THE NURSES STATION. WILL CONTINUE TO CLOSELY MONITOR.
--- NOTE | 2019-03-30 23:02 | NUR ---
PATIENT RESTING ON BIPAP AT A RESPIRATORY RATE OF 16. HEART RATE IN THE 70-80'S WHILE RESTING. PT APPEARS COMFORTABLE. NO ASSESSED NEEDS AT THIS TIME.
--- NOTE | 2019-03-30 23:51 | NUR ---
IN ROOM FOR ASSESSMENT. PT REMAINED SLEEPING. EXPIRATORY WHEEZES NOTED IN BOTH UPPER AIRWAYS, LUNG SOUNDS DIMINISHED IN THE BASES. PT RESTING COMFORTABLY ON THE BIPAP AT A RR=16. OXYGEN SATURATIONS 96% AT FIO2 OF 35%. PT REMAINS VISIBLE FROM NURSES STATION. WILL CONTINUE TO MONITOR.
--- NOTE | 2019-03-31 01:40 | NUR ---
PT RESTING ON BIPAP. BREATHING EVEN AND UNLABORED RR=16. OXYGEN SATURATIONS AT 97 PERCENT ON 35% FIO2.
--- NOTE | 2019-03-31 03:35 | NUR ---
PATIENT AWAKE IN ROOM. REMOVED BIPAP AND PLACED PT ON 4 L NC. PROVIDED ORAL CARE AT THIS TIME. PT HAD BM, INCONTINENT CARE PROVIDED. PT OXYGEN SATURATIONS DECREASED INTO THE MID 80'S WITH ACTIVITY, AND RR INCREASED INTO THE MID 20S. PT POSITIONED ON LEFT SIDE AND PLACED BACK ON BIPAP. OXYGEN SATURATIONS 100% ON FIO2 OF 35%, BREATHING EVEN AND UNLABORED. ASSESSMENT COMPLETED. CALL LIGHT WITHIN REACH AND VISIBLE FROM NURSES STATION. NO FURTHER NEEDS AT THIS TIME.
--- NOTE | 2019-03-31 03:46 | NUR ---
RIGHT UPPER EXTREMITY APPEARS SIGNIFICANTLY MORE EDEMATOUS. PLACED ON TWO PILLOWS AT THIS TIME.
--- NOTE | 2019-03-31 04:50 | NUR ---
PT RESTING ON BIPAP. OXYGEN SATURATIONS 100 PERCENT ON 35% FIO2. HR 70-80 BPM. NO ASSESSED NEEDS AT THIS TIME.
--- NOTE | 2019-03-31 06:30 | NUR ---
PT PLACED ON 4 L NC AT THIS TIME.
--- NOTE | 2019-03-31 06:50 | NUR ---
PT HAD BM, INCONTINENT CARE PROVIDED. PT DESATURATED TO 80, HEART RATE UP TO 110 WITH EXERTION. BACK ON BIPAP, SATURATIONS 90 PERCENT.
--- NOTE | 2019-03-31 07:51 | NUR ---
DR GARNER TO BED SIDE FOR ROUNDS. PT TAKEN OFF BIPAP, PLACED ON 4L NC. SATURATION 95%. POOR WAVEFORM NOTED. FINGER PROB REPLACED. PT SATURATIONS TO 83% AND DECREASED TO 79%. RR 27. PT PLACED BACK ON BIPAP. RT IN ROOM FOR NEB TREATMENT.
--- NOTE | 2019-03-31 09:46 | NUR ---
PO MEDICATION GIVEN. PT TAKEN OFF BIPAP AND PLACED ON 4L NC. SATURATIONS STAYED IN MID 90'S FOR ABOUT 5 MINUTES. ORAL CARE COMPLETED, PT ABLE TO ASSIST. SORTLY AFTER SATURATIONS DROPPED TO 80'S. PT PLACED BACK ON BIPAP. DR GARNER TO UNIT AND NOTIFIED OF BOTH UNSUCCESSFUL ATTEMPTS TO WEAN PT OFF BIPAP. NO NEW ORDERS.
--- NOTE | 2019-03-31 12:25 | NUR ---
PT SATURATIONS FROM 92% TO 59%, GASPING FOR AIR AND REPORTS NOT BEING ABLE TO BREATH. SKIN APEARS DUSKY. PT PLACED BACK ON BIPAP. 02 INCREASED TO 70% TO ASSIST IN RECOVERY. PT RECOVERED IN 6 MINUTES.. O2 RETURNED TO 35% ON BIPAP. SATURATIONS 96% NOW.
--- NOTE | 2019-03-31 12:25 | NUR ---
BED BATH PROVIDED AND LINEN CHANGED. PT TOLERATED WELL. PT WITH MED SOFT BM. WATER PROVIDED. RT IN TO ADMINISTER NEB TREATMENT.
--- NOTE | 2019-03-31 12:35 | NUR ---
RT WAS IN WITH PATIENT AND PLACED PATIENT ON NC AT 5L. PATIENTS SPO2 96% ON 5L AFTER NEB TREATMENT. PATIENT SPO2 AT 1225 IMMEDIATELY WENT FROM 90'S TO 50'S ON 5L NC. ENTERED THE ROOM AND PATIENT "GUPPY" BREATHING. IMMEDIATELY PLACED ON BIPAP UP TO 60% FIO2 AND PATIENTS SPO2 CAME BACK UP TO THE 90'S. WHEN STAFF ENTERED THE ROOM PATIENT STATED "I CAN'T BREATH". AFTER SEVERAL MINUTES ON THE BIPAP PATIENT IS MORE RELAXED AND STATES "ITS A LITLE BETTER NOW". FIO2 BACK DOWN TO 35% WHERE SHE WAS PREVIOUSLY AT. WILL CONTINUE TO CLOSELY MONITOR.
--- NOTE | 2019-03-31 13:00 | NUR ---
CALLED MD GARNER TO UPDATE ABOUT PATIENTS CONDITION AND TRIALS OFF OF BIPAP. PATIENT DOES NOT TOLERATE BEING OFF OF BIPAP. UPDATED THAT PATIENT HAS ALSO BEEN DROWSY AND SLEEPING MOST OF THE DAY. PATIENT REAMINS ALERT TO NAME AND PLACE, BUT DISORIETED TO DATE AND SAYS ITS 2012. PATIENT ONLY ANSWERS IN 1 WORD SENTENCES. PER MD LEAVE ON BIPAP. NO NEW ORDERS. WILL CONTINUE TO CLOSELY MONITOR.
--- NOTE | 2019-03-31 13:20 | NUR ---
DR GARNER TO BEDSIDE. REQUESTING HALDOL BE ADMINSTERED BEFORE ATTEMPTING TO REMOVE BIPAP FROM PT. NO OTHER ORDERS. WILL LET PT REST FOR NOW AND TRY TO REMOVE BIPAP IN 2 HOURS.
--- NOTE | 2019-03-31 16:07 | NUR ---
25 MCG FENTYNOL ADMINSITERED. RT IN FOR NEB TREATMENT. TRIALING 4L NC WITH FENTYNOL TO SEE IN PT TOLERATES LONGER. DAUGHTER AT BEDSIDE. SATURATONS AT 97% ON 4L NC AT THIS TIME. NO ABDOMINAL BREATHING NOTED THIS TIME. PT APPEARS TO BE TAKING DEEPER BREATHS THEN EARLIER TRIALS. CALL LIGHT IN REACH. AND PT AND DAUGHTERR TOLD TO NOTIFY NURSE IF BREATHING BECOMES DIFFICULT. WILL CONTINUE TO CLOSELY MONITOR PT.
--- NOTE | 2019-03-31 16:37 | NUR ---
PT FEELING UNCOMFORTABLE IN BED WANTING TO GET UP. 2PA TO REPOSITION. PT DESATED TO 60'S WITH 4L NC PLACED BACK ON BIPAP. ABLE TO RECOVER TO HIGH 90'S.
--- NOTE | 2019-03-31 17:03 | NUR ---
Attempted to see pt. x 2 today, she was sleeping. Will see tomorrow. Sleeping with bipap in place.
--- NOTE | 2019-03-31 17:55 | NUR ---
ABX STARTED. PT LYING IN BED. HEEL PROTECTORS PLACED. BIPAP WITH 35% 02. PT TOLERATING WELL. VITALS STABLE. CALL LIGHT IN REACH. SIPS OF WATER PROVIDED.
--- NOTE | 2019-03-31 18:15 | NUR ---
2PA TO CHANGE ATTENDS. PT INCONTINENT OF MED SOFT STOOL. REPOSITIONED. PT TOLERATED WELL.
--- NOTE | 2019-03-31 19:49 | NUR ---
RECEIVED REPORT FROM DAY SHIFT. pt RESTING IN BED WITH EYES CLOSED, BiPAP ON, O2 SAT 94%. RESPIRATIONS REGULAR, RATE = 19. IVF AND ABX INFUSING. WHITE BOARD UPDATED. POSSESSIONS WITHIN REACH. CALL LIGHT WITHIN REACH. CURTAIN OPEN TO NURSES STATION.
--- NOTE | 2019-03-31 20:12 | NUR ---
pt ATTEMPTING TO DRING WITH BiPAP MASK IN PLACE. ASSISTED. ASSESSMENT DONE. pt DENIED PAIN AT THIS TIME. LABORER CONCRETE PAVING EQUAL. pt ORIENTED TO SELF AND PLACE. ORIENTED TO SITUATION. EXPLAINED IMPORTANCE OF BiPAP. WILL RETURN LATER WITH MEDICATIONS. pt DID NOT WANT TO WEAR BiPAP BUT AGREEABLE TO PLAN. CURTAIN OPEN TO NURSES STATION. POSSESSIONS WITHIN REACH.
--- NOTE | 2019-03-31 21:00 | NUR ---
MEDICATIONS DUE. pt RESTING WITH BiPAP ON. MOVED TO NC AT 5L O2. pt SWALLOWED WITHOUT ISSUE. IV ABX INFUSING. pt REMAINS ON NC AT THIS TIME. O2 SAT MONITORED. POSSESSIONS AND CALL LIGHT WITHIN REACH.
--- NOTE | 2019-03-31 22:11 | NUR ---
IV MEDICATION GIVEN (SEE MAR). pt RESTING IN BED, EYES CLOSED. PROVIDED WATER. NO FURTHER REQUESTS AT THIS TIME. CALL LIGHT WITHIN REACH.
--- NOTE | 2019-03-31 23:07 | NUR ---
pt RESTING IN BED, EYES CLOSED, RESPIRATIONS REGULAR. ON 5L O2 VIA NC, SAT 94%. CURTAIN OPEN TO THE NURSES STATION.
--- NOTE | 2019-03-31 23:57 | NUR ---
ASSESSMENT DONE. pt ON 5L O2 VIA NC, SAT 97%. DENIES PAIN AT THIS TIME. NO CHANGES IN ASSESSMENT. pt REPOSITIONED. NO REQUESTS AT THIS TIME. CURTAIN OPEN TO NURSES STATION.
--- NOTE | 2019-04-01 01:06 | NUR ---
pt REPORTED "I NEED TO GO TO THE BATHROOM RIGHT NOW" EXPLAINED ANDREW, CHECKED THAT IT WAS FREELY DRAINING. pt HAD LOOSE BM. FRESH DEPENDS, PERICARE COMPLETED. ROOM TIDIED. NO FURTHER REQUESTS AT THIS TIME. CURTAIN OPEN TO THE NURSES STATION. pt TOLERATED MOVEMENT ON NC 5L O2 WITH BRIEF DESAT TO 85%. CURRENTLY SATS OF 94%.
--- NOTE | 2019-04-01 04:00 | NUR ---
pt HAD ANOTHER BM. FRESH DEPENDS IN PLACE. pt TOLERATED TURNING WITH NC AT 5L O2. MORALES EMPTIED. ASSESSMENT DONE. pt DENIES PAIN AT THIS TIME. PRN MEDICATION GIVEN pt WAS RESTLESS. CURTAIN OPEN TO THE NURSES STATION.
--- NOTE | 2019-04-01 04:16 | NUR ---
INCREASED RESTLESSNES NOTED, DESAT TO 84%, PT PLACED BACK ON BIPAP. SPO2 NOW 91% ON 35%. WILL CONTINUE TO MONITOR
--- NOTE | 2019-04-01 05:32 | NUR ---
BED ALARMING. pt ATTEMPTING TO GET OUT OF BED. pt WANTED A DRINK OF WATER. ASSISTED. EDUCATED ON IMPORTANCE OF BiPAP. pt REQUESTED NOT TO WEAR THE MASK BUT WAS COMPLIANT. LAB IN TO DRAW. CURTAIN OPEN TO NURSES STATION.
--- NOTE | 2019-04-01 06:14 | NUR ---
MEDICATION GIVEN (SEE MAR). pt RESTLESS. WHEN ASKED WHAT CAN BE DONE, pt REPORTED "I DON'T KNOW." BiPAP MASK LEAKING, RT CALLED TO ADDRESS. CURTAIN OPEN TO NURSES STATION.
--- NOTE | 2019-04-01 08:00 | NUR ---
PT RESTLESS, ATTEMPTING TO GET OOB. 25MCG FENTANYL ADMINISTERED.
--- NOTE | 2019-04-01 08:27 | NUR ---
DR GARNER INTO ROUND ON PT. PLACED PT ON 5L NC. PT ORIENTED TO PLACE AND SITUATION, DISORIENTED TO TIME. POC DISCUSSED. PT INCONT OF STOOL. ATTENDS CHANGED 2PA WITH BIPAP IN PLACE. PT TOLERATED WELL. LR AT 75ML/HR. WATER PROVIDED. CALL LIGHTIN REACH.
--- NOTE | 2019-04-01 09:00 | NUR ---
2PA UP TO CHAIR WITH BIPAP IN PLACE. PT TOLERATED WELL. HEART RATE INCREASED SLIGHTLY TO LOW 100'S. RECOVERED WELL AND WAS PLACED ON 5L NC. SATURATION AT THIS TIME IS 96%. HEARTRATE 102. PT WATCHING TV. RESPIRATIONS 15. BREATHING EQUAL AND NONLABORED. CALL LIGHT IN AD PERSONAL ITEMS WITHIN REACH.
--- NOTE | 2019-04-01 10:23 | NUR ---
2PA TO BSC. PT INCONTINENT OF STOOL. SMALL SOFT BM INTO BSC. PT ON 5L NC. TOLERATING MOVEMENT WELL WITH NC. BACK TO CHAIR. CALL LIGHT IN REACH.
--- NOTE | 2019-04-01 11:23 | NUR ---
2PA BACK TO BED. PT SATURATIONS DROPPED TO 79%. ABLE TO RECOVER QUICKLY TO 95% ONCE IN BED. CALL LIGHT AND PERSONAL ITEMS WIHTIN REACH. RT IN ROOM FOR NICK TREATMENT.
--- NOTE | 2019-04-01 12:23 | NUR ---
EXCITED TO BE ABLE TO TALK TO PT. RESPONDING TO TREATMENT, EATING BREAKFAST SITTING IN CHAIR WITH TV ON. PT REQUESTED PRAYER, WILL FOLLOW NEEDED
--- NOTE | 2019-04-01 12:54 | NUR ---
2PA TO CHAIR. PT INCONTINENT OF SMALL SOFT STOOL. ATTENDS CHANGED. GERALDINE AREA REDNESS NOTED. BARIOR CREAM APPLIED. PT WITH HEART RATE UP TO 120 WITH ACTIVITY. O2 TO HIGH 80'S. PT ABLE TO QUICKLY RECOVER ONCE IN CHAIR TO 97% ON 4L NC AND HEART RATE OF 108. CALL LIGHT IND PERSONAL ITEMS WITHIN REACH.
--- NOTE | 2019-04-01 12:58 | NUR ---
ATTEMPTED TO CALL CLEMENCIA DAUGHTER AND AMINATA DAUGHTER PER PT REQUST TO HAVE ONE BRING THE PT GLASSES. NO ANSWER ON EITHER PHONE.
--- NOTE | 2019-04-01 13:00 | NUR ---
Spoke with Janet. She is feeling much better, sitting up in chair. Able to tolerate soft foods today. Has difficulty with memory and cannot remember if she uses 02 at home. Also states she doesn't have help with meds or use a med box, but can't remember if she takes any medications. States she lives with oldest son and youngest daughter. They assist her with house hold tasks, cooking, laundry. Would like to discharge to home when able.
--- NOTE | 2019-04-01 14:15 | NUR ---
PHYSICAL THERAPY IN WORKING WITH PT. RILEY WNL. OLERATING WELL.
--- NOTE | 2019-04-01 15:02 | NUR ---
2PA BACK TO BED. HR INCREASED TO 120 WITH ACTIVITY. RECOVERED ONCE BACK IN BED TO 105. O2 98% ON 4L NC. CALL LIGHT AND PERSONAL ITEMS WITHIN REACH.
--- NOTE | 2019-04-01 15:41 | NUR ---
SBA TO BSC. PT ATTEMPTED TO GET OOB WITHOUT ASSISTENCE. REPORTS THE URGE TO URINATE. REMINDED PT OF MORALES CATHETER IN PLACE. PT DID AVE MED LIQUID STOOL. ASSISTED 2P FROM COMMODE D/T COMMODE BEING O LOW FOR PT TO STAND WIOTH OWN STRENGTH. 4L NC IN PLACE. RESPIRAITONS EQUAL AND NONLABORED. RT IN TO ADMINSITER NEB TREATMENT.
--- NOTE | 2019-04-01 17:30 | NUR ---
ANDREW YORK'D PER ORDER. 600ML OUT.
--- NOTE | 2019-04-01 17:35 | NUR ---
PT ASSISTED BACK TO BED. MORALES CATH REMOVED. 600ML URINE. IMAGING IN FPR ECHO. FAMILY AT BEDSIDE. 4L NC IN PLACE.
--- NOTE | 2019-04-01 18:35 | NUR ---
2PA TO BSC. VOIDED 275. BACK UP TO CHAIR WITH VAMILY AT BEDSIDE. PT'S CHEEKS ARE FLUSHED. TEMP TAKEN AND WNL. PT DENEIS OTHER SYMPTOMS. WILL CONT TO MONITOR. CALL LIGHT IN REACH.
--- NOTE | 2019-04-01 19:30 | NUR ---
Report rc'd from day shift nurse. Pt up in bed visiting wt family.
--- NOTE | 2019-04-01 20:30 | NUR ---
Pt AAOx3 and responding appropriately. Sinus Rhythm on monitor. Lungs diminished throughout and tight in bul, neb given, oxygen titrated to 4l nc. Bowel tones active and denies nausea. Denies pain. Denies N/T in extremities. Integumentary cool, scaling, fragile, various bruising see documentation. Trace edema to BUE and BLE. Iv site flushed, patent, wnl, saline locked. 1-2PA with FWW to BS, back to bed, tolerated well. Reinforced safety and fall precautions. Updated plan of care. Call light within reach.
--- NOTE | 2019-04-01 22:00 | NUR ---
Spo2 99% on 4l nc. Oxygen titrated to 3l nc. Will continue to montior.
--- NOTE | 2019-04-01 22:50 | NUR ---
Pt noted to be restless and placing feet over edge of bed, RN in room to assess. Pt states, "I just can't sleep and I feel restless." Offered PRN pm medication. Pt states,"I'll take it as long as it's not too strong." Education provided and all questions answered. PRN Trazodone given. Will continue to monitor.
--- NOTE | 2019-04-01 23:50 | NUR ---
Reassessed trazodone, pt states, "I feel much more relaxed like I could sleep." Anibal'd neb given and pt reports improvment, remains on 3l nc. No other acute changes to assessment.
--- NOTE | 2019-04-02 01:25 | NUR ---
Pt noted to be more restless, RN in room to assess. Pt requesting to use BSC, 1PA with FWW, steady gait. void 350 dilute yellow urine. Back to bed. HR 84, RR26, Spo2 94% on 3L NC, denies SOB. Bed alarm on.
--- NOTE | 2019-04-02 02:54 | NUR ---
Pt noted to be restlness, RN in room to assess. Pt 1-2PA with FWW to BS. Back to bed. Oxygen saturation down to 86% with activity, O2 titrated to 4-5L NC, spo2 increased with rest. Spo2 now 97% on 3L nc.
--- NOTE | 2019-04-02 03:38 | NUR ---
Pt restless and placing legs over edge of bed. Pt states she can't sleep. Encouraged rest. Repositioned and blankets given.
--- NOTE | 2019-04-02 04:27 | NUR ---
Bed alarm, pt restless with leg ove edge of bed. 1PA with FWW to BSC, back to chair. Encourage rest. Chair alarm in place.
--- NOTE | 2019-04-02 05:25 | NUR ---
PT UP IN CHAIR WATCHING TV. REPORTS BEING UNABLE TO SLEEP. ENCOUAGED REST. DENIES OTHER NEEDS. CALL LIGHT WITHIN REACH. CHAIR ALARM ON
--- NOTE | 2019-04-02 06:03 | NUR ---
PT CALLING OUT ASKING IF MORALES CATH IN PLACE. INFORMED PT MORALES CATH NO LONGER IN, ASSESSED NEED FOR RESTROOM. PT STATES, "WELL I SHOULD PROBABLY HAVE IT." DENIES NEED FOR RESTROOM.
--- NOTE | 2019-04-02 06:23 | NUR ---
PT 1-2PS WITH FWW TO BSC, VOID, BACK TO CHAIR. CHAIR ALARM IN PLACE.
--- NOTE | 2019-04-02 07:30 | NUR ---
PATIENT SHIFT REPORT RECIEVED FROM [employer]AB[employer] DEVELOPER RN. PER REPORT PATIENT DID NOT SLEEP MUCH, BUT DID REST MOST OF THE NIGHT. PATIENT UP IN THE CHAIR AT THIS TIME. CHAIR ALARM ON. PATIENT HAS WATER AND CALL LIGHT IN REACH. WILL CONTINUE TO CLOSELY MONITOR.
--- NOTE | 2019-04-02 09:00 | NUR ---
PATIENT SHIFT ASSESSMENT COMPLETED. PATIENT BREATH SOUNDS CLEAR, TIGHT, AND DIMINISHED THROUGHOUT. PATIEN IS ON 3L NC WHICH IS PATIENTS NORMAL HOME OXYGEN AMOUNT. PATIENT SPO2 92-95%. PATIENT BOWEL TONES ACTIVE. ATTENDS IN PLACE FOR OCCASIOANL LOOSE BMS. PATIENT IS CONTINENT OF URINE. PATIENT IS ALERT TO SELF, PLACE, AND SITUATION, BUT IS UNSURE OF THE EXACT DATE. STATES "I THINK IT IS MARCH". PATIENT UP TO THE BEDSIDE CAMMODE WITH NO ISSUES. PATIENT IS STEADY ONCE SHE IS STANDING, BUT NEEDS ASSISTANCE TO STAND AND GET OUT OF THE CHAIR OR BED. BREAKFAST ORDERED. NO OTHER NEEDS AT THIS TIME. WILL CONTINUE TO CLOSELY MONITOR.
--- NOTE | 2019-04-02 10:56 | NUR ---
PATIENT WORKED WITH PHYSICAL THERAPY THIS AM. PATIENT TOELRATED WELL. PATIENT RESTING IN BED AT THIS TIME. LIGHTS DIMMED. WILL ALLOW PATIENT TO HAVE A NAP D/T NOT GETTING MUCH SLEEP LAST NIGHT. WILL CLOSELY MONITOR. NO OTHER NEEDS AT THIS TIME. WILL CONTINUE TO CLOSELY MONITOR.
--- NOTE | 2019-04-02 12:30 | NUR ---
PATIENT HAS BEEN RESTING FOR THE LAST SEVERAL HOURS NOW. PATIENT NOW AWAKE WITH FAMILY AT THE BEDSIDE. PATIENT WILL TRANSFER TO ROOM [facility]. WILL GIVE REPORT TO VISHAL MAGAÑA. PATIENT WILL TRANSFER IN HER CHAIR. NO OTHER NEEDS AT THIS TIME. WILL CONTINUE TO CLOSELY MONITOR.
--- NOTE | 2019-04-02 13:15 | NUR ---
PATIENT REPORT GIVEN TO VISHAL MAGAÑA WITH ALL QUESTIONS ANSWERED. BROUGHT PATIENT OVER IN HER RECLINER. ALL BELONGINGS SENT WITH PATIENT. FAMILY AT THE BEDSIDE. VISHAL RN IN THE ROOM TO RESUME PATIENT CARE. PATIENT WAS UP TO THE [facility] PRIOR TO TRANSFER AND NEW ATTENDS PLACED. PATIENT WAS ABLE TO STAND AND TRANSFER WITH 1 PERSON ASSIST. UPDATED VISHAL MAGAÑA THAT PATIENTS IVS ARE DUE TO BE CHANGED AND HER ARMS ARE WAY LESS SWOLLEN TODAY AND MAY HAVE OTHER ACCESS AVAILABLE NOW. PATIENT WOULD ALSO LIKE A SHOWER TODAY. NO OTHER NEEDS AT THIS TIME.
--- NOTE | 2019-04-02 13:20 | NUR ---
PT ARRIVED TO ROOM 121 IN CHAIR WITH CCU NURSE GÓMEZ CYR WHO PROVIDED REPORT PREVIOUSLY ON PHONE. PT ALERT AND ORIENTED ORIENTED. CALL LIGHT AND H2O IN REACH. PT ASSESSMENT COMPLETED AND VSS. FAMILY AT BEDSIDE. MENUE PROVIDED PER PT REQEUST. NO FURTHER NEEDS OR CONCERNS VOICED.
--- NOTE | 2019-04-02 15:41 | NUR ---
PT RESTING IN SEMIFOWLERS POSITION IN BED. PT ALERT AND ORIENTED CALL LIGHT AND H2O IN REACH. O2 SAT 93% ON 3LPNC. PT DENIES SOB, PAIN, NAUSEA. NO NEEDS OR CONCERNS VOICED.
--- NOTE | 2019-04-02 17:13 | NUR ---
PT RESTING IN SEMIFOWLERS POSITION IN BED ALERT AND ORIENTED PT WATCHING TV. PT ASSISTED UP TO RESTROOM PER REQUEST AND BACK TO BED. PRN PO ABX ADMINISTERED. PT DENIES NEEDS OR CONCERNS. CALL LIGHT AND H2O IN REACH.
--- NOTE | 2019-04-02 18:35 | NUR ---
PATIENT HAS BEEN VISITING WITH FAMILY MOST OF THE EVENING. PATIENT HAS REQUESTED TO TAKE A SHOWER TOMORROW. PATIENT RESTING IN BED, CALL LIGHT IN REACH. NO OTHER NEEDS AT THIS TIME.
--- NOTE | 2019-04-02 19:11 | NUR ---
RECEIVED REPORT FROM GÓMEZ RODGERS. pt SITTING ON SIDE OF BED. NO REQUESTS AT THIS TIME. POSSESSIONS WITHIN REACH. WHITEBOARD UPDATED. CALL LIGHT WITHIN REACH. BED ALARM ON.
--- NOTE | 2019-04-02 20:12 | NUR ---
HELPED PT INTO HER BED. GOT HER A COMB. BEDSIDE TABLE AND CALL LIGHT IN REACH.
--- NOTE | 2019-04-02 20:32 | NUR ---
ASSESSMENT DONE. pt DENIES PAIN AT THIS TIME. ORIENTED TO SELF AND PLACE, FORGETFUL ABOUT EVENTS THAT OCCURRED TODAY. ORIENTED TO SOUNDS OF CARE. pt WATCHING TV. NO REQUESTS AT THIS TIME. CALL LIGHT WITHIN REACH. BED ALARM ON.
--- NOTE | 2019-04-02 22:30 | NUR ---
ROUNDED ON pt. RESTING IN BED. VITALS RECORDED. MEDICATION GIVEN (SEE MAR). pt DENIES NEED TO VOID, AGREED TO TRY IN A LITTLE BIT. CALL LIGHT WITHIN REACH.
--- NOTE | 2019-04-02 23:03 | NUR ---
HELPED PT TO THE BSC AND BACK TO BED WITH HER FWW. BEDSIDE TABLE AND CALL LIGHT IN REACH. PT NEEDS NOTHING ELSE AT THIS TIME.
--- NOTE | 2019-04-03 00:52 | NUR ---
ROUNDED ON pt. RESTING WITH EYES CLOSED, RESPIRATIONS REGULAR AND UNLABORED. CALL LIGHT WITHIN REACH.
--- NOTE | 2019-04-03 02:30 | NUR ---
ROUNDED ON pt. RESTING WITH EYES CLOSED, RESPIRATIONS REGULAR AND UNLABORED. CALL LIGHT WITHIN REACH.
--- NOTE | 2019-04-03 04:04 | NUR ---
ASSITED PT TO BSC AND BACK TO BED. SHE IS SITTING AT EDGE OF BED WITH PRIMARY RN ALEX IN THE ROOM.
--- NOTE | 2019-04-03 04:10 | NUR ---
pt SITTING ON EDGE OF BED. ASSESSMENT DONE. DISCUSSED EVENTS OF CARE THAT OCCURRED. pt STATED "I CAN'T BELIEVE THAT I WAS INTUBATED" COFFEE PROVIDED. BED ALARM ON. POSSESSIONS WITHIN REACH. NO FURTHER REQUESTS AT THIS TIME.
--- NOTE | 2019-04-03 05:40 | NUR ---
HELPED PT BACK TO BED FROM THE BSC WITH HER FWW. POSITIONED HER IN BED TO HER COMFORT. VITALS AND I&OS DONE AND CHARTED. BEDSIDE TABLE AND CALL LIGHT IN REACH.
--- NOTE | 2019-04-03 07:32 | NUR ---
BEDSIDE REPORT RECEIVED FROM ALEX MAGAÑA. WHITE BOARD UPDATED. PATIENT AWAKENED TO VOICE. NO NEEDS AT THIS TIME. REQUESTED REST.
--- NOTE | 2019-04-03 07:48 | NUR ---
PATIENT RESTING IN BED, EYES CLOSED. AM CARE SET UP AT BEDSIDE FOR PATIENT TO USE LATER PER PATIENT REQUEST. PATIENT STATES SHE WOULD LIKE A SHOWER TODAY. CALL LIGHT IN REACH. NO OTHER NEEDS AT THIS TIME.
--- NOTE | 2019-04-03 08:45 | NUR ---
PT SITTING UP IN BED EATING BREAKFAST. ORIENTED X3. FORGETFUL. NICOTINE PATCH APPLIED TO RIGHT DELTOID. DATED ON TOP OF PATCH. NO PRIOR PATCH FOUND. NON-PRODUCTIVE COUGH. IVs FLUSHED AND SALINE LOCKED. VSS. 3L [address]
--- NOTE | 2019-04-03 09:57 | NUR ---
ASSISTED TO BEDSIDE COMMODE WITH 1 PERSON ASSIST AND FWW. TOLERATED WELL. GAVE CALL LIGHT AND PRIVACY TO HAVE BM. PER VISHAL MAGAÑA, PATIENT DID HAVE MEDIUM LOOSE BM AND UNMEASURED URINE. PATIENT SITTING UP ON EDGE OF BED NOW WITH BED ALARM IN PLACE.
--- NOTE | 2019-04-03 13:58 | NUR ---
PATIENT RESTING IN BED. DAUGHTER IN ROOM. VITAL SIGNS AND I&O DONE. CALL LIGHT WITHIN REACH. NO OTHER NEEDS AT THIS TIME
--- NOTE | 2019-04-03 18:00 | NUR ---
AMBULATED IN [place] WITH PHYSICAL THERAPY. UNABLE TO TOLERATE LONG DISTANCES, BUT DOES WELL WITH SHORT DISTANCES. SBA TO BS. AUGMENTIN PO. DANGLES AT BEDSIDE INDEPENDENTLY. ECHOCARDIOGRAM PLANNED FOR Thursday04/04/19. POSSIBILITY OF BECOMING SWING BED FOR CONDITIONING.
--- NOTE | 2019-04-03 18:20 | NUR ---
PATIENT SITTING UP ON THE EDGE OF THE BED. VITAL SIGNS AND I&O DONE. WATER GIVEN. CALL LIGHT WITHIN REACH. NO OTHER NEEDS AT THIS TIME
--- NOTE | 2019-04-03 19:06 | NUR ---
RECEIVED REPORT FROM GÓMEZ MENDES. pt SITTING ON SIDE OF BED. ASSISTED TO A LAYING POSITION. NO FURTHER REQUESTS AT THIS TIME. CALL LIGHT WITHIN REACH. WHITEBOARD UPDATED.
--- NOTE | 2019-04-03 20:33 | NUR ---
ROUNDED CHARGE. PATIENT IS RESTING IN BED. ALEX RN IS IN ROOM. PATIENT DENIES ANY NEEDS. CALL LIGHT IN REACH.
--- NOTE | 2019-04-03 20:38 | NUR ---
ASSESSMENT DONE. VITALS RECORDED. pt DENIED PAIN. DEMONSTRATED USE OF CPT. ENCOURAGED COUGHING AND DEEP BREATHING. ON 3L O2 VIA NC. NO REQUESTS AT THIS TIME. CALL LIGHT WITHIN REACH.
--- NOTE | 2019-04-03 22:20 | NUR ---
ROUNDED ON pt RESTING WITH EYES CLOSED, RESPIRATIONS REGULAR AND UNLABORED. CALL LIGHT WITHIN REACH.
--- NOTE | 2019-04-04 00:20 | NUR ---
CALL LIGHT ON pt REQUESTING ASSISTANCE TO VOID. MOUNTAIN OR GLACIER GUIDE IN ROOM
--- NOTE | 2019-04-04 00:39 | NUR ---
HELPED PT TO THE BSC WITH HER FWW. SHE WILL CALL WHEN SHE IS DONE. CALL LIGHT IN REACH.
--- NOTE | 2019-04-04 00:54 | NUR ---
pt FINISHED. MIXED STOOL AND VOID. SITTING ON SIDE OF BED. COFFEE PROVIDED PER REQUEST. CALL LIGHT WITHIN REACH.
--- NOTE | 2019-04-04 03:08 | NUR ---
pt SITTING ON SIDE OF BED. PROVIDED MORE COFFEE PER REQUEST. NO FURTHER REQUESTS AT THIS TIME. ASSESSMENT DONE. CALL LIGHT WITHIN REACH.
--- NOTE | 2019-04-04 04:08 | NUR ---
ROUNDED ON pt. READY TO LAY DOWN, 1PA. PROVIDED WARM BLANKET. NO FURTHER REQUESTS AT THIS TIME. CALL LIGHT WITHIN REACH.
--- NOTE | 2019-04-04 07:04 | NUR ---
VITALS AND I&OS DONE AND CHARTED. HELPED PT BACK TO BED WITH HER FWW. BEDSIDE TABLE AND CALL LIGHT IN REACH. GARBAGES EMPTIED. PT NEEDS NOTHING MORE AT THIS TIME.
--- NOTE | 2019-04-04 07:41 | NUR ---
BEDSIDE REPORT RECEIVED FROM ALEX MAGAÑA. WHITE BOARD UPDATED. PATIENT SITTING AT EDGE OF BED. JULY MONEY ORDER CLERK AT BEDSIDE ASSISTING PATIENT INTO COMFORTABLE POSITION. RN REPORTED PATIENT SLEPT 4 HOURS AT ONE TIME. DENIED WANT TO AMBULATE TO BATHROOM INSTEAD OF BSC DESPITE BEING ENCOURAGED TO INCREASE ENDURANCE.
--- NOTE | 2019-04-04 10:30 | NUR ---
In and spoke with Janet and children, [place] and [place]. They all state concern for pt to go home as she is deconditioned. Discussed tranisitonal care program and Dr. Baker into see pt. He is in agreement pt is appropriate for TC and will admit. Brochures for TC given to pt and family.
== END 2019-04-04 10:09 | disposition swing bed (61) | DRG 208 ==
LOC: ED 10:29 → CCU 16:30 → MS 04-02 13:27
PROVIDERS: ADMIT Internal Medicine
PROC: 5A1945Z Respiratory Ventilation, 24-96 Consecutive Hours (ICD-10-PCS; principal; 2019-03-27)
PROC: 5A09357 Assistance with Respiratory Ventilation, Less than 24 Consecutive Hours, Continuous Positive Airway Pressure (ICD-10-PCS; 2019-03-29)
DX: J96.21 Acute and chronic respiratory failure with hypoxia (principal); J69.0 Pneumonitis due to inhalation of food and vomit; J10.08 Influenza due to other identified influenza virus with other specified pneumonia; J15.6 Pneumonia due to other Gram-negative bacteria; J44.1 Chronic obstructive pulmonary disease with (acute) exacerbation; J44.0 Chronic obstructive pulmonary disease with (acute) lower respiratory infection; I47.1 Supraventricular tachycardia; F17.210 Nicotine dependence, cigarettes, uncomplicated; I25.10 Atherosclerotic heart disease of native coronary artery without angina pectoris; E78.5 Hyperlipidemia, unspecified; I10 Essential (primary) hypertension; Z85.038 Personal history of other malignant neoplasm of large intestine; Z79.899 Other long term (current) drug therapy; Z88.8 Allergy status to other drugs, medicaments and biological substances
CPT/HCPCS: 31500; 31720; 36415; 36600; 51702; 70450; 71045; 71260; 74018; 80048; 80053; 81001; 82803; 83605; 83735; 83880; 84484; 85025; 85379; 87040; 87070; 87205; 87502; 93005; 93010; 93306; 94002; 94003; 94150; 94640; 94660; 94667; 94668; 94760; 96368; 97110; 97116; 97162; 99285-25; C9113; J1630; J1650; J1885; J1940; J2250; J2543; J2920; J2930; J3010; J3475; J7060; J7121; J7512; Q9967

== ENCOUNTER 2019-04-04 10:10 | Inpatient (IN) | payer MEDICARE, OTHER ==
[~2019-04-04] VITALS: Ht 160 cm; Wt 78.5 kg
--- OUTSIDE RECORDS SUMMARY | ~2019-04-04 | XMS | Encounter Summary ---
Demographics + + + | Address | [address] | | | [place] [address] | + + + | Home Phone | | + + + | Preferred Language | Unknown | + + + | Marital Status | Unknown | + + + | Rastafari Affiliation | Unknown | + + + | Race | Unknown | + + + | Ethnic Group | Unknown | + + + Author + + + | Author | [facility] | | | and [place] | + + + | Organization | [facility] | | | and [place] | + + + | Address | Unknown | + + + | Phone | Unavailable | + + + Care Team Providers + +------+ + | Care Room Cleaner Name | Role | Phone | + +------+ + PCP | Unavailable | + +------+ + Encounter Details +--------+ + + + + | Date | Type | Department | Care Team | Description | +--------+ + + + + | 06/20/ | Hospital | [facility] | | | | 2003 - | Encounter | MED [facility] | | | | | | CENTER [facility] [address] | | | | 10/23/ | | [place] | | | | 2003 | | [address] | | | | | | [phone] | | | +--------+ + + + [...] Not on filedocumented as of this encounter Visit Diagnoses Not on filedocumented in this encounter"
--- OUTSIDE RECORDS SUMMARY | ~2019-04-04 | XMS | Encounter Summary ---
Demographics + + + | Address | [address] | | | [place] [address] | + + + | Home Phone | | + + + | Preferred Language | Unknown | + + + | Marital Status | Unknown | + + + | Church Affiliation | Unknown | + + + | Race | Unknown | + + + | Ethnic Group | Unknown | + + + Author + + + | Author | [facility] | | | and [place] | + + + | Organization | [facility] | | | and [place] | + + + | Address | Unknown | + + + | Phone | Unavailable | + + + Care Team Providers + +------+ + | Care Quarry Worker Name | Role | Phone | + +------+ + PCP | Unavailable | + +------+ + Encounter Details +--------+ + + + + | Date | Type | Department | Care Team | Description | +--------+ + + + + | 10/13/ | Emergency | [facility] | Daniel Pollock, | | | 2016 | | MEDICAL CENTER | MD [address] | | | | | EMERGENCY CENTER | [place] [address] | | | | | [address] | [phone] | | | | | [place], [place] | | | | | | [address] | | | | | | [phone] | | | +--------+ + + + [...]
--- OUTSIDE RECORDS SUMMARY | ~2019-04-04 | XMS | Encounter Summary ---
Demographics + + + | Address | [address] | | | [place] [address] | + + + | Home Phone | | + + + | Preferred Language | Unknown | + + + | Marital Status | Unknown | + + + | Synagogue Affiliation | Unknown | + + + | Race | Unknown | + + + | Ethnic Group | Unknown | + + + Author + + + | Author | [facility] | | | and [place] | + + + | Organization | [facility] | | | and [place] | + + + | Address | Unknown | + + + | Phone | Unavailable | + + + Care Team Providers + +------+ + | Care Supervisor Spring Up Name | Role | Phone | + +------+ + PCP | Unavailable | + +------+ + Encounter Details +--------+ + + + + | Date | Type | Department | Care Team | Description | +--------+ + + + + | 07/27/ | Hospital | [facility] | | | | 2002 - | Encounter | MED CTR CANCER | | | | | | CENTER [address] | | | | 12/01/ | | [place] | | | | 2002 | | [address] | | | | | | [phone] | | | +--------+ + + + [...]
--- OUTSIDE RECORDS SUMMARY | ~2019-04-04 | XMS | Encounter Summary ---
Demographics + + + | Address | [address] | | | [place] [address] | + + + | Home Phone | | + + + | Preferred Language | Unknown | + + + | Marital Status | Unknown | + + + | Orthodoxy Affiliation | Unknown | + + + | Race | Unknown | + + + | Ethnic Group | Unknown | + + + Author + + + | Author | [facility] | | | and [place] | + + + | Organization | [facility] | | | and [place] | + + + | Address | Unknown | + + + | Phone | Unavailable | + + + Care Team Providers + +------+ + | Care Fruit Inspector Name | Role | Phone | + +------+ + PCP | Unavailable | + +------+ + Encounter Details +--------+ + + + + | Date | Type | Department | Care Team | Description | +--------+ + + + + | 03/23/ | Hospital | [facility] | | | | 2001 - | Encounter | MED CTR CANCER | | | | | | CENTER [address] | | | | 07/25/ | | [place] | | | | 2002 | | [address] | | | | | | [phone] | | | +--------+ + + + [...]
--- OUTSIDE RECORDS SUMMARY | ~2019-04-04 | XMS | Encounter Summary ---
Demographics + + + | Address | [address] | | | [place] [address] | + + + | Home Phone | | + + + | Preferred Language | Unknown | + + + | Marital Status | Unknown | + + + | Evangelical Affiliation | Unknown | + + + | Race | Unknown | + + + | Ethnic Group | Unknown | + + + Author + + + | Author | [facility] | | | and [facility] | + + + | Organization | [facility] | | | and [place] | + + + | Address | Unknown | + + + | Phone | Unavailable | + + + Care Team Providers + +------+ + | Care Crop Grain Or Livestock Farmer Name | Role | Phone | + +------+ + | Jas Baird MD | PCP | | + +------+ + Encounter Details +--------+ + + + + | Date | Type | Department | Care Team | Description | +--------+ + + + + | 04/05/ | Orders Only | [facility] | Conversion | | | 2012 | | INFECTIOUS DISEASE | Transaction, | | | | | [address] [facility] | Provider Unknown | | | | | [place], [place] | [phone] | | | | | [id number] | | | | | | [phone] | | | +--------+ + + + [...]
--- OUTSIDE RECORDS SUMMARY | ~2019-04-04 | XMS | Encounter Summary ---
Demographics + + + | Address | [address] | | | [place] [address] | + + + | Home Phone | | + + + | Preferred Language | Unknown | + + + | Marital Status | Unknown | + + + | Voodoo Affiliation | Unknown | + + + | Race | Unknown | + + + | Ethnic Group | Unknown | + + + Author + + + | Author | [facility] | | | and [place] | + + + | Organization | [facility] | | | and [place] | + + + | Address | Unknown | + + + | Phone | Unavailable | + + + Care Team Providers + +------+ + | Care Marriage Therapist Name | Role | Phone | + +------+ + PCP | Unavailable | + +------+ + Encounter Details +--------+ + + + + | Date | Type | Department | Care Team | Description | +--------+ + + + + | 03/20/ | Hospital | [facility] | Carla Donovan, | Gangrene of foot | | 2013 - | Encounter | [facility] [address] | [address] | ([facility]); Ankle ulcer | | | | [address] | [address] [place], [place] | ([facility]) | | 03/25/ | | [place], [place] | [address] | | | 2012 | | [id number] | | | | | | [phone] | | | +--------+ + + + [...] + + documented as of this encounter Discharge Summaries Adriana Carty MD - 04/07/2013 10:12 AM PST Discharge Summaries by Adriana Carty MD at 04/07/13 1012 Author: Adriana Carty MD Service: (none) Author Type: Physician Filed: 04/07/13 1023 Date of Service: 04/07/13 1012 Status: Signed Parts Clerk Plant Maintenance: Adriana Carty MD (Physician) [facility] Service: Hospitalist Note Discharge Summary Date of Admission: 03/20/2013 Date of Discharge: [id number] Treatment Team: Consulting Physician: MD Timur Gill DPM Admitting Provider: Carla Donovan MD Discharging Provider: Adriana Carty MD Discharge Diagnoses: Principal Problem: *Gangrene of foot Active Problems: HTN (hypertension) History of colon cancer History of cerebral aneurysm repair Memory impairment Tobacco use disorder Ankle ulcer Peripheral arterial disease Procedures Performed: Procedure(s) (LRB): DEBRIDEMENT - ANKLE (Left) (see op report by Dr. Harper) Angioplasty and stenting of SFA (see OP report by Dr. Rowan) Hospital Course: Irina Bro is a 72 y.o. female who was admitted on 03/20/2013 due to a gangrenous ulcer on her left ankle. She was seen in consultation by Dr. Rowna who took the patient to OR for r evascularization and stenting. She then went to OR for debridement by Dr. Harper. She was treated in the hospital with IV abx under the guidance of infectious disease. She is being discharged to home on po abx and instructions for local wound care. Please see 03/25 progress note for discharge exam and data. Discharge Information: Follow up: Vinay Rowan MD [facility] [place] [address] In 2 weeks [facility] (wound-care) [phone] Timur Harper DPM [address] [place], [place] [address] [place] [address] In 1 week Apollo Urbano DO [address] [place] [address] In 1 week Medication List As of 04/07/2013 10:12 AM START taking these medications Cipro 500 mg po bid Clindamycin 600 mg po tid clopidogrel 75 MG tablet QTY: 30 tablet Refills: 2 Commonly known as: PLAVIX Take 1 tablet by mouth daily. CONTINUE taking these medications hydrochlorothiazide 25 MG tablet Refills: 0 Commonly known as: HYDRODIURIL Discharge Instructions Activity as advised by physical therapy Disposition: Home Condition: Satisfactory Code Status: Full Discharge took 45 minutes, to include final examination, discussion of admission, and prepa ration of prescriptions, instructions for on-going care, follow-up and documentation of disc harge summary. Adriana Carty MD 04/07/2013 documented in thi s encounter Progress Notes Conversion Transaction, Provider Unknown - 03/28/2013 9:35 AM PSTFormatting of this note m ight be different from the original. Case Management by LYNNETTE Zaidi at 03/28/13934 Author: LYNNETTE Zaidi Service: (none) Author Type: Museum Host/Hostess Filed: 03/28/1336 Date of Service: 03/28/13934 Status: Signed Parts Clerk Plant Maintenance: LYNNETTE Zaidi (Museum Host/Hostess) CM re-faxed pt's discharge orders to [facility] as they misplaced the original fax. [facility] onver sandi Transaction, Provider Unknown - 03/25/2013 4:45 PM PST Nurse Progress Note by Senia Ryder RN at 03/25/131644 Author: Senia Ryder RN Service: (none) Author Type: Registered Nurse Filed: 03/25/13 132 Date of Service: 03/25/131644 Status: Signed Parts Clerk Plant Maintenance: Senia Ryder RN (Registered Nurse) Patient discharged to home with instructions, prescriptions, and belongings. Accompanied b y family. Oxygen delivered and set up by [facility]. Services in [place] will follow up at home with patient. HH set up for physical therapy and wound care. Family states unders tands. Pain pill given prior to DC. States pain is minimal. No nausea, ambulating with PT us ing walker and tolerating well. Dressing to left foot dry/intact. rides attendant did dressing change today. Right groin bandaid dry/intact. Patient eager to be discharged. Joshua junior Transaction, Provider Unknown - 03/25/2013 2:58 PM PST Progress Notes by Galina Panda RRT at 03/25/13 1458 Author: Galina Panda RRT Service: (none) Author Type: Registered Respiratory Therap ist Filed: 03/25/13 1458 Date of Service: 03/25/131457 Status: Signed Parts Clerk Plant Maintenance: Galina Panda RRT (Registered Respiratory Therapist) [facility] Department of Respiratory [facility] Oxygen Evaluation (Evaluation is valid for 48 hours once completed) Date: 03/25/2013 RT: GALINA PANDA Time: 2:58 PM Home O2 Eval at rest-Part 1 At rest & breathing room air is the patients SpO2 88% or lower? : Yes Lowest observed SpO2 at rest: 87 percent If yes amount of oxygen to keep SpO2 88% or higher at rest: 1 lpm (93% with O2 at 1lpm) Home O2 Eval during exercise-Part 2 With exercise & breathing room air is the patients SpO2 88% or lower? : Yes Lowest observed SpO2 with exercise: 84 percent Liters per minute with exercise: 2 lpm (with 1 lpm O2 87% noted. With 2 lpm SaO2 91%) Home O2 Eval Comment Eval Comment: [facility] called per Pt request. HOME OXYGEN PROVIDER PREFERENCE PHONE FAX *NOTE* Provider must include liter flow, route of oxygen administration, frequency of use w ith duration of need in months on the prescription AND document patient s diagnosis. OXYGEN PRN IS NOT A VALID ORDER Physician Signature: Date: Time: Joshua junior Transaction, Provider Unknown - 03/25/2013 2:20 PM PST Progress Notes by Lilliana Abdi PT at 03/25/13 0901 Author: Lilliana Abdi PT Service: (none) Author Type: Physical Therapist Filed: 03/25/13 9809 Date of Service: 03/25/131419 Status: Signed Parts Clerk Plant Maintenance: Lilliana Abdi PT (Physical Therapist) 03/25/13 6246 PT Last Visit PT Received On 03/25/13 Reason for Treatment Other (comment) (debridement, s/p L LE stenting) Requires PT Follow Up Yes Follow up PT Only? No PT Eval/Reassessment Date 03/25/13 Assistance Required 1 person Deliverer Food Needed No Plan Treatment/Interventions Bed mobility training;Gait training;Transfer training PT Frequency 5-7x/wk;Once per day;Twice a day Care Duration (# of days) 7 # of days Precautions Other Precautions Fall risk Home Environment Type of Home Home two story Home Exterior Layout 4-6 steps;Rail bilateral (6 steps ) Home Interior Layout Lives on main level with bedroom/bathroom Bathroom Shower/Tub Shower unit with threshold Bathroom Toilet Standard Bathroom Equipment Grab bars in shower/bath;Shower chair;Hand-held shower head;Raised toile t seat Bathroom Accessibility Accessible via walker Home Equipment Cane single point;Walker front wheeled Recommendation Recommendations Continue acute care therapy;Return to prior living situation;Home PT Equipment Recommended (Pt states she has FWW at home ) Prior Function Level of [place] Modified independent with functional mobility;Modified independent wi th ADLs;Modified independent with IADLs (Pt used cane outside ) Lives With Spouse;Adult child(berenice) ( who has brain damage ) Receives Help From Family ADL Assistance Independent Home ADL's Independent Employment Retired for age RUE Assessment RUE Assessment WFL LUE Assessment LUE Assessment WFL RLE Assessment RLE Assessment X (overall 3+/5 ) LLE Assessment LLE Assessment X (overall 3+/5 ) Cognition Overall Cognitive Status WFL Orientation Level Oriented Sensation Light Touch (Diminished sensation Lt foot ) Vision-Basic Assessment Current Vision Wears glasses Assessment of Patient Status Assessment of Patient Status Decreased LE ROM;Decreased LE strength;Decreased functional m obility;Decreased ADL status;Decreased endurance;Precautions;Pain Prognosis Should progress with skilled therapy intervention 03/25/13 1420 PT Last Visit PT Received On 03/25/13 Reason for Treatment Other (comment) (debridement, s/p L LE stenting) Requires PT Follow Up Yes Follow up PT Only? No PT Eval/Reassessment Date 03/25/13 Assistance Required 1 person Deliverer Food Needed No Precautions Other Precautions Fall risk Other Comments Comments Eval/chart review performed in room, RT also in during session to monitor pts O2 s ats during mobility, pt seated @ EOB upon arrival, agreeable to therapy, sit-stand modA to F WW, pt performed standing weight shifting and marching on room air, pts O2 dropped 84%, pt a mb w// O2 60ft Cooper w/FWW, educated pt on safe use of walker during ambulation, focused on p kelechi gait techniques, practiced sit-stand, second sit-stand SBA, recommend pt have assist a t home for safety during mobility, 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 Recommend H HPT, pt needs to use FWW at home for safe ambulation. Cognition Overall Cognitive Status WFL Orientation Level Oriented Bed Mobility Supine to Sit FARZAD (Pt sitting EOB ) Transfers Sit to/from Stand Moderate assist (to arise OR lower);Minimal assist (steadying/contact gua rd) Bed to/from Chair Minimal assist (steadying/contact guard) Mobility Weight Bearing Status WBAT RLE;WBAT LLE Ambulation Assistance Minimal assist Maximal Ambulation Distance (feet) 60ft Total Ambulation Distance (feet) 60ft Distance limited by? Patient's ability Pattern Alternating;Decreased prashanth;Forward flexed Assistive Device Walker front wheeled Balance Balance Yes Dynamic Standing Balance Dynamic Standing-Balance Activities Other (comment) (Standing marching/weight shifting ) Dynamic Standing-Balance Support Right upper extremity support;Left upper extremity support Standing Dynamic Level of Assist Minimal assist Dynamic Standing-Comments/Duration Standing EOB x 2min Modalities Modalities Other therapy Other Therapy Ed on mobility techniques Activity Tolerance Activity Tolerance Patient limited by fatigue;Patient limited by pain Nurse Made Aware RN aware, RT in during session Plan Treatment/Interventions Bed mobility training;Gait training;Transfer training PT Frequency 5-7x/wk;Once per day;Twice a day Care Duration (# of days) 7 # of days Recommendation Recommendations Continue acute care therapy;Return to prior living situation;Home PT Equipment Recommended (Pt states she has FWW at home ) onver sandi Transaction, Provider Unknown - 03/25/2013 11:53 AM PST Nurse Progress Note by Senia Ryder RN at 03/25/13 1153 Author: Senia Ryder RN Service: (none) Author Type: Registered Nurse Filed: 03/25/13 1153 Date of Service: 03/25/13 115 Status: Signed Parts Clerk Plant Maintenance: Senia Ryder RN (Registered Nurse) Message left with Dr. Harper regarding weight bearing status for left foot per physical the rapy's request. Apollo Vernon - 03/25/2013 10:55 AM PSTFormatting of this note might be different from the origina l. Progress Notes by Apollo Urbano DO at 03/25/13 1055 Author: Apollo Urbnao DO Service: (none) Author Type: Physician Filed: 03/25/13 1100 Date of Service: 03/25/13 105 Status: Signed Parts Clerk Plant Maintenance: Apollo Urbano DO (Physician) [facility] Service: Infectious Disease Progress Note Hospital Day: LOS: 5 days Post-Op Day: * No surgery found * SUBJECTIVE Patient Summary: The patient is a 72 y.o. female with significant past medical histor y of colon CA and HTN who is transferred from [facility] for L ankle gangrene. Patient noticed a small blister around her left ankle Before thanksgi. She has been scr atching on this and became worse over the last 3-4 weeks. Unfortunately the history cannot be corroborated by family and she was keeping it from them . She denies any fevers or chills. Has been having pain around the ankle and left leg. Did notice some drainage although no thee pus noted. Some erythema was noted around the left ankle. She says she has always had "poor circulation" She has been able to walk with help of a cane. Denies any history of injury/fall. She smokes 1/2 pack a day but denies any drug use or alcohol use. No history of prior surgery around the ankle. No history of any hardware implantation. Patient did not have any fever or leukocytosis at presentation, but due to concern for cell ulitis was started on IV clindamycin in the emergency. Arterial studies show edsigns of compromised circulation. No deep vein thrombosis noted. Dr. Rowan consulted. Plan for angiogram-possibly followed by revascularization. On 03/23 patient underwent recannulization angioplasty of the right SFA with placement of s tent. CC: Left ankle wound Chart reviewed: No new events. Subjective Patient denies any pain in the left ankle. She is feeling better overall. She had nausea 2 nights ago but has been able to eat today without any difficulty. No nausea, vomiting or tierra rrhea. ROS No fever, chills sweats. No nausea, vomiting or diarrhea. No rashes or pruritis. No oral pa in. Scheduled Medications [] bupivacaine (PF) ciprofloxacin 400 mg Intravenous Q12H clindamycin 600 mg Intravenous Q8H clopidogrel 75 mg Oral Daily heparin (porcine) 5,000 Units Subcutaneous Q8H [] lidocaine-EPINEPHrine [] midazolam nicotine 1 patch Transdermal Daily [] ropivacaine Continuous Infusions sodium chloride 110 mL/hr at 03/24/13 1315 [DISCONTINUED] electrolyte-A 30 mL/hr at 03/24/13 1706 PRN Medications acetaminophen, acetaminophen, acetaminophen, acetaminophen, fentaNYL, fentaNYL, hydrALAZINE , HYDROcodone-acetaminophen, HYDROcodone-acetaminophen, morphine, morphine, morphine, ondans etron, ondansetron, ondansetron, ondansetron, ondansetron, ondansetron, polyethylene glycol, polyethylene glycol, sodium chloride, zolpidem, zolpidem, zolpidem, [DISCONTINUED] fentaNYL , [DISCONTINUED] fentaNYL, [DISCONTINUED] HYDROmorphone, [DISCONTINUED] HYDROmorphone [DISCONTINUED] meperidine, [DISCONTINUED] morphine, [DISCONTINUED] morphine, [DISCONTINUED] naloxone, [DISCONTINUED] ondansetron, [DISCONTINUED] promethazine OBJECTIVE Vital Signs: BP 115/58 | Pulse 102 | Temp 98.1 F (36.7 C) (Oral) | Resp 18 | Ht 1.6 m (5' 3") | Wt 6 3 kg (138 lb 14.2 oz) | BMI 24.61 kg/m2 | SpO2 95% | ? No Temp: [97.3 F (36.3 C)-100.1 F (37.8 C)] 98.1 F (36.7 C) (03/25 714) BP: (87-123)/(50-87) 115/58 mmHg (03/25 714) Heart Rate: [102-127] 102 (03/25 714) Resp: [16-24] 18 (03/25 714) SpO2: [86 %-98 %] 95 % (03/25 714) FiO2 : [65 %-98 %] 65 % (03/24 1830) Exam: Const: Vitals reviewed. No acute distress Skin: No rashes, no edema ENT: No thrush. Lungs: CTAB, no rales or wheezes Heart: RRR, no murmur Abd: soft, NT, + bowel sounds Left ankle dressed from the operating room. Dressing was not removed. DATA CBC: Lab Results Component Value Date WBC 8.5 03/25/2013 RBC 2.71* 03/25/2013 HGB 9.5* 03/25/2013 HCT 28.2* 03/25/2013 MCV 104.1* 03/25/2013 MCH 35.1* 03/25/2013 MCHC 33.8 03/25/2013 RDW 71.8* 03/25/2013 PLT 252 03/25/2013 MPV 7.7 03/25/2013 DIFFTYPE AUTOMATED 03/25/2013 CMP: Lab Results Component Value Date NA 138 03/25/2013 K 3.7 03/25/2013 CL 104 03/25/2013 CO2 26 03/25/2013 ANIONGAP 12 03/25/2013 GLUF 92 03/25/2013 BUN 5* 03/25/2013 CREATININE 0.72 03/25/2013 BCR 7 03/25/2013 CA 7.6* 03/25/2013 PROT 6.9 05/18/2012 ALB 4.3 05/18/2012 GLOB 2.6 05/18/2012 BILITOT 0.4 05/18/2012 ALP 61 05/18/2012 AST 10 05/18/2012 ALT 5* 05/18/2012 EGFR >60 03/25/2013 PROBLEM LIST Principal Problem: *Gangrene of foot Active Problems: HTN (hypertension) History of colon cancer History of cerebral aneurysm repair Memory impairment Tobacco use disorder ASSESSMENT & PLAN Left ankle wound Cellulitis Vascular insufficiency Revascularization procedure completed. Wound cultures that are superficial positive for staph aureus and 2 different strains of Es cherichia -both sensitive to ciprofloxacin Continue ciprofloxacin and clindamycin for now. We will plan to treat for an additional 7-1 0 days with close followup after completion of antibiotics for continued wound healing. The patient has any signs of recurrent infection, imaging will be needed to assess for osteomyel itis. The clinical likelihood of osteomyelitis is very low. Code Status: Prior APOLLO URBANO DO 03/25/2013 Physical Exam onOriana Tian ovider Unknown - 03/25/2013 10:41 AM PST Progress Notes by Lilliana Abdi PT at 03/25/13 1041 Author: Lilliana Abdi PT Service: (none) Author Type: Physical Therapist Filed: 03/25/13 1041 Date of Service: 03/25/13 104 Status: Signed Parts Clerk Plant Maintenance: Lilliana Abdi PT (Physical Therapist) 03/25/13 1040 PT Last Visit PT Received On 03/25/13 Requires PT Follow Up On hold Other Comments Comments PT eval ordered w/no WB restrictions clarified, discussed w/pts nurse who said to hold pt until WB restrictions clarified. onver sandi Reid, Provider Unknown - 03/25/2013 9:25 AM PST Case Management by LYNNETTE Zaidi at 03/25/13924 Author: LYNNETTE Zaidi Service: (none) Author Type: Museum Host/Hostess Filed: 03/25/13 0935 Date of Service: 03/25/13924 Status: Signed Parts Clerk Plant Maintenance: LYNNETTE Zaidi (Museum Host/Hostess) NOY met with pt for continued discharge planning. CM educated her regarding Home Health for wound-care & physical therapy. Pt agreed to services. CM arranged for [facility] as they [facility] the [facility]. NOY also notified pt that Medicare will not cover a hospital bed nor a commode. CM phoned pt's daughter and left a message with [facility] s phone number incase they want to rent the equipment. CM also requested a Phsyical Therapy Eval. Pt had no other resource concerns at this time. Discharge Plan: Home Health [facility] Adriana Gonzales MD - 03/25/2013 8:31 AM PSTFormatting of this note might be different from th e original. Progress Notes by Adriaan Carty MD at 03/25/13830 Author: Adriana Carty MD Service: (none) Author Type: Physician Filed: 03/25/13836 Date of Service: 03/25/13830 Status: Signed Parts Clerk Plant Maintenance: Adriana Carty MD (Physician) [facility] Service: Hospitalist Progress Note Hospital Day: LOS: 5 days Post-Op Day: 1 Day Post-Op SUBJECTIVE Patient Summary: 72 y/o WF admitted with grangrene of left ankle/foot. On 03/23 patie nt underwent recannulization angioplasty of the right SFA with placement of stent. Yesterda y she underwent debridement of ankle. Events Overnight: Doing well. No nausea or vomiting. Eating breakfast. No pain. Scheduled Medications [] bupivacaine (PF) ciprofloxacin 400 mg Intravenous Q12H clindamycin 600 mg Intravenous Q8H clopidogrel 75 mg Oral Daily heparin (porcine) 5,000 Units Subcutaneous Q8H [] lidocaine-EPINEPHrine [] midazolam nicotine 1 patch Transdermal Daily [] ropivacaine Continuous Infusions sodium chloride 110 mL/hr at 03/24/13 1315 [DISCONTINUED] electrolyte-A 30 mL/hr at 03/24/13 1706 PRN Medications acetaminophen, acetaminophen, acetaminophen, acetaminophen, fentaNYL, fentaNYL, hydrALAZINE , HYDROcodone-acetaminophen, HYDROcodone-acetaminophen, morphine, morphine, morphine, ondans etron, ondansetron, ondansetron, ondansetron, ondansetron, ondansetron, polyethylene glycol, polyethylene glycol, sodium chloride, zolpidem, zolpidem, zolpidem, [DISCONTINUED] fentaNYL , [DISCONTINUED] fentaNYL, [DISCONTINUED] HYDROmorphone, [DISCONTINUED] HYDROmorphone [DISCONTINUED] meperidine, [DISCONTINUED] morphine, [DISCONTINUED] morphine, [DISCONTINUED] naloxone, [DISCONTINUED] ondansetron, [DISCONTINUED] promethazine OBJECTIVE Vital Signs: BP 115/58 | Pulse 102 | Temp 98.1 F (36.7 C) (Oral) | Resp 18 | Ht 1.6 m (5' 3") | Wt 6 3 kg (138 lb 14.2 oz) | BMI 24.61 kg/m2 | SpO2 95% | ? No Physical Exam Nursing note and vitals reviewed. Constitutional: She appears well-developed and well-nourished. No distress. HENT: Head: Normocephalic. Eyes: Pupils are equal, round, and reactive to light. Neck: Normal range of motion. Cardiovascular: Normal rate. Pulmonary/Chest: Effort normal. Abdominal: Soft. Musculoskeletal: Left ankle wrapped with kerlex Neurological: She is alert. Skin: Skin is warm. Psychiatric: She has a normal mood and affect. DATA Lab 03/25/13 0435 03/24/13 0531 03/23/135 WBC 8.5 6.9 6.4 HGB 9.5* 9.9* 10.2* HCT 28.2* 29.6* 30.0* PLT 252 239 260 Lab 03/25/13 0435 03/24/13 0531 03/23/13 0415 NA 138 136 134* K 3.7 3.6 3.8 CL 104 102 102 CO2 26 25 25 BUN 5* 6* 10 CREATININE 0.72 0.67 0.69 LABGLOM -- -- -- GLUCOSE -- -- -- CALCIUM -- -- -- PROBLEM LIST Principal Problem: *Gangrene of foot Active Problems: HTN (hypertension) History of colon cancer History of cerebral aneurysm repair Memory impairment Tobacco use disorder ASSESSMENT & PLAN 1. Gangrene of foot- had debridement done last night. Cultures pending. Remains on IV lev aquin and clindamycin. No fever. WBC normal. Hopefully can go home today. Await clearance by podiatry and ID. Need abx recom mendations by ID. Will remain on Plavix x 3 months per vascular. 2. HTN - controlled 3. Anemia- stable. Disposition: Hopefully home today. Code Status: Prior Adriana Carty MD 03/25/2013 onversion Transa ction, Provider Unknown - 03/24/2013 7:38 PM PST Progress Notes by Gustavo Hartman RN at 03/24/131937 Author: Gustavo Hartman RN Service: (none) Author Type: Registered Nurse Filed: 03/24/131943 Date of Service: 03/24/131937 Status: Signed Parts Clerk Plant Maintenance: Gustavo Hartman RN (Registered Nurse) Physician notified of purple discoloration of fifth toe, pulses via doppler, capillary refi ll less than 3 seconds, warm, numbness and unable to respond to command due to nerve block. Orders to elevate extremity and neurovascular checks every 4 hours. Huyen Mathew ae, MD - 03/24/2013 4:58 PM PSTFormatting of this note might be different from the origin al. Progress Notes by Vinay Rowan MD at 03/24/138 Author: Vinay Rowan MD Service: Vascular Surgery Author Type: Physician Filed: 03/24/131658 Date of Service: 03/24/131657 Status: Signed Parts Clerk Plant Maintenance: Vinay Rowan MD (Physician) Strong DP signal in left foot. Left foot warm with increased sensation. Plan for OR today for debridement. Please have patient stay on plavix 75 mg PO daily for 3 months. Will see as outpatient in 2 weeks. Please feel free to call with any questions or concerns. Vinay Rowan MD 03/24/2013 uresh, Sangita Matson MD - 1 05/25/2012 2:11 PM PST Progress Notes by Sangita Palencia MD at 03/24/13 1411 Author: Sangita Palencia MD Service: (none) Author Type: Physician Filed: 03/24/13 1433 Date of Service: 03/24/13 1411 Status: Addendum Parts Clerk Plant Maintenance: Sangita Palencia MD (Physician) Related Notes: Original Note by Sangita Palencia MD (Physician) filed at 03/24/13 1432 [facility] Service: Infectious Disease Progress Note Hospital Day: LOS: 4 days Post-Op Day: * No surgery found * SUBJECTIVE Patient Summary: The patient is a 72 y.o. female with significant past medical histor y of colon CA and HTN who is transferred from [facility] for L ankle gangrene. Patient noticed a small blister around her left ankle Before thanksgiving. She has been scr atching on this and became worse over the last 3-4 weeks. Unfortunately the history cannot be corroborated by family and she was keeping it from them . She denies any fevers or chills. Has been having pain around the ankle and left leg. Did notice some drainage although no thee pus noted. Some erythema was noted around the left ankle. She says she has always had "poor circulation" She has been able to walk with help of a cane. Denies any history of injury/fall. She smokes 1/2 pack a day but denies any drug use or alcohol use. No history of prior surgery around the ankle. No history of any hardware implantation. Patient did not have any fever or leukocytosis at presentation, but due to concern for cell ulitis was started on IV clindamycin in the emergency. Arterial studies show edsigns of compromised circulation. No deep vein thrombosis noted. Dr. Rowan consulted. Plan for angiogram-possibly followed by revascularization. On 03/23 patient underwent recannulization angioplasty of the right SFA with placement of s tent. Events overnight:-Noted plan for OR debridement today by Dr. Harper. Subjective Had episode of nausea vomiting last night. N.p.o. since morning No diarrhea No cough or breathlessness No fever or chills Scheduled Medications ciprofloxacin 400 mg Intravenous Q12H clindamycin 600 mg Intravenous Q8H clopidogrel 75 mg Oral Daily heparin (porcine) 5,000 Units Subcutaneous Q8H nicotine 1 patch Transdermal Daily [COMPLETED] sodium chloride 500 mL Intravenous Once Continuous Infusions sodium chloride 110 mL/hr at 03/24/13 1315 PRN Medications acetaminophen, acetaminophen, fentaNYL, fentaNYL, hydrALAZINE, HYDROcodone-acetaminophen, H YDROcodone-acetaminophen, morphine, morphine, morphine, ondansetron, ondansetron, ondansetro n, ondansetron, polyethylene glycol, zolpidem, zolpidem OBJECTIVE Vital Signs: BP 91/55 | Pulse 127 | Temp 99.1 F (37.3 C) (Oral) | Resp 17 | Ht 1.6 m (5' 3") | Wt 63 kg (138 lb 14.2 oz) | BMI 24.61 kg/m2 | SpO2 86% | ? No Temp: [97.2 F (36.2 C)-99.1 F (37.3 C)] 99.1 F (37.3 C) (03/24 1129) BP: (83-104)/(49-71) 91/55 mmHg (03/24 1129) Heart Rate: [106-127] 127 (03/24 1129) Resp: [17-18] 17 (03/24 1129) SpO2: [84 %-95 %] 86 % (03/24 1129) Weight: [63 kg (138 lb 14.2 oz)] 63 kg (138 lb 14.2 oz) (03/24 603) vitals reviewed nontoxic afebrile Conjunctivae normal No thrush Breathing effort normal No rash Left ankle-no changes Alert and appropriate DATA CBC: Lab Results Component Value Date WBC 6.9 03/24/2013 RBC 2.87* 03/24/2013 HGB 9.9* 03/24/2013 HCT 29.6* 03/24/2013 MCV 103.0* 03/24/2013 MCH 34.6* 03/24/2013 MCHC 33.6 03/24/2013 RDW 72.2* 03/24/2013 PLT 239 03/24/2013 MPV 7.8 03/24/2013 DIFFTYPE AUTOMATED 03/24/2013 CMP: Lab Results Component Value Date NA 136 03/24/2013 K 3.6 03/24/2013 CL 102 03/24/2013 CO2 25 03/24/2013 ANIONGAP 13 03/24/2013 GLUF 91 03/24/2013 BUN 6* 03/24/2013 CREATININE 0.67 03/24/2013 BCR 9 03/24/2013 CA 7.1* 03/24/2013 PROT 6.9 05/18/2012 ALB 4.3 05/18/2012 GLOB 2.6 05/18/2012 BILITOT 0.4 05/18/2012 ALP 61 05/18/2012 AST 10 05/18/2012 ALT 5* 05/18/2012 EGFR >60 03/24/2013 PROBLEM LIST Principal Problem: *Gangrene of foot Active Problems: HTN (hypertension) History of colon cancer History of cerebral aneurysm repair Memory impairment Tobacco use disorder ASSESSMENT & PLAN Left ankle wound Cellulitis Vascular insufficiency Revascularization procedure completed. Wound cultures that are superficial positive for staph aureus and 2 different strains of Es cherichia -both sensitive to ciprofloxacin Continue ciprofloxacin and clindamycin for now. Role of antibiotics secondary here most important to have the wound debrided as soon as pos sible. Appreciate plan for Operating Room debridement today. We will need to followup in the Operating Room cultures and the extent of wound and decide choice duration of antibiotics. if wound /extent of necrosis found to be deep- magnetic resonance imaging may be suggested . Dr. Urbano will be on hospital ID service from tomorrow. Code Status: Full Code Sangita Palencia MD 03/24/2013 Adriana Barney MD - 03/24/2013 1:14 PM PSTFormatting of this note might be different from the o riginal. Progress Notes by Adriana Carty MD at 03/24/13 1314 Author: Adriana Carty MD Service: (none) Author Type: Physician Filed: 03/24/13 0513 Date of Service: 03/24/13 1314 Status: Signed Parts Clerk Plant Maintenance: Adriana Carty MD (Physician) [facility] Service: Hospitalist Progress Note Hospital Day: LOS: 4 days Post-Op Day: plan or today SUBJECTIVE Patient Summary: Events Overnight: Reports she was nauseated last night, but better this am. Currentl y NPO for planned OR today Scheduled Medications ciprofloxacin 400 mg Intravenous Q12H clindamycin 600 mg Intravenous Q8H clopidogrel 75 mg Oral Daily heparin (porcine) 5,000 Units Subcutaneous Q8H nicotine 1 patch Transdermal Daily [COMPLETED] sodium chloride 500 mL Intravenous Once Continuous Infusions sodium chloride 110 mL/hr at 03/23/13 1810 PRN Medications acetaminophen, acetaminophen, fentaNYL, fentaNYL, hydrALAZINE, HYDROcodone-acetaminophen, H YDROcodone-acetaminophen, morphine, morphine, morphine, ondansetron, ondansetron, ondansetro n, ondansetron, polyethylene glycol, zolpidem, zolpidem OBJECTIVE Vital Signs: BP 91/55 | Pulse 127 | Temp 99.1 F (37.3 C) (Oral) | Resp 17 | Ht 1.6 m (5' 3") | Wt 63 kg (138 lb 14.2 oz) | BMI 24.61 kg/m2 | SpO2 86% | ? No Temp: [97.2 F (36.2 C)-99.1 F (37.3 C)] 99.1 F (37.3 C) (03/24 1129) BP: (83-104)/(49-71) 91/55 mmHg (03/24 1129) Heart Rate: [106-127] 127 (03/24 1129) Resp: [17-18] 17 (03/24 1129) SpO2: [84 %-95 %] 86 % (03/24 1129) Weight: [63 kg (138 lb 14.2 oz)] 63 kg (138 lb 14.2 oz) (03/24 603) Physical Exam DATA CBC: Lab Results Component Value Date WBC 6.9 03/24/2013 RBC 2.87* 03/24/2013 HGB 9.9* 03/24/2013 HCT 29.6* 03/24/2013 MCV 103.0* 03/24/2013 MCH 34.6* 03/24/2013 MCHC 33.6 03/24/2013 RDW 72.2* 03/24/2013 PLT 239 03/24/2013 MPV 7.8 03/24/2013 DIFFTYPE AUTOMATED 03/24/2013 BMP: Lab Results Component Value Date NA 136 03/24/2013 K 3.6 03/24/2013 CL 102 03/24/2013 CO2 25 03/24/2013 ANIONGAP 13 03/24/2013 GLUF 91 03/24/2013 BUN 6* 03/24/2013 CREATININE 0.67 03/24/2013 BCR 9 03/24/2013 CA 7.1* 03/24/2013 EGFR >60 03/24/2013 PROBLEM LIST Principal Problem: *Gangrene of foot Active Problems: HTN (hypertension) History of colon cancer History of cerebral aneurysm repair Memory impairment Tobacco use disorder ASSESSMENT & PLAN Patient Active Hospital Problem List: Gangrene of foot (03/20/2013) Assessment: s/p revascularization procedure. Plan was for debridement today, awaiting OR Plan: Await debridement. ID following for abx, will need to review cultures from OR. HTN (hypertension) (03/20/2013) Assessment: controlled Plan: continue medications Anemia- will continue to monitor h/h. Code Status: Full Code Adriana Carty MD 03/24/2013 onversion Transa yola, Provider Unknown - 03/24/2013 9:39 AM PST Progress Notes by Rubi Winter RN at 03/24/13938 Author: Rubi Winter RN Service: Wound/Ostomy Care Author Type: Registered Nurse Filed: 03/24/1342 Date of Service: 03/24/13938 Status: Signed Parts Clerk Plant Maintenance: Rubi Winter RN (Registered Nurse) Follow up on patient with wound to left ankle/foot. Patient is now s/p angioplasty and is p lanned for surgical debridement today by Dr. Harper. Wound care will f/u after surgery to determine what wound care needs are. Iris Mejia ARNP - 03/24/2013 8:17 AM PSTFormatting of this note might be different from the o riginal. Progress Notes by IVON Aguilar at 03/24/13816 Author: IVON Aguilar Service: Vascular Surgery Author Type: Advanced Registered N shantele Practitioner Filed: 03/24/13 1748 Date of Service: 03/24/13816 Status: Signed Parts Clerk Plant Maintenance: IVON Aguilar (Advanced Registered Nurse Practitioner) [facility] Service: Vascular Surgery Progress Note Hospital Day: LOS: 4 days Post-Op Day: * No surgery date entered * SUBJECTIVE Patient Summary: Patient is a 72 y.o. female with PMH significant for COPD, Afib, HTN , [place] , CVA, and PAD who was admitted for gangrene of the left medial calf. She states that i s started out as a small ulcer 1 month ago but now has progressed to gangrene. She does have history of bilateral lower extremity claudication. Due to gangrene, vascular surgery was co nsulted for evaluation. Her ultrasound reveals significant peripheral arterial disease bilaterally. Plan for left l ower extremity arteriogram today with possible intervention. Hopeful for endovascular revasc ularization tomorrow. May need open bypass if long segment occlusion. Dicussed this with cesar portillo and she would like to proceed. Events Overnight: S/P angioplasty and stenting of left SFA. Plan for OR debridement today with podiatry now that arterial supply has improved. Scheduled Medications ciprofloxacin 400 mg Intravenous Q12H clindamycin 600 mg Intravenous Q8H [COMPLETED] clopidogrel 300 mg Oral Once clopidogrel 75 mg Oral Daily heparin (porcine) 5,000 Units Subcutaneous Q8H nicotine 1 patch Transdermal Daily [COMPLETED] protamine 50 mg Intravenous Once [COMPLETED] sodium chloride 500 mL Intravenous Once [DISCONTINUED] lidocaine 10 mL Intradermal Once [DISCONTINUED] sodium bicarbonate buffer 5 mL Infiltration Once Continuous Infusions sodium chloride 110 mL/hr at 03/23/131809 [DISCONTINUED] sodium chloride PRN Medications acetaminophen, acetaminophen, fentaNYL, fentaNYL, hydrALAZINE, HYDROcodone-acetaminophen, H YDROcodone-acetaminophen, [COMPLETED] iopamidol, morphine, morphine, morphine, ondansetron, ondansetron, ondansetron, ondansetron, polyethylene glycol, zolpidem, zolpidem, [DISCONTINUE D] fentaNYL, [DISCONTINUED] midazolam OBJECTIVE Vital Signs: BP 88/71 | Pulse 122 | Temp 98.7 F (37.1 C) (Oral) | Resp 18 | Ht 1.6 m (5' 3") | Wt 63 kg (138 lb 14.2 oz) | BMI 24.61 kg/m2 | SpO2 84% Temp: [97.2 F (36.2 C)-98.7 F (37.1 C)] 98.7 F (37.1 C) (03/24 749) BP: (83-119)/(49-77) 88/71 mmHg (03/24 749) Heart Rate: [94-122] 122 (03/24 749) Resp: [16-20] 18 (03/24 749) SpO2: [84 %-100 %] 84 % (03/24 749) Weight: [63 kg (138 lb 14.2 oz)] 63 kg (138 lb 14.2 oz) (03/24 603) Physical Exam Vitals reviewed. Constitutional: Patient appears well-developed and well-nourished. HENT: Head: Normocephalic and atraumatic. Mouth/Throat: Oropharynx is clear and moist. Cardiovascular: Normal rate and regular rhythm. Pulmonary/Chest: Effort normal and breath sounds normal. Abdominal: Soft. Bowel sounds are normal. Musculoskeletal: Normal range of motion. Neurological: Patient is alert and oriented to person, place, and time. Skin: Skin is warm and dry. Vascular: LLE with ulcer/gangrene present. Signals remain present DATA CBC: Lab Results Component Value Date WBC 6.9 03/24/2013 RBC 2.87* 03/24/2013 HGB 9.9* 03/24/2013 HCT 29.6* 03/24/2013 MCV 103.0* 03/24/2013 MCH 34.6* 03/24/2013 MCHC 33.6 03/24/2013 RDW 72.2* 03/24/2013 PLT 239 03/24/2013 MPV 7.8 03/24/2013 DIFFTYPE AUTOMATED 03/24/2013 BMP: Lab Results Component Value Date NA 136 03/24/2013 K 3.6 03/24/2013 CL 102 03/24/2013 CO2 25 03/24/2013 ANIONGAP 13 03/24/2013 GLUF 91 03/24/2013 BUN 6* 03/24/2013 CREATININE 0.67 03/24/2013 BCR 9 03/24/2013 CA 7.1* 03/24/2013 EGFR >60 03/24/2013 PT/INR: Lab Results Component Value Date INR 1.0 03/22/2013 PTT: No results found for this basename: APTT [APTT PROBLEM LIST Principal Problem: *Gangrene of foot Active Problems: HTN (hypertension) History of colon cancer History of cerebral aneurysm repair Memory impairment Tobacco use disorder ASSESSMENT & PLAN S/P successful revascularization of LLE with stenting and angioplasty Will see in clinic in 2 weeks as outpatient Please call with any further questions or concerns related to vascular supply Disposition: bragg Code Status: Full Code IVON Aguilar 03/24/2013 Rom Carrillo MD - 1 05/24/2012 4:52 PM PST Progress Notes by Rom Cardona MD at 03/23/131651 Author: Rom Cardona MD Service: (none) Author Type: Physician Filed: 03/23/131907 Date of Service: 03/23/131651 Status: Signed Parts Clerk Plant Maintenance: Rom Cardona MD (Physician) [facility] Service: Hospitalist Progress Note Hospital Day: LOS: 3 days Post-Op Day: * No surgery found * SUBJECTIVE Patient Summary: Patient admitted for left foot gangrene. Was seen by podiatry and agreed with Vascular con sult. Patient also seen by Dr. Palencia, and is continuing with clindamycin. Dr. Rowan recomme nds that patient have extremity angiography. Events Overnight: Patient underwent angioplasty of extremity today. Currently states that she has no pain, denies any fevers, chills or nausea. Scheduled Medications ciprofloxacin 400 mg Intravenous Q12H clindamycin 600 mg Intravenous Q8H [COMPLETED] clopidogrel 300 mg Oral Once clopidogrel 75 mg Oral Daily [COMPLETED] heparin (porcine) 1,000 Units Intravenous Once heparin (porcine) 5,000 Units Subcutaneous Q8H [COMPLETED] magnesium sulfate 1 g Intravenous Once nicotine 1 patch Transdermal Daily [COMPLETED] protamine 50 mg Intravenous Once [DISCONTINUED] lidocaine 10 mL Intradermal Once [DISCONTINUED] sodium bicarbonate buffer 5 mL Infiltration Once Continuous Infusions sodium chloride 110 mL/hr at 03/23/13 1810 [DISCONTINUED] sodium chloride PRN Medications acetaminophen, acetaminophen, fentaNYL, fentaNYL, hydrALAZINE, HYDROcodone-acetaminophen, H YDROcodone-acetaminophen, [COMPLETED] iopamidol, morphine, morphine, morphine, ondansetron, ondansetron, ondansetron, ondansetron, polyethylene glycol, zolpidem, zolpidem, [DISCONTINUE D] fentaNYL, [DISCONTINUED] midazolam OBJECTIVE Vital Signs: BP 83/50 | Pulse 107 | Temp 97.9 F (36.6 C) (Oral) | Resp 18 | Ht 1.6 m (5' 3") | Wt 62 .823 kg (138 lb 8 oz) | BMI 24.54 kg/m2 | SpO2 90% Temp: [97.3 F (36.3 C)-98.3 F (36.8 C)] 97.9 F (36.6 C) (03/23 1500) BP: (83-119)/(50-77) 83/50 mmHg (03/23 1500) Heart Rate: [94-113] 107 (03/23 1500) Resp: [16-20] 18 (03/23 1500) SpO2: [90 %-100 %] 90 % (03/23 1500) General appearance: alert, appears stated age and cooperative Lungs: clear to auscultation bilaterally Heart: regular rate and rhythm, S1, S2 normal, no murmur, click, rub or gallop Abdomen: soft, non-tender; bowel sounds normal; no masses, no organomegaly Musculoskeletal: left foot bandaged, with bandages that are clean dry intact Skin: Skin color, texture, turgor normal. No rashes or lesions DATA Lab 03/23/13 0415 03/22/13 1442 03/21/13 0518 WBC 6.4 8.3 9.6 HGB 10.2* 11.0* 12.2 HCT 30.0* 33.4* 37.3 PLT 260 279 275 NEUTOPHILPCT 74.0 77.7 78.8 MONOPCT 12.6 10.9 9.3 Lab 03/23/13 0415 03/22/13 0415 03/21/13 0518 NA 134* 137 132* K 3.8 3.8 4.1 CL 102 102 96* CO2 25 23 22* BUN 10 13 26* CREATININE 0.69 0.72 1.25* CALCIUM -- -- -- PROT -- -- -- BILITOT -- -- -- ALKPHOS -- -- -- ALT -- -- -- AST -- -- -- GLUCOSE -- -- -- X-ray Tibia Fibula Left 03/20/2013 1. Soft tissue disruption at and above the medial ankle left side. 2. Diffus e bone mineral loss. X-ray Ankle Left 03/20/2013 1. No foreign body or fracture seen. Diffuse bone mineral loss, severe 2. Re gular to the soft tissue medially identified Ultrasound Lower Extremity Venous Doppler Bilateral 03/21/2013 1. No evidence of DVT either lower extremity, with technical limitation as felipa cribed. Ultrasound Doppler Arterial Legs Bilat 03/21/2013 1. Monophasic flow throughout the right lower extremities, with higher velocit ies proximally, but no definable stenosis. This is consistent with upstream significant sten osis. 2. Triphasic waveforms left [employer]AT[employer] INST[employer]ER and profunda, with significant stenosis between the l eft common femoral and proximal SFA. 3. Distal left posterior tibial and entire peroneal ar ileana cannot be seen, suggesting occlusion. Electronically signed by Everett Snider MD on 12:22 PM PROBLEM LIST Principal Problem: *Gangrene of foot Active Problems: HTN (hypertension) History of colon cancer History of cerebral aneurysm repair Memory impairment Tobacco use disorder ASSESSMENT & PLAN Gangrene of left foot - appreciate Dr. Rowan, and Dr. Palencia's consult. Dr. De Santiago's saw patie nt and plan for debridement in am. Patient to continue with fluids, and NPO after midnight. HTN - patient having low blood pressures, will bolus, and continue with maintenance fluids. Tobacco use - continue with nicotine patch Anemia NOS - mild, will continue to monitor. Disposition: Inpatient. Code Status: Full Code ROM CARDONA MD 03/23/2013 Aurelio Denny MD - 03/23/2013 9:56 AM PSTFormatting of this note might be different from the or iginal. Progress Notes by Sangita Palencia MD at 03/23/13 0956 Author: Sangita Palencia MD Service: (none) Author Type: Physician Filed: 03/23/13 1148 Date of Service: 03/23/1356 Status: Signed Parts Clerk Plant Maintenance: Sangita Palencia MD (Physician) [facility] Service: Infectious Disease Progress Note Hospital Day: LOS: 3 days Post-Op Day: * No surgery found * SUBJECTIVE Patient Summary: The patient is a 72 y.o. female with significant past medical histor y of colon CA and HTN who is transferred from [facility] for L ankle gangrene. Patient noticed a small blister around her left ankle Before thanksgiving. She has been scr atching on this and became worse over the last 3-4 weeks. Unfortunately the history cannot be corroborated by family and she was keeping it from them . She denies any fevers or chills. Has been having pain around the ankle and left leg. Did notice some drainage although no thee pus noted. Some erythema was noted around the left ankle. She says she has always had "poor circulation" She has been able to walk with help of a cane. Denies any history of injury/fall. She smokes 1/2 pack a day but denies any drug use or alcohol use. No history of prior surgery around the ankle. No history of any hardware implantation. Patient did not have any fever or leukocytosis at presentation, but due to concern for cell ulitis was started on IV clindamycin in the emergency. Dr. Harper consulted-note that there is no plan for surgery. Recommend vascular evaluation. Arterial studies to show signs of compromised circulation. No deep vein thrombosis noted. Dr. Rowan consulted. Plan for angiogram-possibly followed by revascularization. 03/23/13 0829 [facility] Service: Vascular Surgery Brief Op Note Pre-operative Diagnosis: Critical limb ischemia with gangrene of left medial ankle Post-operative Diagnosis: Same Procedure(s): Ultrasound guided access of right common femoral artery Aortogram Selective catheterization of left common femoral artery with lef t leg runoff Recanalization and angioplasty of right SFA using 4x20 mm and th en 5x100 mm angioplasty balloon Stenting of right SFA using 6x80 mm self-expanding stent Subjective Better sensations left lower extremity "can feel the blood flowing" No further episodes of diarrhea and loose stool No nausea vomiting No cough or breathlessness No fever or chills Scheduled Medications clindamycin 600 mg Intravenous Q8H [COMPLETED] clopidogrel 300 mg Oral Once clopidogrel 75 mg Oral Daily [COMPLETED] heparin (porcine) 1,000 Units Intravenous Once heparin (porcine) 5,000 Units Subcutaneous Q8H [COMPLETED] magnesium sulfate 1 g Intravenous Once nicotine 1 patch Transdermal Daily protamine 50 mg Intravenous Once [DISCONTINUED] lidocaine 10 mL Intradermal Once [DISCONTINUED] sodium bicarbonate buffer 5 mL Infiltration Once Continuous Infusions sodium chloride 110 mL/hr at 03/22/13 1533 [DISCONTINUED] sodium chloride [DISCONTINUED] 0.9 % NaCl with KCl 20 mEq Stopped (03/22/13 0529) PRN Medications acetaminophen, acetaminophen, fentaNYL, fentaNYL, hydrALAZINE, HYDROcodone-acetaminophen, H YDROcodone-acetaminophen, [COMPLETED] iopamidol, morphine, morphine, morphine, ondansetron, ondansetron, ondansetron, ondansetron, polyethylene glycol, zolpidem, zolpidem, [DISCONTINUE D] fentaNYL, [DISCONTINUED] midazolam OBJECTIVE Vital Signs: BP 104/66 | Pulse 96 | Temp 97.6 F (36.4 C) (Oral) | Resp 20 | Ht 1.6 m (5' 3") | Wt 62 .823 kg (138 lb 8 oz) | BMI 24.54 kg/m2 | SpO2 97% Temp: [97.3 F (36.3 C)-98.3 F (36.8 C)] 97.6 F (36.4 C) (03/23 336) BP: (86-118)/(55-68) 104/66 mmHg (03/23 949) Heart Rate: [94-113] 96 (03/23 949) Resp: [18-20] 20 (03/23 949) SpO2: [90 %-100 %] 97 % (03/23 949) vitals reviewed nontoxic afebrile Conjunctivae normal No thrush Breathing effort normal No rash Left ankle-softening of the skin changes noted . There is no foul odor . Alert and appropriate DATA CBC: Lab Results Component Value Date WBC 6.4 03/23/2013 RBC 2.92* 03/23/2013 HGB 10.2* 03/23/2013 HCT 30.0* 03/23/2013 MCV 102.6* 03/23/2013 MCH 34.8* 03/23/2013 MCHC 34.0 03/23/2013 RDW 72.2* 03/23/2013 PLT 260 03/23/2013 MPV 7.5 03/23/2013 DIFFTYPE AUTOMATED 03/23/2013 CMP: Lab Results Component Value Date NA 134* 03/23/2013 K 3.8 03/23/2013 CL 102 03/23/2013 CO2 25 03/23/2013 ANIONGAP 11 03/23/2013 GLUF 101* 03/23/2013 BUN 10 03/23/2013 CREATININE 0.69 03/23/2013 BCR 14 03/23/2013 CA 7.3* 03/23/2013 PROT 6.9 05/18/2012 ALB 4.3 05/18/2012 GLOB 2.6 05/18/2012 BILITOT 0.4 05/18/2012 ALP 61 05/18/2012 AST 10 05/18/2012 ALT 5* 05/18/2012 EGFR >60 03/23/2013 PROBLEM LIST Principal Problem: *Gangrene of foot Active Problems: HTN (hypertension) History of colon cancer History of cerebral aneurysm repair Memory impairment Tobacco use disorder ASSESSMENT & PLAN Left ankle wound Cellulitis Vascular insufficiency Revascularization procedure completed. Wound cultures that are superficial positive for staph aureus and gram-negative rods. Although these are superficial and probably not outside medical sales representative-due to the change in the alexandro earance of the wound- will ciprofloxacin to cover for gram negatives. Continue clindamycin. Role of antibiotics secondly here most important to have the wound debrided as soon as poss ible. We will await surgical input. Code Status: Full Code Sangita Palencia MD 03/23/2013 onversio n Transaction, Provider Unknown - 03/23/2013 7:52 AM PSTFormatting of this note might be di fferent from the original. Nurse Progress Note by Chad Padilla RN at 03/23/13 0752 Author: Chad Padilla RN Service: (none) Author Type: Registered Nurse Filed: 03/23/13 0753 Date of Service: 03/23/13 0752 Status: Signed Parts Clerk Plant Maintenance: Chad Padilla RN (Registered Nurse) Patient off floor to bottle label inspector. CHAD PADILLA RN Rom Kimble MD - 03/22/2013 6:15 PM PSTFormatting of this note might be different from the orig inal. Progress Notes by Rom Cardona MD at 03/22/13 5264 Author: Rom Cardona MD Service: Hospitalist Author Type: Physician Filed: 03/22/13 6396 Date of Service: 03/22/131814 Status: Signed Parts Clerk Plant Maintenance: Rom Cardona MD (Physician) [facility] Service: Hospitalist Progress Note Hospital Day: LOS: 2 days Post-Op Day: * No surgery found * SUBJECTIVE Patient Summary: Patient admitted for left foot gangrene. Was seen by podiatry and agreed with Vascular con sult. Patient also seen by Dr. Palencia, and is continuing with clindamycin. Dr. Rowan recomme nds that patient have extremity angiography. Events Overnight: Patient denies any symptoms at this time. Reports very minimal marcelino n. No nausea, vomiting, fevers, or chills. Scheduled Medications clindamycin 600 mg Intravenous Q8H heparin (porcine) 5,000 Units Subcutaneous Q8H nicotine 1 patch Transdermal Daily Continuous Infusions sodium chloride 110 mL/hr at 03/22/13 153 [DISCONTINUED] 0.9 % NaCl with KCl 20 mEq Stopped (03/22/13 05) PRN Medications acetaminophen, acetaminophen, hydrALAZINE, morphine, morphine, morphine, ondansetron, ondan setron, polyethylene glycol, zolpidem OBJECTIVE Vital Signs: BP 112/68 | Pulse 108 | Temp 97.5 F (36.4 C) (Oral) | Resp 20 | Ht 1.6 m (5' 3") | Wt 6 2.823 kg (138 lb 8 oz) | BMI 24.54 kg/m2 | SpO2 99% Temp: [97 F (36.1 C)-99.3 F (37.4 C)] 97.5 F (36.4 C) (03/22 1536) BP: (99-116)/(56-70) 112/68 mmHg (03/22 1536) Heart Rate: [101-108] 108 (03/22 1536) Resp: [16-20] 20 (03/22 1536) SpO2: [94 %-99 %] 99 % (03/22 1536) General appearance: alert, appears stated age and cooperative Lungs: clear to auscultation bilaterally Heart: regular rate and rhythm, S1, S2 normal, no murmur, click, rub or gallop Abdomen: soft, non-tender; bowel sounds normal; no masses, no organomegaly Musculoskeletal: left foot bandaged, with bandages that are clean dry intact Skin: Skin color, texture, turgor normal. No rashes or lesions DATA Lab 03/22/13 1442 03/21/13 0518 03/20/13 1823 WBC 8.3 9.6 9.4 HGB 11.0* 12.2 13.1 HCT 33.4* 37.3 39.0 PLT 279 275 288 NEUTOPHILPCT 77.7 78.8 -- MONOPCT 10.9 9.3 -- Lab 03/22/13 0415 03/21/13 0518 03/20/13 1823 NA 137 132* 131* K 3.8 4.1 2.7* CL 102 96* 90* CO2 23 22* 21* BUN 13 26* 31* CREATININE 0.72 1.25* 1.29* CALCIUM -- -- -- PROT -- -- -- BILITOT -- -- -- ALKPHOS -- -- -- ALT -- -- -- AST -- -- -- GLUCOSE -- -- -- X-ray Tibia Fibula Left 03/20/2013 1. Soft tissue disruption at and above the medial ankle left side. 2. Diffus e bone mineral loss. X-ray Ankle Left 03/20/2013 1. No foreign body or fracture seen. Diffuse bone mineral loss, severe 2. Re gular to the soft tissue medially identified Ultrasound Lower Extremity Venous Doppler Bilateral 03/21/2013 1. No evidence of DVT either lower extremity, with technical limitation as felipa cribed. Ultrasound Doppler Arterial Legs Bilat 03/21/2013 1. Monophasic flow throughout the right lower extremities, with higher velocit ies proximally, but no definable stenosis. This is consistent with upstream significant sten osis. 2. Triphasic waveforms left EPOXY COATINGS INSTALLER and profunda, with significant stenosis between the l eft common femoral and proximal SFA. 3. Distal left posterior tibial and entire peroneal ar ileana cannot be seen, suggesting occlusion. Electronically signed by Everett Snider MD on 12:22 PM PROBLEM LIST Principal Problem: *Gangrene of foot Active Problems: HTN (hypertension) History of colon cancer History of cerebral aneurysm repair Memory impairment Tobacco use disorder ASSESSMENT & PLAN Gangrene of left foot - appreciate Dr. Rowan, and Dr. Palencia's consult. Patient will continu e with clindamycin and undergo angiography HTN - controlled, continue to monitor Tobacco use - continue with nicotine patch Anemia NOS - mild, will continue to monitor. Disposition: Inpatient. Code Status: Full Code ROM CARDONA MD 03/22/2013 Aurelio Denny MD - 03/22/2013 11:54 AM PSTFormatting of this note might be different from the or iginal. Progress Notes by Sangita Palencia MD at 03/22/13 6605 Author: Sangita Palencia MD Service: (none) Author Type: Physician Filed: 03/22/13 1628 Date of Service: 03/22/13 2002 Status: Signed Parts Clerk Plant Maintenance: Sangita Palencia MD (Physician) [facility] Service: Infectious Disease Progress Note Hospital Day: LOS: 2 days Post-Op Day: * No surgery found * SUBJECTIVE Patient Summary: The patient is a 72 y.o. female with significant past medical histor y of colon CA and HTN who is transferred from [facility] for L ankle gangrene. Patient noticed a small blister around her left ankle Before thanksgiving. She has been scr atching on this and became worse over the last 3-4 weeks. Unfortunately the history cannot be corroborated by family and she was keeping it from them . She denies any fevers or chills. Has been having pain around the ankle and left leg. Did notice some drainage although no thee pus noted. Some erythema was noted around the left ankle. She says she has always had "poor circulation" She has been able to walk with help of a cane. Denies any history of injury/fall. She smokes 1/2 pack a day but denies any drug use or alcohol use. No history of prior surgery around the ankle. No history of any hardware implantation. Patient did not have any fever or leukocytosis at presentation, but due to concern for cell ulitis was started on IV clindamycin in the emergency. Dr. Harper consulted-note that there is no plan for surgery. Recommend vascular evaluation. Arterial studies to show signs of compromised circulation. No deep vein thrombosis noted. Events Overnight: Dr. Rowan consulted. Plan for angiogram-possibly followed by revchucky lara. Wound cultures pending. Subjective walking around with help of walker Had one episode of loose stool this morning No nausea vomiting No cough or breathlessness No fever or chills Scheduled Medications clindamycin 600 mg Intravenous Q8H heparin (porcine) 5,000 Units Subcutaneous Q8H nicotine 1 patch Transdermal Daily Continuous Infusions sodium chloride 110 mL/hr at 03/22/13 0529 0.9 % NaCl with KCl 20 mEq Stopped (03/22/13 0529) PRN Medications acetaminophen, acetaminophen, hydrALAZINE, morphine, morphine, morphine, ondansetron, ondan setron, polyethylene glycol, zolpidem OBJECTIVE Vital Signs: BP 106/59 | Pulse 103 | Temp 97.4 F (36.3 C) (Oral) | Resp 18 | Ht 1.6 m (5' 3") | Wt 6 2.823 kg (138 lb 8 oz) | BMI 24.54 kg/m2 | SpO2 97% Temp: [96.9 F (36.1 C)-99.3 F (37.4 C)] 97.4 F (36.3 C) (03/22 1141) BP: (93-116)/(56-70) 106/59 mmHg (03/22 1141) Heart Rate: [87-107] 103 (03/22 1141) Resp: [16-20] 18 (03/22 1141) SpO2: [91 %-97 %] 97 % (03/22 1141) vitals reviewed nontoxic afebrile Conjunctivae normal No thrush Breathing effort normal No rash Left ankle-no significant change. Cellulitis is not significant at this time. No lymphangit ic streak. Alert and appropriate DATA CBC: Lab Results Component Value Date WBC 9.6 03/21/2013 RBC 3.62* 03/21/2013 HGB 12.2 03/21/2013 HCT 37.3 03/21/2013 MCV 103.0* 03/21/2013 MCH 33.7 03/21/2013 MCHC 32.7 03/21/2013 RDW 74.8* 03/21/2013 PLT 275 03/21/2013 MPV 7.3 03/21/2013 DIFFTYPE AUTOMATED 03/21/2013 CMP: Lab Results Component Value Date NA 137 03/22/2013 K 3.8 03/22/2013 CL 102 03/22/2013 CO2 23 03/22/2013 ANIONGAP 16 03/22/2013 GLUF 93 03/22/2013 BUN 13 03/22/2013 CREATININE 0.72 03/22/2013 BCR 18 03/22/2013 CA 8.0* 03/22/2013 PROT 6.9 05/18/2012 ALB 4.3 05/18/2012 GLOB 2.6 05/18/2012 BILITOT 0.4 05/18/2012 ALP 61 05/18/2012 AST 10 05/18/2012 ALT 5* 05/18/2012 EGFR >60 03/22/2013 PROBLEM LIST Principal Problem: *Gangrene of foot Active Problems: HTN (hypertension) History of colon cancer History of cerebral aneurysm repair Memory impairment Tobacco use disorder ASSESSMENT & PLAN Left ankle wound Cellulitis Vascular insufficiency Noted wound cultures sent-doubt that this will be outside medical sales representative as will likely be a skin s wab culture with extensive verrucous/lichenified skin changes. Cultures pending at this poin t Patient needs a combination of wound care, possible surgical debridement, revascularization . Await opinion from wound care/vascular surgery the ESR and CRP noted-41 and 14 . Continue clindamycin for the time being. Duration of antibiotics and need for further imaging to be decided. patient had one episode of diarrhea this morning-a further episodes, stool for C. difficile to be sent and contact enteric isolation Code Status: Full Code Sangita Palencia MD 03/22/2013 onversio n Transaction, Provider Unknown - 03/22/2013 10:10 AM PSTFormatting of this note might be di fferent from the original. Case Management by LYNNETTE Zaidi at 03/22/13 1010 Author: LYNNETTE Zaidi Service: (none) Author Type: Museum Host/Hostess Filed: 03/22/13 1013 Date of Service: 03/22/13 1010 Status: Signed Parts Clerk Plant Maintenance: LYNNETTE Zaidi (Museum Host/Hostess) CM met with pt for discharge planning. She is 72 years old and independent at home. Pt does not need Durable Medical Equipment at home. Pt is able to perform daily living activities i ncluding personal hygiene, grooming, dressing, feeding, ambulation and bowel and bladder con trol. Pt currently has no resource concerns at this time. CM will re-eval after pt has had s urgery on her ankle for possible wound-care, physical therapy and IV antibiotic needs. Discharge Plan: Home. Boom Curiel SUJATHA Met with: Patient and discussed discharge planning, Pt is a 72 y.o., female Patient's PCP is: DOMONIQUE LIANG Patient's insurance: Medicare Coverage concerns: None Medication coverage/concerns: None Community resources utilized / needed: None Assistance in transportation: Not needed. Identification of any specific education / training: None Barriers to Discharge / Alternative housing needed: None Anticipated DCP: Home Elio Mustafa i, MD - 03/21/2013 4:37 PM PST Progress Notes by Elio Camp MD at 03/21/13 1457 Author: Elio Camp MD Service: (none) Author Type: Physician Filed: 03/24/13 1321 Date of Service: 03/21/13 1637 Status: Signed Parts Clerk Plant Maintenance: Elio Camp MD (Physician) Related Notes: Original Note by Elio Camp MD (Physician) filed at 03/21/13 0303 [facility] Service: Hospitalist Progress Note Hospital Day: LOS: 1 day Post-Op Day: * No surgery found * SUBJECTIVE Patient Summary: She reports mild ankle pain. It is about 5 out of 10 at this point a nd current pain regimen works well for the patient. She denies any nausea or vomiting and no shortness of breath, no abdominal pain and no chest pain. Events Overnight: none Scheduled Medications clindamycin 600 mg Intravenous Q8H heparin (porcine) 5,000 Units Subcutaneous Q8H [COMPLETED] influenza trivalent-split vaccine 0.5 mL Intramuscular Once Immunization nicotine 1 patch Transdermal Daily [COMPLETED] potassium chloride 40 mEq Oral Once Continuous Infusions sodium chloride Stopped (03/20/13 2222) 0.9 % NaCl with KCl 20 mEq 150 mL/hr at 03/21/13 0530 PRN Medications acetaminophen, acetaminophen, hydrALAZINE, morphine, morphine, morphine, ondansetron, ondan setron, polyethylene glycol, zolpidem OBJECTIVE Vital Signs: BP 93/57 | Pulse 87 | Temp 96.9 F (36.1 C) (Oral) | Resp 20 | Ht 1.6 m (5' 3") | Wt 62. 823 kg (138 lb 8 oz) | BMI 24.54 kg/m2 | SpO2 91% Intake/Output Summary (Last 24 hours) at 03/21/13 1638 Last data filed at 03/21/13 1525 Gross per 24 hour Intake 3130 ml Output 1100 ml Net 2030 ml Physical Exam Nursing note and vitals reviewed. Constitutional: She is oriented to person, place, and time. She appears well-nourished. No distress. HENT: Head: Normocephalic and atraumatic. Mouth/Throat: No oropharyngeal exudate. Eyes: Conjunctivae normal are normal. Right eye exhibits no discharge. Left eye exhibits no discharge. Neck: Neck supple. No JVD present. Cardiovascular: Normal rate and regular rhythm. Exam reveals no friction rub. Pulmonary/Chest: Effort normal. No stridor. No respiratory distress. She has no wheezes. Abdominal: Soft. She exhibits no distension. There is no tenderness. Musculoskeletal: She exhibits edema. She exhibits no tenderness. Neurological: She is alert and oriented to person, place, and time. Skin: Skin is warm. Rash noted. She is not diaphoretic. There is erythema. DATA CBC: Lab Results Component Value Date WBC 9.6 03/21/2013 RBC 3.62* 03/21/2013 HGB 12.2 03/21/2013 HCT 37.3 03/21/2013 MCV 103.0* 03/21/2013 MCH 33.7 03/21/2013 MCHC 32.7 03/21/2013 RDW 74.8* 03/21/2013 PLT 275 03/21/2013 MPV 7.3 03/21/2013 DIFFTYPE AUTOMATED 03/21/2013 BMP: Lab Results Component Value Date NA 132* 03/21/2013 K 4.1 03/21/2013 CL 96* 03/21/2013 CO2 22* 03/21/2013 ANIONGAP 18 03/21/2013 GLUF 94 03/21/2013 BUN 26* 03/21/2013 CREATININE 1.25* 03/21/2013 BCR 21 03/21/2013 CA 8.3* 03/21/2013 EGFR 45* 03/21/2013 PROBLEM LIST Principal Problem: *Gangrene of foot Active Problems: HTN (hypertension) History of colon cancer History of cerebral aneurysm repair Memory impairment Tobacco use disorder ASSESSMENT & PLAN Gangrene of the foot. Dr. Palencia consulted. Dr. Harper also consulted. The patient is on IV clindamycin right now but wound cultures are pending. I spoke with Dr. Rowan, and he is going to assess the patient tomorrow for possibility of angiogram and revascularization. This was communicated to the family and all their questions were answered. Chronic kidney disease. Continue IV fluids. Continue checking BMP daily. Hypertension. Continue home medications. Blood pressure actually seems to be low. I think a t this point, hydrochlorothiazide should be held and the patient will be kept only on p.r.n. medications. SCDs and subcutaneous heparin for DVT prophylaxis. Hypernatremia probably secondary to dehydration. Continue normal saline. Disposition: Code Status: Full Code Elio Camp MD 03/21/2013 onversion Transac tion, Provider Unknown - 03/20/2013 6:08 PM PSTFormatting of this note might be different f rom the original. Progress Notes by Yumiko Mendez RPH at 03/20/131807 Author: Yumiko Mendez RPH Service: (none) Author Type: Pharmacist Filed: 03/20/131807 Date of Service: 03/20/131807 Status: Signed Parts Clerk Plant Maintenance: Yumiko Mendez RPH (Pharmacist) Clinical Pharmacy Note: Renal Monitoring Irina Bro 72 y.o. female Ht Readings from Last 1 Encounters: 03/20/13 1.6 m (5' 3") Wt Readings from Last 1 Encounters: 03/20/13 62.823 kg (138 lb 8 oz) Creatinine clearance cannot be calculated - Pharmacy dosing for renal function per Dr. Donovan. Currently, there are no labs. Pharmacy will adjust medications, if necessary, in AM when la bs are reported. Yumiko Mendez, [facility] 03/20/2013 6:08 PM docume nted in this encounter Plan of Treatment Not on filedocumented as of this encounter Procedures + +--------+ + + + | Procedure Name | Priori | Date/Time | Associated Diagnosis | Comments | | | ty | | | | + +--------+ + + + | CULTURE, ANAEROBIC | Timed | 03/24/2013 | | Results for this | | | | 6:11 PM | | procedure are in the | | | | PST | | results section. | + +--------+ + + + | TISSUE REQUEST FOR | Routin | 03/24/2013 | | Results for this | | PATHOLOGY (NON-ORD) | e | 12:00 AM | | procedure are in the | | | | PST | | results section. | + +--------+ + + + | IR AORTOGRAM | Routin | 03/23/2013 | | Results for this | | ABDOMINAL W RUNOFF | e | 8:42 AM | | procedure are in the | | | | PST | | results section. | + +--------+ + + + | IR STENT FEM POP | Routin | 03/23/2013 | | Results for this | | | e | 8:42 AM | | procedure are in the | | | | PST | | results section. | + +--------+ + + + | IR ANGIO UPPER/LOWER | Routin | 03/23/2013 | | Results for this | | EXTREMITY | e | 8:42 AM | | procedure are in the | | | | PST | | results section. | + +--------+ + + + | VAS LOWER EXTREMITY | Routin | 03/21/2013 | | Results for this | | VENOUS BILATERAL | e | 11:45 AM | | procedure are in the | | | | PST | | results section. | + +--------+ + + + | VAS LOWER EXTREMITY | Routin | 03/21/2013 | | Results for this | | ARTERIES BILATERAL | e | 10:51 AM | | procedure are in the | | | | PST | | results section. | + +--------+ + + + | CULTURE, BLOOD | Timed | 03/20/2013 | | Results for this | | | | 8:13 PM | | procedure are in the | | | | PST | | results section. | + +--------+ + + + | CULTURE, BLOOD | Timed | 03/20/2013 | | Results for this | | | | 6:09 PM | | procedure are in the | | | | PST | | results section. | + +--------+ + + + | MRSA NAAT | Timed | 03/20/2013 | | Results for this | | | | 6:01 PM | | procedure are in the | | | | PST | | results section. | + +--------+ + + + | CULTURE, WOUND, | Timed | 03/20/2013 | | Results for this | | SMEAR, W/ANAEROBE | | 5:44 PM | | procedure are in the | | | | PST | | results section. | + +--------+ + + + | XR ANKLE LEFT 3 + VW | Routin | 03/20/2013 | | Results for this | | | e | 5:17 PM | | procedure are in the | | | | PST | | results section. | + +--------+ + + + | XR TIBIA FIBULA LEFT | Routin | 03/20/2013 | | Results for this | | 2 VW | e | 5:17 PM | | procedure are in the | | | | PST | | results section. | + +--------+ + + + documented in this encounter Results Culture, Anaerobic (03/24/2013 6:11 PM PST) + + | Specimen | + + | | + + + + + | Narrative | Performed At | + + + | Specimen Description ANKLE LEFT | EXTERNAL LAB | | Testing performed at [id number] | [facility];[place] [address] SPECIAL REQUESTS | | | CIPRO | | | Testing performed at [facility];[address] [facility];[place] [address] GRAM STAIN | | | 1+ WBC'S SEEN | | | 1+ EPITHELIAL CELLS | | | 1+ GRAM POSITIVE COCCI | | | Testing performed at [facility], | | | [address] [place] [address] CULTURE | | | 2+ STAPHYLOCOCCUS AUREUSAbnormal | | | Testing performed at [facility], | | | [address] [place] [address] REPORT STATUS | | | 03/27/2013 FINAL Organism | | | STAPHYLOCOCCUS AUREUS Suscepibility for - | | | STAPHYLOCOCCUS AUREUS Clindamycin | | | SUSCEPTIBLESensitive Erythromycin | | | SUSCEPTIBLESensitive Gentamicin | | | SUSCEPTIBLESensitive Oxacillin | | | SUSCEPTIBLESensitive Penicillin G RESISTANT | | | Resistant Tetracycline | | | SUSCEPTIBLESensitive Trimethoprim + | | | SulfamethoxazoleSUSCEPTIBLESensitive Vancomycin | | | SUSCEPTIBLESensitive Levofloxacin | | | SUSCEPTIBLESensitive Moxifloxacin | | | SUSCEPTIBLESensitive | | + + + + +---------+ + + | Performing | Address | City/State/Zipcode | Phone Number | | Organization | | | | + +---------+ + + | EXTERNAL LAB | | | | + +---------+ + + Tissue Request For Pathology (03/24/2013 12:00 AM PST) + + | Specimen | + + | | + + + + + | Narrative | Performed At | + + + | CASE: [id number] PATIENT: IRINA BRO Surgical Pathology Report | EXTERNAL LAB | | PATHOLOGIC DIAGNOSIS: Tissue from left ankle: - | | | Markedly inflamed and partially necrotic soft tissue - | | | Fibrinous exudate with foreign fibers (probable bandage material) | | | - Negative for crystals and neoplasia COMMENT: The acute | | | inflammation extends down into sub-cutaneous adipose. CLINICAL | | | HISTORY: 03/24/2013 at 1815 H. Left ankle ulcer. GROSS | | | DESCRIPTION: [XX] MICROSCOPIC EXAMINATION: Histologic | | | sections of all submitted blocks are examined by light microscopy. | | | These findings, together with the gross examination, support the | | | pathologic diagnosis. This report has been prepared using a voice | | | recognition system. The report was reviewed for accuracy, however, | | | sound-alike word errors, addition and/or deletions may occur. If | | | there is any question about this report please contact the | | | originating pathologist. Apollo Dean MD | | | Electronically signed Mar 28, 2013 12:11:10PM | | + + + + +---------+ + + | Performing | Address | City/State/Zipcode | Phone Number | | Organization | | | | + +---------+ + + | EXTERNAL LAB | | | | + +---------+ + + IR Stent Fem Pop (03/23/2013 8:42 AM PST) + + | Specimen | + + | | + + + + + | Impressions | Performed At | + + + | 1. Mild to moderate stenosis of the right common iliac artery. | | | 2. Occlusion of the mid superficial femoral artery which was | | | recanalized and stented with excellent angiographic results. 3. | | | Two-vessel runoff to the foot via the anterior tibial and peroneal | | | arteries. | | | 12:35 PM | | + + + + + + | Narrative | Performed At | + + + | LOWER EXTREMITY ARTERIOGRAM, UNILATERAL PREOPERATIVE DIAGNOSIS: | | | Critical limb ischemia with gangrene of left medial ankle | | | POSTOPERATIVE DIAGNOSIS: Critical limb ischemia with gangrene of | | | left medial ankle PROCEDURE: 1. Ultrasound-guided access of right | | | common femoral artery 2. Aortogram 3. Selective left common femoral | | | artery catheterization with left leg runoff 4. Recanalization and | | | angioplasty of right SFA using a 4 x 20 mm and then 5 x 100 mm | | | angioplasty balloons 5. Stenting of right SFA using 6 x 80 mm | | | self-expanding stent SURGEON: Vinay Rowan MD PROFESSOR OF LEGAL STUDIES: None | | | ANESTHESIA: Moderate sedation and local anesthesia ESTIMATED BLOOD | | | LOSS: Minimal CONTRAST: 65 mL of Isovue 250 INDICATIONS: | | | 72-year-old female with gangrene of the left medial ankle | | | FINDINGS: Patient with severe scoliosis. Right common iliac artery | | | with moderate stenosis. Left SFA occludes at midportion with | | | reconstitution distally. Patient had 2 vessel runoff to the ankle via | | | the anterior tibial and peroneal arteries. The posterior tibial | | | artery occludes at the origin. There was poor filling of vessels in | | | the foot and posterior to tibial artery did not reconstitute in the | | | foot. DESCRIPTION OF PROCEDURE: The patient was properly | | | identified and brought to the Medical Registrar. The patient was placed supine | | | on the catheter table and patient was given moderate sedation. | | | Patient's bilateral groins were then prepped and draped in the usual | | | sterile fashion. The right common femoral artery was accessed under | | | ultrasound guidance using a micropuncture needle. A micropuncture | | | sheath was inserted over a wire and up sized to a 4 [place]er sheath. A | | | Omni flush catheter was then inserted into the distal aorta and | | | aortogram was then performed with the findings as described above. The | | | Omni Flush catheter was then used to guide a Glidewire into the left | | | common femoral artery and then the catheter was then advanced over the | | | wire. A left lower extremity runoff was then performed with the | | | findings as described above. Next, an Amplatzer wire was then | | | inserted over the catheter and the 4 [place]er sheath was removed. A 6 | | | [place]er destination sheath was then inserted over the wire with the tip | | | of the sheath being placed into the left common femoral artery. A | | | vertebral catheter was inserted over the wire and the wire was then | | | removed. A Glidewire was then placed into the vertebral catheter and | | | used to cross through the occluded left superficial femoral artery. | | | Next, a 260 fix core wire was then inserted over the catheter. | | | First, a 4 x 20 mm angioplasty balloon was used to angioplasty the | | | superficial femoral artery. This was up sized to a 5 x 100 mm | | | angioplasty balloon. After angioplasty, another arteriogram was | | | performed which showed residual stenosis of the superficial femoral | | | artery. Therefore a 6 x 80 mm self-expanding stent was used to stent | | | the stenotic superficial femoral artery and this was postdilated using | | | a 5 x 100 mm angioplasty balloon. A final arteriogram was then | | | performed through the sheath which showed the artery to be widely | | | patent. The 6 [place]er destination sheath was then removed and a Mynx | | | closure device was then used on the right common femoral artery and | | | hemostasis was ensured. The patient was then taken to the | | | observation unit for further monitoring. | | + + + + + | Procedure Note | + + | Manish Christopher Conversion - 11/26/2018 3:55 PM PDT LOWER EXTREMITY ARTERIOGRAM, UNILATERAL | | PREOPERATIVE DIAGNOSIS: Critical limb ischemia with gangrene of left medial ankle | | POSTOPERATIVE DIAGNOSIS: Critical limb ischemia with gangrene of left medial ankle | | PROCEDURE:1. Ultrasound-guided access of right common femoral artery2. Aortogram3. | | Selective left common femoral artery catheterization with left leg runoff4. | | Recanalization and angioplasty of right SFA using a 4 x 20 mm and then 5 x 100 mm | | angioplasty balloons5. Stenting of right SFA using 6 x 80 mm self-expanding stent | | SURGEON: Vinay Rowan MD PROFESSOR OF LEGAL STUDIES: None ANESTHESIA: Moderate sedation and local anesthesia | | ESTIMATED BLOOD LOSS: Minimal CONTRAST: 65 mL of Isovue 250 INDICATIONS: 72-year-old | | female with gangrene of the left medial ankle FINDINGS: Patient with severe scoliosis. | | Right common iliac artery with moderate stenosis. Left SFA occludes at midportion with | | reconstitution distally. Patient had 2 vessel runoff to the ankle via the anterior | | tibial and peroneal arteries. The posterior tibial artery occludes at the origin. There | | was poor filling of vessels in the foot and posterior to tibial artery did not | | reconstitute in the foot. DESCRIPTION OF PROCEDURE: The patient was properly identified | | and brought to the Medical Registrar. The patient was placed supine on the catheter table and | | patient was given moderate sedation. Patient's bilateral groins were then prepped and | | draped in the usual sterile fashion. The right common femoral artery was accessed under | | ultrasound guidance using a micropuncture needle. A micropuncture sheath was inserted | | over a wire and up sized to a 4 [place] sheath. A Omni flush catheter was then inserted | | into the distal aorta and aortogram was then performed with the findings as described | | above. The Omni Flush catheter was then used to guide a Glidewire into the left common | | femoral artery and then the catheter was then advanced over the wire. A left lower | | extremity runoff was then performed with the findings as described above. Next, an | | Amplatzer wire was then inserted over the catheter and the 4 [place] sheath was removed. | | A 6 [place] destination sheath was then inserted over the wire with the tip of the sheath | | being placed into the left common femoral artery. A vertebral catheter was inserted | | over the wire and the wire was then removed. A Glidewire was then placed into the | | vertebral catheter and used to cross through the occluded left superficial femoral | | artery. Next, a 260 fix core wire was then inserted over the catheter. First, a 4 x 20 | | mm angioplasty balloon was used to angioplasty the superficial femoral artery. This was | | up sized to a 5 x 100 mm angioplasty balloon. After angioplasty, another arteriogram | | was performed which showed residual stenosis of the superficial femoral artery. | | Therefore a 6 x 80 mm self-expanding stent was used to stent the stenotic superficial | | femoral artery and this was postdilated using a 5 x 100 mm angioplasty balloon. A final | | arteriogram was then performed through the sheath which showed the artery to be widely | | patent. The 6 [place] destination sheath was then removed and a Mynx closure device was | | then used on the right common femoral artery and hemostasis was ensured. The patient was | | then taken to the observation unit for further monitoring. IMPRESSION: 1. Mild to | | moderate stenosis of the right common iliac artery.2. Occlusion of the mid superficial | | femoral artery which was recanalized and stented with excellent angiographic results.3. | | Two-vessel runoff to the foot via the anterior tibial and peroneal arteries. | | | |IMPRESSION: | | | |1. Mild to moderate stenosis of the right common iliac artery. | |2. Occlusion of the mid superficial femoral artery which was recanalized and stented with e xcellent angiographic results. | |3. Two-vessel runoff to the foot via the anterior tibial and peroneal arteries. | | | | | + + IR Angio Upper/Lower Extremity (03/23/2013 8:42 AM PST) + + | Specimen | + + | | + + + + + | Impressions | Performed At | + + + | 1. Mild to moderate stenosis of the right common iliac artery. | | | 2. Occlusion of the mid superficial femoral artery which was | | | recanalized and stented with excellent angiographic results. 3. | | | Two-vessel runoff to the foot via the anterior tibial and peroneal | | | arteries. | | | 12:35 PM | | + + + + + + | Narrative | Performed At | + + + | LOWER EXTREMITY ARTERIOGRAM, UNILATERAL PREOPERATIVE DIAGNOSIS: | | | Critical limb ischemia with gangrene of left medial ankle | | | POSTOPERATIVE DIAGNOSIS: Critical limb ischemia with gangrene of | | | left medial ankle PROCEDURE: 1. Ultrasound-guided access of right | | | common femoral artery 2. Aortogram 3. Selective left common femoral | | | artery catheterization with left leg runoff 4. Recanalization and | | | angioplasty of right SFA using a 4 x 20 mm and then 5 x 100 mm | | | angioplasty balloons 5. Stenting of right SFA using 6 x 80 mm | | | self-expanding stent SURGEON: Vinay Rowan MD PROFESSOR OF LEGAL STUDIES: None | | | ANESTHESIA: Moderate sedation and local anesthesia ESTIMATED BLOOD | | | LOSS: Minimal CONTRAST: 65 mL of Isovue 250 INDICATIONS: | | | 72-year-old female with gangrene of the left medial ankle | | | FINDINGS: Patient with severe scoliosis. Right common iliac artery | | | with moderate stenosis. Left SFA occludes at midportion with | | | reconstitution distally. Patient had 2 vessel runoff to the ankle via | | | the anterior tibial and peroneal arteries. The posterior tibial | | | artery occludes at the origin. There was poor filling of vessels in | | | the foot and posterior to tibial artery did not reconstitute in the | | | foot. DESCRIPTION OF PROCEDURE: The patient was properly | | | identified and brought to the Medical Registrar. The patient was placed supine | | | on the catheter table and patient was given moderate sedation. | | | Patient's bilateral groins were then prepped and draped in the usual | | | sterile fashion. The right common femoral artery was accessed under | | | ultrasound guidance using a micropuncture needle. A micropuncture | | | sheath was inserted over a wire and up sized to a 4 [place] sheath. A | | | Omni flush catheter was then inserted into the distal aorta and | | | aortogram was then performed with the findings as described above. The | | | Omni Flush catheter was then used to guide a Glidewire into the left | | | common femoral artery and then the catheter was then advanced over the | | | wire. A left lower extremity runoff was then performed with the | | | findings as described above. Next, an Amplatzer wire was then | | | inserted over the catheter and the 4 [place] sheath was removed. A 6 | | | [place] destination sheath was then inserted over the wire with the tip | | | of the sheath being placed into the left common femoral artery. A | | | vertebral catheter was inserted over the wire and the wire was then | | | removed. A Glidewire was then placed into the vertebral catheter and | | | used to cross through the occluded left superficial femoral artery. | | | Next, a 260 fix core wire was then inserted over the catheter. | | | First, a 4 x 20 mm angioplasty balloon was used to angioplasty the | | | superficial femoral artery. This was up sized to a 5 x 100 mm | | | angioplasty balloon. After angioplasty, another arteriogram was | | | performed which showed residual stenosis of the superficial femoral | | | artery. Therefore a 6 x 80 mm self-expanding stent was used to stent | | | the stenotic superficial femoral artery and this was postdilated using | | | a 5 x 100 mm angioplasty balloon. A final arteriogram was then | | | performed through the sheath which showed the artery to be widely | | | patent. The 6 [place] destination sheath was then removed and a Mynx | | | closure device was then used on the right common femoral artery and | | | hemostasis was ensured. The patient was then taken to the | | | observation unit for further monitoring. | | + + + + + | Procedure Note | + + | Manish Christopher Conversion - 11/26/2018 3:55 PM PDT LOWER EXTREMITY ARTERIOGRAM, UNILATERAL | | PREOPERATIVE DIAGNOSIS: Critical limb ischemia with gangrene of left medial ankle | | POSTOPERATIVE DIAGNOSIS: Critical limb ischemia with gangrene of left medial ankle | | PROCEDURE:1. Ultrasound-guided access of right common femoral artery2. Aortogram3. | | Selective left common femoral artery catheterization with left leg runoff4. | | Recanalization and angioplasty of right SFA using a 4 x 20 mm and then 5 x 100 mm | | angioplasty balloons5. Stenting of right SFA using 6 x 80 mm self-expanding stent | | SURGEON: Vinay Rowan MD PROFESSOR OF LEGAL STUDIES: None ANESTHESIA: Moderate sedation and local anesthesia | | ESTIMATED BLOOD LOSS: Minimal CONTRAST: 65 mL of Isovue 250 INDICATIONS: 72-year-old | | female with gangrene of the left medial ankle FINDINGS: Patient with severe scoliosis. | | Right common iliac artery with moderate stenosis. Left SFA occludes at midportion with | | reconstitution distally. Patient had 2 vessel runoff to the ankle via the anterior | | tibial and peroneal arteries. The posterior tibial artery occludes at the origin. There | | was poor filling of vessels in the foot and posterior to tibial artery did not | | reconstitute in the foot. DESCRIPTION OF PROCEDURE: The patient was properly identified | | and brought to the Medical Registrar. The patient was placed supine on the catheter table and | | patient was given moderate sedation. Patient's bilateral groins were then prepped and | | draped in the usual sterile fashion. The right common femoral artery was accessed under | | ultrasound guidance using a micropuncture needle. A micropuncture sheath was inserted | | over a wire and up sized to a 4 [place] sheath. A Omni flush catheter was then inserted | | into the distal aorta and aortogram was then performed with the findings as described | | above. The Omni Flush catheter was then used to guide a Glidewire into the left common | | femoral artery and then the catheter was then advanced over the wire. A left lower | | extremity runoff was then performed with the findings as described above. Next, an | | Amplatzer wire was then inserted over the catheter and the 4 [place] sheath was removed. | | A 6 [place] destination sheath was then inserted over the wire with the tip of the sheath | | being placed into the left common femoral artery. A vertebral catheter was inserted | | over the wire and the wire was then removed. A Glidewire was then placed into the | | vertebral catheter and used to cross through the occluded left superficial femoral | | artery. Next, a 260 fix core wire was then inserted over the catheter. First, a 4 x 20 | | mm angioplasty balloon was used to angioplasty the superficial femoral artery. This was | | up sized to a 5 x 100 mm angioplasty balloon. After angioplasty, another arteriogram | | was performed which showed residual stenosis of the superficial femoral artery. | | Therefore a 6 x 80 mm self-expanding stent was used to stent the stenotic superficial | | femoral artery and this was postdilated using a 5 x 100 mm angioplasty balloon. A final | | arteriogram was then performed through the sheath which showed the artery to be widely | | patent. The 6 [place] destination sheath was then removed and a Mynx closure device was | | then used on the right common femoral artery and hemostasis was ensured. The patient was | | then taken to the observation unit for further monitoring. IMPRESSION: 1. Mild to | | moderate stenosis of the right common iliac artery.2. Occlusion of the mid superficial | | femoral artery which was recanalized and stented with excellent angiographic results.3. | | Two-vessel runoff to the foot via the anterior tibial and peroneal arteries. | | | |IMPRESSION: | | | |1. Mild to moderate stenosis of the right common iliac artery. | |2. Occlusion of the mid superficial femoral artery which was recanalized and stented with e xcellent angiographic results. | |3. Two-vessel runoff to the foot via the anterior tibial and peroneal arteries. | | | | | + + IR Aortogram Abdominal w Runoff (03/23/2013 8:42 AM PST) + + | Specimen | + + | | + + + + + | Impressions | Performed At | + + + | 1. Mild to moderate stenosis of the right common iliac artery. | | | 2. Occlusion of the mid superficial femoral artery which was | | | recanalized and stented with excellent angiographic results. 3. | | | Two-vessel runoff to the foot via the anterior tibial and peroneal | | | arteries. | | | 12:35 PM | | + + + + + + | Narrative | Performed At | + + + | LOWER EXTREMITY ARTERIOGRAM, UNILATERAL PREOPERATIVE DIAGNOSIS: | | | Critical limb ischemia with gangrene of left medial ankle | | | POSTOPERATIVE DIAGNOSIS: Critical limb ischemia with gangrene of | | | left medial ankle PROCEDURE: 1. Ultrasound-guided access of right | | | common femoral artery 2. Aortogram 3. Selective left common femoral | | | artery catheterization with left leg runoff 4. Recanalization and | | | angioplasty of right SFA using a 4 x 20 mm and then 5 x 100 mm | | | angioplasty balloons 5. Stenting of right SFA using 6 x 80 mm | | | self-expanding stent SURGEON: Vinay Rowan MD PROFESSOR OF LEGAL STUDIES: None | | | ANESTHESIA: Moderate sedation and local anesthesia ESTIMATED BLOOD | | | LOSS: Minimal CONTRAST: 65 mL of Isovue 250 INDICATIONS: | | | 72-year-old female with gangrene of the left medial ankle | | | FINDINGS: Patient with severe scoliosis. Right common iliac artery | | | with moderate stenosis. Left SFA occludes at midportion with | | | reconstitution distally. Patient had 2 vessel runoff to the ankle via | | | the anterior tibial and peroneal arteries. The posterior tibial | | | artery occludes at the origin. There was poor filling of vessels in | | | the foot and posterior to tibial artery did not reconstitute in the | | | foot. DESCRIPTION OF PROCEDURE: The patient was properly | | | identified and brought to the Medical Registrar. The patient was placed supine | | | on the catheter table and patient was given moderate sedation. | | | Patient's bilateral groins were then prepped and draped in the usual | | | sterile fashion. The right common femoral artery was accessed under | | | ultrasound guidance using a micropuncture needle. A micropuncture | | | sheath was inserted over a wire and up sized to a 4 [place] sheath. A | | | Omni flush catheter was then inserted into the distal aorta and | | | aortogram was then performed with the findings as described above. The | | | Omni Flush catheter was then used to guide a Glidewire into the left | | | common femoral artery and then the catheter was then advanced over the | | | wire. A left lower extremity runoff was then performed with the | | | findings as described above. Next, an Amplatzer wire was then | | | inserted over the catheter and the 4 [place] sheath was removed. A 6 | | | [place] destination sheath was then inserted over the wire with the tip | | | of the sheath being placed into the left common femoral artery. A | | | vertebral catheter was inserted over the wire and the wire was then | | | removed. A Glidewire was then placed into the vertebral catheter and | | | used to cross through the occluded left superficial femoral artery. | | | Next, a 260 fix core wire was then inserted over the catheter. | | | First, a 4 x 20 mm angioplasty balloon was used to angioplasty the | | | superficial femoral artery. This was up sized to a 5 x 100 mm | | | angioplasty balloon. After angioplasty, another arteriogram was | | | performed which showed residual stenosis of the superficial femoral | | | artery. Therefore a 6 x 80 mm self-expanding stent was used to stent | | | the stenotic superficial femoral artery and this was postdilated using | | | a 5 x 100 mm angioplasty balloon. A final arteriogram was then | | | performed through the sheath which showed the artery to be widely | | | patent. The 6 [place] destination sheath was then removed and a Mynx | | | closure device was then used on the right common femoral artery and | | | hemostasis was ensured. The patient was then taken to the | | | observation unit for further monitoring. | | + + + + + | Procedure Note | + + | Manish Christopher Conversion - 11/26/2018 3:55 PM PDT LOWER EXTREMITY ARTERIOGRAM, UNILATERAL | | PREOPERATIVE DIAGNOSIS: Critical limb ischemia with gangrene of left medial ankle | | POSTOPERATIVE DIAGNOSIS: Critical limb ischemia with gangrene of left medial ankle | | PROCEDURE:1. Ultrasound-guided access of right common femoral artery2. Aortogram3. | | Selective left common femoral artery catheterization with left leg runoff4. | | Recanalization and angioplasty of right SFA using a 4 x 20 mm and then 5 x 100 mm | | angioplasty balloons5. Stenting of right SFA using 6 x 80 mm self-expanding stent | | SURGEON: Vinay Rowan MD PROFESSOR OF LEGAL STUDIES: None ANESTHESIA: Moderate sedation and local anesthesia | | ESTIMATED BLOOD LOSS: Minimal CONTRAST: 65 mL of Isovue 250 INDICATIONS: 72-year-old | | female with gangrene of the left medial ankle FINDINGS: Patient with severe scoliosis. | | Right common iliac artery with moderate stenosis. Left SFA occludes at midportion with | | reconstitution distally. Patient had 2 vessel runoff to the ankle via the anterior | | tibial and peroneal arteries. The posterior tibial artery occludes at the origin. There | | was poor filling of vessels in the foot and posterior to tibial artery did not | | reconstitute in the foot. DESCRIPTION OF PROCEDURE: The patient was properly identified | | and brought to the Medical Registrar. The patient was placed supine on the catheter table and | | patient was given moderate sedation. Patient's bilateral groins were then prepped and | | draped in the usual sterile fashion. The right common femoral artery was accessed under | | ultrasound guidance using a micropuncture needle. A micropuncture sheath was inserted | | over a wire and up sized to a 4 [place] sheath. A Omni flush catheter was then inserted | | into the distal aorta and aortogram was then performed with the findings as described | | above. The Omni Flush catheter was then used to guide a Glidewire into the left common | | femoral artery and then the catheter was then advanced over the wire. A left lower | | extremity runoff was then performed with the findings as described above. Next, an | | Amplatzer wire was then inserted over the catheter and the 4 [place] sheath was removed. | | A 6 [place] destination sheath was then inserted over the wire with the tip of the sheath | | being placed into the left common femoral artery. A vertebral catheter was inserted | | over the wire and the wire was then removed. A Glidewire was then placed into the | | vertebral catheter and used to cross through the occluded left superficial femoral | | artery. Next, a 260 fix core wire was then inserted over the catheter. First, a 4 x 20 | | mm angioplasty balloon was used to angioplasty the superficial femoral artery. This was | | up sized to a 5 x 100 mm angioplasty balloon. After angioplasty, another arteriogram | | was performed which showed residual stenosis of the superficial femoral artery. | | Therefore a 6 x 80 mm self-expanding stent was used to stent the stenotic superficial | | femoral artery and this was postdilated using a 5 x 100 mm angioplasty balloon. A final | | arteriogram was then performed through the sheath which showed the artery to be widely | | patent. The 6 [place] destination sheath was then removed and a Mynx closure device was | | then used on the right common femoral artery and hemostasis was ensured. The patient was | | then taken to the observation unit for further monitoring. IMPRESSION: 1. Mild to | | moderate stenosis of the right common iliac artery.2. Occlusion of the mid superficial | | femoral artery which was recanalized and stented with excellent angiographic results.3. | | Two-vessel runoff to the foot via the anterior tibial and peroneal arteries. | | | |IMPRESSION: | | | |1. Mild to moderate stenosis of the right common iliac artery. | |2. Occlusion of the mid superficial femoral artery which was recanalized and stented with e xcellent angiographic results. | |3. Two-vessel runoff to the foot via the anterior tibial and peroneal arteries. | | | | | + + VAS Lower Extremity Venous Bilateral (03/21/2013 11:45 AM PST) + + | Specimen | + + | | + + + + + | Impressions | Performed At | + + + | 1. No evidence of DVT either lower extremity, with technical | | | limitation as described. | | + + + + + + | Narrative | Performed At | + + + | HISTORY: Left ankle gangrene. COMPARISON: Arterial ultrasound | | | same day. TECHNIQUE: Bilateral sonographic lower extremity | | | venous Doppler performed with color Doppler and spectral Doppler | | | waveform analysis. FINDINGS: Normal compressibility, augmentation | | | of flow, and Doppler flow evident within the deep venous system. No | | | evidence of deep venous thrombosis. Left distal femoral vein unable to | | | completely compressed due to patient pain. 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 Calf veins are difficult to image bilaterally. | | + + + + + | Procedure Note | + + | Ashwin, Rad Conversion - 11/26/2018 3:55 PM PDT HISTORY:Left ankle gangrene. | | COMPARISON:Arterial ultrasound same day. TECHNIQUE:Bilateral sonographic lower | | extremity venous Doppler performed with color Doppler and spectral Doppler waveform | | analysis. FINDINGS:Normal compressibility, augmentation of flow, and Doppler flow | | evident within the deep venous system. No evidence of deep venous thrombosis. Left | | distal femoral vein unable to completely compressed due to patient pain. Duplicated left | | mid femoral vein. Calf veins are difficult to image bilaterally. IMPRESSION: 1. No | | evidence of DVT either lower extremity, with technical limitation as described. | | | |FINDINGS: | |Normal compressibility, augmentation of flow, and Doppler flow evident within the deep veno us system. No evidence of deep venous thrombosis. Left distal femoral vein unable to complet diane compressed due to patient pain. | |Duplicated left mid femoral vein. | |Calf veins are difficult to image bilaterally. | | | |IMPRESSION: | |1. No evidence of DVT either lower extremity, with technical limitation as described. | | | | | + + VAS Lower Extremity Arteries Bilateral (03/21/2013 10:51 AM PST) + + | Specimen | + + | | + + + + + | Impressions | Performed At | + + + | 1. Monophasic flow throughout the right lower extremities, with | | | higher velocities proximally, but no definable stenosis. This is | | | consistent with upstream significant stenosis. 2. Triphasic | | | waveforms left [employer] and profunda, with significant stenosis between the | | | left common femoral and proximal SFA. 3. Distal left posterior | | | tibial and entire peroneal artery cannot be seen, suggesting | | | occlusion. Electronically signed by Everett Snider MD on | | | 03/21/2013 12:22 PM | | + + + + + + | Narrative | Performed At | + + + | HISTORY: Gangrene left ankle. COMPARISON: Venous ultrasound | | | same day. TECHNIQUE: 8 MHz linear sonographic grayscale, color | | | flow, spectral Doppler evaluation of the arterial structures both | | | lower extremities. FINDINGS: Right lower extremity: Common | | | femoral: Peak systolic velocity 274 cm/s, monophasic waveform. Deep | | | femoral: 184 cm/s, monophasic. Superficial femoral: 251 cm/s | | | proximal, 136 cm/s mid, 131 cm/s distal, monophasic. Popliteal: 102 | | | cm/s proximal, 74 cm/s distal, monophasic. Anterior tibial: 52 cm/s | | | proximal, monophasic. Posterior tibial: 68 cm/s proximal, 61 cm/s | | | distal, monophasic. Peroneal: 47 cm/s mid, monophasic. Dorsalis | | | pedis: 78 cm/s, monophasic. Left lower extremity: Common femoral: | | | 203 cm/s, triphasic. Deep femoral: 217 cm/s, triphasic. Superficial | | | femoral: 52 cm/s proximal, 16 cm/s mid, 21 cm/s distal, monophasic. | | | Popliteal: 23 cm/s proximal, 18 cm/s distal, monophasic. Anterior | | | tibial: 12 cm/s proximal, monophasic. Posterior tibial: 42 cm/s | | | proximal, monophasic. Peroneal: Not seen. Dorsalis pedis: 9 cm/s, | | | monophasic. | | + + + + + | Procedure Note | + + | Manish Christopher Conversion - 11/26/2018 3:55 PM PDT HISTORY:Gangrene left ankle. | | COMPARISON:Venous ultrasound same day. TECHNIQUE:8 MHz linear sonographic grayscale, | | color flow, spectral Doppler evaluation of the arterial structures both lower | | extremities. FINDINGS:Right lower extremity:Common femoral: Peak systolic velocity 274 | | cm/s, monophasic waveform.Deep femoral: 184 cm/s, monophasic.Superficial femoral: 251 | | cm/s proximal, 136 cm/s mid, 131 cm/s distal, monophasic.Popliteal: 102 cm/s proximal, | | 74 cm/s distal, monophasic.Anterior tibial: 52 cm/s proximal, monophasic.Posterior | | tibial: 68 cm/s proximal, 61 cm/s distal, monophasic.Peroneal: 47 cm/s mid, | | monophasic.Dorsalis pedis: 78 cm/s, monophasic. Left lower extremity:Common femoral: 203 | | cm/s, triphasic.Deep femoral: 217 cm/s, triphasic.Superficial femoral: 52 cm/s | | proximal, 16 cm/s mid, 21 cm/s distal, monophasic.Popliteal: 23 cm/s proximal, 18 cm/s | | distal, monophasic.Anterior tibial: 12 cm/s proximal, monophasic.Posterior tibial: 42 | | cm/s proximal, monophasic.Peroneal: Not seen.Dorsalis pedis: 9 cm/s, monophasic. | | IMPRESSION: 1. Monophasic flow throughout the right lower extremities, with higher | | velocities proximally, but no definable stenosis. This is consistent with upstream | | significant stenosis.2. 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 Distal left posterior | | tibial and entire peroneal artery cannot be seen, suggesting occlusion. Electronically | | signed by Everett Snider MD on 03/21/2013 12:22 PM | | | |Left lower extremity: | |Common femoral: 203 cm/s, triphasic. | |Deep femoral: 217 cm/s, triphasic. | |Superficial femoral: 52 cm/s proximal, 16 cm/s mid, 21 cm/s distal, monophasic. | |Popliteal: 23 cm/s proximal, 18 cm/s distal, monophasic. | |Anterior tibial: 12 cm/s proximal, monophasic. | |Posterior tibial: 42 cm/s proximal, monophasic. | |Peroneal: Not seen. | |Dorsalis pedis: 9 cm/s, monophasic. | | | |IMPRESSION: | |1. Monophasic flow throughout the right lower extremities, with higher velocities proximal ly, but no definable stenosis. This is consistent with upstream significant stenosis. | |2. 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 | |3. Distal left posterior tibial and entire peroneal artery cannot be seen, suggesting occl usion. | | | | | + + Culture, Blood (03/20/2013 8:13 PM PST) + + | Specimen | + + | Blood specimen | | (specimen) | + + + + + | Narrative | Performed At | + + + | Specimen Description BLOOD, PERIPHERAL DRAW | EXTERNAL LAB | | Testing performed | | | at [facility];[address] [place] [address];[place] [address] SPECIAL REQUESTS | | | RAC | | | Testing performed at [facility];[address] [place] [address] | | | CULTURE NO GROWTH 6 DAYS | | | Testing performed | | | at [facility], [address] [place] [address] REPORT STATUS | | | 03/26/2013 FINAL | | + + + + +---------+ + + | Performing | Address | City/State/Zipcode | Phone Number | | Organization | | | | + +---------+ + + | EXTERNAL LAB | | | | + +---------+ + + Culture, Blood (03/20/2013 6:09 PM PST) + + | Specimen | + + | Blood specimen | | (specimen) | + + + + + | Narrative | Performed At | + + + | Specimen Description BLOOD, PERIPHERAL DRAW | EXTERNAL LAB | | Testing performed | | | at [facility];[address] [place] [address];[place] [address] SPECIAL REQUESTS | | | RAC | | | Testing performed at [facility];[address] [place] [address];[place] [address] | | | CULTURE NO GROWTH 6 DAYS | | | Testing performed | | | at [facility], [address] [place] [address] REPORT STATUS | | | 03/27/2013 FINAL | | + + + + +---------+ + + | Performing | Address | City/State/Zipcode | Phone Number | | Organization | | | | + +---------+ + + | EXTERNAL LAB | | | | + +---------+ + + MRSA NAAT (03/20/2013 6:01 PM PST) + + | Specimen | + + | | + + + + + | Narrative | Performed At | + + + | SOURCE NARES(NOSE) | EXTERNAL LAB | | Testing performed at [facility];[address] [place] [address];[place] [address] MRSA PCR | | | NEGATIVE Testing performed at | | | [facility];[address] [place] [address];[place] [address] | | + + + + +---------+ + + | Performing | Address | City/State/Zipcode | Phone Number | | Organization | | | | + +---------+ + + | EXTERNAL LAB | | | | + +---------+ + + Culture, Wound, Smear, w/Anaerobe (03/20/2013 5:44 PM PST) + + | Specimen | + + | | + + + + + | Narrative | Performed At | + + + | Specimen Description ANKLE LEFT ANKLE FOOT | EXTERNAL LAB | | Testing performed at | | | [facility];[address] [facility];[place] [address] CULTURE | | | 3+ STAPHYLOCOCCUS AUREUSAbnormal | | | 1+ ESCHERICHIA COLIAbnormal | | | 1+ ESCHERICHIA | | | HERMANNIIAbnormal | | | 3+ NORMAL SKIN ROB ISOLATED | | | NO FURTHER WORKUP | | | Testing performed at [facility], [address] [facility], | | | [place] [address] REPORT STATUS | | | 03/24/2013 FINAL Organism | | | STAPHYLOCOCCUS AUREUS | | | ESCHERICHIA COLI | | | ESCHERICHIA HERMANNII Suscepibility for - STAPHYLOCOCCUS | | | AUREUS Clindamycin SUSCEPTIBLESensitive | | | Erythromycin SUSCEPTIBLESensitive | | | Gentamicin SUSCEPTIBLESensitive | | | Oxacillin SUSCEPTIBLESensitive | | | Penicillin G RESISTANT Resistant | | | Tetracycline SUSCEPTIBLESensitive | | | Trimethoprim + SulfamethoxazoleSUSCEPTIBLESensitive Vancomycin | | | SUSCEPTIBLESensitive Levofloxacin | | | SUSCEPTIBLESensitive Moxifloxacin | | | SUSCEPTIBLESensitive Suscepibility for - ESCHERICHIA COLI | | | Ampicillin RESISTANT Resistant | | | Ampicillin + Sulbactam RESISTANT Resistant Cefazolin | | | RESISTANT Resistant Cefepime | | | SUSCEPTIBLESensitive Cefoxitin | | | RESISTANT Resistant Ceftazidime | | | INTERMEDIATEIntermediate Ceftriaxone | | | INTERMEDIATEIntermediate Ciprofloxacin | | | SUSCEPTIBLESensitive Gentamicin | | | SUSCEPTIBLESensitive Piperacillin + Tazobactam | | | SUSCEPTIBLESensitive Tobramycin | | | SUSCEPTIBLESensitive Trimethoprim + | | | SulfamethoxazoleSUSCEPTIBLESensitive Levofloxacin | | | SUSCEPTIBLESensitive Suscepibility for - ESCHERICHIA | | | HERMANNII Ampicillin RESISTANT Resistant | | | Ampicillin + Sulbactam SUSCEPTIBLESensitive Cefazolin | | | SUSCEPTIBLESensitive Cefepime | | | SUSCEPTIBLESensitive Cefoxitin | | | SUSCEPTIBLESensitive Ceftazidime | | | SUSCEPTIBLESensitive Ceftriaxone | | | SUSCEPTIBLESensitive Ciprofloxacin | | | SUSCEPTIBLESensitive Gentamicin | | | SUSCEPTIBLESensitive Piperacillin + Tazobactam | | | SUSCEPTIBLESensitive Tobramycin | | | SUSCEPTIBLESensitive Trimethoprim + | | | SulfamethoxazoleSUSCEPTIBLESensitive Levofloxacin | | | SUSCEPTIBLESensitive | | + + + + +---------+ + + | Performing | Address | City/State/Zipcode | Phone Number | | Organization | | | | + +---------+ + + | EXTERNAL LAB | | | | + +---------+ + + XR Ankle Left 3 + Vw (03/20/2013 5:17 PM PST) + + | Specimen | + + | | + + + + + | Impressions | Performed At | + + + | 1. No foreign body or fracture seen. Diffuse bone mineral loss, | | | severe 2. Regular to the soft tissue medially identified | | | | | + + + + + + | Narrative | Performed At | + + + | [facility] XR ANKLE LEFT 03/20/2013 5:17 PM HISTORY: 72 | | | years. Female. Foreign body, ( TECHNIQUE: 3 view(s) obtained. | | | COMPARISON: None. FINDINGS: The regional osseous structures | | | are significantly demineralized suggesting osteoporosis. No | | | fracture, dislocation or subluxation is noted. The joint spaces | | | appear normal. No soft tissue swelling is seen. No radiopaque | | | foreign bodies are noted. No soft tissue calcifications are present. | | | Irregularity of the soft tissue medially with possible resting also. | | | No foreign body identified | | + + + + -----+ | Procedure Note | + -----+ | Ashwin, Rad Conversion - 11/26/2018 3:55 PM PDT [facility] BROXR ANKLE LEFT03/20/2013 | | 5:17 PM HISTORY:72 years. Female. Foreign body, ( TECHNIQUE:3 view(s) obtained. | | COMPARISON:None. FINDINGS:The regional osseous structures are significantly | | demineralized suggesting osteoporosis.No fracture, dislocation or subluxation is | | noted.The joint spaces appear normal.No soft tissue swelling is seen.No radiopaque | | foreign bodies are noted.No soft tissue calcifications are present.Irregularity of the | | soft tissue medially with possible resting also. No foreign body identifiedIMPRESSION: | | 1. No foreign body or fracture seen. Diffuse bone mineral loss, severe 2. Regular to | | the soft tissue medially identified Electronically signed by Richardson Mcnamara MD on | | 03/20/2013 5:21 PM | |COMPARISON: | |None. | | | |FINDINGS: | |The regional osseous structures are significantly demineralized suggesting osteoporosis. | |No fracture, dislocation or subluxation is noted. | |The joint spaces appear normal. | |No soft tissue swelling is seen. | |No radiopaque foreign bodies are noted. | |No soft tissue calcifications are present. | |Irregularity of the soft tissue medially with possible resting also. No foreign body identi fied | |IMPRESSION: | |1. No foreign body or fracture seen. Diffuse bone mineral loss, severe | | | |2. Regular to the soft tissue medially identified | | | | | + -----+ XR Tibia Fibula Left 2 Vw (03/20/2013 5:17 PM PST) + + | Specimen | + + | | + + + + + | Impressions | Performed At | + + + | 1. Soft tissue disruption at and above the medial ankle left side. | | | 2. Diffuse bone mineral loss. | | + + + + + + | Narrative | Performed At | + + + | [facility] XR TIBIA FIBULA LEFT 03/20/2013 5:17 PM HISTORY: | | | 72 years. Female. Gangrene. Left ankle abnormality | | | TECHNIQUE: 4 view(s) obtained. COMPARISON: None. FINDINGS: | | | The regional osseous structures demonstrate normal mineralization and | | | trabeculation. No fracture, dislocation or subluxation is noted. The | | | joint spaces appear normal. No soft tissue swelling is seen. No | | | radiopaque foreign bodies are noted. No soft tissue calcifications | | | are present. Soft tissue irregularity noted medially just above the | | | ankle articulation. No obvious soft tissue gas identified, however. No | | | overt bone destruction seen. No fracture identified | | + + + + + | Procedure Note | + + | Ashwin, Rad Conversion - 11/26/2018 3:55 PM PDT [facility] BROXR TIBIA FIBULA | | LEFT03/20/2013 5:17 PM HISTORY:72 years. Female. Gangrene. Left ankle abnormality | | TECHNIQUE:4 view(s) obtained. COMPARISON:None. FINDINGS:The regional osseous structures | | demonstrate normal mineralization and trabeculation.No fracture, dislocation or | | subluxation is noted.The joint spaces appear normal.No soft tissue swelling is seen.No | | radiopaque foreign bodies are noted.No soft tissue calcifications are present.Soft | | tissue irregularity noted medially just above the ankle articulation. No obvious soft | | tissue gas identified, however. No overt bone destruction seen. No fracture | | identifiedIMPRESSION: 1. Soft tissue disruption at and above the medial ankle left | | side. 2. Diffuse bone mineral loss. Electronically signed by Richardson Mcnamara MD on | | 03/20/2013 5:22 PM | |None. | | | |FINDINGS: | |The regional osseous structures demonstrate normal mineralization and trabeculation. | |No fracture, dislocation or subluxation is noted. | |The joint spaces appear normal. | |No soft tissue swelling is seen. | |No radiopaque foreign bodies are noted. | |No soft tissue calcifications are present. | |Soft tissue irregularity noted medially just above the ankle articulation. No obvious soft tissue gas identified, however. No overt bone destruction seen. No fracture identified | |IMPRESSION: | |1. Soft tissue disruption at and above the medial ankle left side. | | | |2. Diffuse bone mineral loss. | | | | | + + documented in this encounter Visit Diagnoses + + | Diagnosis | + + | Gangrene of foot ([facility]) Gangrene | + + | Ankle ulcer (HCC) Ulcer of ankle | + + documented in this encounter
--- OUTSIDE RECORDS SUMMARY | ~2019-04-04 | XMS | Encounter Summary ---
Demographics + + + | Address | [address] | | | [place] [address] | + + + | Home Phone | | + + + | Preferred Language | Unknown | + + + | Marital Status | Unknown | + + + | Judaism Affiliation | Unknown | + + + | Race | Unknown | + + + | Ethnic Group | Unknown | + + + Author + + + | Author | [facility] | | | and [facility] | + + + | Organization | [facility] | | | and [place] | + + + | Address | Unknown | + + + | Phone | Unavailable | + + + Care Team Providers + +------+ + | Care Garbage Collector Driver Name | Role | Phone | + +------+ + | Jas Baird MD | PCP | | + +------+ + Encounter Details +--------+ + + + + | Date | Type | Department | Care Team | Description | +--------+ + + + + | 05/15/ | Orders Only | [facility] | Jas Baird | | | 2014 | | NEPHROLOGY [place] | MD [address] | | | | | [address] [facility] | [facility] | | | | | [address] [place], [place] | [place] [address] | | | | | [address] | [phone] | | | | | [phone] | | | +--------+ + + + [...]
--- OUTSIDE RECORDS SUMMARY | ~2019-04-04 | XMS | Encounter Summary ---
Demographics + + + | Address | [address] | | | [place] [address] | + + + | Home Phone [...] Author | [facility] | | | and [place] | + + + | Organization | [facility] | | | and [place] | + + + | Address | Unknown | + + + | Phone | Unavailable | + + + Care Team Providers + +------+ + | Care Art Sales Consultant Name | Role | Phone | + +------+ + PCP | Unavailable | + +------+ + Encounter Details +--------+ + + + + | Date | Type | Department | Care Team | Description | +--------+ + + + + | 03/19/ | Hospital | [facility] | | | | 2003 - | Encounter | MED CTR GENERIC OP | | | | | | CONV DEPT [address] | | | | 06/17/ | | [place], | | | | 2004 | | [place] [address] | | | | | | [phone] | | | +--------+ + + + [...]
--- OUTSIDE RECORDS SUMMARY | ~2019-04-04 | XMS | Encounter Summary ---
Demographics + + + | Address | [address] | | | [place] [address] | + + + | Home Phone | | + + + | Preferred Language | Unknown | + + + | Marital Status | Unknown | + + + | Amish Affiliation | Unknown | + + + | Race | Unknown | + + + | Ethnic Group | Unknown | + + + Author + + + | Author | [facility] | | | and [facility] | + + + | Organization | [facility] | | | and [place] | + + + | Address | Unknown | + + + | Phone | Unavailable | + + + Care Team Providers + +------+ + | Care Tool Keeper Name | Role | Phone | + +------+ + | Jas Baird MD | PCP | | + +------+ + Encounter Details +--------+ + + + + | Date | Type | Department | Care Team | Description | +--------+ + + + + | 11/10/ | Orders Only | [facility] | Rudy Khoury MD | | | 2014 | | NEPRHOLOGY ATHOL | [address] | | | | | [address] | [address] [place], [place] | | | | | [address] [place], [place] | [address] | | | | | [address] | | | | | | [phone] | | | +--------+ + + + [...] | | | LAB | | | [facility] | | | | | + + [...]
--- OUTSIDE RECORDS SUMMARY | ~2019-04-04 | XMS | Clinical Summary ---
Demographics + + + | Address | [address] | | | [place] [address] | + + + | Home Phone | | + + + | Preferred Language | Unknown | + + + | Marital Status | Unknown | + + + | Worship Affiliation | Unknown | + + + | Race | Unknown | + + + | Ethnic Group | Unknown | + + + Author + + + | Author | [facility] | | | and [facility] | + + + | Organization | [facility] | | | and [place] | + + + | Address | Unknown | + + + | Phone | Unavailable | + + + Care Team Providers + +------+ + | Care Cmv Driver Name | Role | Phone | [...]
--- OUTSIDE RECORDS SUMMARY | ~2019-04-04 | XMS | Encounter Summary ---
Demographics + + + | Address | [address] | | | [place] [address] | + + + | Home Phone | | + + + | Preferred Language | Unknown | + + + | Marital Status | Unknown | + + + | Spiritism Affiliation | Unknown | + + + | Race | Unknown | + + + | Ethnic Group | Unknown | + + + Author + + + | Author | [facility] | | | and [facility] | + + + | Organization | [facility] | | | and [place] | + + + | Address | Unknown | + + + | Phone | Unavailable | + + + Care Team Providers + +------+ + | Care Drink Box Mechanic Name | Role | Phone | + +------+ + | Jas Baird MD | PCP | | + +------+ + Encounter Details +--------+ + + + + | Date | Type | Department | Care Team | Description | +--------+ + + + + | 04/26/ | Orders Only | [facility] | Conversion | | | 2013 | | INFECTIOUS DISEASE | Transaction, | | | | | [address] [facility] | Provider Unknown | | | | | [place], [place] | [phone] | | | | | [address] | | | | | | [phone] | | | +--------+ + + + [...]
--- OUTSIDE RECORDS SUMMARY | ~2019-04-04 | XMS | Encounter Summary ---
Demographics + + + | Address | [address] | | | [place] [address] | + + + | Home Phone | | + + + | Preferred Language | Unknown | + + + | Marital Status | Unknown | + + + | Jew Affiliation | Unknown | + + + | Race | Unknown | + + + | Ethnic Group | Unknown | + + + Author + + + | Author | [facility] | | | and [facility] | + + + | Organization | [facility] | | | and [place] | + + + | Address | Unknown | + + + | Phone | Unavailable | + + + Care Team Providers + +------+ + | Care Slide Fastener Chain Assembler Name | Role | Phone | + +------+ + | Jas Baird MD | PCP | | + +------+ + Encounter Details +--------+ + + + + | Date | Type | Department | Care Team | Description | +--------+ + + + + | 04/07/ | Orders Only | [facility] | Conversion | | | 2013 | | INFECTIOUS DISEASE | Transaction, | | | | | [address] [facility] | Provider Unknown | | | | | [place], [place] | [phone] | | | | | [address] | | | | | | [phone] | | | +--------+ + + + [...]
--- OUTSIDE RECORDS SUMMARY | ~2019-04-04 | XMS | Clinical Summary ---
Demographics + + + | Address | [address] | | | [place] [address] | + + + | Home Phone | | + + + | Preferred Language | Unknown | + + + | Marital Status | | + + + | Worship Affiliation | Unknown | + + + | Race | Unknown | + + + | Ethnic Group | Unknown | + + + Author + + + | Author | [facility] (Historical as of | | | 11-20-18) | + + + | Organization | [facility] (Historical as of | | | 11-20-18) [...] Team Providers + +------+ + | Care Tribunal Member Name | Role | Phone | + [...] | e | + + +--------+---------+------+------+-------+ | Windfall-3 Fatty | Take 4 tablets by | [...] of chronic renal failure, stage 3 (moderate) ([facility]) | 08/07/2014 | + + + | Peripheral arterial disease (HCC) | 04/07/2013 | + + + | Ankle ulcer | 03/25/2013 | + + + | Gangrene of foot ([facility]) | 03/20/2013 | + + + | [...] +------+-------+ + | MEDICARE | MEDICA | [id number] | | | [address] | | | RE | | | | [place] [address] | | | IP-OP | | | | | + +--------+ +------+-------+ + | COMMERCIAL OTHER | COMMER | [id number] | | | | | | CIAL [...] | | | [place] | | | [address] | [address] | + +--------+ +--------+ + +
--- OUTSIDE RECORDS SUMMARY | ~2019-04-04 | XMS | Encounter Summary ---
Demographics + + + | Address | [address] | | | [place] [address] | + + + | Home Phone | | + + + | Preferred Language | Unknown | + + + | Marital Status | Unknown | + + + | Buddhist Affiliation | Unknown | + + + | Race | Unknown | + + + | Ethnic Group | Unknown | + + + Author + + + | Author | [facility] | | | and [place] | + + + | Organization | [facility] | | | and [place] | + + + | Address | Unknown | + + + | Phone | Unavailable | + + + Care Team Providers + +------+ + | Care Retail Leasing Agent Name | Role | Phone | + +------+ + PCP | Unavailable | + +------+ + Encounter Details +--------+ + + + + | Date | Type | Department | Care Team | Description | +--------+ + + + + | 02/10/ | Hospital | [facility] | Tish Campbell | | | 2007 | Encounter | MED CTR EMERGENCY | Sesar Carey MD [address] | | | | | [place] [address] | [facility] | | | | | [place] | [place] [address] | | | | | [address] | [phone] | | | | | [phone] | | | +--------+ + + + [...]
--- OUTSIDE RECORDS SUMMARY | ~2019-04-04 | XMS | Encounter Summary ---
Demographics + + + | Address | [address] | | | [place] [address] | + + + | Home Phone [...] + + + | Author | [facility] | | | and [facility] | + + + | Organization | [facility] | | | and [place] | + + + | Address | Unknown | + + + | Phone | Unavailable | + + + Care Team Providers + +------+ + | Care Barrel Driller Name | Role | Phone | + +------+ + | Jas Baird MD | PCP | | + +------+ + Encounter Details +--------+ + + + + | Date | Type | Department | Care Team | Description | +--------+ + + + + | 07/26/ | Orders Only | [facility] | Rudy Khoury MD | | | 2014 | | NEPHROLOGY [place] | [address] [place] | | | | | [address] [place] | [address] [place], [place] | | | | | [address] [place], [place] | [address] | | | | | [address] | | | | | | [phone] | | | +--------+ + + + [...]
--- OUTSIDE RECORDS SUMMARY | ~2019-04-04 | XMS | Encounter Summary ---
Demographics + + + | Address | [address] | | | [place] [address] | + + + | Home Phone [...] Author + + + | Author | [facility] | | | and [facility] | + + + | Organization | [facility] | | | and [place] | + + + | Address | Unknown | + + + | Phone | Unavailable | + + + Care Team Providers + +------+ + | Care Bakery Manager Name | Role | Phone | [...] | | | | [address] | [place], [place] | | | | | [place], [place] | [address] | | | | | [address] | | | | | | [phone] | | | +--------+ + + + [...] | maxP.04 mmHg TR Vmax: 1.93 m/s Pet Caregiver: CHIDI | | | Authenticated by: Shirley [...] mlLAESV Index (A-L): 29.99 ml/m2LAAs A2C: 17.50 [id number] A-L | | A2C: 50.92 mlLALs A2C: 5.10 cmLAAs A4C: 18.35 [id number] A-L A4C: 53.35 mlLALs | | A4C: 5.35 cmRAAs: 15.86 [id number] A-L: 43.26 mlRAESV MOD: 42.33 mlRALs: 4.93 | | cmTAPSE: 3.17 cmAV maxP.93 mmHgAV meanP.52 mmHgAV Vmax: 1.31 m/Hiram | | Vmean: 0.86 m/Hiram VTI: 22.37 cmAVA Vmax: 2.60 cm2AVA (VTI): 2.83 [id number] Vmax: | | 0.00 cm2/m2AVAI (VTI): 0.00 [...] maxP.04 mmHgTR Vmax: 1.93 m/s | | Pet Caregiver: CHIDIAuthenticated by: Shirley Huerta Date/Time: 05-14-2017 20:57:2 [...] |TR Vmax: 1.93 m/s | | | |Pet Caregiver: DBS | |Authenticated by: Shirley Galloway | [...]
--- OUTSIDE RECORDS SUMMARY | ~2019-04-04 | XMS | Encounter Summary ---
Demographics + + + | Address | [address] | | | [place] [address] | + + + | Home Phone [...] + | Author | [facility] | | | and [place] | + + + | Organization | [facility] | | | and [place] | + + + | Address | Unknown | + + + | Phone | Unavailable | + + + Care Team Providers + +------+ + | Care Entry Clerk Name | Role | Phone | + +------+ + PCP | Unavailable | + +------+ + Encounter Details +--------+ + + + + | Date | Type | Department | Care Team | Description | +--------+ + + + + | 12/15/ | Hospital | [facility] | | | | 2002 - | Encounter | MED CTR CANCER | | | | | | CENTER [facility] [address] | | | | 03/26/ | | [place] | | | | 2002 | | [address] | | | | | | [phone] | | | +--------+ + + + [...]
--- OUTSIDE RECORDS SUMMARY | ~2019-04-04 | XMS | Encounter Summary ---
Demographics + + + | Address | [address] | | | [place] [address] | + + + | Home Phone [...] Author | [facility] | | | and [facility] | + + + | Organization | [facility] | | | and [place] | + + + | Address | Unknown | + + + | Phone | Unavailable | + + + Care Team Providers + +------+ + | Care Residence Leasing Agent Name | Role | Phone [...] KELLI WARD | | | | | [phone] | [phone] | | | | | | [phone] | | | | | | | [...]
--- NOTE | 2019-04-04 10:46 | NUR ---
PATIENT SITTING UP IN BED. VITAL SIGNS AND I&O DONE. CALL LIGHT WITHIN REACH. NO OTHER NEEDS AT THIS TIME
--- NOTE | 2019-04-04 12:33 | NUR ---
PT HAD REQUESTED MAGAZINE. DROPPED OFF ONE AND MADE SURE SHE COULD REACH OTHERS ALREADY IN HER RM SHE DID NOT KNOW WERE THERE. GAVE BLESSING, WILL FOLLOW NEEDED
--- NOTE | 2019-04-04 13:00 | NUR ---
PATIENT SITTING UP IN BED. I&O DONE. CALL LIGHT WITHIN REACH. NO OTHER NEEDS AT THIS TIME
--- NOTE | 2019-04-04 15:41 | NUR ---
PATIENT RESTING IN BED. THIS SCIENTIFIC RESEARCH MANAGER ASKS THE PATIENT THREE TIMES TODAY ABOUT TO TAKE A SHOWER. FINALLY THE PATIENT DECIDED TO TAKE A SHOWER TOMORROW. CALL LIGHT WITHIN REACH. NO OTHER NEEDS AT THIS TIME
--- NOTE | 2019-04-04 18:04 | NUR ---
CHANGED TO SWING BED TODAY FOR STRENGTHENING. PATIENT REPORTED TO RN SHE WANTED TO KNOW WHERE SHE WAS AND WHY SHE WAS HERE THIS AFTERNOON/EVENING. UPDATED HER AND SHE UNDERSTOOD AND WAS GRATEFUL. WORKING WITH PHYSICAL THERAPY ON CONDITIONING. SBA WITH FWW WHEN UP. NEEDS ASSISTANCE WITH STANDING. AUGMENTIN PO CONTINUES.
--- NOTE | 2019-04-04 18:11 | NUR ---
PATIENT SITTING UP IN CHAIR. DAUGHTERS IN ROOM. I&O DONE. PATIENT DID NOT VOID DURING THIS PERIOD EVEN WHEN SHE WAS ENCOURAGE TO USE THE TOILET. RN NOTIFIED. CALL LIGHT WITHIN REACH. COFFEE GIVEN. NO OTHER NEEDS AT THIS TIME
--- NOTE | 2019-04-04 18:33 | NUR ---
CALL LIGHT ANSWERED. PATIENT RESTING IN BED. DAUGHTERS IN ROOM. PATIENT GOES TO USE THE BASE COMMODE. PATIENT USES WALKER. ONE PERSON ASSISTING. LINENS CHANGED. PATIENT BACKS TO BED. CALL LIGHT WITHIN REACH. NO OTHER NEEDS AT THIS TIME
--- NOTE | 2019-04-04 19:41 | NUR ---
REPORT RECEIVED FROM DAY SHIFT RN. PT LYING IN BED, ALERT AND ORIENTED. NO QUESTIONS OR CONCERNS AT THIS TIME. FAMILY IN ROOM. CALL LIGHT IN REACH.
--- NOTE | 2019-04-04 21:00 | NUR ---
ASSESSMENT COMPLETE. EVENING MEDS GIVEN WITHOUT ISSUE. OXYGEN TITRATED FROM 1L/NC TO 2L/NC FOR OXYGEN SATURATIONS OF 88%. PT DENIES SOB, RR EVEN AND UNLABORED. OXYGEN SATS 93%. COFFEE GIVEN PER REQUEST. PT DENIES PAIN. NO FURTHER REQUESTS AT THIS TIME.
--- NOTE | 2019-04-05 01:56 | NUR ---
PT RESTING IN BED WITH EYES CLOSED, RR EVEN AND UNLABORED. OXYGEN 2L/NC IN PLACE. CALL LIGHT IN REACH.
--- NOTE | 2019-04-05 03:38 | NUR ---
PT UP TO BSC WITH FWW AND 1PA TO VOID AND HAVE LOOSE BM. GERALDINE CARE DONE. PT SABRA ACTIVITY WELL. O2 SATS 97%, NO C/O SOB. PT SITTING UP ON THE SIDE OF THE BED AT THIS TIME. CALL LIGHT IN REACH. BED ALARM ON FOR SAFETY.
--- NOTE | 2019-04-05 04:58 | NUR ---
PT SLEPT WELL. CONFUSED AT TIMES. SWING BED STATUS FOR PT/OT. SBA WITH FWW. 2L/NC. NO C/O PAIN. 2GR NA DIET, SABRA WELL. PO ABX.
--- NOTE | 2019-04-05 07:42 | NUR ---
BEDSIDE REPORT RECEIVED FROM FRANCOIS MAGAÑA. WHITE BOARD UPDATED. ALL QUESTIONS ANSWERED. PATIENT AWAKE SITTING AT EDGE OF BED. NO NEEDS AT THIS TIME.
--- NOTE | 2019-04-05 08:27 | NUR ---
PATIENT SITTING UP ON THE EDGE OF THE BED. SETS UP BATHROOM FOR SHOWER. PATIENT SAYS THAT MAYBE SHE WILL TAKE A SHOWER AT ANY TIME OF THE DAY. PATIENT REFUSED TO ORDER BREAKFAST, SHE SAYS "I'M NOT HUNGRY". HANDS AND FACE CLEANED. CALL LIGHT WITHIN REACH. NO OTHER NEEDS AT THIS TIME
--- NOTE | 2019-04-05 09:24 | NUR ---
PATIENT SITTING UP IN BED. VITAL SIGNS AND I&O DONE. PATIENT DID NOT VOID DURING THIS PERIOD EVEN WHEN SHE WAS ENCOURAGE TO USE THE BASE COMMODE. RN NOTIFIED. CALL LIGHT WITHIN REACH. NO OTHER NEEDS AT THIS TIME
--- NOTE | 2019-04-05 10:56 | NUR ---
STOOL IS VERY LOOSE. UNABLE TO ADEQUATELY ASSESS D/T BEING MIXED WITH URINE, BUT WILL KEEP A CLOSE EYE ON THE OUTPUT WITH HAT IN TOILET TO SEPERATE. POOR APPETITE. OFFERED DIFFERENT FOODS THE PATIENT MAY ENJOY.
--- NOTE | 2019-04-05 10:59 | NUR ---
In and spoke with Janet. Discussed TC program and she states she plans on working to get where she can care for self at home. Discussed help from children who live with her and concern they are unwilling to assist her. She states she is aware, as her two children help her and children living in home do not. She states children are having a family meeting.
--- NOTE | 2019-04-05 13:44 | NUR ---
PATIENT SITTING UP IN BED. I&O DONE. CALL LIGHT WITHIN REACH. NO OTHER NEEDS AT THIS TIME
--- NOTE | 2019-04-05 14:35 | NUR ---
PT SITTING ON SIDE OF BED, GRAZING ON LUNCH. PT ADMITTED THAT SHE IS FEELING BETTER, AND REQUESTED PRAYER. WILL FOLLOW NEEDED
--- NOTE | 2019-04-05 15:16 | NUR ---
PT AMBULATED FROM BATHROOM BACK TO BED. STOOD AND WALKED INDEPENDENTLY FROM COMMODE TO BED. CHANGED ALLEVYN DRESSING OVER OPEN AREA ON BUTTOCK.
--- NOTE | 2019-04-05 15:58 | NUR ---
IN TO VISIT WITH PT. SHE STATES UNDERSTANDING OF HER DX AND THAT SHE CAN'T TAKE FULL CARE OF HERSELF AND STATES SHE LIVES WITH HER DAUGHTER AND SON. PT STATES I DO MOST THINGS FOR MYSELF BUT THEY HELP ME SOMETIMES. HER PLAN WHEN SHE GETS STRONGER IS TO RETURN HOME WITH HER DAUGHTER.
--- NOTE | 2019-04-05 16:40 | NUR ---
PT SITTING UP VISITING WITH FAMILY, LAUGHING AND JOKING IN GOOD SPIRITS, SCHEDULED ABX GIVEN, DENIES ANY NEEDS. CALL LIGHT IN EASY REACH.
--- NOTE | 2019-04-05 17:55 | NUR ---
PATIENT SITTING ON EDGE OF BED VISITING WITH DAUGHTER IN ROOM. CALL LIGHT IN REACH. NO FURTHER NEEDS AT THIS TIME.
--- NOTE | 2019-04-05 17:56 | NUR ---
PT HAS HAD LOTS OF FAMILY TODAY, NEEDS LOTS OF ENCOURAGEMENT TO DRINK FLUIDS AND EAT. SHE ATE 25% OF DINNER AND DRANK 100ML OF FLUIDS. ONE PERSON ASSIST TO TRANSFER AND WALK WITH FWW, FATIGUES QUICKLY. ALERT AND PLEASANT TODAY.
--- NOTE | 2019-04-05 19:30 | NUR ---
REPORT RECEIVED FROM DAY SHIFT RN. PT LYING IN BED, ALERT. FAMILY IN ROOM, DAUGHTER AND PT REQUESTING SLEEP AID. NEW ORDERS RECEIVED FROM . O2 2L/NC IN PLACE. PT DENIES OTHER NEEDS AT THIS TIME. CALL LIGHT IN REACH.
--- NOTE | 2019-04-05 21:58 | NUR ---
EVENING ASSESSMENT COMPLETE. PM MEDS GIVEN WITHOUT ISSUE. PRN FOR SLEEP GIVEN PER REQUEST. O2 2L/NC IN PLACE, SATS 92%. NO FURTHER NEEDS AT THIS TIME. CALL LIGHT IN REACH. BED ALARM ON FOR SAFETY.
--- NOTE | 2019-04-05 22:53 | NUR ---
CALL LIGHT ANSWERED. PT UP TO BSC WITH SBA AND FWW TO VOID AND HAVE LOOSE STOOL. BACK TO BED, SABRA WELL. EAR PLUGS GIVEN PER REQUEST. BED ALARM ON, CALL LIGHT IN REACH.
--- NOTE | 2019-04-06 00:09 | NUR ---
PT RESTING IN BED WITH EYES CLOSED, NO APPARENT DISTRESS. O2 PER NC IN PLACE, RR EVEN AND UNLABORED. BED ALARM ON, CALL LIGHT IN REACH.
--- NOTE | 2019-04-06 02:56 | NUR ---
PT RESTING IN BED WITH EYES CLOSED ON LEFT SIDE. RR EVEN AND UNLABORED.
--- NOTE | 2019-04-06 04:13 | NUR ---
CALL LIGHT ANSWERED. PT UP TO BSC WITH SBA AND FWW. GERALDINE CARE DONE. BACK TO BED, SABRA ACTIVITY WELL. CALL LIGHT IN REACH, BED ALARM ON.
--- NOTE | 2019-04-06 04:14 | NUR ---
CALL LIGHT ANSWERED. ASSISTED PATIENT USE THE BEDSIDE COMMODE USING WALKER. PATIENT IS BACK SITTING BY THE BED. PRIMARY RN FRANCOIS WAS IN THE ROOM WITH PATIENT.
--- NOTE | 2019-04-06 04:57 | NUR ---
PT SLEPT WELL. ORIENTED X 3, CAN BE FORGETFUL AT TIMES. SABRA 2 GR NA DIET, PT WITH A POOR APPETITE. SBA TO BR WITH FWW. VOIDING QS. OCCASIONAL LOOSE STOOL. 2L/NC. PT/OT. BED ALARM ON BUT HAS BEEN USING CALL LIGHT APPROPRIATELY.
--- NOTE | 2019-04-06 08:15 | NUR ---
PT IS SITTING UP FOR BREAKFAST, IN GOOD SPIRITS THIS AM, STATES SHE SLEPT MUCH BETTER LAST NIGHT AFTER RECIEVING TRAZADONE, DENIES ANY DISCOMFORT OR CONCERNS, OCCASIONAL LOOSE COUGH, DENIES SOB AT REST. CALL RYLIE IN EASY REACH.
--- NOTE | 2019-04-06 11:00 | NUR ---
PT MOVED TO ROOM 112 FOR A BETTER VIEW, PT STATES SHE IS HAPPY WITH ROOM CHANGE. DENIES ANY NEEDS, LUNCH ORDERED.
--- NOTE | 2019-04-06 12:25 | NUR ---
STATES SHE IS VERY HAPPY WITH NEW ROOM, FAMILY IN TO VISIT, ATE BETTER FOR LUNCH, DENIES ANY NEEDS AT THIS TIME. SCHEDULED ABX GIVEN
--- NOTE | 2019-04-06 14:30 | NUR ---
OFFERED SHOWER TO PT. STATES SHE WOULD TAKE ONE A LITTLE LATER. SHOWER SET UP.
--- NOTE | 2019-04-06 15:00 | NUR ---
offered patient shower, set a plan to have a shower at 1600, patient was in agreeance
--- NOTE | 2019-04-06 15:00 | NUR ---
SQL DATABASE ADMINISTRATOR REPORTS PT DOES NOT WANT TO SHOWER. I SPOKE WITH PT AND SHE WILL TAKE ONE AT 4:00.
--- NOTE | 2019-04-06 15:43 | NUR ---
patient wanted to lay down, this hub inventory specialist reminded patient of shower plan
--- NOTE | 2019-04-06 16:01 | NUR ---
patient says she will shower at 1630, not 1600, patient did not want to change her mind
--- NOTE | 2019-04-06 16:49 | NUR ---
patient took shower with assistance we applied lotion to patients skin
--- NOTE | 2019-04-06 17:59 | NUR ---
PT MOVED TO ROOM 112 FOR BETTER VIEWS, PLEASED WITH NEW ROOM, AGREED TO SHOWER THIS AFTERNOON WITH MUCH COAXING BUT TOLERATED WELL. OXYGEN 2L/NC, OCCASIONAL LOOSE COUGH. CONT. TO BE SOB WITH MUCH EXHERTION. USING CALL LIGHT APPROP. LOTS OF FAMILY VISITING.
--- NOTE | 2019-04-06 19:05 | NUR ---
SHIFT REPORT RECEIVED FROM DAYSHIFT GÓMEZ GONZALEZ AT BEDSIDE. PT RESTING IN BED, RESPIRATIONS EVEN AND UNLABORED. NO DISTRESS NOTED,PT APPEARS COMFORTABLE. CALL LIGHT IN REACH.
--- NOTE | 2019-04-06 22:05 | NUR ---
ASSESSMENT COMPLETE, SCHEDULED MEDS GIVEN (SEE EMAR). VSS, PT ON 2LNC. LUNG SOUNDS CLEAR. PT A/OX4, DENIES PAIN OR NAUSEA. GLOBAL ACCOUNT EXECUTIVE JULY IN ROOM TO ASSIST PT WITH BSC VOID. NO FURTHER NEEDS VERBALIZED, CALL LIGHT IN REACH.
--- NOTE | 2019-04-06 22:18 | NUR ---
VITALS AND I&OS DONE AND CHARTED. HELPED PT TO THE BSC AND BACK TO BED WITH FWW. BEDSIDE TABLE AND CALL LIGHT IN REACH.
--- NOTE | 2019-04-06 23:31 | NUR ---
PT RESTING IN BED, DENIES NEEDS AT THIS TIME. CALL LIGHT IN REACH.
--- NOTE | 2019-04-07 01:19 | NUR ---
PT AWAKE AND WATCHING TELEVISION, DENIES NEEDS. CALL LIGHT IN EASY REACH.
--- NOTE | 2019-04-07 04:23 | NUR ---
PT AWAKE AND WATCHING TELEVISION, 2LNC IN PLACE. PT ASKING ABOUT COFFEE, FRESH POT BREWING. NO ADDITIOANL NEEDS, CALL LIGHT IN REACH.
--- NOTE | 2019-04-07 04:54 | NUR ---
FRESH COFFEE PROVIDED PER PT REQUEST, NO FURTHER NEEDS. CALL LIGHT IN REACH.
--- NOTE | 2019-04-07 06:00 | NUR ---
PT HAD UNEVENTFUL NIGHT, SLEPT ON AND OFF THIS SHIFT. VSS, PT ON 2LNC. DENIED PAIN. A/O, SBA WITH FWW. 2G SODIUM DIET, TOLERATING WELL. NO NAUSEA, BOWEL TONES ACTIVE. NO BM, VOIDING QS. SWING BED, USES CALL LIGHT APPROPERIATELY.
--- NOTE | 2019-04-07 07:47 | NUR ---
ODERED PATIENT'S BREAKFAST. PATIENT IS SITTING ON THE EDGED OF HER BED. ASKED HER IF SHE WOULD LIKE TO BRUSH HER TEETH OR WASH HER FACE AND SHE SAID SHE IS FINE.
--- NOTE | 2019-04-07 07:50 | NUR ---
PT STATES SHE SLEPT BETTER IN NEW ROOM, ASKED FOR CUP OF COFFEE, SCHEDULED MEDS TAKEN, DENIES ANY NEEDS OR CONCERNS, CALL LIGHT IN EASY REACH.
--- NOTE | 2019-04-07 10:20 | NUR ---
ATE 90% OF BREAKFAST, STATES SHE IS COMFORTABLE SITTING UP IN RECLINER, WARM BLANKET FOR COMFORT, WATCHING TV.
--- NOTE | 2019-04-07 10:50 | NUR ---
VISITED WITH PT THIS AM TALKED TO HER REGARDING THE MEDS SHE IS TAKING WHILE SHE IS HERE. PT STATES SHE IS NOT TAKING ANY MEDS/INHALERS/OR NEBULIZERS AT HOME. SHE DOES USE O2 AT NIGHT. PT STATES SHE IS FINE WITH THE MEDS SHE IS TAKING WHILE SHE IS IN THE HOSPITAL. STATES "I HEAR WHAT YOU ARE SAYING AND IT IS WHATEVER IT WILL BE.
--- NOTE | 2019-04-07 11:02 | NUR ---
IDT completed and goals updated with pt from team. Pt. working towards goal of walking 300 ft with pt and self care with OT. I have spoken with daughter [place] and son Tobi about pt's concerns of more help at home. She has two children living in the home, but they don't assist her. [place] shea Tobi has discussed hiring help and plan on having a family meeting to request children living in the home for free provide Janet with increased assistance.
--- NOTE | 2019-04-07 13:15 | NUR ---
SWING BED REVIEW. NO NEEDS.
--- NOTE | 2019-04-07 14:54 | NUR ---
PT IS RESTING QUIETLY ON BED, APPEARS COMFORTABLE, DAUGHTER STOPPED IN TO VISIT BUT DID NOT WANT TO WAKE HER, CALL LIGHT IN EASY REACH.
--- NOTE | 2019-04-07 16:13 | NUR ---
PT AWAKE AND WORKING WITH PT, WALKING IN HALLWAY, MOTIVATED AND IN GOOD SPIRITS.
--- NOTE | 2019-04-07 18:12 | NUR ---
AMBULATE IN GEORGE WITH PT, MOTIVATED AND WORKED WELL WITH OT, APPETITE A LITTLE BETTER TODAY, FLUIDS ENCOURAGED. FAMILY IN TO VISIT. NO COMPLAINTS.
--- NOTE | 2019-04-07 19:00 | NUR ---
SHIFT REPORT RECEIVED FROM DAYSKYFT GÓMEZ GONZALEZ AT BEDSIDE. PT AWAKE AND RESTING IN BED, DAUGHTER IN ROOM. 2LNC IN PLACE, PT REPORTS NEED TO VOID. MIRNA BAXTER IN ROOM WITH PT.
--- NOTE | 2019-04-07 20:35 | NUR ---
ASSESSMENT COMPLETE, SCHEDULED MEDS GIVEN (SEE EMAR). PT A/O TO SELF, PLACE, AND EVENTS. REORIENTED TO DATE. VSS, PT ON 2LNC. INTERMITTENT COUGHING NOTED, PT UNAWARE OF COLOR OF SPUTUM, STATES, "IF I HAD TO GUESS GREEN". RT IN ROOM FOR SCHEDULED BREATHING TREATMENT. LUNG SOUNDS DIMINISHED, PT DENIES CHEST PAIN OR SOB AT THIS TIME. NO FURTHER NEEDS, PT WATCHING TELEVISION AND RESTING IN BED. CALL LIGHT IN REACH.
--- NOTE | 2019-04-08 00:03 | NUR ---
PT AWAKE AND WATCHING TELEVISION. ASSISTANCE PROVIDED TO SIT AT EDGE OF BED, DENIES FURTHER NEEDS. CALL LIGHT IN REACH.
--- NOTE | 2019-04-08 01:24 | NUR ---
PT UP SBA WITH FWW TO VOID, BM AND UNMEASURED VOID NOTED. PT ASSISTED BACK TO BED AND REPOSITIONED IN BED. PT WIDE AWAKE AND VERBALIZES INABILITY TO FALL ASLEEP, PRN TRAZADONE ADMINISTERED. 2LNC IN PLACE, PT DENIES FURTHER NEEDS. PT A/O, BUT FORGETFUL. BED ALARM ON FOR SAFETY. CALL LIGHT IN REACH.
--- NOTE | 2019-04-08 03:38 | NUR ---
PT RESTING IN BED, EYES CLOSED AND APPEARS TO BE SLEEPING. 2LNC IN PLACE, RESPIRATIONS EVEN AND UNLABORED. HOB ELEVATED. CALL LIGHT IN EASY REACH.
--- NOTE | 2019-04-08 04:48 | NUR ---
PT HAD AN UNEVENTFUL NIGHT, DIFFICULTY FALLING ASLEEP. RESOLVED WITH TRAZADONE. VSS, 2LNC. PT A/O, FORGETFUL AT TIMES. DENIED PAIN, BED ALARM ON FOR SAFETY. 1PA WITH FWW. 2G SODIUM DIET, TOLERATING WELL, NO NAUSEA.
--- NOTE | 2019-04-08 07:25 | NUR ---
RECIEVED BEDSIDE REPORT FROM GÓMEZ WALKER. PT SLEEPING SOUNDLY, APPEARS COMFORTABLE AT THIS TIME. O2 IN PLACE AT 2L.
--- NOTE | 2019-04-08 08:52 | NUR ---
PT ATE BREAKFAST SITTING ON SIDE OF BED. STATES SHE IS "FREEZING". RN TURNED UP THE HEAT AND GOT HER A WARM BLANKET. PLEASANT AND COOPERATIVE WITH CARE. CALL LIGHT IN REACH.
--- NOTE | 2019-04-08 10:30 | NUR ---
SPOKE WITH PATIENT. SHE FEELS SHE IS MAKING STRIDES WITH AMBULATION AND STRENGTH. SHE HAS NO QUESTIONS TODAY. SHE STATES SHE IS GLAD TO STAY LONGER TO BE SAFE TO GO HOME.
--- NOTE | 2019-04-08 10:34 | NUR ---
PT UP WALKING WITH PHYSICAL THERAPY. NEEDED TO REST AT NURSES STATION, OTHERWISE TOLERATED WELL.
--- NOTE | 2019-04-08 11:12 | NUR ---
PT UP AMBULATING WITH Renny MCGILL. PT RESTED A BIT AT RN'S STATION. JOKED ABOUT P.T. AND WAS OFF AGAIN. WILL FOLLOW NEEDED
--- NOTE | 2019-04-08 11:54 | NUR ---
PATIENT SAID SHE DIDN'T WANT TO TAKE A SHOWER RIGHT NOW SHE WANTED TO TAKE A NAP. BUT I DID SET HER SHOWER UP.
--- NOTE | 2019-04-08 16:11 | NUR ---
PT IS RESTING IN BED. NO COMPLAINTS AT THIS TIME. WORKED WITH PT/OT.
--- NOTE | 2019-04-08 16:30 | NUR ---
I HELPED PATIENT TAKE A SHOWER. WASHED HER HAIR. ASKED FOR 2 WARM BLANKETS. NOW HER DAUGHTER AND GRAND DAUGHTER ARE VISITING. PATIENT IS ALSO SITTING ON THE SIDE OF HER BED WITH A WARM BLANKET ON ALSO HER DAUGHTER COMBED HER HAIR.
--- NOTE | 2019-04-08 19:56 | NUR ---
awake, watching tv. O2 @l NC moist productive cough present. Maalax given per c/o upset stomach, denies N/V. On swing bed status. tolerating diet and fluids well. Coop with assessment, bruised arms healing
--- NOTE | 2019-04-08 20:13 | NUR ---
Patient was a wake RN and URBAN GARDENING SPECIALIST took vitals fresh water was given and call light in reach.
--- NOTE | 2019-04-08 21:57 | NUR ---
CHARGE RNR ROUNDING NOTE. PT RESTING IN BED WITH EYES CLOSED, APPEARS TO BE SLEEPING. DOES NOT WAKE WHILE INTELLIGENCE INTERN IN DOORWAY. CALL LIGHT IN REACH. WHITE BOARD UPDATED.
--- NOTE | 2019-04-09 00:04 | NUR ---
resting, no distress, O2 2L NC in place.
--- NOTE | 2019-04-09 02:46 | NUR ---
Resting, no distress. O2 @L NC in place, turns self in bed
--- NOTE | 2019-04-09 05:38 | NUR ---
continues on transitional care/swing bed program, has slept all night, no c/opain. O2 chronic use 2L NC. no resp distress. lungs with inspiratory wheezing on R side auscultated. denies sob,Up to br with 1pa and fww, calllight at bedside, toleratingdiet and fluids. Forgetful at times, cooperative
--- NOTE | 2019-04-09 07:24 | NUR ---
RECIEVED REPORT FROM GÓMEZ RIVAS. PT IS AWAKE IN BED, HAS COFFEE AND WATER AT BEDSIDE. RT IN ROOM FOR NEB TREATMENT. DENIES PAIN. CHRONIC O2 AT 2L. TOLERATING WELL.
--- NOTE | 2019-04-09 07:51 | NUR ---
PATIENT SITTING ON EDGE OF BED WAITING FOR BREAKFAST. CALL LIGHT IN REACH. NO FURTHER NEEDS AT THIS TIME.
--- NOTE | 2019-04-09 10:13 | NUR ---
PATIENT SITTING ON EDGE OF BED TALKING TO DAUGHTER IN ROOM. PATIENT REFUSED SHOWER. CALL LIGHT IN REACH. NO FURTHER NEEDS AT THIS TIME.
--- NOTE | 2019-04-09 10:29 | NUR ---
PT HAS NOT VOIDED. REMINDED PT TO KEEP DRINKING FLUIDS.
--- NOTE | 2019-04-09 14:24 | NUR ---
PATIENT IN BED RESTING WITH EYES CLOSED. CALL LIGHT IN REACH. NO FURTHER NEEDS AT THIS TIME. PATIENT HAS NOT EATEN LUNCH
--- NOTE | 2019-04-09 17:58 | NUR ---
PT IS IN BED, WATCHING TV. STATES SHE HAS NO NEEDS AT THIS TIME. CALL LIGHT IN REACH. DINNER HAS BEEN DELIVERED.
--- NOTE | 2019-04-09 20:34 | NUR ---
up to edge of bed, coop with assessment. O2 2L NC chronic. Exp crackles auscultated, bilat.
--- NOTE | 2019-04-09 23:00 | NUR ---
Awake,watching tv, no c/o pain. O2 2l nc inplace, call light and flufis at bedside
--- NOTE | 2019-04-10 02:00 | NUR ---
Resting, eyes closed, O22LNC, resp even, unlabored. Turns self in bed, Call light and fluids at bedside
--- NOTE | 2019-04-10 05:35 | NUR ---
Pt continues on Transition care/swing bed status. 1PSBA/FWW. Chronic O22LNC. continues to have moist hacky productive cough of gree-yellow thick oral drainage. denies sob with exertion. No c/o pain. tolerating diet and fluids well, no n/v. L sided weakness, no c/o cp. using call light appropriately. Oriented to self and situation.
--- NOTE | 2019-04-10 07:05 | NUR ---
REPORT RECEIVED FOR MATH AND PHYSICS INSTRUCTOR RN. PT IN BED CALL LIGHT IN REACH.
--- NOTE | 2019-04-10 08:54 | NUR ---
PT OUT AMBULATING HALLS WITH PHYSICAL THERAPY.
--- NOTE | 2019-04-10 09:00 | NUR ---
DR ZEPEDA TO BEDSIDE FOR ROUNDING. PT REPORTING CONGESTED COUGH. NEW ORDERS RECIEVED. ASSISTED PT TO CHAIR. CHANGED LINENS. PT DENIES PAIN. BREAKFAST ON BEDISIDE TABLE. CALL LIGHT AND PERSONAL ITEMS WITHIN REACH. PT REFUSED SHOWER AND MORNING CARES. 2L NC IN PLACE.
--- NOTE | 2019-04-10 10:12 | NUR ---
SBA TO BATHROOM. VOIDED 300ML THEN BACK TO BED PER PT REQUEST. CALL LIGHT AND PERSONAL ITEMS WITHIN REACH. ACAPPELLA EDUCATION COMPLETED. MUSINEX ADMINSTERED. DENIES FURTHER NEEDS.
--- NOTE | 2019-04-10 14:00 | NUR ---
PT IN BED WATCHING TV. FAMILY AT BEDISDE. DENIES NEEDS. CALL LIGHT IN REACH./ 2L NC IN PLACE.
--- NOTE | 2019-04-10 17:00 | NUR ---
PT ATE 5% OF DINNER. SAY'S "IM NOT HUNGRY". CALL [facility]. NO FURTHER NEEDS. WATER REFRESHED.
--- NOTE | 2019-04-10 19:10 | NUR ---
REPORT RECEIVED FROM OFFGOING GÓMEZ CHEUNG.
--- NOTE | 2019-04-10 21:13 | NUR ---
PT ASSESSMENT COMPLETE. PT DENIES PAIN OR NAUSEA. REPORTS SLIGHT SOB. LUNG SOUNDS WITH RHONIC TO ALL LUNG MORE. PT REPORTS PRODUCTIVE COUGH. RHONCI DO NOT CLEAR WITH COUGH. O2 PRESENT @ 2LPM VIA NC. PT HAS ALLEVYN FOAM TO R BUTTOCK. STAGE II BREAKDOWN PRESENT TO COCCYX/ GLUTEAL CLEFT, VOICE STUDIES DIRECTOR. PT UP TO BS WITH FWW, RN CLINICAL DOCUMENTATION SPECIALIST ASSISTANCE. PT WATCHING TV, DISCUSSING POLITICS. RN CLINICAL DOCUMENTATION SPECIALIST CONTINUES IN ROOM WITH PT THIS SHIP'S ELECTRONIC WARFARE OFFICER LEAVING. PT DENIES FURTHER NEEDS AT THIS TIME.
--- NOTE | 2019-04-10 23:51 | NUR ---
pt resting in bed with eyes closed. respirations even and unlabored. pt does not wake while policy writer at doorway. call light in reach.
--- NOTE | 2019-04-11 03:58 | NUR ---
PT FOUND SITTING AT EDGE OF BED. PT DENIES C/O OR NEEDS AT THIS TIME. JUST WANTED TO SIT AT BEDSIDE. PT COVERED WITH HER BATHROBE PER REQUEST. DENIES FURTHER NEEDS AT THIS TIME. CALL LIGHT IN REACH, PT AGREES TO USE FOR NEEDS.
--- NOTE | 2019-04-11 05:52 | NUR ---
PT SITTING ON EDGE OF BED. STATES THAT SHE IS DOING WELL. DENIES NEEDS. CALL LIGHT IN REACH.
--- NOTE | 2019-04-11 06:20 | NUR ---
ASSISTED PATIENT FROM BEDSIDE COMMODE TO SITTING BY EDGE OF THE BED. CUP OF COFFEE PROVIDED. CALL LIGHT IN REACH.
--- NOTE | 2019-04-11 07:20 | NUR ---
REPORT RECEIVED FROM GÓMEZ ALMAGUER. PT AWAKE AND SITTING ON SIDE OF BED. ROBE PLACED BACK ON SHOULDERS. CALL LIGHT IN REACH, DENIES CONCERS ATT.
--- NOTE | 2019-04-11 08:33 | NUR ---
PT SITTING ON SIDE OF BED. ATE HALF OF BREAKFAST AND STATES SHE DOESNT HAVE MUCH APPETITE. PT HAD PRODUCTIVE COUGH EPISODE. LUNGS COARSE AND DIM THROUGHOUT.
--- NOTE | 2019-04-11 08:55 | NUR ---
PATIENT RESTING IN BED. STATES SHE HAD A GOOD WEEKEND. STATES SHE FEELS TIRED THIS MORNING BUT HOPES TO GET UP AND AROUND AND THAT MIGHT HELP. NO QUESTIONS AT THIS TIME.
--- NOTE | 2019-04-11 09:22 | NUR ---
PATIENT SITTING ON SIDE OF BED FOR BREAKFAST AND NOW BACK IN BED WATCHING TV. CALL LIGHT IN REACH. NO FURTHER NEEDS AT THIS TIME. PATIENT REFUSED SHOWER WILL CHECK BACK IN LATER.
--- NOTE | 2019-04-11 12:43 | NUR ---
WOKE PT FOR LUNCH ORDER. PT STATES HER NAP WAS GOOD. ADMINSTERED SENNA. FAMILY NOW IN ROOM.
--- NOTE | 2019-04-11 13:35 | NUR ---
PATIENT SITTING ON EDGE OF BED. CALL LIGHT IN REACH. NO FURTHER NEEDS AT THIS TIME.
--- NOTE | 2019-04-11 15:42 | NUR ---
PT SITTING UP ON SIDE OF BED WATCHING TV. WALKED WITH PHYS THERAPY EARLIER. TOOK SEVERAL BREAKS BUT MADE IT AROUND.
--- NOTE | 2019-04-11 18:13 | NUR ---
PT DECLINED TO ORDER DINNER, STATES THAT LUNCH FILLED HER UP. GIVEN WARM BLANKET AND TUCKED IN. CALL LIGHT IN REACH.
--- NOTE | 2019-04-11 18:21 | NUR ---
PATIENT IN BED RESTING WITH EYES CLOSED. CALL LIGHT IN REACH. NO FURTHER NEEDS AT THIS TIME.
--- NOTE | 2019-04-11 21:49 | NUR ---
PT RESTING IN BED AWAKE. RT IN ROOM ADMINISTERING NEB TREATMENT. PT DENIES PAIN, NAUSEA, OR SOB. O2 IN PLACE @ 2 LPM. LUNG SOUNDS WITH RHONCI THROUGHOUT, DO NOT CLEAR WITH COUGH. PT REPORTS OCCASIONAL MUCOUS PRODUCTION WITH COUGH. PT DEMONSTRATES ACAPELLA USE APPROPRIATELY. PT DENIES FURTHER NEEDS AT THIS TIME. CALL LIGHT IN REACH.
--- NOTE | 2019-04-11 22:37 | NUR ---
PT RESTING IN BED WITH EYES CLOSED. RESPIRATIONS EVEN AND UNLABORED. PT APPEARS TO BE SLEEPING. CALL LIGHT IN REACH.
--- NOTE | 2019-04-12 01:37 | NUR ---
PT SITTING AT EDGE OF BED. STATES SHOULD LIKE HELP USING THE BSC. PT UP TO BSC WITH FWW AND 1PA. TOLERATED WELL. WILL USE CALL LIGHT WHEN SHE IS FINISHED FOR ASSISTANCE BACK TO BED. CALL LIGHT IN REACH.
--- NOTE | 2019-04-12 02:09 | NUR ---
CALL LIGHT ANSWERED. HELPED PATIENT FROM BEDSIDE COMMODE TO SITTING BY THE EDGE OF THE BED. PATIENT WANTS TO SIT THERE FOR A WHILE. COFFEE PROVIDED PER PATIENT'S REQUEST. CALL LIGHT IN REACH.
--- NOTE | 2019-04-12 03:53 | NUR ---
PT SITTING UP AT EDGE OF BED, STATES THAT SHE IS READY TO LAY BACK DOWN. PT ASSISTED TO SWING HER LEGS INTO BED AND COVER UP. CALL LIGHT AND PERSONAL CARE ITEMS PLACED WITHIN PT'S REACH. PT DENIES FURTHER NEEDS AT THIS TIME.
--- NOTE | 2019-04-12 08:12 | NUR ---
PATIENT UP TO BATHROOM, 1PA FWW. CALL LIGHT IN REACH. NO FURTHER NEEDS AT THIS TIME.
--- NOTE | 2019-04-12 09:45 | NUR ---
PT SITTING UP AT EDGE OF BED HAVING FINISHED BREAKFAST. DENIES PAIN, SOB, OR OTHER NEEDS OR CONCERNS AT THIS TIME. ALERT AND ORIENTED CURRENTLY. CALL LIGHT WITHIN REACH.
--- NOTE | 2019-04-12 10:13 | NUR ---
PATIENT IN BED WATCHING TV. CALL LIGHT IN REACH. NO FURTHER NEEDS AT THIS TIME.
--- NOTE | 2019-04-12 12:25 | NUR ---
PT SITTING USUAL ON THE SIDE OF THE BED, EATING LUNCH. SHE IS ALERT, ORIENTED AND FEELING BETTER. HAD GOOD VISIT, LET HER FINISH HER LUNCH. EXTENDED A BLESSING, WILL FOLLOW NEEDED
--- NOTE | 2019-04-12 12:31 | NUR ---
PT SITTING UP AT EDGE OF BED EATING LUNCH. DENIES NEEDS OR CONCERNS AT THIS TIME. CALL LIGHT WITHIN REACH.
--- NOTE | 2019-04-12 13:25 | NUR ---
PATIENT SITTING ON EDGE OF BED. CALL LIGHT IN REACH. NO FURTHER NEEDS AT THIS TIME.
--- NOTE | 2019-04-12 15:10 | NUR ---
PT SITTING UP IN BED WATCHING TV. DENIES NEEDS OR CONCERNS AT THIS TIME. CALL LIGHT WITHIN REACH.
--- NOTE | 2019-04-12 15:14 | NUR ---
In and spoke with Janet. States she is doing very well. Feels she is becoming stonger. States she still needs to take breaks when walking. Reviewed goal of getting to bathroom without assist and abiltiy to cleanse self. Pt feels she is able to do this. Discussed plan for possible dc on Thursday. Pt is wanting to go when able.
--- NOTE | 2019-04-12 17:52 | NUR ---
PATIENT SITTING ON EDGE OF BED TALKING TO VISITOR. PATIENT HAS LOW VOID AMOUNT, RN NOTIFIED. CALL LIGHT IN REACH. NO FURTHER NEEDS AT THIS TIME.
--- NOTE | 2019-04-12 18:05 | NUR ---
PT SITTING AT EDGE OF BED EATING DINNER. VISITOR AT BEDSIDE. DENIES NEEDS OR CONCERNS. CALL LIGHT WITHIN REACH.
--- NOTE | 2019-04-12 19:56 | NUR ---
PATIENT RESTING QUIETLY IN BED AND HAS NO NEEDS AT THIS TIME. WATCHING TV. CALL LIGHT IN REACH.
--- NOTE | 2019-04-12 21:57 | NUR ---
PATIENT RESTING QUIETLY AT THIS TIME, EYES CLOSED, RESPIRATIONS REGULAR, BUT COARSE COUGH. ON 2L/NC CHRONIC. CALL LIGHT IN REACH.
--- NOTE | 2019-04-12 23:09 | NUR ---
PATIENT RESTING QUIETLY ON HER LEFT SIDE ON HER 2L/NC, EYES CLOSED AND RESPIRATIONS REGULAR AND EVEN. CALL LIGHT IN REACH.
--- NOTE | 2019-04-13 01:15 | NUR ---
PATIENT RESTING QUIETLY, EQUAL AND REGULAR RESPIRATIONS, EYES CLOSED, CALL LIGHT IN REACH.
--- NOTE | 2019-04-13 03:21 | NUR ---
PATIENT CONTINUES TO REST QUIETLY ON 2L/NC, RESPIRATIONS REGULAR WITH A COARSE COUGH AT TIMES. CALL LIGHT IN REACH AND EYES CLOSED.
--- NOTE | 2019-04-13 05:30 | NUR ---
PATIENT STILL RESTING QUIETLY, PATIENT ASKED IF SHE NEEDED TO GO TO THE RESTROOM AND SHE SAID AFTER AWHILE. CALL LIGHT IN REACH.
--- NOTE | 2019-04-13 06:34 | NUR ---
PATIENT FINALLY UP TO THE RESTROOM WITH SINTA BUSINESS DEVELOPER TO VOID. PATIENT SLEPT WELL MOST THE NIGHT AND DID NOT DRINK ANYTHING. REMAINS ON 2L/NC.
--- NOTE | 2019-04-13 06:40 | NUR ---
ASSISTED PATIENT TO THE BATHROOM. PATIENT IS BACK SITTING BY THE EDGE OF THE BED. COFFEE PROVIDED. CALL LIGHT IN REACH. PRIMARY RN SOTERO NOTIFIED.
--- NOTE | 2019-04-13 07:34 | NUR ---
REPORT RECIEVED FROM PODIATRIST ORTHOPEDIC NURSE SOTERO
--- NOTE | 2019-04-13 08:46 | NUR ---
MORNING ASSESSMENT AND MEDICATIONS GIVEN. PATIENT SITTING AT BEDSIDE, DONE WITH BREAKFAST. PATIENT GIVEN MORNING NEWSPAPER, DENIES OTHER NEEDS AT THIS TIME.
--- NOTE | 2019-04-13 10:44 | NUR ---
PATIENT WORKING WITH OCCUPATIONAL THERAPY, DENIES NEEDS AT THIS TIME.
--- NOTE | 2019-04-13 12:27 | NUR ---
Called and left messages for patient's children, Tobi Ramires and Neelam requesting meeting with family to attend IDT tomorrow at 0900.
--- NOTE | 2019-04-13 13:32 | NUR ---
PT SITTING ON SIDE OF BED-HER USUAL SPOT. SHE HAD JUST FINISHED SOME PERSONAL GROOMING AND WAS WATCHING TV. HAD PLEASANT VISIT, PT SEEMS TO FEEL A LITTLE BETTER EACH DAY. GAVE BLESSING, WILL FOLLOW NEEDED
--- NOTE | 2019-04-13 13:49 | NUR ---
PATIENT SITTING UP AT BEDSIDE, DENIES NEEDS.
--- NOTE | 2019-04-13 17:03 | NUR ---
PATIENT SITTING AT BEDSIDE, DENIES NEEDS.
--- NOTE | 2019-04-13 17:53 | NUR ---
PATIENT CONTINUES ON SWING BED, PT AND OT.
--- NOTE | 2019-04-13 18:08 | NUR ---
PATIENT SITTING UP ON THE EDGE OF THE BED. I&O DONE. PATIENT DID NOT VOID DURING THIS PERIOD EVEN WHEN SHE WAS ENCOURAGE TO USE THE TOILET. RN NOTIFIED. CALL LIGHT WITHIN REACH. NO OTHER NEEDS AT THIS TIME
--- NOTE | 2019-04-13 18:46 | NUR ---
patient up to bathroom. urine dark. alum plant operator talked to patient and encouraged her to drink more fluids. RN Stefanie notified. Patients daughter in room visiting fresh ice water and soda given. call button in reach. no other needs at this time.
--- NOTE | 2019-04-13 19:52 | NUR ---
PATIENT IN BED WATCHING TV. NO NEEDS AT THIS TIME. CALL LIGHT IN REACH.
--- NOTE | 2019-04-13 21:16 | NUR ---
ROUNDED CHARGE. PATIENT IS RESTING IN BED. PATIENT DENIES ANY COMMENTS, QUESTIONS OR CONCERNS. NO NEEDS NOTED. CALL LIGHT IN REACH.
--- NOTE | 2019-04-13 22:15 | NUR ---
PATIENT'S SYSTOLIC BLOOD PRESSURE BELOW 95 PER NIBP AND MANUAL CHECKS, WAS CALLED AND ORDER WAS GIVEN TO GIVE 50MG OF THE NIGHTLY TOPROL XL INSTEAD OF THE WHOLE 75MG HER HEART RATE WAS STILL OVER 100. THIS WAS GIVEN AND PATIENT IS GOING TO SLEEP NOW. CALL LIGHT IN REACH
--- NOTE | 2019-04-14 00:28 | NUR ---
PATIENT RESTING QUIETLY IN BED, LIGHTS OUT, RESPIRATIONS REGULAR AND EVEN, REMAINS ON 2L/NC. CALL LIGHT IN REACH.
--- NOTE | 2019-04-14 02:35 | NUR ---
PATIENT RESTING QUIETLY ON 2L/NC, RESPIRATIONS ARE REGULAR AND EVEN, EYES CLOSED, CALL LIGHT IN REACH.
--- NOTE | 2019-04-14 04:21 | NUR ---
PATIENT UP TO THE BEDSIDE COMMODE BY REQUEST. VOIDED 700MLS AND HAD A SMALL BM. PATIENT HAS NO C/O PAIN AND NOW DRINKING A FRESH CUP OF COFFEE. CALL LIGHT IN REACH.
--- NOTE | 2019-04-14 05:14 | NUR ---
PATIENT SLEPT MOST OF THE NIGHT UP UNTIL 4AM AND GOT UP AND USED THE BEDSIDE COMMODE AND ASKED FOR A CUP OF COFFEE. PATIENT HAS VOIDED QUANTITY SUFFICIENT, IS FINALLY COUGH UP SOME STRINGY YELLOW MUCUS. REMAINS ON HER CHRONIC 2L/NC. LUNGS STILL SOUND JUNKY AND SHE HAS A COARSE COUGH. PATIENT'S CALL LIGHT IS IN REACH AND SHE HAS HAD NO PAIN.
--- NOTE | 2019-04-14 07:00 | NUR ---
BEDSIDE HANDOFF REPORT RECEIVED FROM SUPERVISOR LINE DEPARTMENT RN. PT SLEEPING, LEFT UNDSITURBED.
--- NOTE | 2019-04-14 08:20 | NUR ---
PT SITTING ON EDGE OF BED, EATING BREAKFAST. PT ON 2L NC, LUNG SOUNDS DIMINISHED WITH EXPIRATORY WHEEZE. PT DENIES PAIN. WITHOUT IV ACCESS. CMS INTACT, WITHOUT EDEMA. DISCUSS PLAN OF CARE FOR THE DAY. PT DENIES OTHER NEEDS AT THIS TIME.
--- NOTE | 2019-04-14 09:00 | NUR ---
Met with Janet and her children-Tobi, Neelam, and Ike during IDT. Pt is near to meeting goals, but has not quite met at this time. Family have ordered lift chair, ramp, and are setting up paid cg. These are not in place yet, but pcg will hopefully be in place by Thursday. Therapies states their goals, and Pharm and family stated concerns with medication management, high risk of falls. Plan for dc on Thursday has now changed to reeval on Thursday and possible DC on Thu.
--- NOTE | 2019-04-14 11:30 | NUR ---
PT RESTIGN QUIETLY IN BED, LEFT UNDISTURBED.
--- NOTE | 2019-04-14 14:15 | NUR ---
PATIENT IS SLEEPING. REAL CHECK BACK TO GET HER INTO THE SHOWER.
--- NOTE | 2019-04-14 15:45 | NUR ---
PT SHOWERED, DRESSING TO RIGHT BUTTOCK CHANGE, WOUND WITH PEELING SCABS, WITHOUT REDNESS OR DRAINAGE.
--- NOTE | 2019-04-14 18:20 | NUR ---
PT SITTING ON EDGE OF BED, EATING DINNER. PT DENIES OTHER NEEDS AT THIS TIME.
--- NOTE | 2019-04-14 18:38 | NUR ---
PT SBA TO AMBULATE WITH FWW. PT WORKED WITH OT/PT, SHOWERED TODAY. ALLEVYN DRESSING TO RIGHT BUTTOCK CHANGED, WOUND HEALING WELL. PT ON 2L NC, SCHEDULED NEBS, LUNG SOUNDS DIMINISHED WITH EXPIRATORY WHEEZE.
--- NOTE | 2019-04-14 20:29 | NUR ---
PATIENT READY FOR BED, ICE WATER FILLED, PATIENT HAVING NO PAIN, LIGHTS TURNED OFF, CALL LIGHT IN REACH.
--- NOTE | 2019-04-14 22:55 | NUR ---
PATIENT RESTING QUIETLY, RESPIRATIONS REGULAR AND EVEN ON HER 2L/NC. EYES CLOSED, CALL LIGHT AND WATER IN REACH.
--- NOTE | 2019-04-15 01:01 | NUR ---
PATIENT RESTING ON HER LEFT SIDE STILL ON HER 2L/NC AND CALL LIGHT IS IN REACH, EYES ARE CLOSED.
--- NOTE | 2019-04-15 03:19 | NUR ---
PATIENT RESTING ON HER RIGHT SIDE WITH HER 2L/NC ON AND RESPIRATIONS ARE REGULAR AND EQUAL. EYES ARE CLOSED. CALL LIGHT AND WATER GLASS ARE IN REACH.
--- NOTE | 2019-04-15 05:32 | NUR ---
PATIENT HAS REST ALL NIGHT, MAINLY ON HER LEFT SIDE WITH EYES CLOSED, RESPIRATIONS REGULAR AND EVEN ON 2L/NC, AND NO C/O PAIN. CALL LIGHT AND WATER GLASS WITHIN REACH.
--- NOTE | 2019-04-15 08:16 | NUR ---
DENIES ANY CONCERNS OR NEEDS, ATE 100% OF BREAKFAST, IN GOOD SPIRITS. CALL LIGHT IN EASY REACH.
--- NOTE | 2019-04-15 10:54 | NUR ---
MOTIVATED TO WORK WITH PT, AMBULATED LOOP AROUND NURSES STATION USING FWW. DENIES ANY NEEDS.
--- NOTE | 2019-04-15 13:53 | NUR ---
SITTING ON EDGE OF BED, READING NEWSPAPER, DENIES ANY NEEDS, NO DISCOMFORT, CALL LIGHT IN EASY REACH.
--- NOTE | 2019-04-15 15:41 | NUR ---
In to speak with pt, sleeping sound. Received Rx for nebulizer and will send to [facility] in preparation for discharge on Thursday.
--- NOTE | 2019-04-15 17:56 | NUR ---
ALERT AND IN GOOD SPIRITS TODAY, AMBULATED IN HALLWAY USING FWW WITH AND SBA. GOOD APPETITE. FAMILY IN TO VISIT, NO COMPLAINTS OR CONCERNS.
--- NOTE | 2019-04-15 19:18 | NUR ---
SHIFT REPORT RECIEVED FROM LISA MAGAÑA. PT REPORTS NO PAIN OR NEEDS. CALL LIGHT IN REACH.
--- NOTE | 2019-04-15 21:12 | NUR ---
PT ASSESSMENT, VS AND I&O COMPLETED. SCHEDULED MEDS PROVIDED. PRN TRAZADONE AND GI UPSET MEDS PROVIDED. ICE WATER PROVIDED. NO OTHER NEEDS. CALL LIGHT IN REACH.
--- NOTE | 2019-04-16 00:01 | NUR ---
PT RESTING IN BED, EYES CLOSED. RR 14, EVEN, UNLABORED. CALL LIGHT IN REACH.
--- NOTE | 2019-04-16 01:55 | NUR ---
PT AWAKE IN ROOM. PT ASKS FOR COFFEE, COFFEE PROVIDED. NO OTHER NEEDS. CALL LIGHT IN REACH.
--- NOTE | 2019-04-16 04:13 | NUR ---
PT AWAKE IN ROOM. PT STATES SHE IS GOING BACK TO SLEEP. NO NEEDS AT THIS TIME. CALL LIGHT IN REACH.
--- NOTE | 2019-04-16 05:00 | NUR ---
PT SLEPT MOST THE SHIFT. PT HAD ONE EPISODE OF LOOSE STOOL. PT SPENT SOME TIME SITTING UP AT THE SIDE OF THE BED, DRINKING COFFEE. PT TOLERATED WALKING WITH FWW WELL.
--- NOTE | 2019-04-16 05:22 | NUR ---
PT UP TO BR AND BACK TO BED WITH 1PA, FWW. NO OTHER NEEDS. CALL LIGHT IN REACH.
--- NOTE | 2019-04-16 05:27 | NUR ---
PT SLEPT OFF AND ON THIS SHIFT. PT AMBULATED WELL WITH FWW. PT SPO2 TRENDING IN LOW TO MID 90S ON 2L NC. ONE EPISDOE OF LOOSE STOOL THIS MORNING.
--- NOTE | 2019-04-16 07:21 | NUR ---
PT RESTING SOUNDLY BEDSIDE REPORT RECEIVED
--- NOTE | 2019-04-16 09:50 | NUR ---
PT REFUSES UP TO THE CHAIR, EATS BREAKFAST RESTING IN BED. DENIES ANY DISCOMFORTS AT THIS TIME.
--- NOTE | 2019-04-16 11:06 | NUR ---
PT UP TO WORK WITH P/T RETURNS TO ROOM SITTING UP ON EDGE OF BED, CALL LIGHT AT SIDE
--- NOTE | 2019-04-16 13:31 | NUR ---
PT EATS ONLY A SMALL AMOUNT OF NOON MEAL, RETURNS TO BED TO REST. CALL LIGHT AND NEEDED ITEMS AT BEDSIDE DENIES CURRENT NEEDS
--- NOTE | 2019-04-16 13:32 | NUR ---
PATIENT RESTING IN BED. I&O DONE. CALL LIGHT WITHIN REACH. NO OTHER NEEDS AT THIS TIME
--- NOTE | 2019-04-16 15:44 | NUR ---
PATIENT SITTING UP IN BED. VISITOR IN ROOM. COFFEE GIVEN. CALL LIGHT WITHIN REACH. NO OTHER NEEDS AT THIS TIME
--- NOTE | 2019-04-16 17:24 | NUR ---
PATIENT RESTING IN BED. I&O DONE. CALL LIGHT WITHIN REACH. NO OTHER NEEDS AT THIS TIME
--- NOTE | 2019-04-16 19:25 | NUR ---
SHIFT REPORT RECIEVED FROM BRENT MAGAÑA. PT RESTING IN BED, WATCHING TV. NC @2L. NO NEEDS AT THIS TIME. CALL LIGHT IN REACH.
--- NOTE | 2019-04-16 22:11 | NUR ---
ASSESSMENT AND VS COMPLETED. SCHEDULED MEDICATIONS PROVIDED. NO OTHER NEEDS, CALL LIGHT IN REACH.
--- NOTE | 2019-04-17 00:01 | NUR ---
PT RESTING IN BED, EYES CLOSED. RR 16, EVEN, UNLABORED. CALL LIGHT IN REACH.
--- NOTE | 2019-04-17 01:35 | NUR ---
PT RESTING IN BED, EYES CLOSED. RR 14, EVEN, UNLABORED. CALL LIGHT IN REACH.
--- NOTE | 2019-04-17 03:15 | NUR ---
PT RESTING IN BED, EYES CLOSED. RR 16, EVEN UNLABORED. CALL LIGHT IN REACH.
--- NOTE | 2019-04-17 04:24 | NUR ---
PT AWAKE IN ROOM. COFFEE REQUESTED AND PROVIDED. NO OTHER NEEDS, CALL LIGHT IN REACH.
--- NOTE | 2019-04-17 05:15 | NUR ---
PT SLEPT WELL THIS SHIFT. TOLERATED FWW AND O2 WELL. NC @ 2L, TRENDING IN LOW TO MID 90S. PT DENIES PAIN AND SOB THIS SHIFT.
--- NOTE | 2019-04-17 05:38 | NUR ---
PT AWAKE IN ROOM. PT UP TO BR AND BACK TO BED, FWW, SBA. ICE WATER PROVIDED. NO OTHER NEEDS. CALL LIGHT IN REACH.
--- NOTE | 2019-04-17 09:14 | NUR ---
PT LYING IN BED WITH EYES CLOSED UPON ENTERING ROOM. OPENED EYES SPONTANEOUSLY. PT ALERT AND ORIENTED AT THIS TIME. DENIES PAIN, SOB OR OTHER CONCERN. AM MEDS ADMINISTERED. ATE 100% OF BREAKFAST, SABRA WELL. O2 SAT 96% ON 2LNC. CALL LIGHT WITHIN REACH.
--- NOTE | 2019-04-17 10:36 | NUR ---
PT WORKING WITH SABRA Lawson.
--- NOTE | 2019-04-17 13:25 | NUR ---
PT SITTING UP AT EDGE OF BED. DENIES NEEDS OR CONCERNS AT THIS TIME. CALL LIGHT WITHIN REACH.
--- NOTE | 2019-04-17 15:59 | NUR ---
PT SBA WITH WALKER TO RESTROOM. VOIDED WITHOUT DIFFICULTY. AMB BACK TO BED. CALL LIGHT WITHIN REACH.
--- NOTE | 2019-04-17 18:17 | NUR ---
PT LYING IN BED WATCHING TV. ATE DINNER INDEPENDENTLY. DENIES NEEDS OR CONCERNS AT THIS TIME. CALL LIGHT WITHIN REACH.
--- NOTE | 2019-04-17 19:28 | NUR ---
BEDSIDE REPORT RECEIVED FROM GÓMEZ MITCHELL. pt AWAKE, LYING IN BED WATCHING TV. 2L OXYGEN BY NC IN PLACE. NO REQUESTS AT THIS TIME. CALL LIGHT AND PERSONAL SUPPLIES IN REACH.
--- NOTE | 2019-04-17 20:57 | NUR ---
ROUNDED CHARGE. PATIENT IS RESTING IN BED. ASSISTED GENOVEVA MAGAÑA WITH BOOST. PATIENT DENIES ANY NEEDS. CALL LIGHT IN REACH. GENOVEVA MAGAÑA REMAINS IN THE ROOM.
--- NOTE | 2019-04-17 21:06 | NUR ---
pt ASSESSMENT COMPLETE. SCHEDULED MEDICATIONS ADMINISTERED ORDERED. LOTION APPLIED TO LEGS. ICE WATER REFILLED. pt ON 2L OXYGEN BY NC. LUNG SOUNDS CLEAR THROUGHOUT. DENIES TOILETING NEEDS. CALL LIGHT IN REACH.
--- NOTE | 2019-04-18 00:19 | NUR ---
CHECKED ON pt. RESTING IN BED WITH EYES CLOSED, BREATHING UNLABORED. APPEARS TO BE SLEEPING. CALL LIGHT IN REACH.
--- NOTE | 2019-04-18 00:54 | NUR ---
pt NOTICED BY MIRNA IN RESTROOM ALONE. BACK IN BED AT THIS TIME. SITTING AT SIDE OF BED. VERBALIZES UNDERSTANDING TO USE CALL LIGHT BEFORE GETTING OUT OF BED. BED ALARM ON. COFFEE PROVIDED BY MIRNA DAVIS.
--- NOTE | 2019-04-18 01:10 | NUR ---
FOUND PATIENT WENT TO THE BATHROOM. PATIENT DID NOT USE THE CALL LIGHT. PATIENT IS BACK DANGLING BY THE BED. COFFEE PROVIDED PER PATIENT'S REQUEST.CALL LIGHT IN REACH. PRIMARY RN NOTIFIED.
--- NOTE | 2019-04-18 04:16 | NUR ---
CHECKED ON pt. LYING IN BED. HOB ELEVATED. RR 18. 2L OXYGEN BY NC IN PLACE.
--- NOTE | 2019-04-18 05:22 | NUR ---
1PA FWW. 2L OXYGEN BY NC IN PLACE. PT AND OT CONSULTS. SWING BED. VSS. SCHEDULED NEB TREATMENTS. IMPULSIVE X 1, OTHERWISE USING CALL LIGHT APPROPIRATELY.
--- NOTE | 2019-04-18 05:49 | NUR ---
ANSWERED CALL LIGHT. SBA TO THE BATHROOM USING WALKER. PATIENT IS BACK DANGLING IN BED. COFFEE PROVIDED PER PATIENT'S REQUEST. CALL LIGHT IN REACH.
--- NOTE | 2019-04-18 07:46 | NUR ---
PATIENT SLEEPING. CALL LIGHT WITHIN REACH. NO OTHER NEEDS AT THIS TIME
--- NOTE | 2019-04-18 08:20 | NUR ---
In and spoke with Janet. She plans on discharging tomorrow. Letter of discharge given with [facility]. Pt states she is wanting to go home and feels she is now ready. Will call family to see if they have found a pcg.
--- NOTE | 2019-04-18 08:29 | NUR ---
PT SITTING UP AT EDGE OF BED EATING BREAKFAST INDEPENDENTLY. CAN BE FORGETFUL BUT CURRENTLY ALERT AND ORIENTED. DENIES PAIN, NAUSEA, OR OTHER CONCERN AT THSI TIME. CALL LIGHT WITHIN REACH.
--- NOTE | 2019-04-18 08:30 | NUR ---
CALL LIGHT ANSWERED.PATIENT GOES TO USE THE BATHROOM. PATIENT USES WALKER. ONE PESON ASSISTING. CALL LIGHT WITHIN REACH. NO OTHER NEEDS AT THIS TIME
--- NOTE | 2019-04-18 09:15 | NUR ---
PATIENT RESTING IN BED. VITAL SIGNS AND I&O DONE. CALL LIGHT WITHIN REACH. NO OTHER NEEDS AT THIS TIME
--- NOTE | 2019-04-18 10:40 | NUR ---
Spoke with Janet's son Tobi. Family is working on getting a pcg, they had someone, but they backed out. He has other's he is working on. Names on two state paid pcg given. He knows these pcg and states he can obtain their numbers as I do not have them. They are continuing to work towards new oswaldo and ramp in house. Suggested they use helping hands for a short while if needed until they can hire a time clock repairer pcg. They plan on Janet discharging tomorrow.
--- NOTE | 2019-04-18 12:45 | NUR ---
PT SITTING UP AT EDGE OF BED EATING LUNCH. DENIES NEEDS OR CONCERNS. CALL LIGHT WITHIN REACH.
--- NOTE | 2019-04-18 13:58 | NUR ---
PT LAYING IN BED, WATCHING TV. PT IS ALERT AND ORIENTED, BUT ALITTLE CHILLED. PLACED PT'S ROBE OVER HER, SHE SEEMED PLEASED. EXTENDED A BLESSING, WILL ALSO FOLLOW NEEDED
--- NOTE | 2019-04-18 14:10 | NUR ---
PT LYING IN BED, EYES CLOSED APPEARS TO BE SLEEPING. RESP EVEN AND UNLABORED.
--- NOTE | 2019-04-18 14:43 | NUR ---
CALL LIGHT ANSWERED. PATIENT RESTING IN BED. PATIENT GOES TO USE THE BATHROOM. PATIENT USES WALKER. ONE PERSON ASSISTING. CALL LIGHT WITHIN REACH. NO OTHER NEEDS AT THIS TIME
--- NOTE | 2019-04-18 14:56 | NUR ---
Met son in [place], he is bring new cg to meet his mom. Would like to pick mom up tomorrow for dc at 1 pm. He states he will grocery shop for her tonight, but is unsure of what to get due to low NA diet. Let him know I will call Arely, sales and marketing analyst. Called and spoke with Arely, she states she left papers in the room, as family were not present. She will return to the room to provide education of diet. Dr. Baker updated all is ready for at home for pt to dc and family would like to pick her up at 1 pm tomorrow.
[2019-04-18] MEDS ORDERED: NICOTINE1 EAC1 TD (15:44)
[2019-04-18] MEDS ORDERED: TRAZODONE HCL50 MG PO (15:46)
[2019-04-18] MEDS ORDERED: ASPIRIN EC81 MG PO (15:46)
[2019-04-18] MEDS ORDERED: METOPROLOL SUCC50 MG PO (15:52)
[2019-04-18] MEDS ORDERED: IPRAT-ALBUT 0.5-3 ML INH (15:54)
--- NOTE | 2019-04-18 15:54 | NUR ---
PATIENT'S SON WAS HERE THIS AFTERNOON, BUT GONE BY THE TIME I STOPPED BY PATIENT'S ROOM A LITTLE AFTER 3 PM. I DID LEAVE HANDOUTS FOR NUTRITION: ONE CALLED "HOW GOOD NUTRITION CAN HELP YOUR RECOVER." AND A SNACK LIST AND A SAMPLE BALANCED, HEALTHY MENU WITH SODIUM-CONTROLLED MEALS AND SNACKS. THE HANDOUTS ARE ON TOP OF PATIENT'S STACK OF BOOKS.
--- NOTE | 2019-04-18 16:16 | NUR ---
PATIENT SLEEPING. CALL LIGHT WITHING REACH. NO OTHER NEEDS AT THIS TIME
--- NOTE | 2019-04-18 16:49 | NUR ---
RX for nebulizer sent to [facility] and called Александр. Reminder RX was sent last week with paper work. Sent DC summary today. She states she can't deliver tonight, but will have it here before pt discharges tomorrow.
--- NOTE | 2019-04-18 17:52 | NUR ---
PATIENT RESTING IN BED. I&O DONE. WARM BLANKET PROVIDED. CALL LIGHT WITHIN REACH. NO OTHER NEEDS AT THIS TIME
--- NOTE | 2019-04-18 18:20 | NUR ---
PT ATE DINNER INDEPENDENTLY. NOW LYING IN BED WATCHING TV. DENIES NEEDS OR CONCERNS AT THIS TIME. CALL LIGHT WITHIN REACH.
--- NOTE | 2019-04-18 19:37 | NUR ---
RECEIVED REPORT FROM DAY SHIFT RN. PATIENT IS RESTING IN BED WITH EYES CLOSED, RR 17. CALL LIGHT IN REACH.
--- NOTE | 2019-04-18 20:46 | NUR ---
NEAR 1906 RECEIVED CHARGE NURSE REPORT FROM [facility]. PT AWAKE, WATCHING TV WITH NO CURRENT NEEDS.
--- NOTE | 2019-04-18 21:50 | NUR ---
PATIENT ASSESMENT COMPLETED. PATIENT IS RESTING IN BED WATCHING TV. PATIENT DENIES ANY PAIN OR SOB. PATIENTS EVENING MEDICATIONS GIVEN PER ORDER. PATIENTS VITALS TAKEN AND RECORDED. INTAKE AND OUPUT RECORDED. PATIENT DENIES ANY NEEDS. FRESH ICE WATER PROVIDED. CALL LIGHT IN REACH.
--- NOTE | 2019-04-18 23:49 | NUR ---
PATIENT IS RESTING IN BED WITH EYES CLOSED, RR 17. CALL LIGHT IN REACH.
--- NOTE | 2019-04-19 02:19 | NUR ---
PATIENT IS RESTING IN BED WITH EYES CLOSED, RR 19. CALL LIGHT IN REACH.
--- NOTE | 2019-04-19 04:23 | NUR ---
PATIENT IS SLEEPING.
--- NOTE | 2019-04-19 04:26 | NUR ---
PATIENT RESTED WELL THROUGHOUT THE SHIFT. PATIENT IS ON A 2GM NA LIMITS DIET, TOLERATING IT WELL, AND NO NAUSEA NOTED. PATIENT IS ON 2L VIA NC AND IT IS CHRONIC. PATIENT IS A SBA W/FF AND IS WORKING WITH PT/OT. PATIENT HAS NO IV. PATIENT IS ON SWING BED PROGRAM. PATIENT IS AAOX4 AND USES CALL LIGHT APPROPRIATELY.
--- NOTE | 2019-04-19 06:00 | NUR ---
SBA TO THE BATHROOM USING WALKER. PATIENT IS BACK DANGLING BY THE BED DRINKING COFFEE. CALL LIGHT IN REACH.
--- NOTE | 2019-04-19 06:26 | NUR ---
PATIENT ASSISTED TO THE RESTROOM A SBA BY RYAN BRADLEY. PATIENT IS SITTING ON THE EDGE OF THE BED. PATIENT DENIES ANY SOB. NO NEEDS NOTED. CALL IGHT IN REACH.
--- NOTE | 2019-04-19 07:47 | NUR ---
BEDSIDE REPORT RECEIVED FROM ASIF MAGAÑA. WHITE BOARD UPDATED. PATIENT FORGETFUL AT THIS TIME. OPENED BLINDS TO WINDOW SO PATIENT COULD SEE SNOW. NO NEEDS AT THIS TIME. PLAN TO DISCHARGE HOME WITH FAMILY AT 1300 TODAY.
--- NOTE | 2019-04-19 09:44 | NUR ---
PATIENT IN BED WATCHING TV. PATIENT REFUSED SHOWER AND AM CARE, SAID SHE WOULD DO IT WHEN SHE GOT HOME. CALL LIGHT IN REACH. NO FURTHER NEEDS AT THIS TIME.
--- NOTE | 2019-04-19 11:26 | NUR ---
PT WAS LAYING IN BED, MENTIONED THAT SHE WANTED TO TAKE A NAP. WILL CHECK BACK AGAIN.
--- NOTE | 2019-04-19 13:39 | NUR ---
PATIENT GETTING READY TO DISHCARGE WITH SON AND DAUGHTER. I BRIEFLY REVIEWED HEALTHY EATING SUGGESTIONS AND ENCOURAGED HER TO LIMIT HIGH SODIUM PROCESSED FOODS MUCH POSSIBLE. EXPLAINED EASY YET HEALTHY SNACK IDEAS AND PROVIDED A SAMPLE 7 DAY MENU FOR MORE IDEAS. RECOMMENDED THAT SHE HAVE ENSURE OR BOOST OR OTHER ON HAND IN CASE HER APPETITE IS POOR. REMINDED HER AND HER FAMILY THAT IT DOESN'T TAKE LONG TO LOSE MUSCLE MASS AND BECOME MALNOURISHED, SO HAVING THE ORAL SUPPLEMENT A BACKUP IS A GOOD IDEA. AMINATA KNOWS HOW TO GET AHOLD OF ME IF THEY HAVE QUESTIONS.
--- NOTE | 2019-04-19 14:02 | NUR ---
FAMILY HERE PACKING UP PT, READY FOR DC. WISHED PT WELL AND EXNDED A BLESSING.
== END 2019-04-19 14:00 | disposition home health service (06) | DRG 947 ==
LOC: MS 10:10
PROVIDERS: ADMIT Internal Medicine
DX: R53.1 Weakness (principal); J15.6 Pneumonia due to other Gram-negative bacteria; J10.08 Influenza due to other identified influenza virus with other specified pneumonia; J44.0 Chronic obstructive pulmonary disease with (acute) lower respiratory infection; J44.1 Chronic obstructive pulmonary disease with (acute) exacerbation; J96.11 Chronic respiratory failure with hypoxia; I47.1 Supraventricular tachycardia; I51.9 Heart disease, unspecified; I25.10 Atherosclerotic heart disease of native coronary artery without angina pectoris; I10 Essential (primary) hypertension; Z88.8 Allergy status to other drugs, medicaments and biological substances; Z79.899 Other long term (current) drug therapy; Z72.0 Tobacco use; Z99.81 Dependence on supplemental oxygen
CPT/HCPCS: 94640; 94668; 94760; 97110; 97116; 97162; 97166; 97530; 97535; J1650; J7512

== ENCOUNTER 2022-03-27 09:43 | Inpatient (IN) | payer MEDICARE, OTHER ==
[~2022-03-27] VITALS: Ht 160 cm; Wt 80.5 kg
[~2022-03-27 09:43] MED LIST changes: +IPRAT-ALBUT 0.5-3 ML INH; +METOPROLOL SUCC50 MG PO; +NICOTINE1 EAC1 TD; +TRAZODONE HCL50 MG PO
--- NOTE | 2022-03-27 13:45 | NUR ---
RECIEVED REPORT FROM GÓMEZ GONZALEZ IN ER.
--- NOTE | 2022-03-27 16:00 | NUR ---
PT TRANSPORTED TO ROOM 112. OREIENTED TO CALL LIGHT. DAUGHTERS AT BEDSIDE.
--- NOTE | 2022-03-27 19:36 | NUR ---
Received report from offgoing shift, hourly rounding initiated.
--- NOTE | 2022-03-27 21:20 | NUR ---
In pt room for rounding, pt resting, eyes closed, breathing even and unlabored. Pt call light in reach, no indication of pain or discomfort.
--- NOTE | 2022-03-27 23:23 | NUR ---
In Pt room for rounding, pt esting on back, purewick in place. Pt breathing even and unlabored, no complaint of pain.
--- NOTE | 2022-03-28 01:40 | NUR ---
iv pump alarming, iv abx complete, iv site wnl and saline locked. pt reports minimal sob, pt boosted in bed and hob elevated, sob resolved, spo2 94% on 2lnc. accounting machine servicer and primary rn remain in room. call light in reach.
--- NOTE | 2022-03-28 03:19 | NUR ---
IN pt room for rounding, pt resting, eyes closed, breathing even and unlabored. Pt call light in reach, no complaint of pain or discomfort.
--- NOTE | 2022-03-28 05:45 | NUR ---
In pt room for rounding, pt call light in reach. Pt seen to have good output from purewick, purewick changed. Pt breathing even and unlabored, no complaint of pain, call light in reach.
--- NOTE | 2022-03-28 07:50 | NUR ---
Pt refused to get into chair this morning. Am care completed. Pt repositioned in bed. Pt has no other needs at this time, call light within reach.
--- NOTE | 2022-03-28 07:54 | NUR ---
RECIEVED SHIFT REPORT. PT RESTING IN BED, AWAKE. DENIES FURTHER NEEDS. CALL LIGHT WITHIN REACH.
--- NOTE | 2022-03-28 10:25 | NUR ---
MORNING ASSESSMENT COMPLETE. PT DENIES PAIN AT THIS TIME. ABLE TO GET PT TO RECLINER. 2PA, FWW, TOLERATED WELL. PT COMPLAINED OF SOB ONCE IN CHAIR. SPO2 95% ON 2L NC. LUNG SOUNDS CLEAR BILAT UPPER. DIMINISHED IN ALL LOBES. LEFT LOWER EXT REMAINS OUTLINED, WITH NO NEW CHANGES. SON HERE TO VISIT. CALL LIGHT WITHIN REACH. TELE IN PLACE.
--- NOTE | 2022-03-28 13:00 | NUR ---
In and spoke with Janet. She cont. to live with her son and daughter in her home. She denies needs. She uses a cane and a walker. Sleeps on her sofa. Her daughter does all the grocery shopping, cooking, house hold tasks. She denies needs and plans on going home.
--- NOTE | 2022-03-28 16:00 | NUR ---
AFTERNOON ASSESSMENT COMPLETE. NO NEW CHANGES SINCE MORE ASSESSMENT. CALL LIGHT WITHIN REACH
--- NOTE | 2022-03-28 16:59 | NUR ---
PT RESTING IN BED, AWAKE. DENIES PAIN. CALL LIGHT WITHIN REACH.
--- NOTE | 2022-03-28 17:48 | NUR ---
PATIENT IN BED AFTER MEAL. VITALS AND I/O'S COMPLETED. PURE WICK IN PLACE AND ON. PT HAS NO OTHER NEEDS AT THIS TIME. CALL LIGHT WITHIN REACH.
--- NOTE | 2022-03-28 19:42 | NUR ---
RECEIVED REPORT FROM OFFGOING SHIFT, HOURLY ROUNDING INITIATED
--- NOTE | 2022-03-28 21:30 | NUR ---
IN PT ROOM FOR ROUNDING. PT RESTING ON BACK, BREATHING EVEN AND UNLABORED, O2 NC IN PLACE. PT HAS NO COMPLAINT OF PAIN OR DISCOMFORT, CALL LIGHT IN REACH.
--- NOTE | 2022-03-28 22:09 | EKG ---
[facility] [address] [facility] [place] [address] Signed Sinus tachycardia Rightward axis Nonspecific ST abnormality Abnormal ECG When compared with ECG of 27-MAR-2019 10:36, Borderline criteria for Anterior infarct are no longer present ST elevation now present in Inferior leads Confirmed by Domonique Timmons MD () on 03/28/2022 10:09:00 PM Electronically Signed By: DOMONIQUE TIMMONS MD 03/28/222208 PATIENT NAME: IRINA ARNOLD Electrocardiogram DATE OF : 42 PHYSICIAN: DOMONIQUE TIMMONS MD REPORT #: [id number] REPORT IS CONFIDENTIAL AND NOT TO BE RELEASED WITHOUT AUTHORIZATION
--- NOTE | 2022-03-29 00:10 | NUR ---
NEW PERWICK IN PLACE PER PT GETTING UP TO THE BSC
--- NOTE | 2022-03-29 02:00 | NUR ---
IN PT ROOM FOR ROUNDING. PT RESTING ON BACK, BREATHING EVEN AND UNLABORED, CALL LIGHT IN REACH, O2 IN PLACE.
--- NOTE | 2022-03-29 04:57 | NUR ---
IN PT ROOM FOR ROUNDING, PT RESTING ON BACK, BREATHING EVEN AND UNLABORED, NO INDICATION OF PAIN OR DICOMFORT. PT O2 IN PLACE, CALL LIGHT IN REACH.
--- NOTE | 2022-03-29 07:04 | NUR ---
REPORT RECEIVED FROM GÓMEZ CASTRO. PT RESTING IN BED, AWAKE AND ALERT. PT REQUESTS COFFEE, PROVIDED. PT DENIES PAIN AND NAUSEA. NO ADDITONAL REQUESTS OR COMPLAINTS. CALL LIGHT WITHIN REACH. BED RAILS UP.
--- NOTE | 2022-03-29 07:16 | NUR ---
GOT PATIENT A HALF A CUP OF COFFEE WITH CREAM AND SUGAR. PATIENT IS SITTING UP ON THE SIDE OF HER BED. PILLOWS ON BOTH SIDES OF HER ARMS AND A BLANKET AROUND HER. PATIENT ALSO WASHED HER FACE.
--- NOTE | 2022-03-29 07:33 | NUR ---
REPORT RECEIVED FROM GÓMEZ BERNAL. PT RESTING IN BED WITH EYES CLOSED, RESPRIATIONS EVEN AND UNLABORED ALTHOUGH "O SIGN" IS SEEN WITH OPEN MOUTH BREATHING. DOLORES REPORTS THAT PT IS VERY TENDER TO TOUCH ANYWHERE ON HER BODY AND DECLINES MOVEMENT. DR. DA SILVA UPDATED AND NEW ORDERS GIVEN FOR SCD'S AND MORPHINE, ORDERS ENTERED, REPEAT BACK PERFORMED.
--- NOTE | 2022-03-29 08:14 | NUR ---
PATIENT UP IN CHAIR FOR BREAKFAST. ICE WATER AND WARM BLANKETS GIVEN. AM CARE COMPLETED. CALL LIGHT WITHIN REACH.
--- NOTE | 2022-03-29 08:18 | NUR ---
MORNING ASSESSMENT AND MEDICAITON DUE. PT UP TO CHAIR. PT ASSISTED WITH REPOSITIONING IN CHAIR FOR COMFORT. PT DENIES PAIN AND NAUSEA. NIH SCORE OF 1/10 FOR MINOR DRIFT TO RIGHT LEG WHEN HELD UP. PT ALERT AND ORIENTED TO ALL AND RESPONDING TO QUESTIONS APPROPRALY. NO SLURRED SPEACH OR TROUBLE SWALLOWING NOTED. PT DENIES ANY CHANGES IN SENSATION. PT ABLE TO PUSH ARMS AND LEGS AGAINST RESISTANCE, RIGHT LEG WEAKER THAN LEFT. LUNG SOUNDS VERY DIMISHED THROUHGOUT ALTHOUGH CLEAR. PT REMAINS ON 2L O2 BY NC PER BASELINE. NO COUGH NOTED AT THIS TIME. TELEMETRY MONITORING SHOWS NORMAL SINUS RYTHEM AT THIS TIME. LEFT LOWER EXTREMITY PINK AND WARM TO TOUCH. +1 PITTING ABRAHAM NOTED. REDNESS WITHIN MARKED AREAS, IMPROVING. SMALL DIME SIZE SCAB LIKE WOUND NOTED TO MEDIAL LEFT ANKLE. PT REMAINS UP TO CHAIR. NO ADDITIONAL REQUESTS OR COMPLAINTS. CALL LIGHT WITHIN REACH.
--- NOTE | 2022-03-29 09:36 | NUR ---
PATIENT IN CHAIR AFTER MEAL. VITALS AND I/O'S COMPLETED. CALL LIGHT WITHIN REACH.
--- NOTE | 2022-03-29 09:53 | NUR ---
THIS RN TO ROOM TO CHECK ON PT. PT REMAINS UP TO CHAIR. PT ASSISTED WITH APPLYING CHAPSTICK. PT DENIES PAIN AND NASUEA. NORMAL SINUS RYTHEM CONTINUES ON TELEMETRY MONITORING WITH REAT 100-110'S. PT DENIES REQUESTS OR COMPLAINTS. CALL LIGHT WITHIN REACH.
--- NOTE | 2022-03-29 10:55 | NUR ---
THIS RN TO ROOM TO CHECK ON PT. PT WORKIGN WITH PHYSICAL THERAPY. PT INCREASED TO 4L O2 BY NC TO MAINTAIN OXYGEN SATURATIONS ABOVE 90% WITH ACTIVITY. PT REPORTS SHE IS "NERVOUS" ABOUT GETTING UP. PT DENIES PAIN AND NAUSEA. CALL LIGHT WITHIN REACH.
--- NOTE | 2022-03-29 11:08 | NUR ---
ANSWERED PATIENT'S CALL LIGHT. SHE DIDN'T KNOW WHY SHE CALLED. SO I SAID WOULD YOU LIKE YOUR FEET AND SHE SAID OK.
--- NOTE | 2022-03-29 12:11 | NUR ---
THIS RN TO ROOM TO CHECK ON PT. PT SITTING UP IN CHAIR. PT REQUEST TO GET BACK TO BED. PT ADVISE TO HAVE LUNCH AND GET BACK TO BED AFTER LUNCH, PT AGREES. OXYGEN SATURATION OF 100% ON 2L O2 BYNC. PT WEANED TO ROOM AIR AND TOLERATING WITH OXGYEN SATURATIONS OF 95-97%. HEART RATE REMAINS IN SINUS RYTHEM FROM 90-110'S. LUNCH DELIVERD. NO ADDITIONAL REQUESTS OR COMPLAINTS. CALL LIGHT WIHTIN REACH. COFFEE PROVIDED PER PT REQUEST.
--- NOTE | 2022-03-29 12:50 | NUR ---
THIS RN TO ROOM TO CHECK ON PT. PT REQUESTS TO GET BACK TO BED. 1 PERSON ASSIST WITH FWW BACK TO BED. FUNGAL SMELL NOTED FROM PANNUS AND GERALDINE AREA. PT ENCOURAGED TO HAVE A SHOWER TODAY, PT AGREES TO SHOWER LATER THIS AFTERNOON. MICONAZOLE POWDER ORDERED. PT NOTED TO BE 85% ON ROOM AIR PRIOR TO TRANSER TO BED. PT PLACED BACK ON 2L O2 BY NC. PT DROPS TO 80% DURING TRANSFER BUT RECOVERS TO 96% ON 2L O2 BY NC ONCE RESTING. PT DENIES ADDITIONAL REQUESTS OR COMPLAITNS. CALL LIGHT WITHIN REACH. BED RAILS UP.
--- NOTE | 2022-03-29 14:05 | NUR ---
AFTERNOON ASSESSMENT DUE. PT RESTING IN BED, APPEARS IN AWKWARD POSITION. PT BOOSTED AND ASSISTED WITH REPOSITIONING. PT DENIES PAIN AND NASUEA. PT ORENITED TO ALL, FORGETFUL BUT ANSWERES QUESTIONS APPROPRIATLY. LUNG SOUNDS CLEAR BUT VERY DEMINISHED THROUGHOUT. OXGYEN SATURATIONS OF 97% ON 2L O2 BY NC PER BASELINE. NO SPUTUM OR COUGH NOTED AT THIS TIME. HEART TONES REGULAR WITH MILD TACHYCARDIA IN THE 90-110'S. TELEMETRY MONITORING SHOWS SINUS TACHYCARDIA. BOWEL TONES ACTIVE, ABDOMEN SOFT AND NON TENDER. YEASTY SMELL CONTINUES FROM GERALDINE AREA. PT AGREES TO SHOWER "IN ABOUT AN HOUR." FLIGHT PHYSICIAN STRENGTH EQUAL BILATERALLY. LEG STRENGTH UNCHANGED. REDNESS TO LEFT LOWER EXTREMITIY IMPROVING, NOW LIGHT PINK, PT DENIES PAIN IN THIS AREA. MILD ERYTHEM NOTED, MINMAL WARMTH NOTED. +1 PITTING EDMA NOTED TO LLE.ICE WATER REFILLED, PO INTAKE ENCOURAGED. NO ADDITONAL REQUESTS OR COMPLAINTS. CALL LIGHT WITHIN REACH. BED RAILS UP.
--- NOTE | 2022-03-29 15:30 | NUR ---
THIS RN TO ROOM TO CHECK ON PT. PT LEANING TO THE LEFT. PT ASSISTED WITH REPOSITIONING, SUPPORTED WITH PILLOWS. PT DENIES PAIN AND NASUEA. PT ASSISTED WITH CHANGING TV STATION. PT DENIES ADDITIONAL REQUESTS OR COMPLAINTS. CALL LIGHT WITHIN REACH. BED RAILS UP.
--- NOTE | 2022-03-29 16:26 | NUR ---
PATIENT UP IN CHAIR AFTER SHOWER. CALL LIGHT WITHIN REACH.
--- NOTE | 2022-03-29 16:40 | NUR ---
PT FINISHED WITH SHOWER AND UP TO CHAIR EATING MICHEAL COOKIES FROM HOME. PT TOLERATING 2L O2 BY NC WITH OXGYEN SATURATIONS ABOVE 94%. PT DENIES PAIN AND NASUEA AND STATES FEELING "BETTER" AFTER HER SHOWER. PT DENIES ADDITIONAL REQUESTS OR COMPLAINTS. CALL LIGHT WITHIN REACH.
--- NOTE | 2022-03-29 17:09 | NUR ---
PT HERE FOR CVA, HYPER CALCEMIA, AND PNEUMONIA. PT UP TO CHAIR, SHOWER AND WITH PHYSICAL THERAPY THIS SHIFT WITH 1 PERSON ASSIST AND FWW. PT TOELRATING REGULAR DIET WITH MODERATE APPITITE. TELEMETRY REMAINS IN PLACE WITH SINUS RYTHEM AND SINUS TACHYCARDIA THROUGHOUT SHIFT. MICONAZOLE POWDER ORDERED FOR REDNESS UNDER PANNUS AND STRONG SMELL IN GERALDINE ARE. PT REMAINS ON 2L O2 BY NC WITH OXGYEN SATURATIONS ABOVE 94%, PT APPEARS TO NEED ADDITIONAL OXGYEN WITH ACTIVITY. CELLULITIS TO LLE IMPROVING, LESS HOT AND EQUIPMENT TECHNICIAN PINK THIS HSIFT. NIH SCORE OF 1 THIS SHIFT FOR MILK RIGHT LEG DRIFT. PT DRIBBLES AND MILDLY INCONTINANT, MONITORING URINE OUTPUT. PO HYDRATION ENCOURAGED. PT USES CALL LIGHT AND MAKES NEEDS KNOWN.
--- NOTE | 2022-03-29 17:54 | NUR ---
PATIENT BACK IN BED AFTER MEAL. VITALS AND I/O'S COMPLETED. BED ALARM SET. CALL LIGHT WITHIN REACH.
--- NOTE | 2022-03-29 18:04 | NUR ---
MEDICATION DUE. PT UP TO COMODE TO VOID WITH 1 PERSON ASSIST AND FWW. PT VOIDS WITH OUT ISSUE. PT BACK TO BED WITH 1 PERSON ASSIST AND FWW. PT ASSISTED WITH POSITIONING IN BED. MEDICAITON GIVEN. PT DENIES PAIN AND NAUSEA. NO ADDITONAL REQUESTS OR COMPLAINTS. CALL LIGHT WITHIN REACH. BED RAILS UP. BED ALARM ON.
--- NOTE | 2022-03-29 21:26 | NUR ---
IN ROOM WITH MIRNA CASTRO TO BOOST pt. VSS AND I&O'S COMPLETE. pt REPORTS SOME ANXIETY AND WISHES FOR SOMETHING TO HELP HER SLEEP. PRN MELATONIN PROVIDED. NO ADDITIONAL NEEDS, CALL LIGHT IN REACH. BED ALARM REMAINS ON FOR SAFETY.
--- NOTE | 2022-03-29 22:15 | NUR ---
FULL BODY ASSESSMENT DONE, NO ACUTE CHANGES. PATIENT APPEARS TO BE RESTING BACK IN BED. APPEARS COMFORTABLE. IV ANTIBIOTICS INFUSING PER MAR. PATIENT STATES " THAT MELATONIN REALLY HELPED ME CALM DOWN" NO OTHER NEEDS AT THIS TIME. CALL LIGHT WITHIN REACH.
--- NOTE | 2022-03-30 03:45 | NUR ---
in to assist pt with sitting at the edge of the bed, sips of water taken, 1-2pa fww to the bsc, voided, 1pa fww back to bed, boosted, fresh water given, no further needs at this time
--- NOTE | 2022-03-30 07:53 | NUR ---
RECIEVED SHIFT REPORT. PT RESTING IN BED, EYES CLOSED. BREATHING EVEN AND UNLABORED. CALL LIGHT WITHIN REACH.
--- NOTE | 2022-03-30 08:13 | NUR ---
MORNING ASSESSMENT COMPLETE. PT SITTING UP IN RECLINER EATING BREAKFAST. EXP. WHEEZE HEARD IN ALL LOBES. LLE, APPEARS THE REDDNESS HAS DECREASED FROM OUTLINE. DENIES PAIN AT THIS TIME. CALL LIGHT WITHIN REACH.
--- NOTE | 2022-03-30 11:15 | NUR ---
pt called says she doesnt feel like shes getting enough air. this rn in room to assess. Spo2 100% on 2L NC. offered pt to be boosted in bed, pt refused. pt felt reassured her O2 was 100% with relief. no further needs. family at bedside.
--- NOTE | 2022-03-30 15:00 | NUR ---
AFTERNOON ASSESSMENT COMPLETE. PT RESTING IN BED, AWAKE. DENIES PAIN. GIVEN PT SCEDULED DOSE OF LASIX (PER EMAR), EDUCATED PT ON THIS MEDICATION. DIMINISHED, EXP WHEEZE HEARD IN ALL LOBES. NO NEW CHANGES WITH LEFT LOWER EXT. CALL LIGHT WITHIN REACH. DENIES FURTHER NEEDS.
--- NOTE | 2022-03-30 15:25 | NUR ---
REPORT RECIEVED FROM GÓMEZ JIN.
--- NOTE | 2022-03-30 15:36 | NUR ---
ALBERTA TYLERCK PLACED PER ORDER AND PT WISHES SHE CANNOT MAKE IT TO BSC IN TIME WITH THE LASIX.
--- NOTE | 2022-03-30 16:24 | NUR ---
PT CALLED TO SAY SHE NEEDED CHECKED. HER PUREWICK IS WORKNG GREAT, NO WETNESS NOTED. EXPLAINED HOW IT WORKS TO PT AGAIN.
--- NOTE | 2022-03-30 17:35 | NUR ---
PT AGAIN FELT SHE WAS WET. ROLLED PT ONTO SIDE AND ASSESSED, STILL DRY. EDUCATED HER ON [id number] CALL LIGHT IN REACH. STATES SHE DOES NOT FEEL LIKE EATING BUT WILL KEEP IT FOR AWHILE TO SEE.
--- NOTE | 2022-03-30 20:01 | NUR ---
PATIENT APPEARS RESTLESS STATING " I FEEL LIKE I AM ALWAYS HAVING TO PEE" PROVIDING REASSURANCE. PATIENT CALLING AFTER EVERY VOID REQUESTING TO BE CHANGED, BUT ATTEND IS DRY. FULL BODY ASSESSMENT DONE. NO ACUTE CHANGES. PATIENT LUNG SOUNDS DIMINISHED IN BASES. NO OTHER NEEDS AT THIS TIME. CALL LIGHT WITHIN REACH.
--- NOTE | 2022-03-31 02:00 | NUR ---
PATIENT RESTING WITH EYES CLOSED, APPEARS CALM. NO APPARENT NEEDS AT THIS LUCERO. CALL LIGHT WITHIN REACH.
--- NOTE | 2022-03-31 06:52 | NUR ---
FULL BODY ASSESSMENT DONE. PATIENT APPEARED TO REST WELL THROUGHOUT THE NIGHT. 1 PERSON ASSIST TO BSC, APPEARS TO BE VOIDING WELL. NO ACUTE CHANGES.
--- NOTE | 2022-03-31 07:16 | NUR ---
REPORT RECEIVED FROM SHAY MAGAÑA. PT GETTING UP TO CHAIR WITH PHARMACY CARE COORDINATOR. OXGYEN SATUARTION 79% ON 2L O2 BY NC. PT INCREASED TO 6L O2 BY NC WITH ACTIVITY TO MAINTAIN OXGYEN SATURATIONS ABOVE 90%. PT RECOVERES ONCE RESTING IN CHAIR FOR 5 MINUTES AND IS WEANED BACK TO 2L O2 BY NC WITH OXGYEN SATURATION OF 93%. PT DENIES PAIN AND NASUEA. COFFEE PROVIDED. NO ADDITIONAL REQUESTS OR COMPLAINTS. BED RAILS UP. CALL LIGHT WITHIN REACH.
--- NOTE | 2022-03-31 08:48 | NUR ---
MORNING ASSESSMENT AND MEDICAITON DUE. PT UP TO CHAIR, FINISHED WITH BREAKFAST. PT DENIES PAIN AND NAUSEA. PT ALERT AND ORIENTED TO ALL BUT EXACT DATE AND TIME. PT KNOWS MONTH AND YEAR AND "ITS' AFTER MICHEAL." NIH SCORE REMAINS 1 FOR MINOR RIGHT LEG DRIFT. OTHERWISE NEURO ASSESSMENT IS WNL. PT WORKING WITH PHYISCAL THERAPY FOR GENERALIZED WEAKNESS. PT UP TO STAND FOR SKIN ASSESSMENT, SKIN WELL INTACT. MICONAZOLE POWDER APPLED. PURE WICK REMOVED PT IS CAPABLE OF CALLING WHEN SHE NEEDS TO VOID. DEPENDS PLACED FOR DRIBBLING. EXPIRATORY WHEEZES NOTED IN UPPER LOBES OF LUNGS. LOWER LOBES DEMINISHED, TIGHT BUT CLEAR. MESSAGES SENT TO MD REGARDING POSSIBLE NEBULIZER TREATEMENTS PT STATES SHE USESE NEBS AT HOME TWICE A DAY. PT MAINTINING OXYGEN SATURTIONS ABOVE 94% ON 2L O2 BY NC. TACHYCARIDA UNCHANGED, REGULAR RATE, HR 90-110'S. REDNESS TO LEFT LOWER EXTREMITIY STABLE. WITHINSIDE MARKED LINES. NO HOTNESS NOTED TO REDENED AREA. BOWEL TONES ACTIVE. ABDOMEN SOFT AND NON TENDER. NO ADDITIONAL REQUESTS OR COMPLAINTS. CALL LIGHT WITHIN REACH.
--- NOTE | 2022-03-31 10:00 | NUR ---
HOURLY ROUNDING: PT REMAINS UP TO CHAIR, RESTING WITH EYES CLOSED, RESPIRATIONS EVEN AND UNLABORED. PT ALLOWED TO REST. CALL LIGHT IN PTS RIGHT HAND.
--- NOTE | 2022-03-31 10:39 | NUR ---
THIS RN TO ROOM TO CHECK ON PT. PT GRANDDAUGHTER ARRIVED AND IS VISITING WITH PT AND GIVING PT MILK. PT SEEMS TO BE TOLERATING SMALL SIPS OF MILK WITH GRANDDAUGHTER. EDUCATION DONE WITH PT AND FAMILY REGARDING SWALLOWING AND ASPIRIATION RISKS. PT AND FAMILY VERBALIZE UNDESTANDING. PT CONTINUES TO STATE THAT SHE WANTS TO KEEP DRINKING THE MILK. SUCTION AT BEDSIDE. FAMILY TAUGHT TO USE SUCTION AND CALL NURSING STAFF IF PT BEGINS TO CHOAK. PT DENIES PAIN AND NASUEA. NO ADDITIONAL REQUESTS OR COMPLAINTS. CALL LIGHT WITHIN REACH. BED RAIS UP.
--- NOTE | 2022-03-31 10:49 | NUR ---
NOELLE ROUNDING. PTS SON-IN-LAW ARRIVED TO BEDSIDE. CPAP REMAINS IN PLACE. PT TOLEARTING WITH OXGYEN SATURATIONS OF 95-99%. PT DENIES PAIN AND NAUSEA. WARM BLANKET PROVIDED. PT DENEIS ADDITIONAL REQUESTS OR COMPLAINTS. CALL LIGHT WITHIN REACH.
--- NOTE | 2022-03-31 11:02 | NUR ---
THIS RN TO ROOM WITH DR. GARNER FOR ROUNDS. PT PLACED ON 15L O2 BY OXYMASK TO TALK WITH DOCTOR AND SON-IN-LAW. CARE OPTIONS DISCUSSED WITH PT AND PTS SON-IN-LAW, DANIE. IV POTASSIUM INFUSION COMPLETE. IV FLUSHED AND SALINE LOCKED. PT REPORTS SHE WOULD LIKE TO CONTINUE WITH COMFORT CARES AND BE MADE COMFORTABLE FOR THE REMAINDER OF HER STAY. MD STATES OK TO ALLOW PT TO REMAIN ON OXYMASK AT THIS TIME, OXGYEN SATURATIONS 98% ON OXGYMASK AT 15L. PT CONTINUES VISITING WITH HER SON. NO ADDITIONAL REQUESTS OR COMPLAINTS. CALL LIGHT [employer]IN REACH. BED RAILS UP.
--- NOTE | 2022-03-31 11:34 | NUR ---
THIS RN TO ROOM TO CHECK ON PT. PT REPORTS SHE CONTINUES TO FEELS "WHEEZY" AT TIMES. EXPRIATORY WHEEZES NOTED IN UPPER LOBES. DR GARNER CONSULTED AND STATES OK TO ORDER DUO NEB PRN TREATEMENTS. ORDER PLACED. REPEAT BACK PERFORMED. RT CALLED TO DELIVER BREATHING TREATEMENT. PT WORKING WITH PHYSICAL AND OCCUPATIONAL THERAPY. PT DENIES ADDITONAL REQEUSTS OR COMPLAINTS. PT DENIES PAIN AND NAUSEA. CALL LIGHT WITHIN REACH.
--- NOTE | 2022-03-31 11:58 | NUR ---
CHART FAXED TO [facility] FOR POSSIBLE PLACEMENT FOR FURTHER PT POST DC
--- NOTE | 2022-03-31 12:37 | NUR ---
THIS RN TO ROOM TO CHECK ON PT.PT REMAINS UP TO CHAIR, EATING LUNCH. PT DENIES PAIN AND NAUSEA. OXGYEN SATUATIONS 99% ON 2L O2 BY NC PER PTS BASELINE. PT AGREES TO SHOWER "AFTER A NAP." PT DENIES ADDITIONAL REQUESTS OR COMPLAINTS AT THIS TIME. CALL LIGHT WITHIN REACH.
--- NOTE | 2022-03-31 14:08 | NUR ---
AFTERNOON ASSESSMENT DUE. PT BACK TO BED, RESTING WITH HEAD OF BED AT 31 DEGREES. PT DENIES PAIN AND NAUSEA. PT ORIENTED TO ALL BUT REASON FOR HOSPITAL STAY STATING "SOMETHING WITH MY HEAD OR SOMETHING." DIANOSIS AND REASON FOR STAY REVIWED WITH PT. PT ABLE TO REPEAT BACK INFORMATION. EQUAL ORCHESTRA MUSICIAN STRENGTH BILATERALLY NOTED. SENSATION INTACT. NEURO ASSESSMENT OTHERWISE UNCHANGED. EXPIRATORY WHEEZES NOTED IN UPPER LOBES OF LUNGS. LOWER LOBES DEMINISHED. PT DENIES SHORTNESS OF BREATH. PT REMAINS ON 2L O2 BY NC WITH OXGYEN SATURATIONS OF 90-94%. TACHYCARDIA UNCHANGED. MINOR EDEMA NOTED TO LLE WHERE PINK/REDNESS IS UNCHNAGED. LEG REMAINS WARM BUT NOT HOT TO TOUCH. PT NOTED TO BE VOIDING SMALL AMOUNTS. PO HYDRATION ENCOURAGED.NO ADDITIONAL REQUESTS OR COMPLAINTS. CALL LIGHT WITHIN REACH. BED RAILS UP.
--- NOTE | 2022-03-31 15:21 | NUR ---
THIS RN TO ROOM TO CHECK ON PT. PT BOOSTED IN BED AND ASSISTED WITH REPOSITIONING. PT DENIES PAIN AND NAUSEA. PT ALERT AND OREINTED. NO ADDITIONAL REQUESTS OR COMPLAINTS. CALL LIGHT WITHIN REACH. PT RESTING IN BED WITH HEAD OF BED AT 40 DEGREES
--- NOTE | 2022-03-31 16:23 | NUR ---
HOURLY ROUNDING. PT RESTING WITH EYES CLOSED. RESPRIATIONS EVEN AND UNLABORED. BED RAILS UP. CALL LIGHT WITHIN REACH. PT ALLOWED TO REST.
--- NOTE | 2022-03-31 16:29 | NUR ---
PT HERE FOR CVA, HYPER CALCEMIA, AND PNEUMONIA. PT UP TO CHAIR AND WITH WITH PHYSICAL THERAPY THIS SHIFT WITH 1 PERSON ASSIST AND FWW. PT TOELRATING REGULAR DIET WITH MODERATE APPITITE. SHOWER ENCOURAGED THIS SHIFT BUT DECLINED. ALBERTA NO. MICONAZOLE APPLIED ORDERED FOR REDNESS UNDER PANNUS AND GERALDINE ARE. PT REMAINS ON 2L O2 BY NC WITH OXGYEN SATURATIONS ABOVE 94%, PT NEEDS 6L O2 BY NC WITH ACTIVITY REDNESS TO LEFT LOWER EXTREMITY STABLE. NIH SCORE OF 1 THIS SHIFT FOR MILK RIGHT LEG DRIFT. PT DRIBBLES AND MILDLY INCONTINANT, MONITORING URINE OUTPUT. PO HYDRATION ENCOURAGED. PT USES CALL LIGHT AND MAKES NEEDS KNOWN.
--- NOTE | 2022-03-31 17:29 | NUR ---
THIS RN TO ROOM TO CHECK ON PT. PT IRRITABLE STATING "I JUST WANT TO SLEEP AND YOU FOLKS KEEP COMING IN." PT DECLINES DINNER INITIALLY. VITALS SIGNS STABLE. MEDICATION GIVEN. NOTED THAT PT HAS NOT VOIDED SINCE THIS MORNING. PT ENCORUAGED TO GET UP TO RESTROOM. PT AGREES TO GET UP TO BEDSIDE COMODE. PT VOIDS 250ML CLEAR YELLOW URINE. PT ASSISTED WITH GERALDINE CARE. 1 PERSON ASSIST WITH FWW TO SIT ON EDGE OF BED. PT REPORTS NOW SHE WOULD LIKE "A FEW BITES" OF DINNER. PT EATING AT EDGE OF BED. NO ADDITONAL REQUESTS OR COMPLAINTS. CALL LIGHT WITHIN REACH. PT REPORTS SHE WILL CALL WHEN FINISHED WITH DINNER AND READY TO GET BACK INTO BED.
--- NOTE | 2022-03-31 18:11 | NUR ---
THIS RN TO ROOM WITH DR. GARNER FOR ROUNDS. PT REMAINS SITTING ON THE EDGE OF THE BED. PT FINISHED WITH DINNER. MD UPDATED ON PTS VOIDING STATUS. NO NEW ORDERS AT THIS TIME. PT ASSISTED BACK INTO BED AND POSITIONED FOR COMFORT. PT DENIES PAIN AND NAUSEA. NO ADDITIONAL REQUESTS OR COMPLAINTS. CALL LIGHT WITHIN REACH. BED RAILS UP. HEAD OF BED AT 35 DEGREES
--- NOTE | 2022-03-31 21:06 | NUR ---
FULL BODY ASSESSMENT DONE. PATIENT DENIES NEEDING RESTROOM AT THIS TIME. ENCOURAGED TO DRINK WATER, PATIENT ABLE TO DRINK 100 ML. STATES " I JUST WANT TO REST AND I KEEP GETTING WOKE UP" DIMMED LIGHTS IN ROOM AND VERBALIZED TO PATIENT WOULD ADMINISTER MEDICATIONS AND THEN PROVIDE SOME TIME FOR UNINTERRUPTED REST. PATIENT CONTENT WITH POC.
--- NOTE | 2022-03-31 21:54 | NUR ---
Pt dozing. Arouses easily. VS done and fresh water given. No needs voiced at this time. Pt states that she just needs to get more sleep.
--- NOTE | 2022-04-01 00:16 | NUR ---
PATIENT RESTING IN POSITION. APPEARS CALM WITH NO NEEDS AT THIS TIME. CALL LIGHT WITHIN REACH.
--- NOTE | 2022-04-01 01:46 | NUR ---
PATIENT APPEARS TO BE RESTING WITH EYES CLOSED. HOURLY ROUNDING.
--- NOTE | 2022-04-01 02:30 | NUR ---
PATIENT CALLED TO USE THE BATHROOM. 1 PA USING WALKER TO BEDSIDE COMMODE. O2 UP TO 6L VIA NC. PATIENT VOIDED 250ML. ASSISTED IN GERALDINE CARE. FRESH PULL UP PUT ON. PATIENT IS BACK IN BED. O2 IS BACK IN 2L. NO OTHER CARE NEEDS AT THIS TIME. CALL LIGHT WITHIN REACH.
--- NOTE | 2022-04-01 07:09 | NUR ---
REPORT RECEIVED FROM GÓMEZ PARRISH. PT RESTING IN SUPINE POSITION WITH HEAD OF BED AT 36 DEGREES, WITH EYES CLOSED. RESPIRATIONS EVEN AND UNLABORED. BED RAILS UP. CALL LIGHT WITHIN REACH. PT ALLOWED TO REST UNDESTURBED.
--- NOTE | 2022-04-01 07:12 | NUR ---
REPORT RECEIVED FROM GÓMEZ DAY. PT RESTING IN SEMIFOWLER POSITION WITH EYES CLOSED, RESPIRATIONS EVEN AND UNLABORED. CALL LIGHT WITHIN REACH. BED RAILS UP. HEAD OF BED AT 30 DEGREES. PT ALLOWED TO REST UNDESTURBED.
--- NOTE | 2022-04-01 08:20 | NUR ---
Referral sent to [facility] for possible placement.Shaniqua from [facility] will call back by noon with answer for placment request.
--- NOTE | 2022-04-01 08:50 | NUR ---
MORNING ASSESSMENT AND MEDICATION DUE. PT UP TO CHAIR, EATING BREAKFAST. PT DENIES PAIN AND NAUSEA. PT ORIENTED TO ALL BUT FORGETFUL AND STATES "I CAN'T REMEMBER SOMETHINGS." PT REPORTS SHE HAD A GOOD NIGHTS SLEEP. STREMGTH EQUAL BILATERALLY WITH STRONG CHECK TOTALER STRENGTH AND PLANTAR/DROSI FLEXION. NIH SCORE OF 1 FOR MINOR RIGHT LEG DRIFT WHEN HELD UP. PT IS ABLE TO PUSH AGAINST RESISTANCE IN ALL EXTREMITIES. IV NOTED TO BE INFILTRATED AND PAINFUL WITH FLUSH. IV DC'D PER PROTOCOL. WILL CONSULT MD PRIOR TO PLACING AN ADDITIONAL IV REGARDING NEED FOR NEW IV. LUNG SOUNDS DEMINISHED IN LOWER LOBES WITH EXPIRATORY WHEEZE NOTED IN LEFT LOWER LOBES. EXIRATORY WHEEZE NOTED IN BOTH UPPER LOBES. WORK OF BREATHING WNL. OCCATIONAL DRY COUGH NOTED. OXGYEN SATURATIONS AT 98% ON 2L O2 BY NC. ROOM AIR TRIAL ATTEMPTED AND PT DROPS TO 86%. PT REMAINS ON 2L O2 BY NC PER BASLINE. RT CALLED FOR BREATHING TREATMENT. REGULAR HEART RATE 90-110'S. MICONZOLE POWDER APPLIED. DEPENDS IN PLACE. PT REMAINS UP TO CHAIR, EATING BREAKFAST. NO ADDITIONAL NEEDS AT THIS TIME. CALL LIGHT LOU ARAYA.
--- NOTE | 2022-04-01 09:41 | NUR ---
THIS RN TO ROOM TO CHECK ONPT. PT REMAINS UP TO CHAIR. RESTING WITH EYES CLOSED. PT AWAKENES TO MOVEMENT IN THE ROOM. RT TO BEDSIDE FOR BREATHING TREATMENT. PT DENIES PAIN AND NAUSEA. NO ADDITIONAL REQUESTS OR COMPLAINTS. CALL LIGHT WITHIN REACH.
--- NOTE | 2022-04-01 10:32 | NUR ---
THIS RN TO ROOM TO CHECK ON PT. PT GETTING UP FOR SHOWER WITH ASSEMBLER. 1 PERSON ASSIST UP TO SHOWER CHAIR. PT TITRATED UP TO 6L O2 BY NC WITH ACTIVITY. PT DENIES PAIN AND NAUSEA. NO ADDIITONAL REQUESTS OR COMPLAINTS. CONSULTED REGARDING IV AND STATES TO PLACE NEW IV SITE. WILL COMPLETE AFTER PTS SHOWER. NO ADDITIONAL NEEDS AT THIS TIME. CALL LIGHT WITHIN REACH. PT WORKING WITH ASSEMBLER FOR SHOWER.
--- NOTE | 2022-04-01 11:40 | NUR ---
THIS RN TO ROOM TO CHECK ON PT. PT UP WITH PHYSICAL THERPAY AMBULATING IN THE [place]. PT DENIES PAIN AND NAUSEA. PTS DAUGHTER, EMILIANA, ARRIVED AND IS UPDATED ON PTS STATUS AND PLAN OF CARE PER PT REQUEST. LIUDMILA STATES HER QUESTIONS HAVE BEEN ANSWERED AND WOULD LIKE TO SPEAK WITH CASE MANAGEMENT REGARDING POSSIBLE HOME PHYSICAL THERPAY INSTEAD OF PLACEMENT. CASE MANAGEMENT UPDATED AND TO ROOM TO TALK WITH PT AND FAMILY. NO ADDITIONAL REQUESTS OR COMPLAINTS. CALL LIGHT WITHIN REACH. PT CONTINEUS TO DENY PAIN AND NAUSEA.
--- NOTE | 2022-04-01 12:26 | NUR ---
THIS RN TO ROOM TO CHECK ON PT. PT UP TO CHAIR VISITING WITH HER DAUGHTER AND EATING LUNCH. PT DENIES PAIN AND NAUSEA. NO REQUESTS OR COMPLAINTS AT THIS TIME. CALL LIGHT LOU HOPSON STATES HER CONVERSATION WITH CASE MANAGEMENT WENT WELL.
--- NOTE | 2022-04-01 13:10 | NUR ---
PT FINISHED WITH LUNCH. PT REQEUSTS TO GO BACK TO BED TO REST. STAND BY ASSIST WITH FWW BACK TO BED. NOTED THAT PTS OXGYEN SATURATIONS WHEN TAKEN ON LEFT RING FINGER ARE 100% WITH ACTIVITY ON 2L O2 BY NC. PT REMAINS ON 2L O2 BY NC WITH TRANSFER. PT DENIES PAIN AND NAUSEA. NO ADDITIONAL REQUESTS OR COMPLAINTS. CALL LIGHT WITHIN REACH. BED RAILS UP.
--- NOTE | 2022-04-01 13:33 | NUR ---
medications reconciled using only information from last admission. Patient unable to provide history
--- NOTE | 2022-04-01 14:34 | NUR ---
THIS RN TO ROOM TO CHECK ON PT. PT RESTING ON LEFT SIDE WITH EYES CLOSED, REPSIRATIONS EVEN AND UNLABORED, BED RAILS UP. CALL LIGHT WIHTIN REACH. HEAD OF BED ELEVATED TO 30 DEGREES. PT ALLOWED TO REST.
--- NOTE | 2022-04-01 15:45 | NUR ---
AFTERNOON ASSESSMENT DUE. PT CONTINUES RESTING WITH EYES CLOSED IN SEMI MONSALVE POSITION WITH HEAD OF BED AT 32 DEGREES. PT AWAKENS TO VOICE AND LIGHT TOUCH. PT DENIES PAIN AND NAUSEA. PT OREINTED TO ALL BUT EXACT DATE AND ANSWERS QUESTIONS APPROPRIATLY. PT REPORTS SLEEPING "FEELS REALLY GOOD." NEW IV STARTED PER PROTOCOL TO LEFT HAND. PT TOLERATED WELL. LUNG SOUNDS CLEAR IN ALL LOBES BUT TIGHT AND DEMINISHED IN BASES. SUSPECTED THAT PT DOES NOT NEED 6L O2 WITH ACTIVITY BUT RATHER OXGYEN SATUARTIONS READINGS ARE MOST ACCURATE ON LEFT RING FINGER. GOOD WAVE FORM NOTED AND OXGYEN SATURATION 98% AT THIS TIME AND DOES NOT DROP SIGNIFICANTLY WITH ACTIVITY WHEN READINGS ARE TAKEN ON LEFT RING FINGER. HEART RATE AND RYTHEM UNCHANGED. TRACE EDMEA NOTED IN LLE WITH MINMAL PINKNESS AND WARMTH BUT NOT HEAT NOTED. REDNESS WELL WITHIN MARKED LINES. PT REPROTS SHE WILL CONTINUE NAP. NO ADDITONAL REQUESTS OR COMPLAITNS. CALL LIGHT WITHIN REACH. BED RAILS UP.
--- NOTE | 2022-04-01 16:09 | NUR ---
PT HERE FOR CVA, HYPER CALCEMIA, AND PNEUMONIA. PT UP TO CHAIR AND WITH WITH PHYSICAL THERAPY THIS SHIFT WITH 1 PERSON ASSIST AND FWW. PT TOELRATING REGULAR DIET WITH MODERATE APPITITE. SHOWER COMPLETED THIS SHIFT. MICONAZOLE APPLIED ORDERED FOR REDNESS UNDER PANNUS AND GERALDINE ARE. PT REMAINS ON 2L O2 BY NC WITH OXGYEN SATURATIONS ABOVE 94%, EVEN WITH ACTIVITY. LEFT RING FINGER NOTED TO GIVE THE BEST, MOST ACCURATE OXGYEN SATUARTION READINGS. NIH SCORE OF 1 THIS SHIFT FOR MILD RIGHT LEG DRIFT. PT DRIBBLES AND MILDLY INCONTINANT, MONITORING URINE OUTPUT. PO HYDRATION ENCOURAGED. PT USES CALL LIGHT AND MAKES NEEDS KNOWN.
--- NOTE | 2022-04-01 16:55 | NUR ---
MEDICATION DUE. PT UP TO CHAIR FOR DINNER WITH STAND BY ASSIST AND FWW. PT EATING HER COOKIE AND MILK. PT DENIES PAIN AND NAUSEA. PT DENIES ADDITIONAL REQUESTS OR COMPLAINTS. CALL LIGHT WITHIN REACH.
--- NOTE | 2022-04-01 18:15 | NUR ---
THIS RN TO ROOM TO CHECK ON PT. PT GETTING UP TO COMODE AND BACK TO BED WITH OCCUPATIONAL THERAPIST. OXGYEN DROPS TO 86% ON 2L O2 BY NC. PT INCREASED TO 8L O2 BY NC TO RECOVER WITH ACITVITY. PT VOIDS 200ML CLEAR YELLOW URINE. GERALDINE CARE DONE. DEPENDS CHANGED. PT BACK TO BED WITH ONE PERSON ASSIST AND FWW. PT WEANED BACK TO 2L O2 BY NC WITH OXYGEN SATURATIONS OF 98%. PT DENIES PAIN AND NAUSEA. NO ADDITIONAL REQUESTS OR COMPLANTS. CALL LIGHT WITHIN REACH. BED RAILS UP.
--- NOTE | 2022-04-01 19:30 | NUR ---
SHIFT REPORT RECEIVED FROM DAYSHIFT GÓMEZ TRUJILLO, pt RESTING IN BED WITH EYES CLOSED. 2LNC IN PLACE, RR EVEN AND UNLABORED. NO DISTRESS NOTED. BED ALARM ON FOR SAFETY AND CALL LIGHT IN REACH.
--- NOTE | 2022-04-01 20:23 | NUR ---
ASSESSMENT COMPLETE, SSCHEDULED DESENEX POWDER APPLIED UNDER BILATERAL BREASTS AND TO GROIN. REDDNESS NOTED UNDER RIGHT BREAST. VSS, FRESH WATER PROVIDED. pt DENEIS NEED TO VOID. A/O TO SELF, PLACE, AND PARTIALLY TO EVENTS. CMS INTACT, pt DENIES NUMBNESS AND TINGLING. BILATERAL LOWER EXTREMITIED COOL TO THE TOUCH, SOCKS AND BLANKETS IN PLACE. NO S/SX OF SKIN BREAKDOWN NOTED TO COCCYX. BED ALARM ON AND CALL LIGHT IN REACH. pt DENIES PAIN, NAUSEA, SOB. 2LNC IN PLACE-CHRONIC PER SHIFT REPORT. NO ADDITIOANL NEEDS OR CONCERNS VERBALIZED BY pt AT THIS TIME.
--- NOTE | 2022-04-01 22:20 | NUR ---
this roustabout and nicole li boosted patient up in bed. patient c/o hot in the room. room temp adjusted from 75 to 70 per patient. took off some covers and left just one cover per patient.
--- NOTE | 2022-04-01 23:54 | NUR ---
ROUNDED ON pt, pt RESTING IN BED WITH EYES CLOSED. ON 2LNC-CHRONIC. RR EVEN AND UNLABORED, NO DISTRESS NOTED. BED ALARM ON AND CALL LIGHT IN REACH. WILL CONTINUE TO MONITOR.
--- NOTE | 2022-04-02 01:36 | NUR ---
ROUNDED ON pt, pt AWAKE AND REQUESTED NEED TO VOID. pt O2 TITRATED FROM 2LNC TO 6LNC, pt UP 1PA WITH FWW TO BSC, VOIDED 300MLS-CHARTED. pt BACK TO BED, BED ALARM RESUMED AND CALL LIGHT IN REACH. SPO2 IN THE LOW TO MID 90'S AFTER DEEP BREATHING ADN pt TITRATED BACK TO BASELINE 2LNC. NO ACUTE CHANGES TO ASSESSMENT.
--- NOTE | 2022-04-02 05:09 | NUR ---
pt RESTING IN BED WITH EYES CLOSED, ON RA. RR EVEN AND UNLABORED. NO DISTRESS NOTED. BED ALARM REMAINS ON FOR SAFETY AND CALL LIGHT IN REACH.
--- NOTE | 2022-04-02 05:39 | NUR ---
ROUNDED ON pt, pt AWAKE AND CULLET TRUCKER SINTA IN ROOM COLLECTING VS. NO NEEDS OR CONCERNS VERBALIZED BY pt, BED ALARM REMAINS ON FOR SAFETY AND CALL LIGHT IN REACH.
--- NOTE | 2022-04-02 07:01 | NUR ---
patient was up to bedside commode. patient is back in bed. patient voided 275ml. no other needs at this time.
--- NOTE | 2022-04-02 07:45 | NUR ---
RECIEVED SHIFT REPORT. PT RESTING IN BED,EYES CLOSED. BREATHING EVEN AND UNLABORED. CALL LIGHT WITHIN REACH
--- NOTE | 2022-04-02 08:54 | NUR ---
MORNING ASSESSMENT COMPLETE. PT RESTING IN BED, AWAKE. DENIES PAIN. EXP. WHEEZE HEARD IN ALL LOBES. REDDNESS ON LLE, DECREASING. CALL LIGHT WITHIN REACH. BED ALARM ON. DENIES FURTHER NEEDS.
--- NOTE | 2022-04-02 11:41 | NUR ---
SITTING UP IN CHAIR WATCHING TV. PATIENT PLANS TO GO HOME WITH HER DAUGHTER. PATIENT HAS A WALKER, CANE AND SHOWER CHAIR. NO OTHER DISCHARGE ISSUES IDENIFIED AT THIS TIME.
--- NOTE | 2022-04-02 11:50 | NUR ---
ANSWERED PT CALL LIGHT. PT REPORTS SOB, PULSE OXIMETRY SHOWS 97% ON 2L NC (CHRONIC). BOOSTED IN BED W/THERAPIST PHYSICAL ASSISTANCE. RT IN ROOM, BREATHING TX STARTED. CALL LIGHT WITHIN REACH.
--- NOTE | 2022-04-02 11:58 | NUR ---
ASSISTED PT UP TO COMMODE W/1PA FWW. SHE WAS ABLE TO STAND W/LITTLE HANDS ON. TRANSFERED TO COMMODE & ABLE TO VOID. I WAS ABLE TO PERFORM GERALDINE CARE, PT TRANSFERED TO CHAIR, LEGS ELEVATED. SHAMPOOD CAP AND OT CAME INTO ROOM AND ASSISTED PT TO FINISH BEDBATH. LINEN CHANGED, CALL LIGHT IN REACH.
--- NOTE | 2022-04-02 14:48 | NUR ---
AFTERNOON ASSESSMENT COMPLETE. NO NEW CHANGES SINCE MORNING ASSESSMENT. DURING ACTIVITY PT REQUIRED AN INCREASE OF O2 TO 5L. DENIES PAIN. CALL LIGHT WITHIN REACH.
--- NOTE | 2022-04-02 17:32 | NUR ---
PT UP IN RECLINER. DENIES PAIN. CALL LIGHT WITHIN REACH.
--- NOTE | 2022-04-02 18:55 | NUR ---
pt in bed, repositioned. call light within reach. denies further needs.
--- NOTE | 2022-04-02 19:05 | NUR ---
RECEIVED REPORT FROM ANNABEL RN. PT RESTING IN BED WATCHING TV. REPORTS NO NEEDS AT THIS TIME. SALINE LOCKED.
--- NOTE | 2022-04-02 21:20 | NUR ---
IN PT ROOM FOR VS, BUSINESS OPERATIONS CONSULTANT, I/O'S, AND ASSESSMENT. PT RESTING IN BED WATCHING TV. PT IS A&O TO ALL BUT DATE/TIME. PT REPORTS NO PAIN, NAUSEA, N/T, DIZZINESS, OR SOB AT THIS TIME. PT REMAINS ON 2L OF O2 VIA NC, O2 SATS >90% AT THIS TIME. LUNGS ARE DIM THROUGHOUT. PULSES PRESENT THROUGHOUT. BOWEL TONES ACTIVE X4. SKIN IS DRY AND SCALY ON LEGS AND FRAGILE. MARKED AREA OF CELLULITS ON LFT LEG IS NOW ONLY PINK, NO REDNESS AT THIS TIME. DEPENDS IN PLACE, PUREWICK IN PLACE, PILLOWS FLOATED UNDER HIPS, BOOSTED IN BED. CALL LIGHT WITHIN REACH, NO FURTHER NEEDS AT THIS TIME.
--- NOTE | 2022-04-02 23:50 | NUR ---
ANSWERED PT CALL LIGHT. PT REPORTS SOB, PULSE OXIMETRY SHOWS 97% ON 2L NC (CHRONIC). BOOSTED IN BED W/JAVA LEAD DEVELOPER ASSISTANCE. RT IN ROOM, BREATHING TX STARTED. CALL LIGHT WITHIN REACH.
--- NOTE | 2022-04-03 01:22 | NUR ---
PT RESTING W/EYES CLOSED. RESPIRATIONS ARE EVEN AND UNLABORED, NO SIGNS OF DISTRESS. ABX INFUSING DIRECTED. PT APPEARS COMFORTABLE AT THIS TIME. CALL LIGHT WITHIN REACH.
--- NOTE | 2022-04-03 01:23 | NUR ---
PT RESTING W/EYES CLOSED. RESPIRATIONS ARE EVEN AND UNLABORED, NO SIGNS OF DISTRESS. 2L O2 VIA NC IN PLACE (CHRONIC). PT APPEARS COMFORTABLE AT THIS TIME. CALL LIGHT WITHIN REACH.
--- NOTE | 2022-04-03 02:42 | NUR ---
IN PT ROOM FOR ASSESSMENT. PT BOOSTED IN BED, PILLOW PLACED UNDER LFT HIP FOR FLOATING. PILLOW ALSO PLACED UNDER KNEES FOR PREVENTION OF SLIDING DOWN IN BED. PT REPORTS NO PAIN, NAUSEA, N/T, SOB AT THIS TIME. PT REMAINS ON 2L VIA NC OF O2 (CHRONIC). O2 SATS>90% AT THIS TIME. NO ACUTE CHANGES FROM PREVIOUS ASSESSMENT. LUNG MORE REMAIN DIMINISHED W/EXPIRATORY WHEEZES ON RT SIDE. CALL LIGHT WITHIN REACH. CHAPSTICK PROVIDED AND WATER REFRESHED. NO FURTHER NEEDS AT THIS TIME.
--- NOTE | 2022-04-03 05:00 | NUR ---
PT RESTING WATCHING TV. PT REQUESTS BOOST IN BED, BOOSTED W/HELP OF COTTON WEIGHER. BEDDING READJUSTED UNDERNEATH PT. PT REPORTS SOB AFTER TURNING IN BED TO ASSIST W/BEDDING CHANGE, RT CALLED AND PROVIDING BREATHING TX AT THIS TIME.
--- NOTE | 2022-04-03 07:36 | NUR ---
RECIEVED SHIFT REPORT. PT RESTING IN BED, AWAKE. CALL LIGHT WITHIN REACH.
--- NOTE | 2022-04-03 07:44 | NUR ---
ASSISTED PT TO CHAIR. SBA WITH FWW CALL LIGHT WITHIN REACH NO FURTHER TASKS AT THIS TIME
--- NOTE | 2022-04-03 07:56 | NUR ---
ASSESSMENT COMPLETE. PT UP IN RECLINER, AWAKE. LUNG SOUNDS DIMINISHED IN ALL LOBES. ON 1.5L NC, SPO2 94%. DENIES PAIN. LLE PINK IN COLOR, WARM, RECEEDING FROM OUTLINE. CALL LIGHT WITHIN REACH. DENIES FURTHER NEEDS AT THIS TIME.
--- NOTE | 2022-04-03 11:49 | NUR ---
PT/OT REPORTED PT SPO2 DESATED TO 66%-69% ON 6L W/ ACTIVITY. THIS RN IN ROOM TO ASSESS. MONITOR NOT SHOWING GOOD WAVEFORM. HIGHFLOW 15L PLACED ON PT. NO CHANGE. OXYMASK 5L, SPO2 94%. RT CALLED TO ASSESS AND BROUGHT EAR PROB. WAS ABLE TO GET A GOOD WAVEFORM. 2L NC, SPO2 100%. RT SUGGESTS TO SPOTCHECK WITH WITH THE EAR PROB ON THE LEFT EAR. PT BACK IN BED, REPORTS BEING A LITTLE LIGHTHEADED AND DIZZY, BUT "NOT BAD". CALL LIGHT WITHIN REACH. DENIES FURTHER NEEDS.
--- NOTE | 2022-04-03 14:38 | NUR ---
PT ALERT, ORIENTED AND SITTING ON SIDE OF BED VISITING WITH HER DAUGHTER. GAVE BLESSING, LET THEM HAVE THEIR TIME. PT THANKED ME FOR VISIT WILL DAVID
--- NOTE | 2022-04-03 16:13 | NUR ---
ASSESSMENT COMPLETE. PT UP TO THE BSC, 1PA, FWW. DIMINISHED IN ALL LOBES. REMAINS 6L W/ ACTIVITY, 2L AT REST. REQUESTED TO GO BACK TO BED. DENIES FURTHER NEEDS. CALL LIGHT WITHIN REACH.
--- NOTE | 2022-04-03 18:24 | NUR ---
pt on bsc. call light within reach.
--- NOTE | 2022-04-03 18:50 | NUR ---
COVID SWAB COLLECTED SENT TO THE LAB
--- NOTE | 2022-04-03 19:10 | NUR ---
RECEIVED REPORT FROM ANNABEL RN. PT RESTING IN BED WATCHING TV. REPORTS NO PAIN/NAUSEA AT THIS TIME. CALL LIGHT WITHIN REACH, NO FURTHER NEEDS AT THIS TIME.
--- NOTE | 2022-04-03 21:00 | NUR ---
IN PT ROOM FOR VS, VENEER LAYER, ASSESSMENT, AND REPOSITIONING. PT ON 2L O2 VIA NC AT THIS TIME, O2 SATS 98%. LUNG SOUNDS ARE DIM THROUGHOUT W/EXP WHEEZES IN LOWER LOBES. BOWEL TONES ACTIVE X4. PULSES PRESENT IN ALL EXTREMETIES. CELLULITIS RECEEDING FROM MARKED LINE ON LEFT LEG. PT IS ORIENTED TO ALL BUT DATE/TIME. PT REPORTS NO PAIN, NAUSEA, DIZZINESS, N/T AT THIS TIME. PT BOOSTED IN BED AND PILLOW PLACED UNDER LFT SIDE FOR HIP FLOAT. IV SITE WNL, SALINE LOCKED. CALL LIGHT WITHIN REACH, NO FURTHER NEEDS AT THIS TIME.
--- NOTE | 2022-04-03 22:00 | NUR ---
ANSWERED CALL LIGHT. PT REPORTS WANTING TO SIT UP IN BED AND TO USE COMMODE TO PEE, 1PA W/FWW FOR 100 ML OUTPUT. PT NOW SITTING IN RECLINER D/T WANTING TO SIT UP. WARM BLANKET PROVIDED, ICE WATER PROVIDED, 2L O2 VIA NC IN PLACE W/O2 SATS >90%. CALL LIGHT WITHIN REACH, NO FURTHER NEEDS AT THIS TIME.
--- NOTE | 2022-04-03 22:30 | NUR ---
PT REPORTS DIFFICULTY FALLING ASLEEP BUT COMFORTABLE IN RECLINER AT THIS TIME. PRN MELATONIN GIVEN (SEE EMAR). CALL LIGHT WITHIN REACH, NO FURTHER NEEDS AT THIS TIME.
--- NOTE | 2022-04-03 22:50 | NUR ---
IN PT ROOM D/T CALL LIGHT. PT REPORTS SOB AT 2L OF O2 VIA NC, O2 SATS AT 96% VIA PULSE OX AT THIS TIME. HILDA RT CALLED AND IN ROOM AT THIS TIME FOR PRN DUONEB BREATHING TX. PT RESTING IN RECLINER. CALL LIGHT WITHIN REACH, RT IN ROOM W/PT.
--- NOTE | 2022-04-03 23:30 | NUR ---
PT BACK IN BED
--- NOTE | 2022-04-04 02:30 | NUR ---
IN PT ROOM TO ASSIST PT OFF OF BEDSIDE COMMODE. PT HAD LARGE SOLID/LIQUID, BROWN BM. GERALDINE CARE PERFORMED. SKIN APPEARS C/D/I, NO SIGNS OF SKIN BREAKDOWN AT THIS TIME. DEPENDS IN PLACE. PT BACK TO BED W/HOB ELEVATED FOR PT COMFORT, 2L OF O2 VIA NC IN PLACE. PT REPORTS NO PAIN, NAUSEA, DIZZINESS, SOB AT THIS TIME. NO ACUTE CHANGES FROM PREVIOUS ASSESSMENT. LUNGS ARE DIM THROUGHOUT. CALL LIGHT WITHIN REACH, FRESH ICE WATER PROVIDED, NO FURTHER NEEDS AT THIS TIME.
--- NOTE | 2022-04-04 03:52 | NUR ---
PT RESTING EYES CLOSED. RESPIRATIONS ARE EVEN AND UNLABORED, NO SIGNS OF DISTRESS. CALL LIGHT WITHIN REACH. 2L OF O2 VIA NC IN PLACE.
--- NOTE | 2022-04-04 04:23 | NUR ---
ANSWERED PT CALL LIGHT FOR BM NEEDS. ASSISTED PT TO BEDSIDE COMMODE W/1PA W/FWW. PT HAD MED SIZED LIQUID BM (BROWN). NEW DEPENDS IN PLACE. GERALDINE CARE PERFORMED. 6L OF O2 DURING AMBULATION TO COMMODE AND NOW BACK TO 2L OF O2 IN BED RESTING. PT REPORTS NO FURTHER NEEDS AT THIS TIME. CALL LIGHT WITHIN REACH.
--- NOTE | 2022-04-04 07:49 | NUR ---
RECIEVED SHIFT REPORT. PT RESTING IN BED, AWAKE. CALL LIGHT WITHIN REACH.
--- NOTE | 2022-04-04 08:15 | NUR ---
Patient up in chair this am for breakfast. Am care completed, blankets from warmer given, and am care is completed. Call light within reach.
--- NOTE | 2022-04-04 08:45 | NUR ---
MORNING ASSESSMENT COMPLETE. PT UP IN CHAIR EATING. DENIES PAIN. LUNGS DIMINISHED IN ALL LOBES. 2L NC, SPO2 100%. NO FURTHER NEEDS. CALL LIGHT WITHIN REACH.
--- NOTE | 2022-04-04 09:25 | NUR ---
PATIENT IN CHAIR AFTER MEAL. VITALS AND I/O'S COMPLETED. CALL LIGHT WITHIN REACH.
--- NOTE | 2022-04-04 11:47 | NUR ---
PHYSICAL THERAPY REPORTED PT REMAINED 94% AT 6L WITH ACTIVITY.
--- NOTE | 2022-04-04 11:58 | NUR ---
PT ALERT, ORIENTED AND SITTNG IN CHAIR. TV ON. FEELING MUCH BETTER, MAY DC TODAY. O2 NC IN USE. GOT PT A WARM BLANKET. P.T. IN TO CARE FOR PT. GAVE BLESSING, WILL FOLLOW
--- NOTE | 2022-04-04 12:40 | NUR ---
PT IN RECLINER EATING LUNCH. CALL LIGHT WITHIN REACH. DENIES FURTHER NEEDS .
--- NOTE | 2022-04-04 14:09 | NUR ---
PT SITTING ON THE SIDE OF THE BED. CALL LIGHT WITHIN REACH. DENIES FURTHER NEEDS.
--- NOTE | 2022-04-04 15:00 | NUR ---
AFTERNOON ASSESSMENT COMPLETE. PT LAYING IN BED, AWAKE. NO NEW CHANGES SINCE MORE ASSESSMENT. PT REMAINS ON 2L NC. LUNG SOUNDS REMAIN DIM IN ALL LOBES. DENIES PAIN. CALL LIGHT WITHIN REACH.
--- NOTE | 2022-04-04 16:52 | NUR ---
PER DISCUSSION WITH DR. COLON PATIENT MAY BE ABLE TO DISCHARGE OVER THE WEEKEND. REFERRAL/ORDER FOR HOME HEALTH PRINTED AND SIGNED. DEMOGRAPHICS AND ORDER FAXED TO [facility].
--- NOTE | 2022-04-04 17:54 | NUR ---
PATIENT IN BED AFTER MEAL. VITALS AND I/O'S COMPLETED. VISITOR IN ROOM. CALL LIGHT WITHIN REACH.
--- NOTE | 2022-04-04 19:23 | NUR ---
Received report from offgoing shift, hourly rounding initiated.
--- NOTE | 2022-04-04 20:54 | NUR ---
IN PT ROOM FOR ROUNDING. PT RESTING ON SIDE, CALL LIGHT IN REACH. PT BREATHING IS EVEN AND UNLABORED, MEDICATION COMPLIANT, NO INDICATIONS OF PAIN OR DISCOMFORT.
--- NOTE | 2022-04-04 23:00 | NUR ---
IN PT ROOM FOR ROUNDING, PT RESTING WITH EVEN, UNLABORED BREATHING. PT CALL LIGHT IN REACH, NO COMPLAINT OF PAIN
--- NOTE | 2022-04-05 02:01 | NUR ---
IN PT ROOM FOR ROUNDING, PT RESTING ON SIDE, NO COMPLAINT OF PAIN OR DISCOMFORT, O2 IN PLACE.
--- NOTE | 2022-04-05 04:20 | NUR ---
IN PT ROOM FOR ROUNDING, PT WAS SITTING ON EDGE OF BED, DECIDED TO GO BACK TO SLEEP. ASSISTED PT TO TRANSFER BACK INTO BED, NO INCIDENT, NO COMPLAINT OF PAIN OR DISCOMFORT. CALL LIGHT IN REACH
--- NOTE | 2022-04-05 06:08 | NUR ---
IN PT ROOM FOR ROUNDING. PT RESTING IN BED, NO COMPLAINT OF PAIN OR DISCOMFORT, CALL LIGHT IN REACH.
--- NOTE | 2022-04-05 07:04 | NUR ---
RECIEVED SHIFT REPORT. PT RESTING IN BED, EYES CLOSED. BREATHING EVEN AND UNLABORED. CALL LIGHT WITHIN REACH.
--- NOTE | 2022-04-05 08:18 | NUR ---
PATIENT UP IN CHAIR THIS MORNING. AM CARE COMPLETED. COFFEE GIVEN. CALL LIGHT WITHIN REACH.
--- NOTE | 2022-04-05 09:12 | NUR ---
MORNING ASSESSMENT COMPLETE. PT UP IN RECLINER. LUNG SOUNDS DIMINISHED IN ALL LOBES. NO NEW CHANGES WITH LLE. REMAINS ON 2L NC AT REST. 6L NC WITH ACTIVITY. CALL LIGHT WITHIN REACH. DENIES PAIN.
--- NOTE | 2022-04-05 13:25 | NUR ---
PATIENT IN CHAIR AFTER LUNCH. VITALS AND I/O'S COMPLETED. CALL LIGHT WITHIN REACH.
--- NOTE | 2022-04-05 14:25 | NUR ---
AFTERNOON ASSESSMENT COMPLETE. NO NEW CHANGES SINCE MORE ASSESSMENT. PT REMAINS ON 2L NC, AND 6L NC W/ ACTIVITY. DENIES PAIN. CALL LIGHT WITHIN REACH.
--- NOTE | 2022-04-05 16:32 | NUR ---
Assisted PT from bed to chair. Offered to put the leg rest of chair up, pt refused, said that she would just sit the way she is. PT has no other needs at this time, call light is within reach.
--- NOTE | 2022-04-05 18:43 | NUR ---
ASSISTED PT FROM CHAIR TO BSC, THEN BACK INTO CHAIR. VITALS AND I/O HAVE BEEN DOCUMENTED. CALL LIGHT IS WITHIN REACH, PT HAS NO OTHER NEEDS AT THIS TIME.
--- NOTE | 2022-04-05 19:27 | NUR ---
PATIENT SITTING UP IN RECLINER, APPEARS CALM. CALL LIGHT WITHIN REACH. BEDSIDE REPORT FROM DAYSHIFT RN. NO OTHER NEEDS AT THIS TIME.
--- NOTE | 2022-04-05 20:30 | NUR ---
ADMINISTERED HS MEDICATIONS, PATIENT SITTING UP IN RECLINER. APPEARS AAOX3. FULL BODY ASSESMENT DONE. 2L NC O2 SAT 94%. PATIENT VERBALIZED WOULD LIKE TO STAY UP IN RECLINER FOR AWHILE LONGER. WILL CALL WHEN READY FOR BED. CALL LIGHT WITHIN REACH.
--- NOTE | 2022-04-05 23:41 | NUR ---
PATIENT RESTING WITH EYES CLOSED. APPEARS TO BE RESTING EASY.
--- NOTE | 2022-04-06 00:30 | NUR ---
PATIENT UP TO BSC, OXYGEN TITRATED TO 5L NC. PATIENT TOLERATED ACTIVITY WELL, APPEARED TO RECOVER FROM DYSPNEA WITHIN 2-3 MINUTES. THEN TITRATED BACK TO 2L. PROVIDED WARM BLANKET. NO OTHER NEEDS AT THIS TIME. BED ALARM ON.
--- NOTE | 2022-04-06 02:02 | NUR ---
PATIENT RESTING IN BED WITH EYES CLOSED, APPEARS TO BE NO NEEDS AT THIS TIME.
--- NOTE | 2022-04-06 04:27 | NUR ---
PATIENT UP TO BSC, TOLERATED ACTIVITY WELL WITH OXYGEN TITRATED TO 4L NC. BACK TO BED, TITRATED BACK TO 2 L NC. PROVIDED WARM BLANKET. ASSESSMENT DONE. NO ACUTE CHANGES. APPEARS TO HAVE NO OTHER NEEDS AT THIS TIME. PATIENT STATES " I HAVE SLEPT WELL LAST NIGHT".
--- NOTE | 2022-04-06 07:36 | NUR ---
recieved shift report. pt resting in bed, call light within reach.
--- NOTE | 2022-04-06 08:35 | NUR ---
MORNING ASSESSMENT COMPLETE. LUNG SOUNDS DIM IN ALL LOBES. NO NEW CHANGES WITH LLE. REMAINS ON 2L NC AT REST, 6L WITH ACTIVITY. CALL LIGHT WITHIN REACH.
[2022-04-06] MEDS ORDERED: METOPROLOL SUCC50 MG PO (11:16)
[2022-04-06] MEDS ORDERED: LIPITOR40 MG PO (11:16)
--- NOTE | 2022-04-06 11:59 | NUR ---
pt in recliner, denies further needs.call light within reach.
--- NOTE | 2022-04-09 14:48 | NUR ---
SPOKE WITH PATIENTS MAGALY ROJO BY PHONE FOR POST DISCHARGE CALL. STATES PATIENT IS ASLEEP. STATES SHE IS DOING WELL, STILL USING THE OXYGEN. IS ABLE TO GET UP AND MOVE AROUND. THEY ARE DOING SOME STRENGTHENING EXERCISES IN THE MORNINGS. THEY ARE AWARE OF F/U APPOINTMENT WITH DR CORONA ON THE AND WILL BE ABLE TO GET HER THERE. HE STATES HE IS STAYING AND HELPING HER AT HOME. HE STATES SHE IS TAKING HER MEDICATIONS WITHOUT PROBLEMS. NO CONCERNS AT THIS TIME. REMINDED TO CALL PCP OFFICE FOR QUESTIONS OR CONCERNS OR RETURN TO ED FOR SERIOUS ISSUES SUCH WORSENING SOB.
== END 2022-04-06 13:55 | disposition home or self-care (01) | DRG 64 ==
LOC: ED 09:43 → MS 15:04
PROVIDERS: ADMIT Family Medicine; ATTEND Internal Medicine
DX: I63.9 Cerebral infarction, unspecified (principal); J15.6 Pneumonia due to other Gram-negative bacteria; I47.1 Supraventricular tachycardia; J96.11 Chronic respiratory failure with hypoxia; N17.9 Acute kidney failure, unspecified; L03.116 Cellulitis of left lower limb; I13.0 Hypertensive heart and chronic kidney disease with heart failure and stage 1 through stage 4 chronic kidney disease, or unspecified chronic kidney disease; Z20.822 Contact with and (suspected) exposure to COVID-19; E83.52 Hypercalcemia; E86.0 Dehydration; I65.22 Occlusion and stenosis of left carotid artery; E78.5 Hyperlipidemia, unspecified; R47.1 Dysarthria and anarthria; I50.9 Heart failure, unspecified; I71.21 Aneurysm of the ascending aorta, without rupture; R91.8 Other nonspecific abnormal finding of lung field; J43.9 Emphysema, unspecified; N18.32 Chronic kidney disease, stage 3b; Z93.3 Colostomy status; Z85.038 Personal history of other malignant neoplasm of large intestine; Z88.8 Allergy status to other drugs, medicaments and biological substances; Z79.82 Long term (current) use of aspirin; Z79.899 Other long term (current) drug therapy
CPT/HCPCS: 36415; 70450; 71045; 71250; 74176; 80048; 80053; 80061; 81001; 82330; 83036; 83735; 83880; 83970; 84100; 85025; 87040; 87502; 92522; 93005; 93010; 93306; 93880; 94640; 94760; 97110; 97116; 97162; 97166; 97530; 97535; A9270; C9803; J1940; J1956; U0003

== ENCOUNTER 2023-05-30 09:44 | Emergency (ER) | payer MEDICARE, OTHER ==
[~2023-05-30] VITALS: Ht 160 cm; Wt 80.5 kg
[~2023-05-30 09:44] MED LIST changes: +LIPITOR40 MG PO
[2023-05-30] MEDS ORDERED: ALBUTEROL/IPRATROPIUM 3 ML NEB INH ONE (10:00)
[2023-05-30 10:02] LABS: BASOPHILS 0.4 % (0-2); EOSINOPHILS 0.6 % (0-6); HEMATOCRIT 36.1 % (35.0-50.0); HEMOGLOBIN 11.6 g/dL (12.0-18.0); LYMPHOCYTES 11.3 % (24-44); MCH 28.6 (27-36); MCHC 32.1 g/dl (30-36); MONOCYTES 9.4 % (0-12); NEUTROPHILS 78.3 % (39-80); PLATELET COUNT 254 K/uL (140-440); RBC 4.05 M/ul (4.3-5.7); RDW 15.1 (10.5-15.0)
[2023-05-30] MEDS ORDERED: SODIUM CHLORIDE 0.9% 1,000 ML IV ONE (10:15)
[2023-05-30 10:16] LABS: BILIRUBIN, URINE NEGATIVE (negative); BLOOD/HGB, URINE MODERATE (Negative); KETONE, URINE NEGATIVE (Negative); LEUK ESTERASE, URINE TRACE (negative); NITRITE, URINE NEGATIVE (negative); PH, URINE 5.5 (5-7)
[2023-05-30 10:29] LABS: EPITHELIAL CELLS, URINE SQUAMOUS 1+ /lpf (0-1+)
[2023-05-30 10:30] LABS: BACTERIA, URINE RARE /hpf (negative); REFLEX CULTURE, URINE Yes (No)
[2023-05-30 10:41] LABS: INFLUENZA B NAA NEGATIVE (NEGATIVE); RESPIRATORY SYNCYTIAL VIR NAA NEGATIVE (NEGATIVE)
[2023-05-30 10:49] LABS: ALBUMIN 2.8 g/dL (3.4-5.0); ALBUMIN/GLOBULIN RATIO 0.62 (1.1-2.4); ANION GAP 13.7 (7-21); BILIRUBIN, TOTAL 0.4 ng/dL (0.2-1.0); CALCIUM 12.4 mg/dL (8.5-10.1); CREATININE, SERUM 2.15 mg/dL (0.55-1.02); POTASSIUM 4.7 mmol/L (3.5-5.1); PROTEIN, TOTAL 7.3 g/dL (6.4-8.2)
[2023-05-30] MEDS ORDERED: SODIUM CHLORIDE 0.9% 500 ML IV PRN (12:15)
[2023-05-30 13:17] LABS: ALBUMIN 2.3 g/dL (3.4-5.0); ALBUMIN/GLOBULIN RATIO 0.58 (1.1-2.4); ANION GAP 9.9 (7-21); BILIRUBIN, TOTAL 0.3 ng/dL (0.2-1.0); BUN/CREATININE RATIO 20.1 (6.0-28.6); CALCIUM 11.1 mg/dL (8.5-10.1); CREATININE, SERUM 1.94 mg/dL (0.55-1.02); POTASSIUM 4.9 mmol/L (3.5-5.1); PROTEIN, TOTAL 6.3 g/dL (6.4-8.2)
[2023-05-30 13:49] VITALS: BP 114/73
== END 2023-05-30 13:51 | disposition home or self-care (01) ==
LOC: ED 09:44
PROVIDERS: Emergency Medicine
DX: R53.1 Weakness (principal); E86.0 Dehydration; J44.9 Chronic obstructive pulmonary disease, unspecified; I10 Essential (primary) hypertension; Z99.81 Dependence on supplemental oxygen; Z88.6 Allergy status to analgesic agent; Z79.82 Long term (current) use of aspirin; Z79.899 Other long term (current) drug therapy
CPT/HCPCS: 36415; 71045; 80053; 81001; 83880; 84484; 85025; 87502; 94640; J7030; J7040; U0002

== ENCOUNTER 2023-09-19 02:32 | Emergency (ER) | payer MEDICARE, OTHER ==
[~2023-09-19] VITALS: Ht 160 cm; Wt 79.4 kg
[2023-09-19] MEDS ORDERED: HYDROCODONE/ACETA 5/325 TAB PO ONE (02:45)
[2023-09-19] MEDS ORDERED: HYDROCODON-ACE1 EA10 PO (04:11)
[2023-09-19] MEDS ORDERED: HYDROCODONE BIT/ACETAMINOPHEN 5/325 MG 1 TAB HOME.PACK PO ONE (04:15)
[2023-09-19 07:32] VITALS: BP 143/76
== END 2023-09-19 07:47 | disposition home or self-care (01) ==
LOC: ED 02:32
DX: M47.816 Spondylosis without myelopathy or radiculopathy, lumbar region (principal); M41.9 Scoliosis, unspecified; I10 Essential (primary) hypertension; J44.9 Chronic obstructive pulmonary disease, unspecified; F17.200 Nicotine dependence, unspecified, uncomplicated; Z88.8 Allergy status to other drugs, medicaments and biological substances; Z79.899 Other long term (current) drug therapy; Z79.82 Long term (current) use of aspirin
CPT/HCPCS: 72100; 99283-25; A9270